=== PATIENT | male | born 1960 ===

== ENCOUNTER 2020-02-01 07:12 | Outpatient (REF) | payer MEDICAID, SELFPAY ==
[2020-02-01 08:00] LABS: MANUAL DIFF FLAG NO
[2020-02-01 08:08] LABS: Basophils Percent Auto 0.3 % (0-2); Eosinophils Absolute Auto 0.2 X10*3/uL (0.0-0.4); Eosinophils Percent Auto 2.6 % (0-4); Hematocrit 48.5 % (42-52); Hemoglobin 16.7 g/dl (14.0-18.0); Imm Gran Abs Auto 0.03 X10*3/uL (0.00-0.03); Imm Gran Pct Auto 0.4 % (0.0-0.4); Lymphocytes Absolute Auto 1.9 X10*3/uL (1.2-4.9); Lymphocytes Percent Auto 25.5 % (20-40); Mean Corpuscular HGB Conc 34.4 g/dl (31.0-36.0); Mean Corpuscular Hemoglobin 32.7 pg (27.0-33.0); Mean Corpuscular Volume 94.9 fL (80-98); Monocytes Absolute Auto 0.8 X10*3/uL (0.1-1.2); Monocytes Percent Auto 11.5 % (2-11); Neutrophils Absolute Auto 4.4 X10*3/uL (2.0-8.3); Neutrophils Percent Auto 59.7 % (45-73); Platelet Count 166 X10*3/uL (160-400); Red Blood Count 5.11 X10*6/uL (4.60-5.80); Red Cell Distribution Width 13.7 % (11.0-16.0); White Blood Count 7.3 X10*3/uL (4.8-10.8)
[2020-02-01 08:21] LABS: Estimated Average Glucose 117 mg/dL; Hemoglobin A1c % 5.7 %
[2020-02-01 08:28] LABS: Alanine Aminotransferase 17 U/L (0-40); Alkaline Phosphatase 58 U/L (39-117); Anion Gap 11 (12-20); Aspartate Amino Transferase 16 U/L (5-37); Bilirubin Total 0.3 mg/dL (0.0-1.0); Blood Urea Nitrogen 16 mg/dL (9-16); Carbon Dioxide 24 mmol/L (22-29); Chloride 108 mmol/L (96-108); Cholesterol 128 mg/dL; Estimated Glomerular Filt Rate > 60; Glucose Random 129 mg/dL (60-115); HDL Cholesterol 29 mg/dL; LDL Cholesterol Calculated 80 mg/dl; Potassium 4.1 mmol/l (3.3-5.1); Sodium 139 mmol/L (135-145); Total Protein 6.7 g/dL (6.5-8.0); Triglycerides 97 mg/dL
[2020-02-01 09:13] LABS: Folate 9.6 ng/mL (> or = 4.0); Vitamin B12 498 pg/mL (200-900)
== END 2020-02-01 07:13 | disposition home or self-care (01) ==
LOC: HO.LAB 07:12
PROVIDERS: PCP Family Medicine; Visit Provider Family Medicine
DX: E53.8 Deficiency of other specified B group vitamins (principal); E78.5 Hyperlipidemia, unspecified; I10 Essential (primary) hypertension
CPT/HCPCS: 36415; 80053; 80061; 82306; 82607; 82746; 83036; 85025

== ENCOUNTER → 2020-02-01 10:16 | Outpatient (BNVA) | payer MEDICAID, SELFPAY | PROVIDERS: PCP Family Medicine; Referring Provider Family Medicine; Visit Provider Family Medicine | DX: Z95.2 Presence of prosthetic heart valve (principal); Z51.81 Encounter for therapeutic drug level monitoring; Z79.01 Long term (current) use of anticoagulants | CPT/HCPCS: 99211 ==

== ENCOUNTER → 2020-02-22 10:12 | Outpatient (BNVA) | payer MEDICAID, SELFPAY | PROVIDERS: PCP Family Medicine; Visit Provider Internal Medicine | DX: Z95.2 Presence of prosthetic heart valve (principal); Z51.81 Encounter for therapeutic drug level monitoring; Z79.01 Long term (current) use of anticoagulants | CPT/HCPCS: 85610; 99211 ==

== ENCOUNTER 2020-03-08 08:26 | Outpatient (REF) | payer MEDICAID, SELFPAY ==
--- NOTE | 2020-03-08 08:30 | CT_ITS ---
EXAMINATION: CT CHEST SCREENING CLINICAL INFORMATION: Follow up pulmonary nodules. COMPARISON: CT chest 12/29/2016 and 02/03/2019. TECHNIQUE: Multidetector volumetric CT imaging of the chest is performed without contrast using low dose technique. Additional 2D coronal and sagittal reformatted images and axial 3D maximum intensity projection (MIP) images are generated on the CT workstation. This CT examination was performed using dose optimization techniques as appropriate, variously including the following: *Automated exposure control *Adjustment of mA and/or kV according to patient size (this includes techniques or standardized protocols for targeted exams where dose is matched to indication/reason for exam; i.e. extremities or head) *Use of iterative reconstruction technique DLP: 67 mGy-cm FINDINGS: LUNGS: Previously seen multiple bilateral cavitary lesions seen in 2017 have completely resolved in 2020. There is a small calcified 5 mm nodule left lower lobe axial image 43/4 and 2 mm calcified nodule lingula axial image 62/9. No acute pneumonic consolidation seen. MEDIASTINUM: The thyroid lobes are symmetric and normal. The central trachea and the bronchi are widely patent. Heart size and the great vessels are normal caliber. There is a benign right paratracheal 1.5 cm lymph node. No pericardial effusion seen. There is aortic valve prosthesis in place. PLEURA: There is no pleural effusion. No pleural mass or thickening. AXILLA: No lymphadenopathy. UPPER ABDOMEN: Visualized liver, pancreas and bilateral adrenal glands are unremarkable. A few scattered calcifications are seen in the spleen. OSSEOUS STRUCTURES: There are median sternotomy sutures and aortic valve prosthesis from previous intervention. CT/CT lung screening IMPRESSION: No noncalcified nodule seen. Cavitary small nodules seen in 2017 have completely resolved. ASSESSMENT: Lung-RADS category 2: Benign. RECOMMENDATION: Low-dose annual CT chest.
== END 2020-03-08 08:27 | disposition home or self-care (01) ==
LOC: HO.CT 08:26
PROVIDERS: PCP Family Medicine; Visit Provider Surgery
DX: F17.210 Nicotine dependence, cigarettes, uncomplicated (principal)
CPT/HCPCS: 71250

== ENCOUNTER 2020-04-15 13:02 | Emergency (ER) | payer MEDICAID, SELFPAY ==
[2020-04-15 13:42] VITALS: BP 124/67; PULSE 88; RESP 16; TEMP 36; O2SAT 100; BMI 25.0
--- NOTE | 2020-04-15 13:49 | PC.NURSE ---
WRONG TRIAGE, PT LWT
== END 2020-04-15 14:18 | disposition left against medical advice (07) ==
PROVIDERS: Emergency Provider Emergency Medicine; PCP Family Medicine
DX: R07.9 Chest pain, unspecified (principal)
CPT/HCPCS: 99282

== ENCOUNTER → 2020-04-24 13:39 | Outpatient (BNVA) | payer MEDICAID, SELFPAY | PROVIDERS: PCP Family Medicine; Visit Provider Internal Medicine | DX: I42.8 Other cardiomyopathies (principal); Z98.890 Other specified postprocedural states; Z86.79 Personal history of other diseases of the circulatory system; Z95.2 Presence of prosthetic heart valve | CPT/HCPCS: 99212 ==

== ENCOUNTER 2020-05-19 08:36 | Emergency (ER) | payer MEDICAID, SELFPAY | END 2020-05-19 10:18 | disposition left against medical advice (07) | PROVIDERS: Emergency Provider Emergency Medicine Emergency Medical Services; PCP Family Medicine | DX: M25.559 Pain in unspecified hip (principal) ==

== ENCOUNTER 2020-05-21 10:40 | Emergency (ER) | payer MEDICAID, SELFPAY ==
[2020-05-21 11:17] VITALS: PULSE 71; RESP 18; TEMP 36.9; O2SAT 997; BMI 33.2
--- NOTE | 2020-05-21 11:18 | ED_ITS ---
HPI - General Adult General Chief complaint: Extremity Problem <Chapis Santamaria NP - Last Filed: 05/21/20 12:29> Stated complaint: back pain <Chapis Santamaria NP - Last Filed: 05/21/20 12:29> Time Seen by Provider: 05/21/20 11:17 <Chapis Santamaria NP - Last Filed: 05/21/20 12:29> Source: patient and interpreter for the deaf <Chapis Santamaria NP - Last Filed: 05/21/20 12:29> Mode of arrival: ambulatory <Chapis Santamaria NP - Last Filed: 05/21/20 12:29> Limitations: language barrier <Chapis Santamaria NP - Last Filed: 05/21/20 12:29> History of Present Illness HPI narrative: 60 yo male with past medical history of cardiomyopathy, COPD, HTN, HLD here with left lower back pain with radiation down the left leg with intermittent numbness/tingling. No injury or trauma. No incontinence. No saddle anesthesia. Ambulatory. Taking motrin for pain with no relief. On coumadin. <Chapis Santamaria NP - Last Filed: 05/21/20 12:29> Onset (ago): week(s) <Chapis Santamaria NP - Last Filed: 05/21/20 12:29> Location: back <Chapis Santamaria NP - Last Filed: 05/21/20 12:29> Radiation: extremity <Chapis Santamaria NP - Last Filed: 05/21/20 12:29> Severity: moderate <Chapis Santamaria NP - Last Filed: 05/21/20 12:29> Quality: aching <Chapis Santamaria NP - Last Filed: 05/21/20 12:29> Pain Consistency: constant <Chapis Santamaria NP - Last Filed: 05/21/20 12:29> Relieving factors: none <Chapis Santamaria NP - Last Filed: 05/21/20 12:29> Exacerbating factors: none <Chapis Santamaria NP - Last Filed: 05/21/20 12:29> Associated symptoms: denies other symptoms <Chapis Santamaria NP - Last Filed: 05/21/20 12:29> Treatments prior to arrival: NSAID <Chapis Santamaria NP - Last Filed: 05/21/20 12:29> Related Data Home medications: Home Medications Medication Instructions Recorded Confirmed aspirin [Aspir-81] 81 mg PO DAILY 03/22/20 04/24/20 bisacodyl [Dulcolax (bisacodyl)] 5 mg PO BEDTIME 03/22/20 04/24/20 cyanocobalamin (vitamin B-12) 1,000 mcg PO DAILY 03/22/20 04/24/20 [Vitamin B-12] ergocalciferol (vitamin D2) 1,250 mcg PO QWEEK 03/22/20 04/24/20 [Vitamin D2] folic acid 1 mg PO DAILY 03/22/20 04/24/20 lisinopril 10 mg PO DAILY 03/22/20 04/24/20 loratadine 10 mg PO DAILY 03/22/20 04/24/20 metoprolol succinate 25 mg PO DAILY 03/22/20 04/24/20 simvastatin 20 mg PO BEDTIME 03/22/20 04/24/20 tiotropium bromide [Spiriva with 1 cap INHALATION DAILY 03/22/20 04/24/20 HandiHaler] tizanidine 4 mg PO TID PRN 03/22/20 04/24/20 Previous Rx's Medication Instructions Recorded warfarin 5 mg tablet 5 mg PO DAILY #90 tab 02/02/20 bisacodyl 5 mg tablet,delayed 10 mg PO ONCE 1 Days #2 tab 03/26/20 release polyethylene glycol 3350 17 238 g PO .COMPLEX 1 Days #238 g 03/26/20 gram/dose oral powder cyclobenzaprine 10 mg PO TID PRN #20 tab 05/21/20 lidocaine [Lidoderm] 1 patch TOPICAL DAILY #1 ea 05/21/20 oxycodone 5 mg PO Q8H PRN #10 tab 05/21/20 <Chapis Santamaria NP - Last Filed: 05/21/20 12:29> Allergies/adverse reactions: Allergies Allergy/AdvReac Type Severity Reaction Status Date / Time acetaminophen [From Tylenol] Allergy Unknown Verified 03/22/20 11:53 <Chapis Santamaria NP - Last Filed: 05/21/20 12:29> Review of Systems Review of Systems: Yes all other systems are reviewed and are negative <Chapis Santamaria NP - Last Filed: 05/21/20 12:29> Constitutional: Constitutional: Reports no additional constitutional complaints, Denies body ache(s), Denies chills, Denies fever(s), Denies headache(s) and Denies weakness <Chapis Santamaria NP - Last Filed: 05/21/20 12:29> Eyes: Eyes: Reports no additional eye complaints and Denies change in vision <Chapis Santamaria NP - Last Filed: 05/21/20 12:29> ENT: Reports system reviewed and no additional complaints, except as documented, Denies dizziness, Denies headache(s), Denies nasal congestion, Denies nasal discharge and Denies neck pain <Chapis Santamaria NP - Last Filed: 05/21/20 12:29> Cardiovascular: Cardiovascular: Reports no additional cardiovascular complaints, Denies chest pain, Denies leg edema and Denies dyspnea <Chapis Santamaria NP - Last Filed: 05/21/20 12:29> Respiratory: Respiratory: Reports no additional respiratory complaints, Denies cough and Denies dyspnea <Chapis Santamaria NP - Last Filed: 05/21/20 12:29> Gastrointestinal: Gastrointestinal: Reports no additional gastrointestinal complaints, Denies abdominal pain, Denies diarrhea, Denies nausea and Denies vomiting <Chapis Santamaria NP - Last Filed: 05/21/20 12:29> Genitourinary: Genitourinary: Denies urinary incontinence <Chapis Santamaria NP - Last Filed: 05/21/20 12:29> Musculoskeletal: Musculoskeletal: Reports no additional musculoskeletal complaints, Reports back pain, Denies arthralgias, Denies joint swelling, Denies neck pain, Denies numbness and Reports tingling <Chapis Santamaria NP - Last Filed: 05/21/20 12:29> Integumentary/Breasts: Skin/Breast: Reports system reviewed and no additional complaints, except as docu and Denies rash <Chapis Santamaria NP - Last Filed: 05/21/20 12:29> Neurologic: Reports system reviewed and no additional complaints, except as documented, Denies Abnormal speech present, Denies dizziness, Denies headache(s), Denies numbness, Reports tingling and Denies weakness <Chapis Santamaria NP - Last Filed: 05/21/20 12:29> FORMERLY [facility] Past Medical History Attestation statement: The following information was validated with the patient. <Chapis Santamaria NP - Last Filed: 05/21/20 12:29> Source: old records reviewed and nursing notes reviewed <Chapis Santamaria NP - Last Filed: 05/21/20 12:29> Medical History: Medical History Aortic valve disorder Cardiomyopathy Chronic cough Emphysema/COPD Hyperlipidemia Hypertension LBBB (left bundle branch block) Nonischemic cardiomyopathy Pulmonary nodular amyloidosis Pulmonary nodule Smoker Vitamin B12 deficiency <Chapis Santamaria NP - Last Filed: 05/21/20 12:29> Surgical History: Surgical History Aortic valve replaced Hx of aortic aneurysm repair Hx of elbow surgery S/P ascending aortic aneurysm repair Status post mechanical aortic valve replacement <Chapis Santamaria NP - Last Filed: 05/21/20 12:29> Social History Social History: Social History Smoking Status: Current every day smoker Packs Per Day: 1 Cigarettes Per Day: 20.0 Years Smoked: 30 Advance Directives: No Advance Directives Information Provided: No <Chapis Santamaria NP - Last Filed: 05/21/20 12:29> Physical Exam Vital Signs: Vital Signs: Last Vital Signs Temp 98.4 F 05/21/20 11:17 Pulse 71 05/21/20 11:17 Resp 18 05/21/20 11:17 Pulse Ox 997 H 05/21/20 11:17 Body Mass Index 33.2 <Chapis Santamaria NP - Last Filed: 05/21/20 12:29> Vital Signs: Last Vital Signs Temp 98.4 F 05/21/20 11:17 Pulse 71 05/21/20 11:17 Resp 18 05/21/20 11:17 Pulse Ox 997 H 05/21/20 11:17 Body Mass Index 33.2 <Epifanio Rocha MD - Last Filed: 05/24/20 15:49> Const: General: cooperative, healthy appearing, comfortable and no acute distress <Chapis Santamaria NP - Last Filed: 05/21/20 12:29> Orientation/consciousness: patient oriented x3 <Chapis Santamaria NP - Last Filed: 05/21/20 12:29> Limitations: no limitations <Chapis Santamaria NP - Last Filed: 05/21/20 12:29> HENMT: Head: Yes normal to inspection <Chapis Santamaria NP - Last Filed: 05/21/20 12:29> Ears: hearing grossly normal bilaterally <Chapis Santamaria NP - Last Filed: 05/21/20 12:29> General nose exam: Normal external nose present <Chapis Santamaria NP - Last Filed: 05/21/20 12:29> Face and sinus: Yes normal facial exam <Chapis Santamaria NP - Last Filed: 05/21/20 12:29> Mouth: Normal oral and palatal mucosa present <Chapis Santamaria NP - Last Filed: 05/21/20 12:29> Throat: Yes posterior oropharynx normal <Chapis Santamaria NP - Last Filed: 05/21/20 12:29> Eyes: General: appearance normal, both eyes and all related structures <Chapis Santamaria NP - Last Filed: 05/21/20 12:29> Pupils: Equal, round and reactive pupils present <Chapis Santamaria NP - Last Filed: 05/21/20 12:29> Neck: Neck: Yes normal visual inspection <Chapis Santamaria NP - Last Filed: 05/21/20 12:29> Chest: Chest palpation & inspection: normal inspection of the chest <Chapis Santamaria NP - Last Filed: 05/21/20 12:29> Resp: Effort & Inspection: normal respiratory effort <Chapis Santamaria NP - Last Filed: 05/21/20 12:29> Auscultation: clear to auscultation bilaterally <Chapis Santamaria NP - Last Filed: 05/21/20 12:29> Cardio: Rate: regular rate <Chapis Santamaria NP - Last Filed: 05/21/20 12:29> Rhythm: regular rhythm <Chapis Santamaria NP - Last Filed: 05/21/20 12:29> Peripheral pulses: Peripheral pulses 2+ throughout <Chapis Santamaria NP - Last Filed: 05/21/20 12:29> GI: Inspection: Yes normal to inspection <Chapis Santamaria NP - Last Filed: 05/21/20 12:29> Palpation (GI): Soft to palpation and nontender <Chapis Santamaria NP - Last Filed: 05/21/20 12:29> Auscultation: normal bowel sounds <Chapis Santamaria NP - Last Filed: 05/21/20 12:29> Back/Spine/Pelvis: Other: Left buttocks tender to palp with radiation down left posterior leg, pain worsened with straight leg raise. No midline tenderness/step offs or deformities. <Chapis Santamaria NP - Last Filed: 05/21/20 12:29> Thoracic/Lumbar Spine: thoracic and lumbar spine normal to inspection <Chapis Santamaria NP - Last Filed: 05/21/20 12:29> Skin: General skin exam: no rashes or lesions noted <Chapis Santamaria NP - Last Filed: 05/21/20 12:29> Neuro: General: patient oriented x3, no focal motor deficits and normal sensat ion to monofilament <Chapis Santamaria NP - Last Filed: 05/21/20 12:29> Cranial nerves: Yes Equal, round and reactive pupils present <Chapis Santamaria NP - Last Filed: 05/21/20 12:29> Cognition (Neuro): normal cognition <Chapis Santamaria NP - Last Filed: 05/21/20 12:29> Speech: No Abnormal speech present <Chapis Santamaria NP - Last Filed: 05/21/20 12:29> Gait exam (Neuro): Normal gait present <Chapis Santamaria NP - Last Filed: 05/21/20 12:29> Motor exam (neuro): 5/5 motor strength present throughout <Chapis Santamaria NP - Last Filed: 05/21/20 12:29> Extrem: General: Yes normal to inspection <Chapis Santamaria NP - Last Filed: 05/21/20 12:29> Course Course Course Narrative: Exam c/w with sciatica. No red flag symptoms or neurological deficits. requesting INR to be tested. This was done and 2.0. Results given to patient. Reviewed worrisome signs/symptoms with patient and when to return to ED. Comfortable with discharge home. <Chapis Santamaria NP - Last Filed: 05/21/20 12:29> I have reviewed the chart <Epifanio Rocha MD - Last Filed: 05/24/20 15:49> Medical Decision Making Lab Data Labs: Lab Results 05/21/20 Range/Units 11:42 PT 23.6 H (10.8-13.0) SEC INR 2.0 H (0.9-1.1) <Chapis Santamaria NP - Last Filed: 05/21/20 12:29> Lab Results 05/21/20 Range/Units 11:42 PT 23.6 H (10.8-13.0) SEC INR 2.0 H (0.9-1.1) <Epifanio Rocha MD - Last Filed: 05/24/20 15:49> Discharge Plan Discharge Clinical Impression: Sciatica <Chapis Santamaria NP - Last Filed: 05/21/20 12:29> Patient Disposition: Home, Self-Care <Chapis Santamaria NP - Last Filed: 05/21/20 12:29> Instructions: Sciatica (ED) <Chapis Santamaria NP - Last Filed: 05/21/20 12:29> Additional Instructions: Heat and gentle stretching Follow-up with PCP in 5 days if no improvement Return for incontinence of stool or urine, or numbness in the groin Your INR is 2.0 <Chapis Santamaria NP - Last Filed: 05/21/20 12:29> Prescriptions: New cyclobenzaprine 10 mg tablet 10 mg PO TID PRN (Reason: muscle spasm) Qty: 20 RF: 0 lidocaine [Lidoderm] 5 % adhesive patch,medicated 1 patch topical DAILY Qty: 1 RF: 0 oxycodone 5 mg tablet 5 mg PO Q8H PRN (Reason: pain) Qty: 10 RF: 0 No Action bisacodyl [Dulcolax (bisacodyl)] 5 mg tablet,delayed release (DR/EC) 10 mg PO ONCE 1 Days Qty: 2 RF: 0 polyethylene glycol 3350 [Miralax] 17 gram/dose powder 238 g PO .COMPLEX 1 Days Qty: 238 RF: 0 aspirin [Aspir-81] 81 mg Tablet,Delayed Release (Dr/Ec) 81 mg PO DAILY RF: 0 simvastatin 20 mg Tablet 20 mg PO BEDTIME RF: 0 lisinopril 10 mg Tablet 10 mg PO DAILY RF: 0 folic acid 1 mg Tablet 1 mg PO DAILY RF: 0 bisacodyl [Dulcolax (bisacodyl)] 5 mg Tablet,Delayed Release (Dr/Ec) 5 mg PO BEDTIME RF: 0 metoprolol succinate 25 mg Tablet Extended Release 24 Hr 25 mg PO DAILY RF: 0 ergocalciferol (vitamin D2) [Vitamin D2] 1,250 mcg (50,000 unit) Capsule 1,250 mcg PO QWEEK RF: 0 loratadine 10 mg Tablet 10 mg PO DAILY RF: 0 Spiriva with HandiHaler 18 mcg Capsule, W/Inhalation Device 1 cap INHALATION DAILY RF: 0 tizanidine 4 mg Capsule 4 mg PO TID PRN (Reason: Pain) RF: 0 cyanocobalamin (vitamin B-12) [Vitamin B-12] 500 mcg Lozenge 1,000 mcg PO DAILY RF: 0 warfarin 5 mg tablet 5 mg PO DAILY Qty: 90 RF: 0 <Cahpis Santamaria NP - Last Filed: 05/21/20 12:29> Referrals: Ana Paula Davidson MD [Primary Care Provider] - 2 days <Chapis Santamaria NP - Last Filed: 05/21/20 12:29> Interventions: ED Discharge Assessment Last Done: 05/21/20 12:28 <Chapis Santamaria NP - Last Filed: 05/21/20 12:29> Discharge Date/Time: 05/21/20 12:28 <Chapis Santamaria NP - Last Filed: 05/21/20 12:29> Print Language: [place]an <Chapis Santamaria NP - Last Filed: 05/21/20 12:29>
[2020-05-21 12:00] LABS: Prothrombin Time 23.6 SEC (10.8-13.0)
== END 2020-05-21 12:28 | disposition home or self-care (01) ==
PROVIDERS: Nurse Practitioner Family; Emergency Provider Emergency Medicine; PCP Family Medicine
DX: M54.42 Lumbago with sciatica, left side (principal); I10 Essential (primary) hypertension; F17.210 Nicotine dependence, cigarettes, uncomplicated
CPT/HCPCS: 36415; 85610; 99283

== ENCOUNTER 2020-05-29 12:26 | Emergency (ER) | payer MEDICAID, SELFPAY ==
[2020-05-29 13:01] VITALS: BP 111/66; PULSE 71; RESP 16; TEMP 36.1; O2SAT 98; BMI 33.2
--- NOTE | 2020-05-29 13:07 | ED_ITS ---
HPI - Back Pain/Injury General Chief Complaint: Back Pain/Injury <DICK Huggins - Last Filed: 05/29/20 13:36> Stated Complaint: leg pain <DICK Huggins - Last Filed: 05/29/20 13:36> Time Seen by Provider: 05/29/20 13:06 <DICK Huggins - Last Filed: 05/29/20 13:36> Source: patient <DICK Huggins Last Filed: 05/29/20 13:36> Mode of arrival: ambulatory <DICK Huggins Last Filed: 05/29/20 13:36> Limitations: language barrier <DICK Huggins Last Filed: 05/29/20 13:36> History of Present Illness HPI Narrative: 60 yo male presents with 1 month of non-traumatic low back pain that radiates down his left leg. He was seen here on 05/21 for the same - prescribed flexeril, oxycodone and lidoderm patches. He returns again today because he ran out of pain medications. No new injury. He states he tried calling his doctor today but he says he was unable to get ahold of them. He denies weakness, incontinence but says it is harder for him to walk because of the pain. <DICK Huggins Last Filed: 05/29/20 13:36> Related Data Home Medications: Home Medications Medication Instructions Recorded Confirmed aspirin [Aspir-81] 81 mg PO DAILY 03/22/20 04/24/20 bisacodyl [Dulcolax (bisacodyl)] 5 mg PO BEDTIME 03/22/20 04/24/20 cyanocobalamin (vitamin B-12) 1,000 mcg PO DAILY 03/22/20 04/24/20 [Vitamin B-12] ergocalciferol (vitamin D2) 1,250 mcg PO QWEEK 03/22/20 04/24/20 [Vitamin D2] folic acid 1 mg PO DAILY 03/22/20 04/24/20 lisinopril 10 mg PO DAILY 03/22/20 04/24/20 loratadine 10 mg PO DAILY 03/22/20 04/24/20 metoprolol succinate 25 mg PO DAILY 03/22/20 04/24/20 simvastatin 20 mg PO BEDTIME 03/22/20 04/24/20 tiotropium bromide [Spiriva with 1 cap INHALATION DAILY 03/22/20 04/24/20 HandiHaler] tizanidine 4 mg PO TID PRN 03/22/20 04/24/20 Previous Rx's Medication Instructions Recorded warfarin 5 mg tablet 5 mg PO DAILY #90 tab 02/02/20 bisacodyl 5 mg tablet,delayed 10 mg PO ONCE 1 Days #2 tab 03/26/20 release polyethylene glycol 3350 17 238 g PO .COMPLEX 1 Days #238 g 03/26/20 gram/dose oral powder cyclobenzaprine 10 mg PO TID PRN #20 tab 05/21/20 lidocaine [Lidoderm] 1 patch TOPICAL DAILY #1 ea 05/21/20 oxycodone 5 mg PO Q8H PRN #10 tab 05/21/20 acetaminophen [Tylenol Arthritis 650 mg PO Q8H PRN #30 tab 05/29/20 Pain] acetaminophen [Tylenol] 650 mg PO Q6H PRN #20 tab 05/29/20 cyclobenzaprine 10 mg PO TID PRN #8 tab 05/29/20 oxycodone 5 mg PO BID PRN #5 tab 05/29/20 oxycodone 5 mg PO Q8H PRN #6 tab 05/29/20 prednisone 40 mg PO DAILY #10 tab 05/29/20 prednisone 40 mg PO DAILY 5 Days #10 tab 05/29/20 <DICK Huggins - Last Filed: 05/29/20 13:36> Allergies/Adverse Reactions: Allergies Allergy/AdvReac Type Severity Reaction Status Date / Time No Known Allergies Allergy Verified 05/30/20 10:27 <DICK Huggins - Last Filed: 05/29/20 13:36> Review of Systems Review of Systems: Constitutional: No Fever, No Chills Cardiovascular: No Chest Pain, No SOB, No Orthopnea, No Edema Respiratory: No Cough, No Sputum, No Wheezing, No dyspnea Gastrointestinal: No Nausea, No Vomiting, No Diarrhea, No abdominal Pain Genitourinary: No incontinence Musculoskeletal: + joint pain, + Myalgias Skin: No Skin Lesions, No rash Neuro: No Weakness, No Numbness, No Dizziness, +tingling down left leg intermittently Heme/Lymph: No Bruising, No Lymphadenopathy <DICK Huggins - Last Filed: 05/29/20 13:36> [facility] Past Medical History Attestation statement: The following information was validated with the patient. <DICK Huggins - Last Filed: 05/29/20 13:36> Medical History: Medical History (Updated 05/30/20 @ 10:48 by AFRICA Ibarra) Aortic valve disorder Cardiomyopathy Chronic cough Diverticulitis Emphysema/COPD Hyperlipidemia Hypertension LBBB (left bundle branch block) Nonischemic cardiomyopathy Pulmonary nodular amyloidosis Pulmonary nodule Smoker Vitamin B12 deficiency <DICK Huggins - Last Filed: 05/29/20 13:36> Surgical History: Surgical History Aortic valve replaced Hx of aortic aneurysm repair Hx of elbow surgery S/P ascending aortic aneurysm repair Status post mechanical aortic valve replacement <DICK Huggins - Last Filed: 05/29/20 13:36> Social History Social History: Social History (Updated 05/30/20 @ 10:30 by Swetha Mcmillan) Household Members: None Alcohol intake: current Alcohol intake frequency: does not drink Smoking Status: Current every day smoker Cigarettes Per Day: 15.0 Years Smoked: 30 Use of substances other than those prescribed or required for medical reasons: No <DICK Huggins - Last Filed: 05/29/20 13:36> Physical Exam Vital Signs: Vital Signs: Last Vital Signs Temp 97.0 F 05/29/20 13:01 Pulse 71 05/29/20 13:01 Resp 16 05/29/20 13:01 BP 111/66 05/29/20 13:01 Pulse Ox 98 05/29/20 13:01 Body Mass Index 33.2 Appearance: Alert. Oriented X3. No acute distress. HEENT: normal inspection CVS: Normal heart rate and rhythm. Pulses normal. Respiratory: No respiratory distress. Skin: Skin warm and dry. Normal skin color. Normal skin turgor. No rashes. Extremities: atraumatic, normal DTR's Back: left SI joint with significant tenderness, moderate soft tissue tenderness of lower left lumbar areas Neuro: Oriented X 3. No motor deficit. No sensory deficit. Walks with limping gait. <DICK Huggins - Last Filed: 05/29/20 13:36> Vital Signs: Last Vital Signs Temp 97.0 F 05/29/20 13:01 Pulse 71 05/29/20 13:01 Resp 16 05/29/20 13:01 BP 111/66 05/29/20 13:01 Pulse Ox 98 05/29/20 13:01 Body Mass Index 33.2 <Epifanio Rocha MD - Last Filed: 06/05/20 08:02> Course Course Course Narrative: 60 y/o male returning with persistent low back pain, radiating down left leg. Seen here on 05/21 for the same. Took the medications prescribed with brief improvement. No red flag symptoms of LBP. No hx IVDA. Has not followed up with his doctor yet. Patient advised that it is very important for him to follow up with his PCP for further management. [employer] reviewed, no narcotics prescribed since 2019 aside from here on 05/21. Will give a 3 day course of medications and trial of steroids for sciatica. Stable for d/c. <DICK Huggins - Last Filed: 05/29/20 13:36> I have reviewed the chart <Epifanio Rocha MD - Last Filed: 06/05/20 08:02> MDM - Back Pain/Injury Differential Diagnosis Differential diagnosis: Likely lumbar radiculopathy, sciatica, strain of lumbar region, pyelonephritis and thoracic back pain <DICK Huggins - Last Filed: 05/29/20 13:36> Critical Care Time Critical Care Time Critical Care Time: No <DICK Huggins - Last Filed: 05/29/20 13:36> Discharge Plan Discharge Clinical Impression: Sciatica <DICK Huggins - Last Filed: 05/29/20 13:36> Patient Disposition: Home, Self-Care <DICK Huggins - Last Filed: 05/29/20 13:36> Instructions: Sciatica (ED), Back Pain (ED), Lower Back Exercises (ED) <DICK Huggins - Last Filed: 05/29/20 13:36> Additional Instructions: No bending, lifting or twisting. Use ice several times per day for 20 minutes at a time for the next 48 hours and then change to heat. Take medications as prescribed to help with pain and discomfort. Follow up with your Primary Care Doctor this week. If your pain worsens, if you develop new numbness, tingling, weakness, loss of function or incontinence call 911 or come back to the ER right away for evaluation. <DICK Huggins - Last Filed: 05/29/20 13:36> Prescriptions: New oxycodone 5 mg tablet 5 mg PO Q8H PRN (Reason: pain) Qty: 6 RF: 0 cyclobenzaprine 10 mg tablet 10 mg PO TID PRN (Reason: muscle spasm) Qty: 8 RF: 0 prednisone 20 mg tablet 40 mg PO DAILY Qty: 10 RF: 0 acetaminophen [Tylenol Arthritis Pain] 650 mg tablet extended release 650 mg PO Q8H PRN (Reason: pain) Qty: 30 RF: 0 oxycodone 5 mg tablet 5 mg PO BID PRN (Reason: pain) Qty: 5 RF: 0 acetaminophen [Tylenol] 325 mg tablet 650 mg PO Q6H PRN (Reason: fever or pain) Qty: 20 RF: 0 prednisone 20 mg tablet 40 mg PO DAILY 5 Days Qty: 10 RF: 0 No Action bisacodyl [Dulcolax (bisacodyl)] 5 mg tablet,delayed release (DR/EC) 10 mg PO ONCE 1 Days Qty: 2 RF: 0 polyethylene glycol 3350 [Miralax] 17 gram/dose powder 238 g PO .COMPLEX 1 Days Qty: 238 RF: 0 aspirin [Aspir-81] 81 mg Tablet,Delayed Release (Dr/Ec) 81 mg PO DAILY RF: 0 simvastatin 20 mg Tablet 20 mg PO BEDTIME RF: 0 lisinopril 10 mg Tablet 10 mg PO DAILY RF: 0 folic acid 1 mg Tablet 1 mg PO DAILY RF: 0 bisacodyl [Dulcolax (bisacodyl)] 5 mg Tablet,Delayed Release (Dr/Ec) 5 mg PO BEDTIME RF: 0 metoprolol succinate 25 mg Tablet Extended Release 24 Hr 25 mg PO DAILY RF: 0 ergocalciferol (vitamin D2) [Vitamin D2] 1,250 mcg (50,000 unit) Capsule 1,250 mcg PO QWEEK RF: 0 loratadine 10 mg Tablet 10 mg PO DAILY RF: 0 Spiriva with HandiHaler 18 mcg Capsule, W/Inhalation Device 1 cap INHALATION DAILY RF: 0 tizanidine 4 mg Capsule 4 mg PO TID PRN (Reason: Pain) RF: 0 cyanocobalamin (vitamin B-12) [Vitamin B-12] 500 mcg Lozenge 1,000 mcg PO DAILY RF: 0 cyclobenzaprine 10 mg tablet 10 mg PO TID PRN (Reason: muscle spasm) Qty: 20 RF: 0 lidocaine [Lidoderm] 5 % adhesive patch,medicated 1 patch topical DAILY Qty: 1 RF: 0 oxycodone 5 mg tablet 5 mg PO Q8H PRN (Reason: pain) Qty: 10 RF: 0 warfarin 5 mg tablet 5 mg PO DAILY Qty: 90 RF: 0 <DICK Huggins - Last Filed: 05/29/20 13:36> Interventions: ED Discharge Assessment Last Done: 05/29/20 14:01 <DICK Huggins - Last Filed: 05/29/20 13:36> Discharge Date/Time: 05/29/20 14:01 <DICK Huggins - Last Filed: 05/29/20 13:36>
== END 2020-05-29 14:01 | disposition home or self-care (01) ==
PROVIDERS: Emergency Provider Emergency Medicine; PCP Family Medicine
DX: M54.32 Sciatica, left side (principal); M54.5 Low back pain; M79.605 Pain in left leg; F17.200 Nicotine dependence, unspecified, uncomplicated; Z71.6 Tobacco abuse counseling; Z79.899 Other long term (current) drug therapy
CPT/HCPCS: 99283

== ENCOUNTER → 2020-05-30 10:26 | Outpatient (BNVA) | payer MEDICAID, SELFPAY | PROVIDERS: PCP Family Medicine; Referring Provider Family Medicine; Visit Provider Nurse Practitioner ==

== ENCOUNTER 2020-06-10 08:44 | Emergency (ER) | payer MEDICAID, SELFPAY ==
--- NOTE | ~2020-06-10 | XR_ITS ---
EXAMINATION: XR CHEST CLINICAL INFORMATION: Chest pain. COMPARISON: None TECHNIQUE: 2 views of the chest were obtained. FINDINGS: No significant abnormality is noted involving the heart, lungs, mediastinum, bony thorax or soft tissues. XR/XR chest 2V IMPRESSION: Unremarkable chest examination.
--- NOTE | 2020-06-10 09:45 | ECG_ITS ---
Test Reason : CHEST PAIN Blood Pressure : / mmHG Vent. Rate : 080 BPM Atrial Rate : 080 BPM P-R Int : 144 ms QRS Dur : 126 ms QT Int : 390 ms P-R-T Axes : 083 056 -16 degrees QTc Int : 449 ms Sinus rhythm with Premature atrial complexes Left bundle branch block Abnormal ECG When compared with ECG of 14-JUN-2019 06:33, No significant change was found Referred By: Chapis Santamaria Electronically Signed By:ANTONIO MEDINA
[2020-06-10 09:56] VITALS: BP 146/76; PULSE 76; RESP 18; TEMP 36.4; O2SAT 98; BMI 32.5
--- NOTE | 2020-06-10 10:02 | ED.CHESTPAIN ---
HPI - Chest Pain General Chief Complaint: Dyspnea Stated Complaint: chest pain x 3 days Time Seen by Provider: 06/10/20 09:28 Source: patient and science interpreter Limitations: no limitations and language barrier (science interpreter used ) History of Present Illness HPI narrative: 60-year-old male with a past medical history of Valve replacement on Coumadin, aortic aneurysm repair, COPD, hyperlipidemia, hypertension, known LBBB, nonischemic cardiomyopathy last EF 55% here with complaints of left-sided chest pain which began last night at rest and was associated with palpitations. Patient tells me this episode lasted approximately 15-20 minutes and there was no associated nausea, diaphoresis, shortness of breath or dizziness. He tells me since then he has had intermittent chest pain which is sharp and stabbing on the left side and is worsened with taking a deep breath and palpation. No leg swelling or pain or shortness of breath or cough. Patient tells me he has been compliant with his Coumadin. No additional episodes of palpitations. He does have some orthopnea which he tells me is chronic and he has had for years and is unchanged from baseline. No weight gain or dyspnea on exertion or leg swelling. MD complaint: chest discomfort Onset (ago): day(s) (<24 hrs ) Timing of current episode: episodic Onset: during rest Pain location: left chest Quality: sharp Relieving factors: rest Exacerbating factors: inspiration, palpation and movement Treatment prior to arrival: none Related Data Home Medications Medication Instructions Recorded Confirmed aspirin [Aspir-81] 81 mg PO DAILY 03/22/20 04/24/20 bisacodyl [Dulcolax (bisacodyl)] 5 mg PO BEDTIME 03/22/20 04/24/20 cyanocobalamin (vitamin B-12) 1,000 mcg PO DAILY 03/22/20 04/24/20 [Vitamin B-12] ergocalciferol (vitamin D2) 1,250 mcg PO QWEEK 03/22/20 04/24/20 [Vitamin D2] folic acid 1 mg PO DAILY 03/22/20 04/24/20 lisinopril 10 mg PO DAILY 03/22/20 04/24/20 loratadine 10 mg PO DAILY 03/22/20 04/24/20 metoprolol succinate 25 mg PO DAILY 03/22/20 04/24/20 simvastatin 20 mg PO BEDTIME 03/22/20 04/24/20 tiotropium bromide [Spiriva with 1 cap INHALATION DAILY 03/22/20 04/24/20 HandiHaler] tizanidine 4 mg PO TID PRN 03/22/20 04/24/20 Previous Rx's Medication Instructions Recorded warfarin 5 mg tablet 5 mg PO DAILY #90 tab 02/02/20 bisacodyl 5 mg tablet,delayed 10 mg PO ONCE 1 Days #2 tab 03/26/20 release polyethylene glycol 3350 17 238 g PO .COMPLEX 1 Days #238 g 03/26/20 gram/dose oral powder cyclobenzaprine 10 mg PO TID PRN #20 tab 05/21/20 lidocaine [Lidoderm] 1 patch TOPICAL DAILY #1 ea 05/21/20 oxycodone 5 mg PO Q8H PRN #10 tab 05/21/20 acetaminophen [Tylenol Arthritis 650 mg PO Q8H PRN #30 tab 05/29/20 Pain] acetaminophen [Tylenol] 650 mg PO Q6H PRN #20 tab 05/29/20 cyclobenzaprine 10 mg PO TID PRN #8 tab 05/29/20 oxycodone 5 mg PO BID PRN #5 tab 05/29/20 oxycodone 5 mg PO Q8H PRN #6 tab 05/29/20 prednisone 40 mg PO DAILY #10 tab 05/29/20 prednisone 40 mg PO DAILY 5 Days #10 tab 05/29/20 Allergies Allergy/AdvReac Type Severity Reaction Status Date / Time No Known Allergies Allergy Verified 05/30/20 10:27 Review of Systems Review of Systems: Yes all other systems are reviewed and are negative Constitutional: Constitutional: Reports no additional constitutional complaints, Denies body ache(s), Denies chills, Denies fever(s), Denies headache(s) and Denies weakness Eyes: Eyes: Reports no additional eye complaints and Denies change in vision ENT: Reports system reviewed and no additional complaints, except as documented, Denies dizziness, Denies headache(s), Denies nasal congestion, Denies nasal discharge and Denies neck pain Cardiovascular: Cardiovascular: Reports no additional cardiovascular complaints, Reports chest pain, Denies leg edema, Reports palpitations and Denies dyspnea Respiratory: Respiratory: Reports no additional respiratory complaints, Denies cough and Denies dyspnea Comments: orthopnea Gastrointestinal: Gastrointestinal: Reports no additional gastrointestinal complaints, Denies abdominal pain, Denies diarrhea, Denies nausea and Denies vomiting Genitourinary: Genitourinary: Denies urinary incontinence Musculoskeletal: Musculoskeletal: Reports no additional musculoskeletal complaints, Denies back pain, Denies arthralgias, Denies joint swelling, Denies neck pain, Denies numbness and Denies tingling Integumentary/Breasts: Skin/Breast: Reports system reviewed and no additional complaints, except as docu and Denies rash Neurologic: Reports system reviewed and no additional complaints, except as documented, Denies Abnormal speech present, Denies dizziness, Denies headache(s), Denies numbness, Denies tingling and Denies weakness Endocrine: Endocrine: Reports palpitations PMFSH Past Medical History Attestation statement: The following information was validated with the patient. Source: old records reviewed and nursing notes reviewed Medical History Aortic valve disorder Cardiomyopathy Chronic cough Diverticulitis Emphysema/COPD Hyperlipidemia Hypertension LBBB (left bundle branch block) Nonischemic cardiomyopathy Pulmonary nodular amyloidosis Pulmonary nodule Smoker Vitamin B12 deficiency Surgical History Aortic valve replaced Hx of aortic aneurysm repair Hx of elbow surgery S/P ascending aortic aneurysm repair Status post mechanical aortic valve replacement Social History Social History (Updated 05/30/20 @ 10:30 by Swetha Mcmillan) Household Members: None Alcohol intake: current Alcohol intake frequency: does not drink Smoking Status: Current every day smoker Cigarettes Per Day: 15.0 Years Smoked: 30 Advance Directives: No Advance Directives Information Provided: Yes Physical Exam Vital Signs: Vital Signs: Last Vital Signs Temp 97.6 F 06/10/20 09:56 Pulse 76 06/10/20 12:28 Resp 19 06/10/20 12:28 BP 124/65 06/10/20 12:28 Pulse Ox 98 06/10/20 12:28 Body Mass Index 32.5 Const: General: cooperative, healthy appearing, comfortable and no acute distress Orientation/consciousness: patient oriented x3 Limitations: no limitations HENMT: Head: Yes normal to inspection Ears: hearing grossly normal bilaterally General nose exam: Normal external nose present Face and sinus: Yes normal facial exam Mouth: Normal oral and palatal mucosa present Throat: Yes posterior oropharynx normal Eyes: General: appearance normal, both eyes and all related structures Pupils: Equal, round and reactive pupils present Neck: Neck: Yes normal visual inspection Chest: Other: Left chest tender to palpate, pain with deep breathing Chest palpation & inspection: normal inspection of the chest Resp: Effort & Inspection: normal respiratory effort Auscultation: clear to auscultation bilaterally Cardio: Rate: regular rate Rhythm: regular rhythm Peripheral pulses: Peripheral pulses 2+ throughout GI: Inspection: Yes normal to inspection Palpation (GI): Soft to palpation and nontender Auscultation: normal bowel sounds Back/Spine/Pelvis: Thoracic/Lumbar Spine: thoracic and lumbar spine normal to inspection Skin: General skin exam: no rashes or lesions noted Neuro: General: patient oriented x3, no focal motor deficits and normal sensation to monofilament Cranial nerves: Yes Equal, round and reactive pupils present Cognition (Neuro): normal cognition Speech: No Abnormal speech present Gait exam (Neuro): Normal gait present Motor exam (neuro): 5/5 motor strength present throughout Extrem: General: Yes normal to inspection, Yes no pedal edema and Yes no calf tenderness Course Course Course Narrative: 60-year-old male here with pleuritic chest pain since last evening which is worsened with deep breathing and palpation. Had an episode of palpitations last evening at rest which resolved and he has not had any additional episodes. He denies any shortness of breath, cough, leg swelling or pain. He does have chronic orthopnea which he tells me is unchanged. Will check labs, EKG, chest x-ray 1130-troponin mildly elevated. EKG shows no EKG changes and chest x-ray is negative. Will plan for repeat 3 hour troponin. 1415-repeat 3 hour troponin unchanged. Patient tells me his symptoms are improved would like to be discharged home. Atypical chest pain on exam. Recommended follow-up with PCP and admin secretary outpatient Reviewed worrisome signs and symptoms when to return to the emergency department. Comfortable discharge home. MDM - Chest Pain MDM Narrative Medical decision making narrative: ACS, PE, musculoskeletal pain, pneumonia Less likely ACS with troponin x 2 flat, EKG with no new changes. less likely PE with therapeutic INR, no hypoxia, tachycardia or clinical s/s of DVT, less likely PNA with negative CXR. Medical Records Data Attestation: I reviewed the patient's medical records. Lab Data Attestation: I reviewed the patient's lab results. Result diagrams: 06/10/20 10:06 06/10/20 10:06 Labs: Lab Results 06/10/20 06/10/20 06/10/20 Range/Units 10:06 10:06 10:06 WBC 11.3 H (4.8-10.8) X10*3/uL RBC 5.24 (4.60-5.80) X10*6/uL Hgb 16.5 (14.0-18.0) g/dl Hct 48.6 (42-52) % MCV 92.7 (80-98) fL MCH 31.5 (27.0-33.0) pg MCHC 34.0 (31.0-36.0) g/dl RDW 13.5 (11.0-16.0) % Plt Count 176 (160-400) X10*3/uL MPV 11.3 (9.4-12.4) fL Immature Gran % (Auto) 0.9 H (0.0-0.4) % Neut % (Auto) 67.3 (45-73) % Lymph % (Auto) 17.1 L (20-40) % [place] % (Auto) 12.3 H (2-11) % Eos % (Auto) 2.0 (0-4) % Baso % (Auto) 0.4 (0-2) % Lymph # (Auto) 1.9 (1.2-4.9) X10*3/uL [place] # (Auto) 1.4 H (0.1-1.2) X10*3/uL Eos # (Auto) 0.2 (0.0-0.4) X10*3/uL Baso # (Auto) 0.0 (0.0-0.2) X10*3/uL Abs Immat Gran (auto) 0.10 H (0.00-0.03) X10*3/uL Absolute Neuts (auto) 7.6 (2.0-8.3) X10*3/uL Absolute Nucleated RBC 0.000 (0.0-0.012) X10*3/uL Nucleated RBC % (auto) 0.0 (0.0-0.2) /100WBC PT 25.0 H (10.8-13.0) SEC INR 2.1 H (0.9-1.1) Sodium 139 (135-145) mmol/L Potassium 4.5 (3.3-5.1) mmol/L Chloride 106 (96-108) mmol/L Carbon Dioxide 26 (22-29) mmol/L Anion Gap 12 (12-20) BUN 12 (9-16) mg/dL Creatinine 0.88 (0.5-1.4) mg/dL Estim Creat Clear Calc 102.6 Estimated GFR > 60 Random Glucose 90 (60-115) mg/dL Calcium 8.5 (8.4-10.2) mg/dL Magnesium 2.3 (1.6-2.6) mg/dL Troponin I High Sens (<3.5-35.0) ng/L 06/10/20 06/10/20 Range/Units 10:06 13:19 WBC (4.8-10.8) X10*3/uL RBC (4.60-5.80) X10*6/uL Hgb (14.0-18.0) g/dl Hct (42-52) % MCV (80-98) fL MCH (27.0-33.0) pg MCHC (31.0-36.0) g/dl RDW (11.0-16.0) % Plt Count (160-400) X10*3/uL MPV (9.4-12.4) fL Immature Gran % (Auto) (0.0-0.4) % Neut % (Auto) (45-73) % Lymph % (Auto) (20-40) % [place] % (Auto) (2-11) % Eos % (Auto) (0-4) % Baso % (Auto) (0-2) % Lymph # (Auto) (1.2-4.9) X10*3/uL [place] # (Auto) (0.1-1.2) X10*3/uL Eos # (Auto) (0.0-0.4) X10*3/uL Baso # (Auto) (0.0-0.2) X10*3/uL Abs Immat Gran (auto) (0.00-0.03) X10*3/uL Absolute Neuts (auto) (2.0-8.3) X10*3/uL Absolute Nucleated RBC (0.0-0.012) X10*3/uL Nucleated RBC % (auto) (0.0-0.2) /100WBC PT (10.8-13.0) SEC INR (0.9-1.1) Sodium (135-145) mmol/L Potassium (3.3-5.1) mmol/L Chloride (96-108) mmol/L Carbon Dioxide (22-29) mmol/L Anion Gap (12-20) BUN (9-16) mg/dL Creatinine (0.5-1.4) mg/dL Estim Creat Clear Calc Estimated GFR Random Glucose (60-115) mg/dL Calcium (8.4-10.2) mg/dL Magnesium (1.6-2.6) mg/dL Troponin I High Sens 8.9 10.0 (<3.5-35.0) ng/L Imaging Data Chest x-ray: Attestation: I personally reviewed and interpreted this imaging study as follows: Radiologist's impression: EXAMINATION: XR CHEST CLINICAL INFORMATION: Chest pain. COMPARISON: None TECHNIQUE: 2 views of the chest were obtained. FINDINGS: No significant abnormality is noted involving the heart, lungs, mediastinum, bony thorax or soft tissues. XR/XR chest 2V IMPRESSION: Unremarkable chest examination. ECG Data ECG #1: Attestation: I personally reviewed and interpreted this ECG as follows: Interpretation: Sinus rhythm with Premature atrial complexes Left bundle branch block Abnormal ECG When compared with ECG of 14-JUN-2019 06:33, No significant change was found Rate of 80, normal AR, normal QRS, normal QT Discharge Plan Discharge Clinical Impression: Chest pain Patient Disposition: Home, Self-Care Instructions: Chest Pain (ED) Additional Instructions: Your EKG and heart levels look normal today. You should follow-up with your primary care doctor Prescriptions: No Action bisacodyl [Dulcolax (bisacodyl)] 5 mg tablet,delayed release (DR/EC) 10 mg PO ONCE 1 Days Qty: 2 RF: 0 polyethylene glycol 3350 [Miralax] 17 gram/dose powder 238 g PO .COMPLEX 1 Days Qty: 238 RF: 0 aspirin [Aspir-81] 81 mg Tablet,Delayed Release (Dr/Ec) 81 mg PO DAILY RF: 0 simvastatin 20 mg Tablet 20 mg PO BEDTIME RF: 0 lisinopril 10 mg Tablet 10 mg PO DAILY RF: 0 folic acid 1 mg Tablet 1 mg PO DAILY RF: 0 bisacodyl [Dulcolax (bisacodyl)] 5 mg Tablet,Delayed Release (Dr/Ec) 5 mg PO BEDTIME RF: 0 metoprolol succinate 25 mg Tablet Extended Release 24 Hr 25 mg PO DAILY RF: 0 ergocalciferol (vitamin D2) [Vitamin D2] 1,250 mcg (50,000 unit) Capsule 1,250 mcg PO QWEEK RF: 0 loratadine 10 mg Tablet 10 mg PO DAILY RF: 0 Spiriva with HandiHaler 18 mcg Capsule, W/Inhalation Device 1 cap INHALATION DAILY RF: 0 tizanidine 4 mg Capsule 4 mg PO TID PRN (Reason: Pain) RF: 0 cyanocobalamin (vitamin B-12) [Vitamin B-12] 500 mcg Lozenge 1,000 mcg PO DAILY RF: 0 cyclobenzaprine 10 mg tablet 10 mg PO TID PRN (Reason: muscle spasm) Qty: 20 RF: 0 lidocaine [Lidoderm] 5 % adhesive patch,medicated 1 patch topical DAILY Qty: 1 RF: 0 oxycodone 5 mg tablet 5 mg PO Q8H PRN (Reason: pain) Qty: 10 RF: 0 oxycodone 5 mg tablet 5 mg PO Q8H PRN (Reason: pain) Qty: 6 RF: 0 cyclobenzaprine 10 mg tablet 10 mg PO TID PRN (Reason: muscle spasm) Qty: 8 RF: 0 prednisone 20 mg tablet 40 mg PO DAILY Qty: 10 RF: 0 acetaminophen [Tylenol Arthritis Pain] 650 mg tablet extended release 650 mg PO Q8H PRN (Reason: pain) Qty: 30 RF: 0 oxycodone 5 mg tablet 5 mg PO BID PRN (Reason: pain) Qty: 5 RF: 0 acetaminophen [Tylenol] 325 mg tablet 650 mg PO Q6H PRN (Reason: fever or pain) Qty: 20 RF: 0 prednisone 20 mg tablet 40 mg PO DAILY 5 Days Qty: 10 RF: 0 warfarin 5 mg tablet 5 mg PO DAILY Qty: 90 RF: 0 Referrals: Ana Paula Davidson MD [Primary Care Provider] - 2 days Interventions: ED Discharge Assessment Last Done: 06/10/20 14:24 Discharge Date/Time: 06/10/20 14:25 Print Language: Turkmen
[2020-06-10 10:31] LABS: MANUAL DIFF FLAG NO
[2020-06-10 10:35] LABS: Basophils Percent Auto 0.4 % (0-2); Eosinophils Absolute Auto 0.2 X10*3/uL (0.0-0.4); Hematocrit 48.6 % (42-52); Hemoglobin 16.5 g/dl (14.0-18.0); Imm Gran Pct Auto 0.9 % (0.0-0.4); Lymphocytes Absolute Auto 1.9 X10*3/uL (1.2-4.9); Lymphocytes Percent Auto 17.1 % (20-40); Mean Corpuscular Hemoglobin 31.5 pg (27.0-33.0); Mean Corpuscular Volume 92.7 fL (80-98); Mean Platelet Volume 11.3 fL (9.4-12.4); Monocytes Absolute Auto 1.4 X10*3/uL (0.1-1.2); Monocytes Percent Auto 12.3 % (2-11); Neutrophils Absolute Auto 7.6 X10*3/uL (2.0-8.3); Neutrophils Percent Auto 67.3 % (45-73); Platelet Count 176 X10*3/uL (160-400); Red Blood Count 5.24 X10*6/uL (4.60-5.80); Red Cell Distribution Width 13.5 % (11.0-16.0); White Blood Count 11.3 X10*3/uL (4.8-10.8)
[2020-06-10 10:41] LABS: INTERNATIONAL NORM RATIO 2.1 (0.9-1.1)
[2020-06-10 11:17] LABS: Troponin-I High Sensitivity 8.9 ng/L (<3.5-35.0)
[2020-06-10 11:18] LABS: Anion Gap 12 (12-20); Blood Urea Nitrogen 12 mg/dL (9-16); Calcium 8.5 mg/dL (8.4-10.2); Carbon Dioxide 26 mmol/L (22-29); Chloride 106 mmol/L (96-108); Creatinine Clr Calc Pharmacy 102.6; Estimated Glomerular Filt Rate > 60; Glucose Random 90 mg/dL (60-115); Magnesium 2.3 mg/dL (1.6-2.6); Potassium 4.5 mmol/L (3.3-5.1); Sodium 139 mmol/L (135-145)
[2020-06-10 12:28] VITALS: BP 124/65; PULSE 76; RESP 19; O2SAT 98
== END 2020-06-10 14:25 | disposition home or self-care (01) ==
PROVIDERS: Nurse Practitioner Family; Emergency Provider Emergency Medicine; PCP Family Medicine
DX: R07.9 Chest pain, unspecified (principal); I10 Essential (primary) hypertension; J44.9 Chronic obstructive pulmonary disease, unspecified; F17.210 Nicotine dependence, cigarettes, uncomplicated; Z95.2 Presence of prosthetic heart valve; Z79.01 Long term (current) use of anticoagulants
CPT/HCPCS: 36415; 71046; 80048; 83735; 84484; 85025; 85610; 93005; 99283

== ENCOUNTER → 2020-07-05 09:42 | Outpatient (BNVA) | payer MEDICAID, SELFPAY | PROVIDERS: PCP Family Medicine; Visit Provider Internal Medicine | DX: Z95.2 Presence of prosthetic heart valve (principal); Z51.81 Encounter for therapeutic drug level monitoring; Z79.01 Long term (current) use of anticoagulants | CPT/HCPCS: 85610; 99211 ==

== ENCOUNTER → 2020-07-10 10:42 | Outpatient (BNVA) | payer MEDICAID, SELFPAY | PROVIDERS: PCP Family Medicine; Visit Provider Internal Medicine | DX: Z95.2 Presence of prosthetic heart valve (principal); Z51.81 Encounter for therapeutic drug level monitoring; Z79.01 Long term (current) use of anticoagulants | CPT/HCPCS: 85610; 99211 ==

== ENCOUNTER → 2020-07-24 09:39 | Outpatient (BNVA) | payer MEDICAID, SELFPAY | PROVIDERS: PCP Family Medicine; Visit Provider Internal Medicine | DX: Z95.2 Presence of prosthetic heart valve (principal); Z51.81 Encounter for therapeutic drug level monitoring; Z79.01 Long term (current) use of anticoagulants | CPT/HCPCS: 85610; 99211 ==

== ENCOUNTER 2020-10-08 08:36 | Emergency (ER) | payer MEDICAID, SELFPAY ==
[2020-10-08 08:51] VITALS: BP 145/80; PULSE 61; RESP 18; TEMP 36.6; O2SAT 95; BMI 33.2
[2020-10-08] MEDS: Docusate Sodium 100 MG/10 ML LIQUID PO ×2 (09:37)
--- NOTE | 2020-10-08 10:34 | ED.EAR ---
HPI - Ear Problem General Chief complaint: Ear Problems Stated complaint: ears clogged for a month Time Seen by Provider: 10/08/20 09:25 Source: patient Mode of arrival: ambulatory History of Present Illness HPI Narrative: 60-year-old male with a past medical history cardiomyopathy, diverticulitis, emphysema/COPD, HTN, HLD, LBBB, vitamin-D deficiency, presenting to the ED complaining of bilateral clogged ears worse on left ear x months. Admits cleaned left ear with a Q-tip about a month ago and has felt blocked since. Denies known injury/trauma, drainage from ear, fever, chills, sore throat. Related Data Home Medications Medication Instructions Recorded Confirmed bisacodyl [Dulcolax (bisacodyl)] 5 mg PO BEDTIME 03/22/20 04/24/20 cyanocobalamin (vitamin B-12) 1,000 mcg PO DAILY 03/22/20 04/24/20 [Vitamin B-12] ergocalciferol (vitamin D2) 1,250 mcg PO QWEEK 03/22/20 04/24/20 [Vitamin D2] folic acid 1 mg PO DAILY 03/22/20 04/24/20 lisinopril 10 mg PO DAILY 03/22/20 04/24/20 loratadine 10 mg PO DAILY 03/22/20 04/24/20 metoprolol succinate 25 mg PO DAILY 03/22/20 04/24/20 simvastatin 20 mg PO BEDTIME 03/22/20 04/24/20 tiotropium bromide [Spiriva with 1 cap INHALATION DAILY 03/22/20 04/24/20 HandiHaler] tizanidine 4 mg PO TID PRN 03/22/20 04/24/20 Previous Rx's Medication Instructions Recorded warfarin 5 mg tablet 5 mg PO DAILY #90 tab 02/02/20 bisacodyl 5 mg tablet,delayed 10 mg PO ONCE 1 Days #2 tab 03/26/20 release polyethylene glycol 3350 17 238 g PO .COMPLEX 1 Days #238 g 03/26/20 gram/dose oral powder cyclobenzaprine 10 mg PO TID PRN #20 tab 05/21/20 lidocaine [Lidoderm] 1 patch TOPICAL DAILY #1 ea 05/21/20 oxycodone 5 mg PO Q8H PRN #10 tab 05/21/20 acetaminophen [Tylenol Arthritis 650 mg PO Q8H PRN #30 tab 05/29/20 Pain] acetaminophen [Tylenol] 650 mg PO Q6H PRN #20 tab 05/29/20 cyclobenzaprine 10 mg PO TID PRN #8 tab 05/29/20 oxycodone 5 mg PO BID PRN #5 tab 05/29/20 oxycodone 5 mg PO Q8H PRN #6 tab 05/29/20 prednisone 40 mg PO DAILY #10 tab 05/29/20 prednisone 40 mg PO DAILY 5 Days #10 tab 05/29/20 aspirin 81 mg tablet,delayed 81 mg PO DAILY #90 tab 06/12/20 release Allergies Allergy/AdvReac Type Severity Reaction Status Date / Time No Known Allergies Allergy Verified 10/08/20 08:53 Review of Systems Review of Systems: Constitutional: No Fever, No Chills ENT/Mouth: No Ear Pain, +clogged ears, No Nasal Congestion, No Sinus Pain, No Hoarseness, No sore throat, No Swallowing Difficulty Cardiovascular: No Chest Pain, No SOB Respiratory: No Cough Musculoskeletal: No joint pain Skin: No Skin Lesions, No rash Yes all other systems are reviewed and are negative PMFSH Past Medical History Attestation statement: The following information was validated with the patient. Medical History Aortic valve disorder Cardiomyopathy Chronic cough Diverticulitis Emphysema/COPD Hyperlipidemia Hypertension LBBB (left bundle branch block) Nonischemic cardiomyopathy Pulmonary nodular amyloidosis Pulmonary nodule Smoker Vitamin B12 deficiency Surgical History Aortic valve replaced Hx of aortic aneurysm repair Hx of elbow surgery S/P ascending aortic aneurysm repair Status post mechanical aortic valve replacement Social History Social History (Updated 05/30/20 @ 10:30 by TERESO Trujillo) Household Members: None Alcohol intake: current Alcohol intake frequency: does not drink Cigarettes Per Day: 15.0 Years Smoked: 30 Advance Directives: No Advance Directives Information Provided: No Physical Exam Vital Signs: Vital Signs: Last Vital Signs Temp 97.8 F 10/08/20 08:51 Pulse 61 10/08/20 08:51 Resp 18 10/08/20 08:51 BP 145/80 H 10/08/20 08:51 Pulse Ox 95 10/08/20 08:51 Body Mass Index 33.2 Const: General: cooperative, healthy appearing and no acute distress Orientation/consciousness: patient oriented x3 Limitations: no limitations HENMT: Head: Yes normal to inspection Ears: external ears normal and TM abnormal obstructed by cerumen bilateral General nose exam: Normal external nose present Face and sinus: Yes normal facial exam Mouth: Normal oral and palatal mucosa present Eyes: General: appearance normal, both eyes and all related structures EOM: EOMs intact bilaterally Neck: Neck: Yes normal visual inspection, Yes no lymphadenopathy and Yes no meningeal signs Resp: Effort & Inspection: normal respiratory effort, not labored and no stridor Cardio: Rate: regular rate GI: Inspection: Yes normal to inspection Skin: Rashes: no rashes Wounds: no wounds Neuro: General: patient oriented x3 and no meningeal signs Gait exam (Neuro): Normal gait present Extrem: General: Yes normal to inspection Procedures Ear Wax Removal Both Ears: Cerumenolytic Used: Colace and 5-10% Sodium Bicarb solution Results: Re-examined: some cerumen remains TM Examination: TM(s) intact, normal appearance Ear Canal Exam: atraumatic Patient Tolerated Procedure: well Complications: no problems Technique: ear canal irrigated Additional Comments: Left ear TM WNL, right ear with partial TM remains obstructed by cerumen MDM - Ear MDM Narrative Medical decision making narrative: 60-year-old male with a past medical history cardiomyopathy, diverticulitis, emphysema/COPD, HTN, HLD, LBBB, vitamin-D deficiency, presenting to the ED complaining of bilateral clogged ears worse on left ear x months. On exam vital signs stable, NAD, well appearing, bilateral cerumen impaction. Mostly cleared with Colace/irrigation. No evidence of otitis media or externa. Discussed with patient peroxide soaks at home and ENT follow-up Discharge Plan Discharge Clinical Impression: Bilateral impacted cerumen Patient Disposition: Home, Self-Care Additional Instructions: A good amount of earwax was taken from your ears today, is important for you to do peroxide/water 50% /50% mixs/soaks at home to help soften your ear wax You need to follow-up with ENT, ear nose throat specialist If your your pain/clogging persists or worsens, he developed fever, drainage from ears please return to the ED Hoy se extrajo raza buena cantidad de cera de los o?dos, es importante que avis mezclas / remojos de per?xido / agua al 50% / 50% en casa para ayudar a suavizar la cera de los o?dos. Debe hacer un seguimiento con ENT, especialista en o?do, nariz y garganta. Si marsh dolor / obstrucci?n persiste o empeora, desarroll? fiebre, supuraci?n de los o?dos, por favor regrese al servicio de urgencias. Prescriptions: No Action bisacodyl [Dulcolax (bisacodyl)] 5 mg tablet,delayed release (DR/EC) 10 mg PO ONCE 1 Days Qty: 2 RF: 0 polyethylene glycol 3350 [Miralax] 17 gram/dose powder 238 g PO .COMPLEX 1 Days Qty: 238 RF: 0 aspirin 81 mg tablet,delayed release (DR/EC) 81 mg PO DAILY Qty: 90 RF: 3 simvastatin 20 mg Tablet 20 mg PO BEDTIME RF: 0 lisinopril 10 mg Tablet 10 mg PO DAILY RF: 0 folic acid 1 mg Tablet 1 mg PO DAILY RF: 0 bisacodyl [Dulcolax (bisacodyl)] 5 mg Tablet,Delayed Release (Dr/Ec) 5 mg PO BEDTIME RF: 0 metoprolol succinate 25 mg Tablet Extended Release 24 Hr 25 mg PO DAILY RF: 0 ergocalciferol (vitamin D2) [Vitamin D2] 1,250 mcg (50,000 unit) Capsule 1,250 mcg PO QWEEK RF: 0 loratadine 10 mg Tablet 10 mg PO DAILY RF: 0 Spiriva with HandiHaler 18 mcg Capsule, W/Inhalation Device 1 cap INHALATION DAILY RF: 0 tizanidine 4 mg Capsule 4 mg PO TID PRN (Reason: Pain) RF: 0 cyanocobalamin (vitamin B-12) [Vitamin B-12] 500 mcg Lozenge 1,000 mcg PO DAILY RF: 0 cyclobenzaprine 10 mg tablet 10 mg PO TID PRN (Reason: muscle spasm) Qty: 20 RF: 0 lidocaine [Lidoderm] 5 % adhesive patch,medicated 1 patch topical DAILY Qty: 1 RF: 0 oxycodone 5 mg tablet 5 mg PO Q8H PRN (Reason: pain) Qty: 10 RF: 0 oxycodone 5 mg tablet 5 mg PO Q8H PRN (Reason: pain) Qty: 6 RF: 0 cyclobenzaprine 10 mg tablet 10 mg PO TID PRN (Reason: muscle spasm) Qty: 8 RF: 0 prednisone 20 mg tablet 40 mg PO DAILY Qty: 10 RF: 0 acetaminophen [Tylenol Arthritis Pain] 650 mg tablet extended release 650 mg PO Q8H PRN (Reason: pain) Qty: 30 RF: 0 oxycodone 5 mg tablet 5 mg PO BID PRN (Reason: pain) Qty: 5 RF: 0 acetaminophen [Tylenol] 325 mg tablet 650 mg PO Q6H PRN (Reason: fever or pain) Qty: 20 RF: 0 prednisone 20 mg tablet 40 mg PO DAILY 5 Days Qty: 10 RF: 0 warfarin 5 mg tablet 5 mg PO DAILY Qty: 90 RF: 0 Referrals: Uri Hammond [Physician] - 5 days Interventions: ED Discharge Assessment Last Done: 10/08/20 10:50 Discharge Date/Time: 10/08/20 10:51 Print Language: Portuguese
== END 2020-10-08 10:51 | disposition home or self-care (01) ==
PROVIDERS: Emergency Provider Emergency Medicine; PCP Family Medicine
DX: H61.23 Impacted cerumen, bilateral (principal); I10 Essential (primary) hypertension; E78.5 Hyperlipidemia, unspecified; F17.210 Nicotine dependence, cigarettes, uncomplicated; Z95.2 Presence of prosthetic heart valve; Z79.01 Long term (current) use of anticoagulants
CPT/HCPCS: 69209; 99283

== ENCOUNTER → 2020-11-01 10:28 | Outpatient (BNVA) | payer MEDICAID, SELFPAY | PROVIDERS: PCP Family Medicine; Visit Provider Internal Medicine | DX: Z95.2 Presence of prosthetic heart valve (principal); Z51.81 Encounter for therapeutic drug level monitoring; Z79.01 Long term (current) use of anticoagulants | CPT/HCPCS: 85610; 99211 ==

== ENCOUNTER 2020-11-15 08:20 | Emergency (ER) | payer MEDICAID, SELFPAY ==
--- NOTE | ~2020-11-15 | XR_ITS ---
EXAMINATION: XR CHEST CLINICAL INFORMATION: Chest pain COMPARISON: Previous chest x-ray most recent June 2020 TECHNIQUE: Frontal view of the chest was obtained. FINDINGS: The cardiac silhouette is enlarged. There is a prosthetic heart valve. There are median sternotomy wires. There may be pulmonary venous redistribution. The lungs are otherwise clear. There is no pleural effusion or pneumothorax. No acute bone abnormality. XR/XR chest 1V IMPRESSION: Enlarged cardiac silhouette and question pulmonary venous redistribution. No evidence of pulmonary edema.
--- NOTE | 2020-11-15 08:25 | ED_ITS ---
HPI - Chest Pain General Chief Complaint: Chest Pain Stated Complaint: Chest Pain Time Seen by Provider: 11/15/20 08:23 Source: patient, old records reviewed and [employer] Mode of arrival: ambulatory Limitations: no limitations History of Present Illness MD complaint: chest pain Pertinent past history: other (AVR replacement, s/p thoracic aneurysm repair) Onset (ago): day(s) (2) Timing of current episode: constant Onset: during rest and during exertion Pain location: left chest Severity: similar to previous episodes Quality: sharp and burning Relieving factors: nothing Exacerbating factors: inspiration, palpation and movement Context: other (smoking) Associated symptoms: dyspnea and cough Treatment prior to arrival: none Related Data Home Medications Medication Instructions Recorded Confirmed bisacodyl [Dulcolax (bisacodyl)] 5 mg PO BEDTIME 03/22/20 11/01/20 cyanocobalamin (vitamin B-12) 1,000 mcg PO DAILY 03/22/20 11/01/20 [Vitamin B-12] ergocalciferol (vitamin D2) 1,250 mcg PO QWEEK 03/22/20 11/01/20 [Vitamin D2] folic acid 1 mg PO DAILY 03/22/20 11/01/20 lisinopril 10 mg PO DAILY 03/22/20 11/01/20 loratadine 10 mg PO DAILY 03/22/20 11/01/20 metoprolol succinate 25 mg PO DAILY 03/22/20 11/01/20 simvastatin 20 mg PO BEDTIME 03/22/20 11/01/20 tiotropium bromide [Spiriva with 1 cap INHALATION DAILY 03/22/20 11/01/20 HandiHaler] tizanidine 4 mg PO TID PRN 03/22/20 11/01/20 Previous Rx's Medication Instructions Recorded warfarin 5 mg tablet 5 mg PO DAILY #90 tab 02/02/20 bisacodyl 5 mg tablet,delayed 10 mg PO ONCE 1 Days #2 tab 03/26/20 release polyethylene glycol 3350 17 238 g PO .COMPLEX 1 Days #238 g 03/26/20 gram/dose oral powder cyclobenzaprine 10 mg PO TID PRN #20 tab 05/21/20 lidocaine [Lidoderm] 1 patch TOPICAL DAILY #1 ea 05/21/20 oxycodone 5 mg PO Q8H PRN #10 tab 05/21/20 acetaminophen [Tylenol Arthritis 650 mg PO Q8H PRN #30 tab 05/29/20 Pain] acetaminophen [Tylenol] 650 mg PO Q6H PRN #20 tab 05/29/20 cyclobenzaprine 10 mg PO TID PRN #8 tab 05/29/20 oxycodone 5 mg PO BID PRN #5 tab 05/29/20 oxycodone 5 mg PO Q8H PRN #6 tab 05/29/20 prednisone 40 mg PO DAILY #10 tab 05/29/20 prednisone 40 mg PO DAILY 5 Days #10 tab 05/29/20 aspirin 81 mg tablet,delayed 81 mg PO DAILY #90 tab 06/12/20 release prednisone 40 mg PO DAILY 5 Days #10 tab 11/15/20 Allergies Allergy/AdvReac Type Severity Reaction Status Date / Time No Known Allergies Allergy Verified 10/08/20 08:53 Review of Systems Review of Systems: Constitutional : No Weight loss, No Fever, No Chills ENT/Mouth : No sore throat, No Rhinorrhea Eyes: No Eye Pain, No Swelling Cardiovascular : pos Chest Pain, pos SOB, no Dyspnea on Exertion, No Orthopnea, No Edema, No Palpitations Respiratory : pos Cough, No Sputum Gastrointestinal : no Nausea, No Vomiting, No Diarrhea, No abdominal Pain, No Hematochezia, No Melena Genitourinary : No Dysuria, No Urinary Frequency Musculoskeletal : No joint pain, No Myalgias, No Joint Swelling Skin : No Skin Lesions, No rash Neuro : No Weakness, No Numbness, No Dizziness, No Headache Psych : No Anxiety/Panic, No Depression Heme/Lymph: No Bruising, No Lymphadenopathy Endocrine : No Polyuria, No Polydipsia All other systems reviewed and are negative [facility] Past Medical History Attestation statement: The following information was validated with the patient. Medical History Aortic valve disorder Cardiomyopathy Chronic cough Diverticulitis Emphysema/COPD Hyperlipidemia Hypertension LBBB (left bundle branch block) Nonischemic cardiomyopathy Pulmonary nodular amyloidosis Pulmonary nodule Smoker Vitamin B12 deficiency Surgical History Aortic valve replaced Hx of aortic aneurysm repair Hx of elbow surgery S/P ascending aortic aneurysm repair Status post mechanical aortic valve replacement Social History Social History Household Members: None Alcohol intake: current Alcohol intake frequency: does not drink Cigarettes Per Day: 15.0 Years Smoked: 30 Advance Directives: No Advance Directives Information Provided: No Physical Exam Vital Signs: Vital Signs: Last Vital Signs Temp 98.7 F 11/15/20 08:27 Pulse 65 11/15/20 08:50 Resp 15 11/15/20 08:27 BP 129/71 11/15/20 08:27 Pulse Ox 97 11/15/20 08:27 Body Mass Index 33.2 Appearance: Alert. Oriented X3. No acute distress. Eyes: Pupils equal, round and reactive to light. ENT: Pharynx normal. Neck: Normal inspection. Neck supple. CVS: Normal heart rate and rhythm. Pulses normal. Click heard Chest: ttp along left chest wall Respiratory: No respiratory distress. Breath sounds mild diffuse end exp wheezes noted Abdomen: Soft and nontender. Skin: Skin warm and dry. Normal skin color. Normal skin turgor. Extremities: No lower extremity edema. No calf ttp Neuro: Oriented X 3. No motor deficit. No sensory deficit. Course Course Course Narrative: trop at baseline BNP 200 but no clinical signs of fluid overload at this time EKG unchanged trop at baseline feels better after neb will DC home with INH and oral steroids MDM - Chest Pain MDM Narrative Medical decision making narrative: 60 yo male with hx of nonischemic cardiomyopathy, asthma, s/p AVR mechanical on coumadin, then subsequent aneurysm graft 2010 - he has had bouts of intermittent atypical chest pain for a long time last seen in June for same - thinks it is his lungs c/o L sided pleuritic chest pain and notes a dry cough worse with smoking - labs, troponin x 1, CXR, doubt PE given coumadin use, doubt dissection at this time given he appears comfortable it seems pulmonary in nature - distal pulses intact - will attempt albuterol trial given wheezes on exam Lab Data Result diagrams: 11/15/20 08:45 11/15/20 08:44 Labs: Lab Results 11/15/20 11/15/20 11/15/20 Range/Units 08:44 08:44 08:44 WBC (4.8-10.8) X10*3/uL RBC (4.60-5.80) X10*6/uL Hgb (14.0-18.0) g/dl Hct (42-52) % MCV (80-98) fL MCH (27.0-33.0) pg MCHC (31.0-36.0) g/dl RDW (11.0-16.0) % Plt Count (160-400) X10*3/uL MPV (9.4-12.4) fL Immature Gran % (Auto) (0.0-0.4) % Neut % (Auto) (45-73) % Lymph % (Auto) (20-40) % [place] % (Auto) (2-11) % Eos % (Auto) (0-4) % Baso % (Auto) (0-2) % Lymph # (Auto) (1.2-4.9) X10*3/uL [place] # (Auto) (0.1-1.2) X10*3/uL Eos # (Auto) (0.0-0.4) X10*3/uL Baso # (Auto) (0.0-0.2) X10*3/uL Abs Immat Gran (auto) (0.00-0.03) X10*3/uL Absolute Neuts (auto) (2.0-8.3) X10*3/uL Absolute Nucleated RBC (0.0-0.012) X10*3/uL Nucleated RBC % (auto) (0.0-0.2) /100WBC PT 25.4 H (9.9-13.0) SEC INR 2.2 H (0.9-1.1) APTT 44.3 H (24.1-38.0) SEC Sodium 141 (135-145) mmol/L Potassium 4.5 (3.3-5.1) mmol/L Chloride 110 H (96-108) mmol/L Carbon Dioxide 24 (22-29) mmol/L Anion Gap 12 (12-20) BUN 9 (9-16) mg/dL Creatinine 0.98 (0.5-1.4) mg/dL Estim Creat Clear Calc 93.2 Estimated GFR > 60 Random Glucose 92 (60-115) mg/dL Calcium 8.6 (8.4-10.2) mg/dL Magnesium 1.9 (1.6-2.6) mg/dL Total Bilirubin 0.4 (0.0-1.0) mg/dL Direct Bilirubin 0.2 (0.0-0.5) mg/dL AST 17 (5-37) U/L ALT 12 (0-40) U/L Alkaline Phosphatase 56 (39-117) U/L Troponin I High Sens 10.5 (<3.5-35.0) ng/L B-Natriuretic Peptide 202 H (<100) pg/mL Total Protein 6.4 L (6.5-8.0) g/dL Albumin 3.8 (3.5-5.0) g/dL Lipase 26 (8-78) U/L / Range/Units 08:45 WBC 7.4 (4.8-10.8) X10*3/uL RBC 4.97 (4.60-5.80) X10*6/uL Hgb 15.4 (14.0-18.0) g/dl Hct 46.2 (42-52) % MCV 93.0 (80-98) fL MCH 31.0 (27.0-33.0) pg MCHC 33.3 (31.0-36.0) g/dl RDW 13.7 (11.0-16.0) % Plt Count 160 (160-400) X10*3/uL MPV 11.8 (9.4-12.4) fL Immature Gran % (Auto) 0.3 (0.0-0.4) % Neut % (Auto) 61.1 (45-73) % Lymph % (Auto) 23.5 (20-40) % [place] % (Auto) 11.7 H (2-11) % Eos % (Auto) 3.0 (0-4) % Baso % (Auto) 0.4 (0-2) % Lymph # (Auto) 1.8 (1.2-4.9) X10*3/uL [place] # (Auto) 0.9 (0.1-1.2) X10*3/uL Eos # (Auto) 0.2 (0.0-0.4) X10*3/uL Baso # (Auto) 0.0 (0.0-0.2) X10*3/uL Abs Immat Gran (auto) 0.02 (0.00-0.03) X10*3/uL Absolute Neuts (auto) 4.6 (2.0-8.3) X10*3/uL Absolute Nucleated RBC 0.000 (0.0-0.012) X10*3/uL Nucleated RBC % (auto) 0.0 (0.0-0.2) /100WBC PT (9.9-13.0) SEC INR (0.9-1.1) APTT (24.1-38.0) SEC Sodium (135-145) mmol/L Potassium (3.3-5.1) mmol/L Chloride (96-108) mmol/L Carbon Dioxide (22-29) mmol/L Anion Gap (12-20) BUN (9-16) mg/dL Creatinine (0.5-1.4) mg/dL Estim Creat Clear Calc Estimated GFR Random Glucose (60-115) mg/dL Calcium (8.4-10.2) mg/dL Magnesium (1.6-2.6) mg/dL Total Bilirubin (0.0-1.0) mg/dL Direct Bilirubin (0.0-0.5) mg/dL AST (5-37) U/L ALT (0-40) U/L Alkaline Phosphatase (39-117) U/L Troponin I High Sens (<3.5-35.0) ng/L B-Natriuretic Peptide (<100) pg/mL Total Protein (6.5-8.0) g/dL Albumin (3.5-5.0) g/dL Lipase (8-78) U/L ECG Data ECG #1: Attestation: I personally reviewed and interpreted this ECG as follows: ECG interpretation date: 11/15/20 ECG interpretation time: 08:47 Interpretation: Rate: 71 Rhythm: NSR with occ PVCs [place]: normal Normal P waves. Normal WOO. LBBB ST T wave : nonspecific, no ARTEMIO inverted II, III, aVF qTC: normal prior studies: no change from prior The study has been interpreted contemporaneously by me. . Discharge Plan Discharge Clinical Impression: Atypical chest pain, Bronchospasm Patient Disposition: Home, Self-Care Instructions: Chest Pain (ED), Bronchospasm (ED) Additional Instructions: use karly inhaladores en casa - USE your inhalers at home Regrese al servicio de urgencias por cualquier s?ntoma o preocupaci?n que empeore Prescriptions: New prednisone 20 mg tablet 40 mg PO DAILY 5 Days Qty: 10 RF: 0 No Action bisacodyl [Dulcolax (bisacodyl)] 5 mg tablet,delayed release (DR/EC) 10 mg PO ONCE 1 Days Qty: 2 RF: 0 polyethylene glycol 3350 [Miralax] 17 gram/dose powder 238 g PO .COMPLEX 1 Days Qty: 238 RF: 0 aspirin 81 mg tablet,delayed release (DR/EC) 81 mg PO DAILY Qty: 90 RF: 3 simvastatin 20 mg Tablet 20 mg PO BEDTIME RF: 0 lisinopril 10 mg Tablet 10 mg PO DAILY RF: 0 folic acid 1 mg Tablet 1 mg PO DAILY RF: 0 bisacodyl [Dulcolax (bisacodyl)] 5 mg Tablet,Delayed Release (Dr/Ec) 5 mg PO BEDTIME RF: 0 metoprolol succinate 25 mg Tablet Extended Release 24 Hr 25 mg PO DAILY RF: 0 ergocalciferol (vitamin D2) [Vitamin D2] 1,250 mcg (50,000 unit) Capsule 1,250 mcg PO QWEEK RF: 0 loratadine 10 mg Tablet 10 mg PO DAILY RF: 0 Spiriva with HandiHaler 18 mcg Capsule, W/Inhalation Device 1 cap INHALATION DAILY RF: 0 tizanidine 4 mg Capsule 4 mg PO TID PRN (Reason: Pain) RF: 0 cyanocobalamin (vitamin B-12) [Vitamin B-12] 500 mcg Lozenge 1,000 mcg PO DAILY RF: 0 cyclobenzaprine 10 mg tablet 10 mg PO TID PRN (Reason: muscle spasm) Qty: 20 RF: 0 lidocaine [Lidoderm] 5 % adhesive patch,medicated 1 patch topical DAILY Qty: 1 RF: 0 oxycodone 5 mg tablet 5 mg PO Q8H PRN (Reason: pain) Qty: 10 RF: 0 oxycodone 5 mg tablet 5 mg PO Q8H PRN (Reason: pain) Qty: 6 RF: 0 cyclobenzaprine 10 mg tablet 10 mg PO TID PRN (Reason: muscle spasm) Qty: 8 RF: 0 prednisone 20 mg tablet 40 mg PO DAILY Qty: 10 RF: 0 acetaminophen [Tylenol Arthritis Pain] 650 mg tablet extended release 650 mg PO Q8H PRN (Reason: pain) Qty: 30 RF: 0 oxycodone 5 mg tablet 5 mg PO BID PRN (Reason: pain) Qty: 5 RF: 0 acetaminophen [Tylenol] 325 mg tablet 650 mg PO Q6H PRN (Reason: fever or pain) Qty: 20 RF: 0 prednisone 20 mg tablet 40 mg PO DAILY 5 Days Qty: 10 RF: 0 warfarin 5 mg tablet 5 mg PO DAILY Qty: 90 RF: 0 Referrals: Ana Paula Davidson MD [Primary Care Provider] - 2 days (si no arthur) Print Language: Lithuanian
--- NOTE | 2020-11-15 08:26 | ECG_ITS ---
Test Reason : CHEST PAIN Blood Pressure : / mmHG Vent. Rate : 071 BPM Atrial Rate : 071 BPM P-R Int : 134 ms QRS Dur : 122 ms QT Int : 422 ms P-R-T Axes : 024 067 -07 degrees QTc Int : 458 ms Sinus rhythm with sinus arrhythmia with occasional Premature ventricular complexes Left bundle branch block Abnormal ECG When compared with ECG of 10-JUN-2020 08:52, Premature ventricular complexes are now Present Premature atrial complexes are no longer Present Referred By: Lissette Su Electronically Signed By:Avi Brennan
[2020-11-15 08:27] VITALS: BP 129/71; PULSE 70; RESP 15; TEMP 37.1; O2SAT 97; BMI 33.2
[2020-11-15] MEDS: Albuterol Sulfate (0.083%) 2.5 MG/3 ML VIAL.NEB INHALE (08:47)
[2020-11-15 08:50] VITALS: PULSE 65; O2SAT 98
[2020-11-15 08:57] LABS: MANUAL DIFF FLAG NO
[2020-11-15 08:58] LABS: Basophils Percent Auto 0.4 % (0-2); Eosinophils Absolute Auto 0.2 X10*3/uL (0.0-0.4); Hematocrit 46.2 % (42-52); Hemoglobin 15.4 g/dl (14.0-18.0); Imm Gran Abs Auto 0.02 X10*3/uL (0.00-0.03); Imm Gran Pct Auto 0.3 % (0.0-0.4); Lymphocytes Absolute Auto 1.8 X10*3/uL (1.2-4.9); Lymphocytes Percent Auto 23.5 % (20-40); Mean Corpuscular HGB Conc 33.3 g/dl (31.0-36.0); Mean Platelet Volume 11.8 fL (9.4-12.4); Monocytes Absolute Auto 0.9 X10*3/uL (0.1-1.2); Monocytes Percent Auto 11.7 % (2-11); Neutrophils Absolute Auto 4.6 X10*3/uL (2.0-8.3); Neutrophils Percent Auto 61.1 % (45-73); Platelet Count 160 X10*3/uL (160-400); Red Blood Count 4.97 X10*6/uL (4.60-5.80); Red Cell Distribution Width 13.7 % (11.0-16.0); White Blood Count 7.4 X10*3/uL (4.8-10.8)
[2020-11-15 09:06] LABS: INTERNATIONAL NORM RATIO 2.2 (0.9-1.1); Prothrombin Time 25.4 SEC (9.9-13.0)
[2020-11-15 09:09] LABS: Partial Thromboplastin Time 44.3 SEC (24.1-38.0)
[2020-11-15 09:30] LABS: Alanine Aminotransferase 12 U/L (0-40); Albumin Level 3.8 g/dL (3.5-5.0); Alkaline Phosphatase 56 U/L (39-117); Aspartate Amino Transferase 17 U/L (5-37); Bilirubin Direct 0.2 mg/dL (0.0-0.5); Bilirubin Total 0.4 mg/dL (0.0-1.0); Lipase 26 U/L (8-78); Magnesium 1.9 mg/dL (1.6-2.6); Total Protein 6.4 g/dL (6.5-8.0)
[2020-11-15 09:35] LABS: B Type Natriuretic Peptide 202 pg/mL (<100); Troponin-I High Sensitivity 10.5 ng/L (<3.5-35.0)
[2020-11-15 09:56] LABS: Anion Gap 12 (12-20); Blood Urea Nitrogen 9 mg/dL (9-16); Calcium 8.6 mg/dL (8.4-10.2); Carbon Dioxide 24 mmol/L (22-29); Chloride 110 mmol/L (96-108); Creatinine Clr Calc Pharmacy 93.2; Estimated Glomerular Filt Rate > 60; Glucose Random 92 mg/dL (60-115); Potassium 4.5 mmol/L (3.3-5.1); Sodium 141 mmol/L (135-145)
[2020-11-15 10:16] VITALS: BP 126/83; PULSE 61; RESP 14; TEMP 36.7; O2SAT 97
== END 2020-11-15 10:25 | disposition home or self-care (01) ==
PROVIDERS: Emergency Provider Emergency Medicine; PCP Family Medicine
DX: R07.89 Other chest pain (principal); J98.01 Acute bronchospasm; J43.9 Emphysema, unspecified; I42.8 Other cardiomyopathies; F17.210 Nicotine dependence, cigarettes, uncomplicated; Z95.2 Presence of prosthetic heart valve; Z79.01 Long term (current) use of anticoagulants; Z79.82 Long term (current) use of aspirin; Z79.899 Other long term (current) drug therapy
CPT/HCPCS: 36415; 71045; 80048; 80076; 83690; 83735; 83880; 84484; 85025; 85610; 85730; 93005; 94640; 99284; 99285

== ENCOUNTER → 2021-04-02 10:30 | Outpatient (BNVA) | payer MEDICAID, SELFPAY | PROVIDERS: PCP Family Medicine; Visit Provider Internal Medicine | DX: Z95.2 Presence of prosthetic heart valve (principal); Z51.81 Encounter for therapeutic drug level monitoring; Z79.01 Long term (current) use of anticoagulants | CPT/HCPCS: 85610; 99211 ==

== ENCOUNTER 2021-04-09 08:00 | Emergency (ER) | payer OTHER, MEDICAID, SELFPAY ==
--- NOTE | ~2021-04-09 | XR_ITS ---
EXAMINATION: XR CHEST CLINICAL INFORMATION: Pain. Rib fractures. COMPARISON: Previous chest x-ray most recent October 2020 TECHNIQUE: 2 views of the chest were obtained. FINDINGS: The cardiac silhouette does not appear enlarged. There is an aortic valve replacement. Hilar and mediastinal contours are unremarkable. The lungs are clear. There is blunting at the bilateral costophrenic angles questionable for small bilateral pleural effusions. There is no pneumothorax. There are degenerative changes of the spine. No rib fracture is evident by chest x-ray. XR/XR chest 2V IMPRESSION: Blunting at the bilateral costophrenic angles questionable for small bilateral pleural effusions. No pneumothorax. No rib fracture evident by chest x-ray.
[2021-04-09 08:31] VITALS: BP 157/72; PULSE 68; RESP 18; TEMP 36.6; O2SAT 98; BMI 33.2
[2021-04-09] MEDS: oxyCODONE HCl Immed Release 5 MG TABLET PO (10:16)
[2021-04-09] MEDS: Acetaminophen 325 MG TABLET 650 MG PO (10:16)
[2021-04-09 10:43] LABS: MANUAL DIFF FLAG NO
[2021-04-09 10:46] LABS: Basophils Percent Auto 0.2 % (0-2); Eosinophils Absolute Auto 0.2 X10*3/uL (0.0-0.4); Eosinophils Percent Auto 2.4 % (0-4); Hematocrit 44.6 % (42.0-52.0); Imm Gran Abs Auto 0.02 X10*3/uL (0.00-0.03); Imm Gran Pct Auto 0.2 % (0.0-0.4); Lymphocytes Absolute Auto 1.4 X10*3/uL (1.2-4.9); Mean Corpuscular HGB Conc 33.6 g/dl (31.0-36.0); Mean Corpuscular Hemoglobin 31.8 pg (27.0-33.0); Mean Corpuscular Volume 94.5 fL (80.0-98.0); Mean Platelet Volume 11.8 fL (9.4-12.4); Monocytes Percent Auto 10.5 % (2-11); Neutrophils Absolute Auto 6.6 x10*3/uL (2.0-8.3); Neutrophils Percent Auto 71.7 % (45-73); Platelet Count 146 X10*3/uL (160-400); Red Blood Count 4.72 X10*6/uL (4.60-5.80); Red Cell Distribution Width 12.9 % (11.0-16.0); White Blood Count 9.2 X10*3/uL (4.8-10.8)
[2021-04-09 10:52] LABS: INTERNATIONAL NORM RATIO 1.1 (0.9-1.1); Prothrombin Time 12.8 SEC (9.9-13.0)
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
== END 2021-04-09 12:17 | disposition home or self-care (01) ==
PROVIDERS: Physician Assistant; Emergency Provider Emergency Medicine; PCP Family Medicine
DX: R07.81 Pleurodynia (principal); R79.1 Abnormal coagulation profile; S22.43XD Multiple fractures of ribs, bilateral, subsequent encounter for fracture with routine healing; V89.2XXD Person injured in unspecified motor-vehicle accident, traffic, subsequent encounter; I10 Essential (primary) hypertension; J43.9 Emphysema, unspecified; Z79.01 Long term (current) use of anticoagulants; Z95.2 Presence of prosthetic heart valve
CPT/HCPCS: 36415; 71046; 85025; 85610; 99283; 99284

== ENCOUNTER 2021-04-24 09:47 | Outpatient (REF) | payer OTHER, MEDICAID, SELFPAY ==
--- NOTE | ~2021-04-24 | XR_ITS ---
EXAMINATION: XR CHEST CLINICAL INFORMATION: Pleural effusion COMPARISON: 04/09/2021 TECHNIQUE: 2 views of the chest were obtained. FINDINGS: Lungs are well expanded. Pulmonary vessels are normal in size. No pulmonary edema, consolidation or pleural effusion. Linear opacities of discoid atelectasis or scarring at each lung base. Cardiac silhouette is normal in size, status post aortic valve surgery. Sternotomy wires are intact. The hilar contours are normal. Mild spondylosis of the thoracic spine. XR/XR chest 2V IMPRESSION: * No evidence of congestive heart failure or pleural effusion. * There are linear opacities of discoid atelectasis and/or scarring in lower lobes.
== END 2021-04-24 09:48 | disposition home or self-care (01) ==
LOC: HO.XRAY 09:47
PROVIDERS: PCP Family Medicine; Visit Provider Family Medicine
DX: J90 Pleural effusion, not elsewhere classified (principal)
CPT/HCPCS: 71046

== ENCOUNTER 2021-05-22 09:08 | Outpatient (REF) | payer MEDICAID, SELFPAY ==
[2021-05-22 09:43] LABS: Anion Gap 11 (12-20); Blood Urea Nitrogen 13 mg/dL (9-16); Calcium 9.2 mg/dL (8.4-10.2); Carbon Dioxide 25 mmol/L (22-29); Chloride 111 mmol/L (96-108); Estimated Glomerular Filt Rate > 60; Glucose Random 104 mg/dL (60-115); Potassium 4.5 mmol/L (3.3-5.1); Sodium 142 mmol/L (135-145)
== END 2021-05-22 09:09 | disposition home or self-care (01) ==
LOC: HO.MRI 09:08
PROVIDERS: Visit Provider Family Medicine
DX: E27.8 Other specified disorders of adrenal gland (principal)
CPT/HCPCS: 36415; 80048

== ENCOUNTER 2021-07-13 21:28 | Inpatient (IN) | payer MEDICAID, SELFPAY ==
--- NOTE | ~2021-07-13 | XR_ITS ---
EXAMINATION: XR CHEST CLINICAL INFORMATION: Follow-up CHF COMPARISON: Previous chest x-ray most recent 07/13/2021 TECHNIQUE: 2 views of the chest were obtained. FINDINGS: The cardiac silhouette is slightly enlarged but appears decreased in size. There are postoperative changes from aortic valve replacement. The lungs are clear. Previously identified pulmonary edema is no longer seen. There is no pleural effusion. There are degenerative changes of the spine. XR/XR chest 2V IMPRESSION: Resolved CHF from 07/13/2021 exam.
--- NOTE | ~2021-07-13 | XR_ITS ---
EXAMINATION: XR CHEST CLINICAL INFORMATION: Evaluate for pulmonary edema. COMPARISON: Chest radiograph dated from 04/24/2021. TECHNIQUE: AP view of the chest was obtained. FINDINGS: Stable cardiomegaly with sternotomy wires and mediastinal clips. New multifocal interstitial coarsening and patchy airspace opacities. No significant pleural effusion. No pneumothorax. No acute osseous abnormalities. XR/XR chest 1V IMPRESSION: New interstitial coarsening and multifocal patchy opacities concerning for an atypical infectious or inflammatory process. Recommend a follow-up examination after treatment to ensure adequate resolution and evaluate for underlying lesions.
--- NOTE | 2021-07-13 21:46 | ECG_ITS ---
Test Reason : DYSPENA Blood Pressure : / mmHG Vent. Rate : 126 BPM Atrial Rate : 000 BPM P-R Int : 000 ms QRS Dur : 120 ms QT Int : 332 ms P-R-T Axes : 000 064 -76 degrees QTc Int : 480 ms Possilbe sinus tachycardia Left bundle branch block Premature ventricular complexes Marked ST abnormality, possible inferior subendocardial injury Abnormal ECG When compared to the previous EKG of 15 november 2020, change in ventricular rate. Referred By: Priyanka Aviles Electronically Signed By:ANTONIO MEDINA
--- NOTE | 2021-07-13 21:54 | ED_ITS ---
HPI - SOB/Dyspnea General Chief Complaint: Dyspnea Stated Complaint: Diff breathing, SoB Time Seen by Provider: 07/13/21 21:35 Source: patient Mode of arrival: ambulatory Limitations: no limitations History of Present Illness HPI Narrative: Patient comes emergency room complaining of shortness of breath. Patient drove himself to the emergency room. Patient is unable to give any history at this moment due to the severe shortness of breath. In triage, his oxygen saturation was in the high 50s low 60s. Related Data Home Medications Medication Instructions Recorded Confirmed cyanocobalamin (vitamin B-12) 500 1,000 mcg PO DAILY 03/22/20 07/13/21 mcg lozenges (Vitamin B-12) ergocalciferol (vitamin D2) 1,250 1,250 mcg PO QWEEK 03/22/20 07/13/21 mcg (50,000 unit) capsule (Vitamin D2) folic acid 1 mg tablet 1 mg PO DAILY 03/22/20 07/13/21 lisinopril 10 mg tablet 10 mg PO DAILY 03/22/20 07/13/21 metoprolol succinate 25 mg 25 mg PO DAILY 03/22/20 07/13/21 tablet,extended release 24 hr simvastatin 20 mg tablet 20 mg PO BEDTIME 03/22/20 07/13/21 tiotropium bromide 18 mcg capsule 1 cap INHALATION DAILY 03/22/20 07/13/21 with inhalation device (Spiriva with HandiHaler) Previous Rx's Medication Instructions Recorded warfarin 5 mg tablet 5 mg PO DAILY #90 tab 02/02/20 aspirin 81 mg tablet,delayed 81 mg PO DAILY #90 tab 06/12/20 release Allergies Allergy/AdvReac Type Severity Reaction Status Date / Time No Known Allergies Allergy Verified 10/08/20 08:53 Review of Systems Review of Systems: Shortness of breath Yes Unobtainable due to mental condition PMFSH Past Medical History Medical History Aortic valve disorder Cardiomyopathy Chronic cough Diverticulitis Emphysema/COPD Hyperlipidemia Hypertension LBBB (left bundle branch block) Nonischemic cardiomyopathy Pulmonary nodular amyloidosis Pulmonary nodule Smoker Vitamin B12 deficiency Surgical History Aortic valve replaced Hx of aortic aneurysm repair Hx of elbow surgery S/P ascending aortic aneurysm repair Status post mechanical aortic valve replacement Social History Social History Household Members: None Alcohol intake: unknown Patient Tobacco Use Status: Tobacco use Unknown Cigarette Packs Per Day: 1 Cigarettes Per Day: 15.0 Years Smoked: 30 Use of substances other than those prescribed or required for medical reasons: Unknown Advance Directives: No Advance Directives Information Provided: No Physical Exam Vital Signs: Vital Signs: Last Vital Signs Temp 98.6 F 07/13/21 21:57 Pulse 126 H 07/13/21 23:20 Resp 23 H 07/13/21 21:58 BP 214/123 H 07/13/21 21:57 Pulse Ox 75 L 07/13/21 21:57 Oxygen Flow Rate 6 07/13/21 21:57 BMI result Body Mass Index 35.4 Const: Other: Appearance: Alert. Oriented X3. In severe distress Eyes: Pupils equal, round and reactive to light. ENT: Pharynx normal. Neck: Normal inspection. Neck supple. No lymph nodes noted. No crepitus CVS: Tachycardic, Pulses normal. Normal S1 and S2, no murmurs Respiratory: In severe respiratory distress, cyanotic, fairly good air movement, significant bibasilar crackles Abdomen: Soft and nontender. No rigidity. No distention. Skin: Skin warm diaphoretic, cyanotic Extremities: +1 pitting edema bilaterally Neuro: Oriented X 3. No motor deficit. No sensory deficit. Moving all extremities. No slurred speech. CN 2 through 12 grossly intact Psych: calm, cooperative, normal affect Course Course Course Narrative: When patient came in, oxygen saturation was in the low 50/high 60s, BP 230 systolic, significant respiratory distress, patient was put on BiPAP, given Lasix 80 mg, 1 in of nitropaste. Intubation was considered, but patient was still awake and alert. A few minutes after treatment was started, patient stated that he feels better now. Patient is awake, breathing comfortably still on BiPAP. Oxygen saturation 100% (on BiPAP) All of patient's labs are pending Patient improved with the above-mentioned treatment. Patient is now speaking in full sentences. Patient's white blood cell count is 20.2, lactic pending, no fever or chills. Chest x-ray shows possible multifocal patchy opacities. At this time, patient's pathology likely secondary to flash pulmonary edema rather than pneumonia. At this time we will not be giving patient any fluids, since he is recovering from flash pulmonary edema secondary to severe HTN. However, we will treat empirically with azithromycin and ceftriaxone. Patient's lactic acid is 2.4, likely secondary to prolonged hypoxia BNP in the 500s, more elevated than usual. Patient may have new onset CHF. Patient will need further workup, echocardiogram. Patient was weaned off BiPAP, now on an OxyMask, oxygen saturation 96%, breathing comfortably I discussed the patient with Dr. Florentino, patient being admitted, blood pressure 120/66, oxygen 96% on OxyMask MDM - SOB/Dyspnea Lab Data Result diagrams: 07/13/21 21:50 07/13/21 21:50 Labs: Lab Results 07/13/21 07/13/21 07/13/21 Range/Units 21:50 21:50 21:50 WBC 20.2 H (4.8-10.8) X10*3/uL RBC 5.59 (4.60-5.80) X10*6/uL Hgb 17.7 (14.0-18.0) g/dl Hct 57.6 H D (42.0-52.0) % MCV 103.0 H (80.0-98.0) fL MCH 31.7 (27.0-33.0) pg MCHC 30.7 L (31.0-36.0) g/dl RDW 13.5 (11.0-16.0) % Plt Count 233 D (160-400) X10*3/uL MPV 11.8 (9.4-12.4) fL Immature Gran % (Auto) 0.6 H (0.0-0.4) % Neut % (Auto) 37.5 L (45-73) % Lymph % (Auto) 48.2 H (20-40) % [place] % (Auto) 11.0 (2-11) % Eos % (Auto) 2.3 (0-4) % Baso % (Auto) 0.4 (0-2) % Lymph # (Auto) 9.7 H (1.2-4.9) X10*3/uL [place] # (Auto) 2.2 H (0.1-1.2) X10*3/uL Eos # (Auto) 0.5 H (0.0-0.4) X10*3/uL Baso # (Auto) 0.1 (0.0-0.2) X10*3/uL Abs Immat Gran (auto) 0.13 H (0.00-0.03) X10*3/uL Absolute Neuts (auto) 7.6 (2.0-8.3) x10*3/uL Absolute Nucleated RBC 0.000 (0.0-0.012) X10*3/uL Nucleated RBC % (auto) 0.0 (0.0-0.2) /100WBC PT (9.9-13.0) SEC INR (0.9-1.1) Sodium 140 (135-145) mmol/L Potassium 4.5 (3.3-5.1) mmol/L Chloride 107 (96-108) mmol/L Carbon Dioxide 16 L (22-29) mmol/L Anion Gap 22 H (12-20) BUN 18 H (9-16) mg/dL Creatinine 1.57 H (0.5-1.4) mg/dL Estim Creat Clear Calc 59.3 Estimated GFR 45 Random Glucose 237 H D (60-115) mg/dL Lactic Acid (0.5-2.0) mmol/L Calcium 8.8 (8.4-10.2) mg/dL Total Bilirubin 0.2 (0.0-1.0) mg/dL Direct Bilirubin < 0.2 (0.0-0.5) mg/dL AST 152 H (5-37) U/L ALT 94 H (0-40) U/L Alkaline Phosphatase 119 H D (39-117) U/L Troponin I High Sens 7.1 (<3.5-35.0) ng/L B-Natriuretic Peptide 533 H (<100) pg/mL Total Protein 7.3 (6.5-8.0) g/dL Albumin 4.0 (3.5-5.0) g/dL COVID-19 (KRISTIE) (Negative) COVID-19 Clin Com 07/13/21 07/13/21 07/13/21 Range/Units 22:17 22:59 22:59 WBC (4.8-10.8) X10*3/uL RBC (4.60-5.80) X10*6/uL Hgb (14.0-18.0) g/dl Hct (42.0-52.0) % MCV (80.0-98.0) fL MCH (27.0-33.0) pg MCHC (31.0-36.0) g/dl RDW (11.0-16.0) % Plt Count (160-400) X10*3/uL MPV (9.4-12.4) fL Immature Gran % (Auto) (0.0-0.4) % Neut % (Auto) (45-73) % Lymph % (Auto) (20-40) % [place] % (Auto) (2-11) % Eos % (Auto) (0-4) % Baso % (Auto) (0-2) % Lymph # (Auto) (1.2-4.9) X10*3/uL [place] # (Auto) (0.1-1.2) X10*3/uL Eos # (Auto) (0.0-0.4) X10*3/uL Baso # (Auto) (0.0-0.2) X10*3/uL Abs Immat Gran (auto) (0.00-0.03) X10*3/uL Absolute Neuts (auto) (2.0-8.3) x10*3/uL Absolute Nucleated RBC (0.0-0.012) X10*3/uL Nucleated RBC % (auto) (0.0-0.2) /100WBC PT 37.7 H (9.9-13.0) SEC INR 3.2 H D (0.9-1.1) Sodium (135-145) mmol/L Potassium (3.3-5.1) mmol/L Chloride (96-108) mmol/L Carbon Dioxide (22-29) mmol/L Anion Gap (12-20) BUN (9-16) mg/dL Creatinine (0.5-1.4) mg/dL Estim Creat Clear Calc Estimated GFR Random Glucose (60-115) mg/dL Lactic Acid 2.4 H* (0.5-2.0) mmol/L Calcium (8.4-10.2) mg/dL Total Bilirubin (0.0-1.0) mg/dL Direct Bilirubin (0.0-0.5) mg/dL AST (5-37) U/L ALT (0-40) U/L Alkaline Phosphatase (39-117) U/L Troponin I High Sens (<3.5-35.0) ng/L B-Natriuretic Peptide (<100) pg/mL Total Protein (6.5-8.0) g/dL Albumin (3.5-5.0) g/dL COVID-19 (KRISTIE) Negative (Negative) COVID-19 Clin Com See Note Critical Care Time Critical Care Time Critical Care Time: Yes Total Critical Care Time: 60 Attestation: I have personally provided critical care time. Time includes review of lab data, radiology results, discussion with consultants, and monitoring for potential de compensation. Intervention performed as documented. Discharge Plan Discharge Clinical Impression: Pulmonary edema, Pneumonia, NITHYA (acute kidney injury) Patient Disposition: Admitted As Inpatient
[2021-07-13 21:55] LABS: MANUAL DIFF FLAG NO
[2021-07-13 21:56] LABS: Basophils Absolute Auto 0.1 X10*3/uL (0.0-0.2); Basophils Percent Auto 0.4 % (0-2); Eosinophils Absolute Auto 0.5 X10*3/uL (0.0-0.4); Eosinophils Percent Auto 2.3 % (0-4); Hemoglobin 17.7 g/dl (14.0-18.0); Imm Gran Abs Auto 0.13 X10*3/uL (0.00-0.03); Imm Gran Pct Auto 0.6 % (0.0-0.4); Lymphocytes Percent Auto 48.2 % (20-40); Mean Corpuscular HGB Conc 30.7 g/dl (31.0-36.0); Mean Corpuscular Hemoglobin 31.7 pg (27.0-33.0); Mean Platelet Volume 11.8 fL (9.4-12.4); Monocytes Absolute Auto 2.2 X10*3/uL (0.1-1.2); Neutrophils Absolute Auto 7.6 x10*3/uL (2.0-8.3); Neutrophils Percent Auto 37.5 % (45-73); Platelet Count 233 X10*3/uL (160-400); Red Blood Count 5.59 X10*6/uL (4.60-5.80); Red Cell Distribution Width 13.5 % (11.0-16.0); SCAN SMEAR FLAG 1; White Blood Count 20.2 X10*3/uL (4.8-10.8)
[2021-07-13 21:57] VITALS: BP 214/123; PULSE 126; RESP 38; TEMP 37; O2SAT 75; BMI 35.4
[2021-07-13 21:58] VITALS: PULSE 121; RESP 23; O2SAT 99
[2021-07-13 22:14] LABS: Hematocrit 57.6 % (42.0-52.0)
[2021-07-13 22:15] LABS: Lymphocytes Absolute Auto 9.7 X10*3/uL (1.2-4.9)
[2021-07-13 22:16] LABS: B Type Natriuretic Peptide 533 pg/mL (<100); Troponin-I High Sensitivity 7.1 ng/L (<3.5-35.0)
[2021-07-13 22:20] LABS: Alanine Aminotransferase 94 U/L (0-40); Aspartate Amino Transferase 152 U/L (5-37); Bilirubin Direct < 0.2 mg/dL (0.0-0.5); Blood Urea Nitrogen 18 mg/dL (9-16)
[2021-07-13 22:24] LABS: Alkaline Phosphatase 119 U/L (39-117); Anion Gap 22 (12-20); Bilirubin Total 0.2 mg/dL (0.0-1.0); Calcium 8.8 mg/dL (8.4-10.2); Carbon Dioxide 16 mmol/L (22-29); Chloride 107 mmol/L (96-108); Creatinine Clr Calc Pharmacy 59.3; Estimated Glomerular Filt Rate 45; Glucose Random 237 mg/dL (60-115); Potassium 4.5 mmol/L (3.3-5.1); Sodium 140 mmol/L (135-145); Total Protein 7.3 g/dL (6.5-8.0)
[2021-07-13 22:27] LABS: INTERNATIONAL NORM RATIO 3.2 (0.9-1.1); Prothrombin Time 37.7 SEC (9.9-13.0)
--- NOTE | 2021-07-13 22:30 | ECG_ITS ---
Test Reason : DYSPENA Blood Pressure : / mmHG Vent. Rate : 100 BPM Atrial Rate : 100 BPM P-R Int : 164 ms QRS Dur : 122 ms QT Int : 364 ms P-R-T Axes : 069 070 -63 degrees QTc Int : 469 ms Sinus rhythm with occasional Premature ventricular complexes Left bundle branch block Abnormal ECG When compared with ECG of 13-JUL-2021 21:46, No significant changes seen Referred By: Priyanka Aviles Electronically Signed By:ANTONIO MEDINA
[2021-07-13] MEDS: Furosemide 100 MG/10 ML VIAL 80 MG IVPUSH (22:46)
[2021-07-13] MEDS: Nitroglycerin 2 % Oint 1 GM Packet 1 INCH TRANSDERMA (22:46)
[2021-07-13] MEDS: cefTRIAXone sodium 1 GM in 0.9 % Sodium Chloride 50 ML IV (22:47)
[2021-07-13] MEDS: Azithromycin 500 MG in 0.9 % Sodium Chloride 250 ML 125 MG IV (22:47)
--- NOTE | 2021-07-13 23:19 | PC.NURSE ---
Unable to get blood cultures on patient. Patient keeps infiltrating. Phlebotomy called to come and draw cultures
[2021-07-13 23:20] VITALS: PULSE 126
[2021-07-13 23:27] LABS: COVID-19 Test Negative (Negative)
[2021-07-13 23:34] LABS: Lactic Acid 2.4 mmol/L (0.5-2.0)
[2021-07-14 01:06] LABS: Reflex Lactate? Lactic Acid Added
[2021-07-14 01:58] LABS: ~Lactic Acid-LAB USE ONLY 1.6 mmol/L (0.5-2.0)
[2021-07-14 02:16] LABS: Procalcitonin 0.08 ng/mL
[2021-07-14 04:00] VITALS: BP 110/70; PULSE 80; RESP 15; TEMP 37; O2SAT 96
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
[2021-07-14 07:14] LABS: Basophils Percent Auto 0.1 % (0-2); Eosinophils Percent Auto 0.3 % (0-4); Hematocrit 49.3 % (42.0-52.0); Hemoglobin 16.2 g/dl (14.0-18.0); Imm Gran Abs Auto 0.08 X10*3/uL (0.00-0.03); Imm Gran Pct Auto 0.6 % (0.0-0.4); Lymphocytes Absolute Auto 1.6 X10*3/uL (1.2-4.9); Lymphocytes Percent Auto 12.5 % (20-40); MANUAL DIFF FLAG SCAN; Mean Corpuscular HGB Conc 32.9 g/dl (31.0-36.0); Mean Corpuscular Volume 94.4 fL (80.0-98.0); Mean Platelet Volume 11.8 fL (9.4-12.4); Monocytes Absolute Auto 1.7 X10*3/uL (0.1-1.2); Monocytes Percent Auto 13.3 % (2-11); Neutrophils Absolute Auto 9.2 x10*3/uL (2.0-8.3); Neutrophils Percent Auto 73.2 % (45-73); Platelet Count 173 X10*3/uL (160-400); Red Blood Count 5.22 X10*6/uL (4.60-5.80); Red Cell Distribution Width 13.3 % (11.0-16.0); SCAN SMEAR FLAG 1; White Blood Count 12.5 X10*3/uL (4.8-10.8)
[2021-07-14 07:17] VITALS: BP 107/72; PULSE 80; RESP 20; O2SAT 96
[2021-07-14 07:20] LABS: Anion Gap 12 (12-20); Blood Urea Nitrogen 18 mg/dL (9-16); Calcium 8.6 mg/dL (8.4-10.2); Carbon Dioxide 25 mmol/L (22-29); Chloride 108 mmol/L (96-108); Creatinine Clr Calc Pharmacy 78.9; Estimated Glomerular Filt Rate > 60; Glucose Random 115 mg/dL (60-115); Potassium 4.7 mmol/L (3.3-5.1); Sodium 140 mmol/L (135-145)
[2021-07-14 07:55] LABS: SLIDE REVIEW VERIFIED
[2021-07-14] MEDS: 0.9 % Sodium Chloride Flush 3 ML SYRINGE IVFLUSH ×2 (08:42→17:39)
[2021-07-14] MEDS: Furosemide 40 MG/4 ML VIAL IVPUSH ×2 (08:42→17:34)
--- NOTE | 2021-07-14 09:10 | MHC.CM.PN ---
pt in ed callked and sopoke with pts dgter/hcp rubin [phone] w2ho explains that pt lives alone they are workling on pt getting a botany technician ..she is magreeable to vna if ordwrs it..pt stay at [facility] fter nhe is dcd fro [facility] for a few days dc plan home with family support and ?vna pt is vax x 3
--- NOTE | 2021-07-14 09:19 | PHA.MEDREC ---
Pharmacy Consult ? Medication Reconciliation Pharmacy has completed the medication reconciliation. No remarkable issues. Francia Casper, RonalD
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
[2021-07-14 09:57] VITALS: BP 102/68; PULSE 76; RESP 19; O2SAT 99
--- NOTE | 2021-07-14 10:30 | CA_ITS ---
Transthoracic Echocardiogram Patient (Last, First, Middle): Michael Castañeda, Gender: Male Date of : 1960 Age: 61 Procedure Date: 07/14/2021 Procedure Type: Transthoracic Echocardiogram Location: ER Height: 175.26 cm Weight: 108.86 kg BSA: 2.23 m2 Heart Rate: bpm BP: 110 / 70 mmHg Railroad Shop Inspector: ALEXANDRA Referring MD: Jocelyne Florentino MD Symptoms: chf Study Quality: Technically Difficult ECG Rhythm: Sinus Conclusions: - LVEF difficult to assess but, appears to be about 25-30%. - By history, mechanical prosthetic aortic valve. Based on gradients, likely normal function. Findings Procedure Information The patient declines contrast. Left Ventricle Mildly increased left ventricular cavity size. There is mildly increased left ventricular wall thickness. Regional wall motion abnormalities can not be excluded due to suboptimal endocardial definition. Diastolic function is indeterminate on the basis of available data. Globally hypokinetic. LVEF difficult to assess but, appears to be about 25-30%. Right Ventricle Moderately increased right ventricular cavity size. There is low normal right ventricular systolic function. Atria The left atrium is moderately dilated. The right atrium is normal in size. Aortic Valve The aortic valve was not well visualized. The mean gradient is 8 mmHg. The aortic valve area is 1.63 cm2. By history, mechanical prosthetic aortic valve. Based on gradients, likely normal function. No significant regurgitation noted. Mitral Valve The mitral valve appears normal. There is mild mitral valve regurgitation. There is no mitral valve stenosis. Pulmonic Valve The pulmonic valve was not well visualized. Tricuspid Valve There is trace tricuspid valve regurgitation. The pulmonary artery systolic pressure is normal. Great Vessels The asc aorta is normal in size. Venous The inferior vena cava is dilated and collapses greater than 50% with inspiration. Pericardium/Pleural There is no evidence of pericardial effusion. Prior Study Comparison Changes noted compared to prior study dated: 04/13/2019. Decrease in LVEF. Measurements 2D Linear Measurements IVSd: 1.20 0.6-0.9/0.6-1.0 cm LVIDd: 5.59 3.9-5.3/4.2-5.9 cm LVIDd Index: 2.51 2.4-3.2/2.2-3.1 cm/m2 LVIDs: 4.41 2.0-3.6 cm LVPWd: 1.14 0.7-1.1 cm LA Diam: 6.00 2.7-3.8/3.0-4.0 cm LAIDs Index: 2.69 1.5-2.3 cm/m2 LV Mass: 336.96 67-162/88-224 g LV Mass Index: 151.10 43-95/49-115 g/m2 LVOT Diam: 2.10 3.0+(-)1.3 cm 2D Systolic Function EF 4C: 35.80 >55% EF 2C: 36.00 >55% EF BiP: 36.30 >55% Mitral Valve MV Pk E: 1.02 MV PK A: 0.92 MV Decel Time: 323.00 E/A: 1.10 E'Lateral: 6.85 E'Medial: 5.77 E/E' Med: 17.70 E/E' Lat: 14.90 PHT: 94.00 MVA PHT: 2.34 Decel Brule: 3.17 Aortic Valve AoV Pk Barrington: 1.81 AoV Mn Barrington: 1.36 AoV VTI: 0.29 AoV Pk Grad: 13.00 Aov Mn Grad: 8.00 CLARA Cont.VTI: 1.63 LVOT LVOT Pk Barrington: 0.75 LVOT Mn [place]: 0.54 LVOT VTI: 0.14 LVOT Pk Grad: 2.00 LVOT Mn Grad: 1.00 LVOT Diam: 2.10 LVOT Area: 3.46 Diastolic Function MV Pk E: 1.02 MV Pk A: 0.92 E/A: 1.10 E'Medial: 5.77 E/E' Med: 17.70 E' Laterial: 6.85 E/E' Lat: 14.90 Right Ventricle TAPSE (mm): 16.80 TVS' Barrington: 9.46 Tricuspid Valve TR Pk Bar[place]: 2.19 TR Pk Grad: 19.00 RA Press: 8.00 RVSP: 27.00 Great Vessels Aorta Ao Asc: 3.80 2.1-3.4 cm Updated in Other Vendor System with Status of Final Lucas Louis MD electronically signed on 07/14/2021 11:59:00 AM with status of Final
[2021-07-14 11:04] VITALS: BP 119/72; PULSE 70; RESP 18; O2SAT 99
--- NOTE | 2021-07-14 11:05 | PC.NURSE ---
Pts O2 sats found to be 100% on oxymask. RN weaned pt to 6L O2 via Oxymask. O2 sats 99-100% currently. Will continue to wean.
--- NOTE | 2021-07-14 11:09 | PC.NURSE ---
Pt arrives from the ED with 8L via oxymask with O2 sats @ 100%. RN started to wean the O2, pt currently on 6L O2. Pt offering no complaints at this time. Resting in the hospital bed. No edema noted to his extremities. Lungs sound diminished at his bases, otherwise clear throughout. PIV in place and working appropriatly. Pt continues on continuous pulse ox and continuous telemetry. Callbell and belongings within reach.
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
[2021-07-14] MEDS: Nicotine 21 MG PATCH.TD24 TRANSDERMA (17:34)
[2021-07-14 17:40] VITALS: BP 111/72; PULSE 70; RESP 20; O2SAT 98
--- NOTE | 2021-07-14 17:42 | PC.NURSE ---
Pt weaned to 2L via Nasal cannula. O2 sats 96-98% at this time. pt tolerating well.
[2021-07-14 17:46] LABS: INTERNATIONAL NORM RATIO 2.7 (0.9-1.1); Prothrombin Time 31.8 SEC (9.9-13.0)
[2021-07-14] MEDS: Warfarin Sodium 5 MG TABLET PO (18:41)
[2021-07-14] MEDS: Azithromycin 500 MG in 0.9 % Sodium Chloride 250 ML 125 MG IV (21:47)
[2021-07-14] MEDS: cefTRIAXone sodium 1 GM in 0.9 % Sodium Chloride 50 ML IV (21:47)
[2021-07-15 00:05] VITALS: BP 113/68; PULSE 74; RESP 20; O2SAT 97
[2021-07-15] MEDS: 0.9 % Sodium Chloride Flush 3 ML SYRINGE IVFLUSH ×2 (01:02→09:44)
[2021-07-15] MEDS: Melatonin 3 MG TABLET 6 MG PO (02:13)
[2021-07-15 04:20] VITALS: BP 106/68; PULSE 72; RESP 21; O2SAT 97
[2021-07-15 06:00] VITALS: BMI 32.9
[2021-07-15 06:28] LABS: INTERNATIONAL NORM RATIO 2.4 (0.9-1.1)
[2021-07-15 06:34] LABS: Anion Gap 13 (12-20); Blood Urea Nitrogen 21 mg/dL (9-16); Calcium 8.7 mg/dL (8.4-10.2); Carbon Dioxide 25 mmol/L (22-29); Chloride 104 mmol/L (96-108); Creatinine Clr Calc Pharmacy 91.6; Estimated Glomerular Filt Rate > 60; Glucose Random 108 mg/dL (60-115); Potassium 4.1 mmol/L (3.3-5.1); Sodium 138 mmol/L (135-145)
[2021-07-15 06:40] LABS: B Type Natriuretic Peptide 241 pg/mL (<100)
[2021-07-15 09:31] VITALS: BP 119/79; PULSE 72; RESP 17; O2SAT 99
[2021-07-15] MEDS: Atorvastatin Calcium 10 MG TABLET PO (09:44)
[2021-07-15] MEDS: Furosemide 40 MG/4 ML VIAL IVPUSH (09:44)
[2021-07-15] MEDS: Metoprolol Succinate ER 50 MG TAB.ER.24H PO (09:44)
[2021-07-15] MEDS: Nicotine 21 MG PATCH.TD24 TRANSDERMA (09:45)
--- NOTE | 2021-07-15 10:57 | P.PNCA_ITS ---
Subjective Subjective Date of Service: 07/15/21 Interval history: States that he feels okay. Review of Systems Review of Systems Yes all other systems are reviewed and are negative Cardiovascular: Reports as per HPI, Reports no additional cardiovascular complaints, Denies acrocyanosis, Denies cool extremities, Denies chest pain, Denies diaphoresis, Denies syncope, Denies claudication, Denies leg edema, Denies lightheadedness, Denies palpitations and Reports dyspnea Respiratory: Reports dyspnea Denies syncope Endocrine: Denies palpitations Physical Exam Vital Signs: Last Vital Signs Temp 98.6 F 07/14/21 04:00 Pulse 72 07/15/21 09:31 Resp 17 07/15/21 09:31 BP 119/79 07/15/21 09:31 Pulse Ox 99 07/15/21 09:31 Oxygen Flow Rate 6 07/13/21 21:57 BMI result Body Mass Index 32.9 Const General: comfortable HENMT Other: Unremarkable Neck Neck: Yes normal visual inspection Chest Chest palpation & inspection: normal inspection of the chest Resp Other: Minimal crackles at base. Cardio Other: Normal prosthetic heart sounds+ Palpation: normal PMI GI Palpation (GI): Soft to palpation Back/Spine/Pelvis Other: unremarkable Skin Lesions: other Neuro General: other Extrem General: Yes other Psych Mental Status: other Objective Labs and Meds Result diagrams: 07/14/21 06:47 07/15/21 05:50 Lab results: Laboratory Results - last 24 hr 07/14/21 07/15/21 07/15/21 17:07 05:50 05:50 PT 31.8 H 28.0 H INR 2.7 H 2.4 H Sodium 138 Potassium 4.1 Chloride 104 Carbon Dioxide 25 Anion Gap 13 BUN 21 H Creatinine 0.98 Estim Creat Clear Calc 91.6 Estimated GFR > 60 Random Glucose 108 Calcium 8.7 B-Natriuretic Peptide 07/15/21 05:50 PT INR Sodium Potassium Chloride Carbon Dioxide Anion Gap BUN Creatinine Estim Creat Clear Calc Estimated GFR Random Glucose Calcium B-Natriuretic Peptide 241 H Progress Note: A&P Assessment and plan (1) Acute combined systolic and diastolic CHF, NYHA class 3: Status: Acute (2) Hypertensive emergency: Status: Acute (3) Nonischemic cardiomyopathy: Status: Acute (4) S/P ascending aortic aneurysm repair: Status: Acute (5) Status post mechanical aortic valve replacement: Status: Acute Plan Renal function stable. High sensitivity troponins 7.1. Cardiac BNP 533--->241. Last year, 202. In 2020, it was 88. Chest x-ray reported to have interstitial coarsening/multifocal patchy opacities concerning for atypical infection/inflammation. Possible acute heart failure related to uncontrolled hypertension. He may have additionally infection issues as well as inability to take deep breaths due to rib fractures/atelectasis. Agree with empiric diuretics as you are doing. He is also on empiric antibiotics. Blood pressure seems very labile. On admission, 214/123 mm Hg. Current blood pressure is 119/79mm Hg. No other high readings. Home meds listed to be metoprolol, lisinopril. Will need to continue these. Echocardiogram with diminished LVEF at 25-30%. Normal prosthetic valve function. EF is lower than before. Possibly from uncontrolled hypertension but not clear. He has had normal coronaries in the past. Overall, based on poor compliance, would just continue medical management as he has been on in the past. Fall Risk Details Current Medications: Current Medications Acetaminophen (Acetaminophen 325 Mg Tablet) 650 mg PO Q6H PRN PRN Reason: Pain, Mild (Pain Scale 1-3) Albuterol/Ipratropium (Albuterol/Iprat 2.5/0.5mg 3 Ml Ampul.Neb) 3 ml INHALE RQ4H PRN PRN Reason: sob Atorvastatin Calcium (Atorvastatin Calcium 10 Mg Tablet) 10 mg PO DAILY [facility] Last Admin: 07/15/21 09:44 Dose: 10 mg Documented by: Docusate Sodium (Docusate Sodium 100 Mg Capsule) 100 mg PO DAILY PRN PRN Reason: Constipation Fluticasone/Vilanterol (Fluticasone/Vilanterol 100/25 Blst.W.Dev) 1 puff INHALE RDAILY [facility] Last Admin: 07/15/21 08:22 Dose: Not Given Documented by: Furosemide (Furosemide 40 Mg/4 Ml Vial) 40 mg IVPUSH BID@0800,1700 [facility]; Protocol Last Admin: 07/15/21 09:44 Dose: 40 mg Documented by: Ceftriaxone Sodium 1 gm/ (Sodium Chloride) 50 mls @ 100 mls/hr IV Q24H [facility] Last Infusion: 07/15/21 01:11 Dose: Infused Documented by: Azithromycin 500 mg/ Sodium (Chloride) 250 mls @ 125 mls/hr IV Q24H [facility] Last Infusion: 07/15/21 01:11 Dose: Infused Documented by: Melatonin (Melatonin 3 Mg Tablet) 6 mg PO BEDTIME PRN PRN Reason: Sleep Last Admin: 07/15/21 02:13 Dose: 6 mg Documented by: Metoprolol Succinate (Metoprolol Succinate Er 50 Mg Tab.Er.24h) 50 mg PO DAILY [facility]; Protocol Last Admin: 07/15/21 09:44 Dose: 50 mg Documented by: Nicotine (Nicotine 21 Mg Patch.Td24) 21 mg TRANSDERMA DAILY [facility] Last Admin: 07/15/21 09:45 Dose: 21 mg Documented by: Ondansetron HCl (Ondansetron Hcl 4 Mg/2 Ml Vial) 4 mg IVPUSH Q8H PRN PRN Reason: Nausea and Vomiting Sodium Chloride (0.9 % Sodium Chloride Flush 3 Ml Syringe) 3 ml IVFLUSH QSHIFT [facility] Last Admin: 07/15/21 09:44 Dose: 3 ml Documented by: Tiotropium Norton (Tiotropium Norton 18 Mcg Cap.W.Dev) 1 puff INHALE RDAILY [facility] Last Admin: 07/15/21 08:22 Dose: Not Given Documented by: Warfarin Sodium (Warfarin Sodium 5 Mg Tablet) 5 mg PO DAILY@1800 [facility] Last Admin: 07/14/21 18:41 Dose: 5 mg Documented by: Time Spent With Patient Time: Total time spent is greater than 50% in coordination of care (as documented) at patient's floor/unit and/or counseling patient: Time with patient: less than 15 minutes Progress Note: Quality Stroke Does the patient have a stroke diagnosis?: No Procedures Date of Service Date of Service: 07/15/21
--- NOTE | 2021-07-15 13:21 | MHC.CM.NN ---
pt dcd home no skileed servceis orderd by
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
== END 2021-07-15 14:00 | disposition home or self-care (01) | DRG 194 ==
LOC: HO.ED 23:36 → HO.EDOVER 07-14 01:22
PROVIDERS: Admitting Provider Internal Medicine; Emergency Provider Emergency Medicine; PCP Family Medicine; Visit Provider Hospitalist
DX: I11.0 Hypertensive heart disease with heart failure (principal); J96.01 Acute respiratory failure with hypoxia; N17.9 Acute kidney failure, unspecified; I50.41 Acute combined systolic (congestive) and diastolic (congestive) heart failure; J18.9 Pneumonia, unspecified organism; I42.8 Other cardiomyopathies; F17.210 Nicotine dependence, cigarettes, uncomplicated; I25.10 Atherosclerotic heart disease of native coronary artery without angina pectoris; I16.1 Hypertensive emergency; E78.5 Hyperlipidemia, unspecified; I44.7 Left bundle-branch block, unspecified; Z95.1 Presence of aortocoronary bypass graft; Z20.822 Contact with and (suspected) exposure to COVID-19; Z95.2 Presence of prosthetic heart valve; Z71.6 Tobacco abuse counseling; Z79.01 Long term (current) use of anticoagulants; Z79.899 Other long term (current) drug therapy
CPT/HCPCS: 36415; 71045; 71046; 80048; 80076; 83605; 83880; 84145; 84484; 85025; 85610; 87040; 87635; 93005; 93306; 94660; 99285; J0456; J0696; J1940

== ENCOUNTER → 2021-07-24 09:55 | Outpatient (BNVA) | payer MEDICAID, SELFPAY | PROVIDERS: PCP Family Medicine; Referring Provider Family Medicine; Visit Provider Internal Medicine | DX: I42.8 Other cardiomyopathies (principal); I50.22 Chronic systolic (congestive) heart failure; Z95.2 Presence of prosthetic heart valve; Z98.890 Other specified postprocedural states; Z86.79 Personal history of other diseases of the circulatory system | CPT/HCPCS: 99212 ==

== ENCOUNTER → 2021-07-29 10:19 | Outpatient (BNVA) | payer MEDICAID, SELFPAY | PROVIDERS: PCP Family Medicine; Visit Provider Internal Medicine Pulmonary Disease | DX: J43.9 Emphysema, unspecified (principal); R91.1 Solitary pulmonary nodule | CPT/HCPCS: 99202 ==

== ENCOUNTER 2021-08-01 23:38 | Emergency (ER) | payer MEDICAID, SELFPAY ==
[2021-08-02 01:28] VITALS: BP 106/61; PULSE 67; RESP 16; TEMP 36.8; O2SAT 97; BMI 39.4
== END 2021-08-02 06:41 | disposition left against medical advice (07) ==
PROVIDERS: Emergency Provider Emergency Medicine
DX: I10 Essential (primary) hypertension (principal); F17.200 Nicotine dependence, unspecified, uncomplicated; Z95.2 Presence of prosthetic heart valve
CPT/HCPCS: 99281; 99282

== ENCOUNTER 2021-08-12 18:41 | Emergency (ER) | payer MEDICAID, SELFPAY ==
--- NOTE | ~2021-08-12 | XR_ITS ---
EXAMINATION: XR CHEST CLINICAL INFORMATION: 61-year-old male with chest pain COMPARISON: 07/15/2021 TECHNIQUE: Frontal view of the chest was obtained. FINDINGS: There is no interval change in appearance of status post median sternotomy for aortic valve replacement. There is no evidence of infiltrates nodules or pleural effusion. XR/XR chest 1V IMPRESSION: No active cardiopulmonary disease
--- NOTE | 2021-08-12 18:48 | ECG_ITS ---
Test Reason : CHEST PAIN Blood Pressure : / mmHG Vent. Rate : 068 BPM Atrial Rate : 068 BPM P-R Int : 158 ms QRS Dur : 128 ms QT Int : 418 ms P-R-T Axes : 058 059 -57 degrees QTc Int : 444 ms Sinus rhythm with Premature supraventricular complexes Left bundle branch block Abnormal ECG When compared to the previous EKG of No significant changes seen Referred By: Generic ED Physician Electronically Signed By:Avi Brennan
[2021-08-12 19:03] LABS: MANUAL DIFF FLAG NO
[2021-08-12 19:05] LABS: Basophils Percent Auto 0.2 % (0-2); Eosinophils Absolute Auto 0.3 X10*3/uL (0.0-0.4); Eosinophils Percent Auto 2.7 % (0-4); Hematocrit 46.9 % (42.0-52.0); Hemoglobin 15.8 g/dl (14.0-18.0); Imm Gran Abs Auto 0.04 X10*3/uL (0.00-0.03); Imm Gran Pct Auto 0.4 % (0.0-0.4); Lymphocytes Absolute Auto 2.4 X10*3/uL (1.2-4.9); Lymphocytes Percent Auto 25.5 % (20-40); Mean Corpuscular HGB Conc 33.7 g/dl (31.0-36.0); Mean Corpuscular Hemoglobin 31.5 pg (27.0-33.0); Mean Corpuscular Volume 93.6 fL (80.0-98.0); Mean Platelet Volume 11.5 fL (9.4-12.4); Monocytes Percent Auto 10.7 % (2-11); Neutrophils Absolute Auto 5.6 x10*3/uL (2.0-8.3); Neutrophils Percent Auto 60.5 % (45-73); Platelet Count 166 X10*3/uL (160-400); Red Blood Count 5.01 X10*6/uL (4.60-5.80); Red Cell Distribution Width 13.5 % (11.0-16.0); White Blood Count 9.2 X10*3/uL (4.8-10.8)
[2021-08-12 19:09] VITALS: BP 143/78; PULSE 65; RESP 17; TEMP 36.8; O2SAT 98; BMI 33.1
[2021-08-12 19:22] LABS: Anion Gap 12 (12-20); Blood Urea Nitrogen 23 mg/dL (9-16); Calcium 8.6 mg/dL (8.4-10.2); Carbon Dioxide 24 mmol/L (22-29); Chloride 110 mmol/L (96-108); Creatinine Clr Calc Pharmacy 77.6; Estimated Glomerular Filt Rate > 60; Glucose Random 122 mg/dL (60-115); Potassium 4.2 mmol/L (3.3-5.1); Sodium 142 mmol/L (135-145)
[2021-08-12 19:25] LABS: Troponin-I High Sensitivity 8.6 ng/L (<3.5-35.0)
== END 2021-08-13 00:57 | disposition left against medical advice (07) ==
PROVIDERS: Emergency Provider Emergency Medicine; PCP Family Medicine
DX: R07.9 Chest pain, unspecified (principal); R94.31 Abnormal electrocardiogram [ECG] [EKG]; F17.200 Nicotine dependence, unspecified, uncomplicated; Z95.2 Presence of prosthetic heart valve; Z79.01 Long term (current) use of anticoagulants
CPT/HCPCS: 36415; 71045; 80048; 84484; 85025; 93005; 99283

== ENCOUNTER 2021-08-13 12:24 | Outpatient (REF) | payer MEDICAID, SELFPAY ==
--- NOTE | ~2021-08-13 | CT_ITS ---
EXAMINATION: CT CHEST WITHOUT CONTRAST CLINICAL INFORMATION: Solitary pulmonary nodule. COMPARISON: CT chest 03/08/2020. TECHNIQUE: Multidetector volumetric CT imaging of the chest was done. Axial MIP volume rendering provided. Sagittal and coronal reformatted images were obtained. This CT examination was performed using dose optimization techniques as appropriate, variously including the following: *Automated exposure control *Adjustment of mA and/or kV according to patient size (this includes techniques or standardized protocols for targeted exams where dose is matched to indication/reason for exam; i.e. extremities or head) *Use of iterative reconstruction technique DLP: 367 mGy-cm. FINDINGS: AUTOMOTIVE SERVICE CONSULTANT: Well-inflated lungs without acute process. LUNGS: There is diffuse centrilobular emphysema without acute pneumonic consolidation. There is a 3 mm nodule right upper lobe laterally axial image 175/7, a 3 mm nodule left upper lobe axial image 179/7, a 3 mm nodule left lower lobe superior segment axial image 195/7, a 3 mm nodule left lower lobe image 286/7, a 3 mm ill-defined nodule appears intrabronchial, right lower lobe axial image 289/7. There are several 2 mm micronodules seen in the right middle lobe on axial image 328/7 and 331/7. There is a 5 mm calcified nodule left lower lobe axial image 368/7. There is patchy atelectatic changes right lung base. MEDIASTINUM: The thyroid lobes are symmetric and normal. The central trachea and the bronchi are widely patent. There are numerous pretracheal and precarinal lymph nodes. The heart size and great vessels are normal caliber. There is no pericardial effusion. There is an aortic valve noted. No abnormal-sized mediastinal or hilar lymph nodes seen. PLEURA: There is no pleural effusion, thickening or calcification. AXILLA: No lymphadenopathy. UPPER ABDOMEN: Unremarkable. Visualized liver, pancreas and right adrenal gland appear unremarkable. There is a left adrenal 1.1 cm lesion. Bilateral renal cysts are noted. There are scattered calcified granulomas. There are no radiopaque gallstones. OSSEOUS STRUCTURES: There are multiple healed and unhealed bilateral rib fractures. There is no compression fracture or lytic process involving the thoracic spine. There are median sternotomy sutures from intervention. CT/CT chest wo con IMPRESSION: Centrilobular emphysema with multiple small pulmonary nodules visualized at this time as described above. Also visualized is a left lower lobe calcified granuloma. No abnormal mediastinal or hilar lymph nodes seen. Fleischner guidelines were followed.
== END 2021-08-13 12:25 | disposition home or self-care (01) ==
LOC: HO.CT 12:24
PROVIDERS: Visit Provider Internal Medicine Pulmonary Disease
DX: R91.1 Solitary pulmonary nodule (principal); J43.2 Centrilobular emphysema; J84.10 Pulmonary fibrosis, unspecified
CPT/HCPCS: 71250

== ENCOUNTER → 2021-09-10 13:52 | Outpatient (BNVA) | payer MEDICAID, SELFPAY | PROVIDERS: PCP Family Medicine; Referring Provider Family Medicine; Visit Provider Nurse Practitioner Family | DX: I50.22 Chronic systolic (congestive) heart failure (principal); I42.9 Cardiomyopathy, unspecified; I44.7 Left bundle-branch block, unspecified; Z95.2 Presence of prosthetic heart valve; Z79.01 Long term (current) use of anticoagulants | CPT/HCPCS: 85610; 99211; 99212 ==

== ENCOUNTER → 2021-09-12 09:02 | Outpatient (BNVA) | payer MEDICAID, SELFPAY | PROVIDERS: PCP Family Medicine; Visit Provider Internal Medicine | DX: Z95.2 Presence of prosthetic heart valve (principal); Z79.01 Long term (current) use of anticoagulants; Z51.81 Encounter for therapeutic drug level monitoring | CPT/HCPCS: 85610; 99211 ==

== ENCOUNTER → 2021-09-15 09:05 | Outpatient (BNVA) | payer MEDICAID, SELFPAY | PROVIDERS: PCP Family Medicine; Visit Provider Internal Medicine | DX: Z95.2 Presence of prosthetic heart valve (principal); Z79.01 Long term (current) use of anticoagulants; Z51.81 Encounter for therapeutic drug level monitoring | CPT/HCPCS: 85610; 99211 ==

== ENCOUNTER → 2021-09-25 09:14 | Outpatient (BNVA) | payer MEDICAID, SELFPAY | PROVIDERS: PCP Family Medicine; Visit Provider Internal Medicine | DX: Z95.2 Presence of prosthetic heart valve (principal); Z79.01 Long term (current) use of anticoagulants; Z51.81 Encounter for therapeutic drug level monitoring | CPT/HCPCS: 85610; 99211 ==

== ENCOUNTER → 2021-12-03 13:32 | Outpatient (BNVA) | payer MEDICAID, SELFPAY | PROVIDERS: PCP Family Medicine; Visit Provider Internal Medicine | DX: Z95.2 Presence of prosthetic heart valve (principal); Z79.01 Long term (current) use of anticoagulants; Z51.81 Encounter for therapeutic drug level monitoring | CPT/HCPCS: 85610; 99211 ==

== ENCOUNTER → 2021-12-05 10:29 | Outpatient (BNVA) | payer MEDICAID, SELFPAY | PROVIDERS: PCP Family Medicine; Visit Provider Internal Medicine | DX: Z95.2 Presence of prosthetic heart valve (principal); Z79.01 Long term (current) use of anticoagulants; Z51.81 Encounter for therapeutic drug level monitoring | CPT/HCPCS: 85610; 99211 ==

== ENCOUNTER → 2021-12-12 10:06 | Outpatient (BNVA) | payer MEDICAID, SELFPAY | PROVIDERS: PCP Family Medicine; Visit Provider Internal Medicine | DX: Z95.2 Presence of prosthetic heart valve (principal); Z79.01 Long term (current) use of anticoagulants; Z51.81 Encounter for therapeutic drug level monitoring | CPT/HCPCS: 85610; 99212 ==

== ENCOUNTER 2021-12-12 14:43 | Emergency (ER) | payer MEDICAID, SELFPAY | END 2021-12-12 18:24 | disposition left against medical advice (07) | PROVIDERS: Emergency Provider Emergency Medicine; PCP Family Medicine | DX: I95.9 Hypotension, unspecified (principal); I50.22 Chronic systolic (congestive) heart failure; J43.9 Emphysema, unspecified; I44.7 Left bundle-branch block, unspecified; Z95.2 Presence of prosthetic heart valve ==

== ENCOUNTER → 2021-12-16 09:50 | Outpatient (BNVA) | payer MEDICAID, SELFPAY | PROVIDERS: PCP Family Medicine; Visit Provider Internal Medicine | DX: Z95.2 Presence of prosthetic heart valve (principal); Z79.01 Long term (current) use of anticoagulants; Z51.81 Encounter for therapeutic drug level monitoring | CPT/HCPCS: 85610; 99211 ==

== ENCOUNTER → 2021-12-19 10:22 | Outpatient (BNVA) | payer MEDICAID, SELFPAY | PROVIDERS: PCP Family Medicine; Visit Provider Internal Medicine | DX: Z95.2 Presence of prosthetic heart valve (principal); Z79.01 Long term (current) use of anticoagulants; Z51.81 Encounter for therapeutic drug level monitoring | CPT/HCPCS: 85610; 99211 ==

== ENCOUNTER → 2021-12-29 10:06 | Outpatient (BNVA) | payer MEDICAID, SELFPAY | PROVIDERS: PCP Family Medicine; Visit Provider Internal Medicine | DX: Z95.2 Presence of prosthetic heart valve (principal); Z51.81 Encounter for therapeutic drug level monitoring; Z79.01 Long term (current) use of anticoagulants | CPT/HCPCS: 85610; 99211 ==

== ENCOUNTER → 2022-01-09 10:18 | Outpatient (BNVA) | payer MEDICAID, SELFPAY | PROVIDERS: PCP Family Medicine; Visit Provider Internal Medicine | DX: Z95.2 Presence of prosthetic heart valve (principal); Z79.01 Long term (current) use of anticoagulants; Z51.81 Encounter for therapeutic drug level monitoring | CPT/HCPCS: 85610; 99211; Q3014 ==

== ENCOUNTER → 2022-01-22 10:14 | Outpatient (BNVA) | payer MEDICAID, SELFPAY | PROVIDERS: PCP Family Medicine; Visit Provider Internal Medicine | DX: Z95.2 Presence of prosthetic heart valve (principal); Z79.01 Long term (current) use of anticoagulants; Z51.81 Encounter for therapeutic drug level monitoring | CPT/HCPCS: 85610; 99211 ==

== ENCOUNTER 2022-01-24 07:45 | Emergency (ER) | payer MEDICAID, SELFPAY ==
[2022-01-24 09:01] VITALS: BP 190/89; PULSE 66; RESP 18; TEMP 36.5; O2SAT 100; BMI 34.0
== END 2022-01-24 10:14 | disposition left against medical advice (07) ==
PROVIDERS: Emergency Provider Emergency Medicine; PCP Family Medicine
DX: R07.81 Pleurodynia (principal)
CPT/HCPCS: 99281

== ENCOUNTER 2022-01-26 09:43 | Emergency (ER) | payer MEDICAID, SELFPAY ==
--- NOTE | 2022-01-26 | ECG_ITS ---
Test Reason : CP Blood Pressure : / mmHG Vent. Rate : 075 BPM Atrial Rate : 075 BPM P-R Int : 148 ms QRS Dur : 120 ms QT Int : 402 ms P-R-T Axes : 062 062 -37 degrees QTc Int : 448 ms Normal sinus rhythm Incomplete left bundle branch block ST & T wave abnormality, consider inferior ischemia Abnormal ECG When compared with ECG of 12-AUG-2021 18:42, Premature supraventricular complexes are no longer Present Referred By: Generic ED Physician Electronically Signed By:PADDY CARDOSO
--- NOTE | ~2022-01-26 | XR_ITS ---
EXAMINATION: XR CHEST CLINICAL INFORMATION: Rib pain COMPARISON: CT chest 08/13/2021, chest radiographs 08/12/2021, 07/15/2021 TECHNIQUE: 2 views of the chest were obtained. FINDINGS: Patient status post prior valve replacement and sternotomy wires. Heart size normal. Vascularity normal. There is some old linear scarring right lateral base similar to prior exams. There is no pneumothorax, interval pleural reaction, infiltrate, or effusion. The hilar and mediastinal contours and bony structures are stable. XR/XR chest 2V IMPRESSION: No acute intrathoracic disease.
[2022-01-26 12:47] VITALS: BP 128/92; PULSE 74; RESP 18; TEMP 36.2; O2SAT 97; BMI 34.0
== END 2022-01-26 16:09 | disposition left against medical advice (07) ==
PROVIDERS: Emergency Provider Emergency Medicine; PCP Family Medicine
DX: R07.81 Pleurodynia (principal); I11.0 Hypertensive heart disease with heart failure; I50.22 Chronic systolic (congestive) heart failure; I44.7 Left bundle-branch block, unspecified; I42.9 Cardiomyopathy, unspecified; E78.5 Hyperlipidemia, unspecified; J43.9 Emphysema, unspecified; R91.1 Solitary pulmonary nodule; F17.210 Nicotine dependence, cigarettes, uncomplicated; Z79.01 Long term (current) use of anticoagulants; Z95.2 Presence of prosthetic heart valve
CPT/HCPCS: 71046; 93005; 99283

== ENCOUNTER → 2022-02-04 10:48 | Outpatient (BNVA) | payer MEDICAID, SELFPAY | PROVIDERS: PCP Family Medicine; Visit Provider Internal Medicine | DX: Z95.2 Presence of prosthetic heart valve (principal); Z79.01 Long term (current) use of anticoagulants; Z51.81 Encounter for therapeutic drug level monitoring | CPT/HCPCS: 85610; 99211 ==

== ENCOUNTER → 2022-02-18 10:11 | Outpatient (BNVA) | payer MEDICAID, SELFPAY | PROVIDERS: PCP Family Medicine; Visit Provider Internal Medicine | DX: Z95.2 Presence of prosthetic heart valve (principal); Z51.81 Encounter for therapeutic drug level monitoring; Z79.01 Long term (current) use of anticoagulants | CPT/HCPCS: 85610; 99211 ==

== ENCOUNTER → 2022-03-04 10:04 | Outpatient (BNVA) | payer MEDICAID, SELFPAY | PROVIDERS: PCP Family Medicine; Visit Provider Internal Medicine | DX: Z95.2 Presence of prosthetic heart valve (principal); Z79.01 Long term (current) use of anticoagulants; Z51.81 Encounter for therapeutic drug level monitoring | CPT/HCPCS: 85610; 99211 ==

== ENCOUNTER → 2022-03-18 09:33 | Outpatient (BNVA) | payer MEDICAID, SELFPAY | PROVIDERS: PCP Family Medicine; Visit Provider Internal Medicine | DX: Z95.2 Presence of prosthetic heart valve (principal); Z79.01 Long term (current) use of anticoagulants; Z51.81 Encounter for therapeutic drug level monitoring | CPT/HCPCS: 85610; 99211 ==

== ENCOUNTER → 2022-04-03 09:16 | Outpatient (BNVA) | payer MEDICAID, SELFPAY | PROVIDERS: PCP Family Medicine; Visit Provider Internal Medicine | DX: Z95.2 Presence of prosthetic heart valve (principal); Z79.01 Long term (current) use of anticoagulants; Z51.81 Encounter for therapeutic drug level monitoring | CPT/HCPCS: 85610; 99211 ==

== ENCOUNTER 2022-05-04 19:43 | Emergency (ER) | payer MEDICAID, SELFPAY ==
--- NOTE | ~2022-05-04 | XR_ITS ---
EXAMINATION: XR CHEST CLINICAL INFORMATION: Shortness of breath COMPARISON: Chest x-ray 01/26/2022 TECHNIQUE: Frontal portable view of the chest was obtained. 8:06 PM FINDINGS: Status post median sternotomy. Heart size is normal. Cardiac and mediastinal contours are normal. Mild increased central pulmonary vascular congestion with increased lung markings compared to prior study. Findings suggest interstitial edema. No overt pulmonary edema however. No pleural effusion or pneumothorax. No focal consolidation. XR/XR chest 1V IMPRESSION: Mild increased central pulmonary vascular congestion. No overt pulmonary edema.
[2022-05-04 19:52] VITALS: BP 144/82; BP 180/70; PULSE 78; PULSE 82; RESP 17; TEMP 36.4; O2SAT 97; BMI 34.0
--- NOTE | 2022-05-04 19:56 | ECG_ITS ---
Test Reason : SOB Blood Pressure : / mmHG Vent. Rate : 076 BPM Atrial Rate : 000 BPM P-R Int : 000 ms QRS Dur : 120 ms QT Int : 394 ms P-R-T Axes : 000 045 -18 degrees QTc Int : 443 ms Normal sinus rhythm Premature ventricular complexes Incomplete left bundle branch block Nonspecific ST and T wave abnormality Abnormal ECG When compared with ECG of 26-JAN-2022 12:51, Premature ventricular complexes noted. Referred By: Generic ED Physician Electronically Signed By:ANTONIO MEDINA
[2022-05-04 20:00] VITALS: BP 124/74; PULSE 79; RESP 18; TEMP 36.7; O2SAT 96
--- NOTE | 2022-05-04 20:16 | ED.GENADULT ---
HPI - General Adult General Chief complaint: General Medical Stated complaint: SOB per EMS Time Seen by Provider: 05/04/22 20:07 Source: patient Mode of arrival: EMS Limitations: no limitations History of Present Illness HPI narrative: Is years old with history of COPD, hypertension mechanical aortic valve replaced in 2005 for severe AR on Coumadin, status post aortic aneurysm repair with graft normal coronary arteries in past catheterization comes here for increased shortness of breath last 24 hours feels lung filled with fluids with history of same in the past with history of chronic left-sided pain after rib fractures 1/2 year no leg swelling patient does not have any inhalers at home, no fever no chills no nasal congestion Related Data Home Medications Medication Instructions Recorded Confirmed lisinopril 10 mg tablet 10 mg PO DAILY 03/22/20 12/29/21 simvastatin 20 mg tablet 20 mg PO BEDTIME 03/22/20 12/29/21 acetaminophen 325 mg tablet 2 tab PO QID PRN fever 07/14/21 12/29/21 fluticasone propionate 110 1 puff PO BID 07/14/21 12/29/21 mcg/actuation HFA aerosol inhaler (Flovent HFA) folic acid 1 mg tablet 1 mg PO DAILY 07/24/21 12/29/21 metoprolol succinate 50 mg 50 mg PO DAILY 07/24/21 12/29/21 tablet,extended release 24 hr cyanocobalamin (vitamin B-12) 1,000 mcg PO DAILY 09/12/21 12/29/21 1,000 mcg tablet tiotropium bromide 18 mcg capsule 1 cap inhalation DAILY 09/12/21 12/29/21 with inhalation device (Spiriva with HandiHaler) Previous Rx's Medication Instructions Recorded warfarin 5 mg tablet 5 mg PO DAILY #90 tabs 02/02/20 furosemide 20 mg tablet (Lasix) 20 mg PO DAILY #30 tabs 07/15/21 nicotine 21 mg/24 hr daily 21 mg transdermal DAILY #30 ea 07/15/21 transdermal patch albuterol sulfate 90 mcg/actuation 2 puff inhalation Q4-6H PRN 07/29/21 aerosol inhaler shortness of breath or wheezing 30 days #1 ea aspirin 81 mg tablet,delayed 81 mg PO DAILY #90 tabs 09/12/21 release fluticasone fur. 200 mcg-umeclid 1 inh inhalation DAILY 30 days #1 03/09/22 62.5 mcg-vilant 25 mcg ea inhalat.powder (Trelegy Ellipta) albuterol sulfate 90 mcg/actuation 2 puff inhalation Q4-6H PRN 05/04/22 aerosol inhaler (ProAir HFA) shortness of breath or wheezing #8.5 grams benzonatate 200 mg capsule 200 mg PO TID PRN cough #30 caps 05/04/22 prednisone 20 mg tablet 40 mg PO DAILY #10 tabs 05/04/22 Allergies Allergy/AdvReac Type Severity Reaction Status Date / Time No Known Allergies Allergy Verified 04/03/22 09:30 Review of Systems Review of Systems: Yes all other systems are reviewed and are negative [facility] Past Medical History Medical History Aortic valve disorder CAD (coronary artery disease) Cardiomyopathy Chronic cough Diverticulitis Emphysema/COPD Hyperlipidemia Hypertension LBBB (left bundle branch block) Nonischemic cardiomyopathy Pulmonary nodular amyloidosis Pulmonary nodule Smoker Vitamin B12 deficiency Surgical History Aortic valve replaced Hx of aortic aneurysm repair Hx of CABG Hx of elbow surgery S/P ascending aortic aneurysm repair Status post mechanical aortic valve replacement Family History Family History Mother No pertinent family history Father No pertinent family history Social History Social History Household Members: None Alcohol intake: unknown Patient Tobacco Use Status: Current everyday Tobacco user Cigarette Packs Per Day: 1 Cigarettes Per Day: 15.0 Years Smoked: 30 Advance Directives: Yes Advance Directives on File: Yes Advance Directives Date on File: 07/14/21 service: No Physical Exam ED Vital Signs: Vital Signs - 24 hr 05/04/22 19:52 05/04/22 22:08 Temperature 97.6 F Pulse Rate 78 68 Respiratory Rate 17 18 Blood Pressure 114/110 H Pulse Oximetry 97 Oxygen Delivery Method Room Air BMI result Body Mass Index 34.0 Appearance: Alert. Oriented X3. No acute distress. Eyes: PERRLA, No Nystagmus ENT: Pharynx normal. Oral Mucosa moist Neck: Normal inspection. Neck supple. CVS: Normal heart rate and rhythm. Aortic Valve click Pulses normal. Respiratory: Mild respiratory distress with prolonged expiration. Equal air entry bilateral, no wheezing/rales/rhonchi Abdomen: Soft and nontender. Bowel sounds are present, no mass palpable, no CVA tenderness Skin: Skin warm and dry. Normal skin color. Normal skin turgor. Extremities: No lower extremity edema. No calf tenderness Neuro: Oriented X 3. No motor deficit. No sensory deficit.No cerebellar signs , cranial nerves II-XII intact Medications Administered Discontinued Medications Generic Name Dose Route Start Last Admin Trade Name Freq PRN Reason Stop Dose Admin Albuterol Sulfate 2 puff 05/04/22 23:21 05/04/22 23:25 Albuterol Sulfate 90 Mcg 8 Gm Inhaler INHALE 05/04/22 23:22 2 puff ONCE ONE Administration Albuterol Sulfate 2.5 mg/ 0 mg 05/04/22 21:06 05/04/22 22:07 Albuterol/Ipratropium 3 ml INHALE 05/04/22 21:07 1 each ONCE ONE Administration Medical Decision Making Medical Decision Making [facility] Narrative: Patient with COPD a prolonged expiration does not have inhaler felt better after DuoNeb treatment and prednisone. Chest x-ray negative for any info BMP stable patient INR was 6.5 denies any headache or melena or bleeding from any place withhold Coumadin also patient taking aspirin platelet counts patient advised to stop aspirin and hold Coumadin for now and follow-up with Coumadin clinic Lab Data [facility] Lab Attestation statement: I reviewed the patient's lab results. Result Diagrams: 05/04/22 20:29 05/04/22 20:29 Labs: Lab Results 05/04/22 05/04/22 05/04/22 Range/Units 20:29 20:29 20:29 WBC 6.8 (4.8-10.8) X10*3/uL RBC 4.98 (4.60-5.80) X10*6/uL Hgb 15.9 (14.0-18.0) g/dl Hct 46.8 (42.0-52.0) % MCV 94.0 (80.0-98.0) fL MCH 31.9 (27.0-33.0) pg MCHC 34.0 (31.0-36.0) g/dl RDW 13.7 (11.0-16.0) % Plt Count 159 L (160-400) X10*3/uL MPV 11.6 (9.4-12.4) fL Absolute Nucleated RBC 0.000 (0.0-0.012) X10*3/uL Nucleated RBC % (auto) 0.0 (0.0-0.2) /100WBC PT (10.0-13.1) SEC INR (0.9-1.1) APTT (26.0-36.4) SEC Sodium 141 (135-145) mmol/L Potassium 4.3 (3.3-5.1) mmol/L Chloride 113 H (96-108) mmol/L Carbon Dioxide 21 L (22-29) mmol/L Anion Gap 11 L (12-20) BUN 22 H (9-16) mg/dL Creatinine 1.19 (0.5-1.4) mg/dL Estim Creat Clear Calc 75.6 Estimated GFR > 60 Random Glucose 131 H (60-115) mg/dL Calcium 8.1 L (8.4-10.2) mg/dL Total Bilirubin 0.4 (0.0-1.0) mg/dL AST 21 D (5-37) U/L ALT 14 (0-40) U/L Alkaline Phosphatase 62 D (39-117) U/L Troponin I High Sens (<3.5-35.0) ng/L B-Natriuretic Peptide (<100) pg/mL Total Protein 6.4 L (6.5-8.0) g/dL Albumin 3.8 (3.5-5.0) g/dL Influenza Type A (PCR) NEGATIVE (Negative) Influenza Type B (PCR) NEGATIVE (Negative) RSV RNA Qual (PCR) NEGATIVE (Negative) SARS-CoV-2 RNA (RT-PCR) NEGATIVE (Negative) 05/04/22 05/04/22 05/04/22 Range/Units 20:29 20:29 20:29 WBC (4.8-10.8) X10*3/uL RBC (4.60-5.80) X10*6/uL Hgb (14.0-18.0) g/dl Hct (42.0-52.0) % MCV (80.0-98.0) fL MCH (27.0-33.0) pg MCHC (31.0-36.0) g/dl RDW (11.0-16.0) % Plt Count (160-400) X10*3/uL MPV (9.4-12.4) fL Absolute Nucleated RBC (0.0-0.012) X10*3/uL Nucleated RBC % (auto) (0.0-0.2) /100WBC PT 80.3 H (10.0-13.1) SEC INR 6.5 H* D (0.9-1.1) APTT 57.5 H (26.0-36.4) SEC Sodium (135-145) mmol/L Potassium (3.3-5.1) mmol/L Chloride (96-108) mmol/L Carbon Dioxide (22-29) mmol/L Anion Gap (12-20) BUN (9-16) mg/dL Creatinine (0.5-1.4) mg/dL Estim Creat Clear Calc Estimated GFR Random Glucose (60-115) mg/dL Calcium (8.4-10.2) mg/dL Total Bilirubin (0.0-1.0) mg/dL AST (5-37) U/L ALT (0-40) U/L Alkaline Phosphatase (39-117) U/L Troponin I High Sens 13.9 D (<3.5-35.0) ng/L B-Natriuretic Peptide (<100) pg/mL Total Protein (6.5-8.0) g/dL Albumin (3.5-5.0) g/dL Influenza Type A (PCR) (Negative) Influenza Type B (PCR) (Negative) RSV RNA Qual (PCR) (Negative) SARS-CoV-2 RNA (RT-PCR) (Negative) 05/04/22 Range/Units 20:29 WBC (4.8-10.8) X10*3/uL RBC (4.60-5.80) X10*6/uL Hgb (14.0-18.0) g/dl Hct (42.0-52.0) % MCV (80.0-98.0) fL MCH (27.0-33.0) pg MCHC (31.0-36.0) g/dl RDW (11.0-16.0) % Plt Count (160-400) X10*3/uL MPV (9.4-12.4) fL Absolute Nucleated RBC (0.0-0.012) X10*3/uL Nucleated RBC % (auto) (0.0-0.2) /100WBC PT (10.0-13.1) SEC INR (0.9-1.1) APTT (26.0-36.4) SEC Sodium (135-145) mmol/L Potassium (3.3-5.1) mmol/L Chloride (96-108) mmol/L Carbon Dioxide (22-29) mmol/L Anion Gap (12-20) BUN (9-16) mg/dL Creatinine (0.5-1.4) mg/dL Estim Creat Clear Calc Estimated GFR Random Glucose (60-115) mg/dL Calcium (8.4-10.2) mg/dL Total Bilirubin (0.0-1.0) mg/dL AST (5-37) U/L ALT (0-40) U/L Alkaline Phosphatase (39-117) U/L Troponin I High Sens (<3.5-35.0) ng/L B-Natriuretic Peptide 220 H (<100) pg/mL Total Protein (6.5-8.0) g/dL Albumin (3.5-5.0) g/dL Influenza Type A (PCR) (Negative) Influenza Type B (PCR) (Negative) RSV RNA Qual (PCR) (Negative) SARS-CoV-2 RNA (RT-PCR) (Negative) Independent Interpretation I performed an independent interpretation of an: EKG Interpretation: Wide QRS complex LBBB heart rate of 76 beats per minute no significant change from the previous EKG Discharge Plan Discharge Clinical Impression: Emphysema/COPD Patient Disposition: Home, Self-Care Instructions: COPD (Chronic Obstructive Pulmonary Disease) (ED), Hypercoagulation (ED) Additional Instructions: Hold the Coumadin for 2 days and follow with Coumadin clinic to recheck INR before starting Coumadin Do not take Aspirin, follow with cardiology about restarting aspirin Take prednisone and use inhaler as prescribed Continue your water pill Cough drops as prescribed Report to ER if black stool/severe headache/severe bleeding from any place Mantenga el Coumadin yari 2 d?as y siga con la cl?melo de Coumadin para volver a verificar el INR antes de comenzar con Coumadin No tome Aspirina, siga con cardiolog?a sobre reiniciar aspirina [place] prednisona y use el inhalador seg?n lo prescrito Contin?a con tu pastilla de agua Pastillas para la tos seg?n lo prescrito Informe a la herminio de emergencias si hay heces negras/dolor de breanne intenso/sangrado intenso de cualquier luaugie Prescriptions: New benzonatate 200 mg capsule 200 mg PO TID PRN (Reason: cough) Qty: 30 0RF albuterol sulfate [ProAir HFA] 90 mcg/actuation HFA aerosol inhaler 2 puff inhalation Q4-6H PRN (Reason: shortness of breath or wheezing) Qty: 8.5 0RF prednisone 20 mg tablet 40 mg PO DAILY Qty: 10 0RF No Action Trelegy Ellipta 200-62.5-25 mcg blister with device 1 inh inhalation DAILY 30 Days Qty: 1 6RF simvastatin 20 mg Tablet 20 mg PO BEDTIME lisinopril 10 mg Tablet 10 mg PO DAILY acetaminophen 325 mg tablet 2 tab PO QID PRN (Reason: fever) Flovent HFA 110 mcg/actuation HFA aerosol inhaler 1 puff PO BID nicotine 21 mg/24 hr Patch 24 Hour 21 mg transdermal DAILY Qty: 30 0RF furosemide [Lasix] 20 mg tablet 20 mg PO DAILY Qty: 30 0RF metoprolol succinate 50 mg tablet extended release 24 hr 50 mg PO DAILY warfarin 5 mg tablet 5 mg PO DAILY Qty: 90 0RF Protocol: Dose Management Condition: Wednesday (Week One) Dose/Route: 5 mg Instruction: 1 x 5 mg tablet Condition: Wednesday Dose/Route: 7.5 mg Instruction: 1.5 x 5 mg tablets Condition: Wednesday Dose/Route: 5 mg Instruction: 1 x 5 mg tablet Condition: Wednesday Dose/Route: 7.5 mg Instruction: 1.5 x 5 mg tablets Condition: Dose/Route: 5 mg Instruction: 1 x 5 mg tablet Condition: Wednesday Dose/Route: 7.5 mg Instruction: 1.5 x 5 mg tablets Condition: Wednesday Dose/Route: 7.5 mg Instruction: 1.5 x 5 mg tablets Condition: Wednesday (Week Two) Dose/Route: 5 mg Instruction: 1 x 5 mg tablet Condition: Wednesday Dose/Route: 7.5 mg Instruction: 1.5 x 5 mg tablets Condition: Wednesday Dose/Route: 5 mg Instruction: 1 x 5 mg tablet Condition: Wednesday Dose/Route: 7.5 mg Instruction: 1.5 x 5 mg tablets Condition: Dose/Route: 5 mg Instruction: 1 x 5 mg tablet Condition: Wednesday Dose/Route: 7.5 mg Instruction: 1.5 x 5 mg tablets Condition: Wednesday Dose/Route: 7.5 mg Instruction: 1.5 x 5 mg tablets Protocol Text: Adjustment Start Date: Wednesday04/03/22 INR Value: 3.1 INR Date: 04/03/22 Recheck Date: 04/17/22 Additional Instructions: cont reg dosing balance reds and greens call with any medication changes folic acid 1 mg tablet 1 mg PO DAILY cyanocobalamin (vitamin B-12) 1,000 mcg tablet 1,000 mcg PO DAILY Spiriva with HandiHaler 18 mcg capsule, w/inhalation device 1 cap inhalation DAILY albuterol sulfate 90 mcg/actuation HFA aerosol inhaler 2 puff inhalation Q4-6H PRN (Reason: shortness of breath or wheezing) 30 Days Qty: 1 3RF aspirin 81 mg tablet,delayed release (DR/EC) 81 mg PO DAILY Qty: 90 3RF Print Language: [place] Citizen
[2022-05-04 20:43] LABS: Prothrombin Time 80.3 SEC (10.0-13.1)
[2022-05-04 20:45] LABS: Partial Thromboplastin Time 57.5 SEC (26.0-36.4)
[2022-05-04 20:53] LABS: INTERNATIONAL NORM RATIO 6.5 (0.9-1.1)
[2022-05-04 20:56] LABS: Troponin-I High Sensitivity 13.9 ng/L (<3.5-35.0)
[2022-05-04 20:57] LABS: B Type Natriuretic Peptide 220 pg/mL (<100)
[2022-05-04 20:59] LABS: Hematocrit 46.8 % (42.0-52.0); Hemoglobin 15.9 g/dl (14.0-18.0); Mean Corpuscular Hemoglobin 31.9 pg (27.0-33.0); Mean Platelet Volume 11.6 fL (9.4-12.4); Platelet Count 159 X10*3/uL (160-400); Red Blood Count 4.98 X10*6/uL (4.60-5.80); Red Cell Distribution Width 13.7 % (11.0-16.0); White Blood Count 6.8 X10*3/uL (4.8-10.8)
[2022-05-04 21:04] LABS: Alanine Aminotransferase 14 U/L (0-40); Albumin Level 3.8 g/dL (3.5-5.0); Alkaline Phosphatase 62 U/L (39-117); Anion Gap 11 (12-20); Aspartate Amino Transferase 21 U/L (5-37); Bilirubin Total 0.4 mg/dL (0.0-1.0); Blood Urea Nitrogen 22 mg/dL (9-16); Calcium 8.1 mg/dL (8.4-10.2); Carbon Dioxide 21 mmol/L (22-29); Chloride 113 mmol/L (96-108); Creatinine Clr Calc Pharmacy 75.6; Estimated Glomerular Filt Rate > 60; Glucose Random 131 mg/dL (60-115); Potassium 4.3 mmol/L (3.3-5.1); Sodium 141 mmol/L (135-145); Total Protein 6.4 g/dL (6.5-8.0)
[2022-05-04 21:15] LABS: Influenza A PCR NEGATIVE (Negative); Influenza B PCR NEGATIVE (Negative); Resp Syncy Virus RNA Qual PCR NEGATIVE (Negative); SARS COV2 PCR INHOUSE NEGATIVE (Negative)
[2022-05-04 22:00] VITALS: BP 110/65; PULSE 77; RESP 16; TEMP 36.4; O2SAT 96
[2022-05-04] MEDS: Albuterol Sulfate 2.5 MG, Albuterol/Iprat 2.5/0.5MG 3 ML 3 ML INHALE (22:07)
[2022-05-04 22:08] VITALS: PULSE 68; RESP 18; O2SAT 98
[2022-05-04] MEDS: Albuterol Sulfate 90 MCG 8 GM INHALER 2 PUFF INHALE (23:25)
[2022-05-04] MEDS: predniSONE 20 MG TABLET 40 MG PO (23:55)
== END 2022-05-05 | disposition home or self-care (01) ==
PROVIDERS: Emergency Provider Internal Medicine; PCP Internal Medicine Transplant Hepatology
DX: J44.9 Chronic obstructive pulmonary disease, unspecified (principal); R06.02 Shortness of breath; Z20.828 Contact with and (suspected) exposure to other viral communicable diseases; I10 Essential (primary) hypertension; E78.5 Hyperlipidemia, unspecified; F17.200 Nicotine dependence, unspecified, uncomplicated; Z95.4 Presence of other heart-valve replacement; Z79.899 Other long term (current) drug therapy; Z79.02 Long term (current) use of antithrombotics/antiplatelets; Z79.01 Long term (current) use of anticoagulants
CPT/HCPCS: 0241U; 36415; 71045; 80053; 83880; 84484; 85027; 85610; 85730; 93005; 94640; 99284

== ENCOUNTER → 2022-05-06 10:02 | Outpatient (BNVA) | payer MEDICAID, SELFPAY | PROVIDERS: PCP Internal Medicine Transplant Hepatology; Visit Provider Internal Medicine | DX: Z95.2 Presence of prosthetic heart valve (principal); Z79.01 Long term (current) use of anticoagulants; Z51.81 Encounter for therapeutic drug level monitoring | CPT/HCPCS: 85610; 99211 ==

== ENCOUNTER 2022-05-06 13:50 | Emergency (ER) | payer MEDICAID, SELFPAY ==
--- OUTSIDE RECORDS SUMMARY | 2022-05-06 15:59 | XMS_ITS | Continuity of Care Document ---
:1960 Author Organization [facility] Address Unavailable , Care Team Providers Name Role Phone Stuart MALDONADO, Ana Paula [id number] Date(s): [facility] - 05/21/[facility] Attending Physician: Manan Arita MD Referring Physician: Mariah Ureña MD Allergies, Adverse Reactions, Alerts No Known Allergies Immunizations Given and Recorded Vaccine Date Status Refusal Reason pneumococcal 23-valent vaccine 12/20/12 Given Medications acetaminophen 325 mg oral capsule 2 capsule = 650 mg, By Mouth, 4 times a day, PRN as needed for fever, for 14 days, # 112 capsule, 1 Refills, Acute 06/11/21 16:28:00 EST, 05/14/21 16:28:00 EST, Capsule, [facility][id number], Partial fill upon patient request if the prescriptio... Start Date: 05/14/21 Stop Date: 06/11/21 Status: OrderedAspirin 81, mg, By Mouth, Daily, 0, 0, 01/04/06 1:42:34, Print NASH Number, [id number], Constant Indicator Start Date: 01/04/06 Status: OrderedCoumadin Tablet Daily, 0 Refills, Maintenance Start Date: 09/24/10 Status: Orderedfolic acid 1 mg oral tablet 1 tablet = 1 mg, By Mouth, Daily, # 30 tablet, 0 Refills, Maintenance, Tablet Start Date: 12/20/12 Status: Orderedgabapentin 100 mg oral capsule 100 mg, 1, capsule, By Mouth, 3 times a day, # 42 capsule, Refills 1, Tot. Refills 1, Maintenance, 05/14/21 16:27:00 EST, Route to Pharmacy Electronically, [facility] #[id number], Partial fill upon patient request if the prescription is for a forrest... Start Date: 05/14/21 Stop Date: 06/11/21 Status: Orderedgabapentin 100 mg oral capsule 100 mg, 1, capsule, By Mouth, 3 times a day, # 90 capsule, Refills 0, Tot. Refills 0, Maintenance, 04/06/21 14:35:00 EST, Route to Pharmacy Electronically, [facility], Partial fill upon patient request if the prescription is for a schedu... Start Date: 04/06/21 Status: Orderedhydrochlorothiazide 25 mg oral tablet 1 tablet = 25 mg, By Mouth, Daily, 0 Refills, Maintenance Start Date: 09/24/10 Status: Orderedlisinopril 5 mg oral tablet 1 tablet = 5 mg, By Mouth, Daily, # 30 tablet, 0 Refills, Maintenance, Tablet Start Date: 12/20/12 Status: OrderedLopressor Tablet 50, mg, By Mouth, 2 times a day, 30, 0, 0, 0, 01/05/06 22:04:39, Print NASH Number, ADS OPPT, [id number] Start Date: 01/05/06 Stop Date: 02/04/06 Status: OrderedMetoprolol = 25 mg, By Mouth, 2 times a day, 0 Refills, Maintenance Start Date: 02/15/06 Status: Orderedmetoprolol 25 mg oral tablet 1 tablet = 25 mg, By Mouth, 2 times a day, # 60 tablet, 3 Refills, Maintenance, Tablet Start Date: 01/31/11 Status: OrderedNiaspan ER 500 mg oral tablet, extended release 500, mg, 1, tablet, By Mouth, Daily, 0, 0, 02/15/06 13:13:29, Print NASH Number, [id number], Constant Indicator Start Date: 02/15/06 Status: OrderedRemeron Tablet 15, mg, By Mouth, 0, 0, 02/15/06 13:13:44, Print NASH Number, Constant Indicator Start Date: 02/15/06 Status: Orderedsimvastatin 20 mg oral tablet 1 tablet = 20 mg, By Mouth, Daily at bedtime, # 30 tablet, 0 Refills, Maintenance, Tablet Start Date: 01/31/11 Status: OrderedTramadol 50, mg, By Mouth, Every 8 hours, 0, 0, 02/15/06 13:00:04, Print NASH Number, 57, Constant Indicator Start Date: 02/15/06 Status: OrderedVitamin B-12 Tablet 100 mcg, By Mouth, Daily, Maintenance, 12/20/12 0:10:14 Start Date: 12/20/12 Status: OrderedVitamin B1 Daily, 0 Refills, Maintenance Start Date: 09/24/10 Status: Orderedwarfarin 5 mg oral tablet 1 tablet = 5 mg, By Mouth, Daily, # 30 tablet, 0 Refills, Maintenance, Tablet Start Date: 01/31/11 Status: Orderedwarfarin 7.5 mg oral tablet By Mouth, Daily, 0 Refills, Maintenance, Tablet Start Date: 12/20/12 Status: OrderedZocor 20 mg oral tablet 1 tablet = 20 mg, By Mouth, Daily at bedtime, # 30 tablet, 0 Refills, Maintenance, Tablet Start Date: 12/20/12 Status: Ordered Problem List Condition Effective Dates Status Health Status Informant AVR - Aortic valve Active replacement(Confirmed) Essential hypertension(Confirmed) Active Rib fractures(Confirmed) Active Hyperlipidemia(Confirmed) Active Obese class I(Confirmed) Active Vital Signs Most recent to oldest [Reference Range]: 1 Height 176 cm (05/14/21 3:40 PM) Weight 101.2 kg (05/14/21 3:40 PM) Pulse Rate [55-90 bpm] 69 bpm (05/14/21 3:40 PM) Body Mass Index [18.5-24.99] 32.67 *>HHI* (05/14/21 3:40 PM) Blood Pressure [90-138/55-84 mm Hg] 132/100 mm Hg (05/14/21 3:40 PM) Temperature [96.8-100.4 DegF] 96.8 DegF (05/14/21 3:40 PM) Blood pressure sites Arm, right (05/14/21 3:40 PM) Temperature Route Temporal (05/14/21 3:40 PM) Weight Obtained Via Standing scale (05/14/21 3:40 PM)
--- OUTSIDE RECORDS SUMMARY | 2022-05-06 15:59 | XMS_ITS | Continuity of Care Document ---
:1960 Author Organization [facility] Address Unavailable , Care Team Providers Name Role Phone Stuart MALDONADO, Ana Paula [id number] 06[facility]05/[facility] Attending Physician: Corky OCONNELL MD, Sylvester T Allergies, Adverse Reactions, Alerts No Known Allergies Immunizations Given and Recorded Vaccine Date Status Refusal Reason pneumococcal 23-valent vaccine 12/20/12 Given Medications acetaminophen 325 mg oral capsule 2 capsule = 650 mg, By Mouth, 4 times a day, PRN as needed for fever, for 14 days, # 112 capsule, 1 Refills, Acute 06/11/21 16:28:00 EST, 05/14/21 16:28:00 EST, Capsule, [facility] #[id number], Partial fill upon patient request if the prescriptio... Start Date: 05/14/21 Stop Date: 06/11/21 Status: OrderedAspirin 81, mg, By Mouth, Daily, 0, 0, 01/04/06 1:42:34, Print NASH Number, [id number], Constant Indicator Start Date: 01/04/06 Status: OrderedCoumadin [...] 05/14/21 16:27:00 EST, Route to Pharmacy Electronically, [facility] #[id number], Partial fill upon patient request if the prescription is for a forrest... Start Date: 05/14/21 Stop Date: 06/11/21 Status: Orderedgabapentin 100 mg oral capsule 100 mg, 1, capsule, By Mouth, 3 times a day, # 90 capsule, Refills 0, Tot. Refills 0, Maintenance, 04/06/21 14:35:00 EST, Route to Pharmacy Electronically, [facility], Partial fill upon patient request [...] 0, 01/05/06 22:04:39, Print NASH Number, ADS [facility], [id number] Start Date: 01/05/06 Stop Date: 02/04/06 Status: [...] 0, 0, 02/15/06 13:13:29, Print NASH Number, [id number], Constant Indicator Start Date: 02/15/06 Status: OrderedRemeron [...]
--- OUTSIDE RECORDS SUMMARY | 2022-05-06 15:59 | XMS_ITS | Continuity of Care Document ---
:1960 Author Organization [facility] Address Unavailable , Care Team Providers Name Role Phone Stuart MALDONADO, Ana Paula Primary Care Physician [place] [facility] [place] 05/14[place]21 [place] 06/13/21 [facility] Attending Physician: Stevan Otero Admitting Physician: Stevan Otero Referring Physician: Stevan Otero Allergies, Adverse Reactions, Alerts No Known Allergies Immunizations Given and Recorded Vaccine Date Status Refusal Reason pneumococcal 23-valent vaccine 12/20/12 Given Medications Aspirin 81, mg, By Mouth, Daily, 0, 0, 01/04/06 1:42:34, Print NASH Number, [id number], Constant Indicator Start Date: 01/04/06 Status: OrderedCoumadin [...] 05/14/21 16:27:00 EST, Route to Pharmacy Electronically, [facility][id number], Partial fill upon patient request if the prescription is for a forrest... Start Date: 05/14/21 Stop Date: 06/11/21 Status: Orderedgabapentin 100 mg oral capsule 100 mg, 1, capsule, By Mouth, 3 times a day, # 90 capsule, Refills 0, Tot. Refills 0, Maintenance, 04/06/21 14:35:00 EST, Route to Pharmacy Electronically, [facility], Partial fill upon patient request if [...] 0, 01/05/06 22:04:39, Print NASH Number, ADS OPPTHS, [id number] Start Date: 01/05/06 Stop Date: 02/04/06 Status: [...] 0, 0, 02/15/06 13:13:29, Print NASH Number, [id number], Constant Indicator Start Date: 02/15/06 Status: OrderedRemeron [...]
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
== END 2022-05-06 16:05 | disposition left against medical advice (07) ==
PROVIDERS: Emergency Provider Emergency Medicine; PCP Internal Medicine Transplant Hepatology
DX: I10 Essential (primary) hypertension (principal)

== ENCOUNTER 2022-05-06 16:58 | Emergency (ER) | payer MEDICAID, SELFPAY ==
[2022-05-06 17:12] VITALS: BP 137/87; PULSE 72; RESP 18; TEMP 36.8; O2SAT 96; BMI 32.5
--- NOTE | 2022-05-06 17:15 | ECG_ITS ---
Test Reason : DIZZY Blood Pressure : / mmHG Vent. Rate : 071 BPM Atrial Rate : 071 BPM P-R Int : 146 ms QRS Dur : 122 ms QT Int : 426 ms P-R-T Axes : 071 062 -35 degrees QTc Int : 462 ms Sinus rhythm with Premature atrial complexes Incomplete Left bundle branch block Abnormal ECG When compared with ECG of 04-MAY-2022 19:50, Premature ventricular complexes are no longer Present Premature atrial complexes are now Present Referred By: Generic ED Physician Electronically Signed By:ANTONIO MEDINA
[2022-05-06 18:43] VITALS: BP 142/75
[2022-05-06 18:48] LABS: Hematocrit 47.6 % (42.0-52.0); Hemoglobin 16.2 g/dl (14.0-18.0); Mean Corpuscular Hemoglobin 31.6 pg (27.0-33.0); Mean Corpuscular Volume 92.8 fL (80.0-98.0); Mean Platelet Volume 11.4 fL (9.4-12.4); Platelet Count 162 X10*3/uL (160-400); Red Blood Count 5.13 X10*6/uL (4.60-5.80); Red Cell Distribution Width 13.7 % (11.0-16.0); White Blood Count 7.8 X10*3/uL (4.8-10.8)
[2022-05-06 19:12] LABS: Anion Gap 11 (12-20); Blood Urea Nitrogen 19 mg/dL (9-16); Calcium 8.5 mg/dL (8.4-10.2); Carbon Dioxide 22 mmol/L (22-29); Chloride 110 mmol/L (96-108); Creatinine Clr Calc Pharmacy 80.7; Estimated Glomerular Filt Rate > 60; Glucose Random 105 mg/dL (60-115); Potassium 4.2 mmol/L (3.3-5.1); Sodium 139 mmol/L (135-145)
[2022-05-06 20:02] LABS: Troponin-I High Sensitivity 11.7 ng/L (<3.5-35.0)
== END 2022-05-06 20:14 | disposition left against medical advice (07) ==
PROVIDERS: Student in an Organized Health Care Education/Training Program; Emergency Provider Internal Medicine; PCP Internal Medicine Transplant Hepatology
DX: R51.9 Headache, unspecified (principal); I10 Essential (primary) hypertension; E78.5 Hyperlipidemia, unspecified; F17.200 Nicotine dependence, unspecified, uncomplicated; Z95.2 Presence of prosthetic heart valve; Z79.01 Long term (current) use of anticoagulants
CPT/HCPCS: 36415; 80048; 84484; 85027; 93005; 99283

== ENCOUNTER → 2022-05-08 11:18 | Outpatient (BNVA) | payer MEDICAID, SELFPAY | PROVIDERS: PCP Internal Medicine Transplant Hepatology; Visit Provider Internal Medicine | DX: Z95.2 Presence of prosthetic heart valve (principal); Z79.01 Long term (current) use of anticoagulants; Z51.81 Encounter for therapeutic drug level monitoring | CPT/HCPCS: 85610; 99211 ==

== ENCOUNTER 2022-05-15 05:55 | Emergency (ER) | payer MEDICAID, SELFPAY ==
--- NOTE | 2022-05-15 | ECG_ITS ---
Test Reason : HYPERTENSIVE Blood Pressure : / mmHG Vent. Rate : 064 BPM Atrial Rate : 064 BPM P-R Int : 160 ms QRS Dur : 124 ms QT Int : 432 ms P-R-T Axes : 103 052 -30 degrees QTc Int : 445 ms Sinus rhythm with Premature atrial complexes with Aberrant conduction Left bundle branch block Abnormal ECG When compared with ECG of 06-MAY-2022 18:52, No significant change was found Referred By: Generic ED Physician Electronically Signed By:Avi Brennan
[2022-05-15 06:03] VITALS: BP 160/70; PULSE 60; RESP 20; TEMP 36.2; O2SAT 96; BMI 34.0
[2022-05-15 06:25] LABS: MANUAL DIFF FLAG NO
[2022-05-15 06:30] LABS: Basophils Percent Auto 0.3 % (0-2); Eosinophils Absolute Auto 0.2 X10*3/uL (0.0-0.4); Eosinophils Percent Auto 2.6 % (0-4); Hematocrit 48.2 % (42.0-52.0); Hemoglobin 16.4 g/dl (14.0-18.0); Imm Gran Abs Auto 0.04 X10*3/uL (0.00-0.03); Imm Gran Pct Auto 0.5 % (0.0-0.4); Lymphocytes Percent Auto 25.2 % (20-40); Mean Corpuscular Hemoglobin 31.2 pg (27.0-33.0); Mean Corpuscular Volume 91.6 fL (80.0-98.0); Mean Platelet Volume 11.9 fL (9.4-12.4); Monocytes Absolute Auto 0.7 X10*3/uL (0.1-1.2); Monocytes Percent Auto 8.6 % (2-11); Neutrophils Percent Auto 62.8 % (45-73); Platelet Count 162 X10*3/uL (160-400); Red Blood Count 5.26 X10*6/uL (4.60-5.80); Red Cell Distribution Width 13.4 % (11.0-16.0)
[2022-05-15 06:45] LABS: Anion Gap 14 (12-20); Blood Urea Nitrogen 13 mg/dL (9-16); Calcium 8.3 mg/dL (8.4-10.2); Carbon Dioxide 20 mmol/L (22-29); Chloride 112 mmol/L (96-108); Creatinine Clr Calc Pharmacy 78.2; Estimated Glomerular Filt Rate > 60; Glucose Random 146 mg/dL (60-115); Potassium 4.1 mmol/L (3.3-5.1); Sodium 142 mmol/L (135-145)
[2022-05-15 06:55] LABS: Troponin-I High Sensitivity 8.5 ng/L (<3.5-35.0)
--- NOTE | 2022-05-15 07:03 | ED_ITS ---
HPI - General Adult General Chief complaint: General Medical Stated complaint: ?High Blood Pressure Time Seen by Provider: 05/15/22 06:52 Source: patient and spanish interpreter Mode of arrival: ambulatory Limitations: no limitations History of Present Illness HPI narrative: 62-year-old male only speaks Turkish came in for evaluation of high blood pressure. Patient was routinely taking his blood pressure at home blood pressure was 157/80 patient was complaining of mild headache, patient also been having a mild shortness of breath and wheezing that improved after the patient used his own albuterol, patient declined any chest pain. Patient now feels better, no shortness of breath, no chest pain, no headache, no neuro deficit. Related Data Home Medications Medication Instructions Recorded Confirmed lisinopril 10 mg tablet 10 mg PO DAILY 03/22/20 05/08/22 simvastatin 20 mg tablet 20 mg PO BEDTIME 03/22/20 05/08/22 acetaminophen 325 mg tablet 2 tab PO QID PRN fever 07/14/21 05/08/22 fluticasone propionate 110 1 puff PO BID 07/14/21 05/08/22 mcg/actuation HFA aerosol inhaler (Flovent HFA) folic acid 1 mg tablet 1 mg PO DAILY 07/24/21 05/08/22 metoprolol succinate 50 mg 50 mg PO DAILY 07/24/21 05/08/22 tablet,extended release 24 hr cyanocobalamin (vitamin B-12) 1,000 mcg PO DAILY 09/12/21 05/08/22 1,000 mcg tablet tiotropium bromide 18 mcg capsule 1 cap inhalation DAILY 09/12/21 05/08/22 with inhalation device (Spiriva with HandiHaler) Previous Rx's Medication Instructions Recorded warfarin 5 mg tablet 5 mg PO DAILY #90 tabs 02/02/20 furosemide 20 mg tablet (Lasix) 20 mg PO DAILY #30 tabs 07/15/21 nicotine 21 mg/24 hr daily 21 mg transdermal DAILY #30 ea 07/15/21 transdermal patch albuterol sulfate 90 mcg/actuation 2 puff inhalation Q4-6H PRN 07/29/21 aerosol inhaler shortness of breath or wheezing 30 days #1 ea aspirin 81 mg tablet,delayed 81 mg PO DAILY #90 tabs 09/12/21 release fluticasone fur. 200 mcg-umeclid 1 inh inhalation DAILY 30 days #1 03/09/22 62.5 mcg-vilant 25 mcg ea inhalat.powder (Trelegy Ellipta) albuterol sulfate 90 mcg/actuation 2 puff inhalation Q4-6H PRN 05/04/22 aerosol inhaler (ProAir HFA) shortness of breath or wheezing #8.5 grams benzonatate 200 mg capsule 200 mg PO TID PRN cough #30 caps 05/04/22 Allergies Allergy/AdvReac Type Severity Reaction Status Date / Time No Known Allergies Allergy Verified 05/15/22 06:06 Review of Systems Review of Systems: All other systems are reviewed and are negative Constitutional: Reports as per HPI and Reports no additional constitutional complaints Eyes: Reports as per HPI and Reports no additional eye complaints Reports system reviewed and no additional complaints, except as documented Cardiovascular: Reports as per HPI and Reports no additional cardiovascular complaints Respiratory: Reports as per HPI and Reports no additional respiratory complaints Gastrointestinal: Reports as per HPI and Reports no additional gastrointestinal complaints Genitourinary: Reports no additional female genitourinary complaints Musculoskeletal: Reports no additional musculoskeletal complaints Skin/Breast: Reports system reviewed and no additional complaints, except as docu Psychiatric: Reports no additional psychiatric complaints Endocrine: Reports no additional endocrine complaints Hematologic/Lymphatic: Reports no additional hematologic/lymphatic complaints Allergic/Immunologic: Reports no additional allergic/immunologic complaints Reports system reviewed and no additional complaints, except as documented and Reports Abnormal speech present [facility] Past Medical History Medical History Aortic valve disorder CAD (coronary artery disease) Cardiomyopathy Chronic cough Diverticulitis Emphysema/COPD Hyperlipidemia Hypertension LBBB (left bundle branch block) Nonischemic cardiomyopathy Pulmonary nodular amyloidosis Pulmonary nodule Smoker Vitamin B12 deficiency Surgical History Aortic valve replaced Hx of aortic aneurysm repair Hx of CABG Hx of elbow surgery S/P ascending aortic aneurysm repair Status post mechanical aortic valve replacement Family History Family History Mother No pertinent family history Father No pertinent family history Social History Social History Household Members: None Alcohol intake: current Alcohol intake frequency: holidays/special occasions only Alcohol type: beer Patient Tobacco Use Status: Current everyday Tobacco user Cigarette Packs Per Day: 1 Cigarettes Per Day: 15.0 Years Smoked: 30 Smoked in Last 30 Days: Yes Use of substances other than those prescribed or required for medical reasons: No Advance Directives: Yes Advance Directives on File: Yes Advance Directives Date on File: 07/14/21 service: No Physical Exam ED Vital Signs: Vital Signs - 24 hr 05/15/22 06:03 Temperature 97.2 F Pulse Rate 60 Respiratory Rate 20 Blood Pressure 160/70 H Pulse Oximetry 96 Oxygen Delivery Method Room Air BMI result Body Mass Index 34.0 Vital signs have been reviewed as appeared to be correct. Blood pressure normal. Heart rate normal. Respiration rate normal. Temperature normal. Oxygen saturation normal. Appearance: Anxious, Alert. Oriented X3. No acute distress. Head: Normal external exam. Normocephalic. Atraumatic. No Buen[place]ro signs noted. No raccoon eyes noted Eyes: PERRLA. EOMI. Conjunctiva and sclera normal. Eyelids normal. ENT: TM's Normal. Pharynx normal. Uvula midline. Moist mucous membranes. No trismus noted. No drooling noted. No muffled voice noted. Neck: Normal inspection. Neck supple. FROM. No adenopathy. Thyroid Normal. No meningeal signs. No neck mass noted. CVS: Normal heart rate and rhythm. Heart sound normal. No murmurs noted. Pulses normal throughout. Respiratory: No respiratory distress. Painless inspiration. Breath sounds normal. No wheezes/rales/rhonchi noted. Chest nontender. No accessory muscle usage noted or decreased air movement noted. Abdomen: Soft and nontender. Bowel sounds normal in all 4 quadrants. No distention noted. No organomegaly noted. No visible injury noted. Back: No CVA tenderness. Full range of motion noted. Skin: Skin warm and dry. Normal skin color. Normal skin turgor. No rashes/lesions/lacerations noted. Extremities: No lower extremity edema. Extremities exhibit normal range of motion. Extremities nontender. Neuro: Oriented X 3. Cranial nerve exam: II-XII are grossly intact No motor deficit. No sensory deficit. Reflexes normal. Course Course Course Narrative: 62-year-old male came in after felt anxious about his health found his blood pr essure was high at home patient did not take his blood pressure medication this morning but he will when he go home, shortness of breath and wheezing that is improved with using his own albuterol pump patient is walking around in the ED failed reassured now and he would like to go home patient is asymptomatic at this point. Medical Decision Making Differential Diagnosis Differential Diagnoses: The differential diagnosis associated with the presentation includes (ACS, hypertensive urgency, hypertensive emergency, anxiety.) Lab Data MDM Lab Attestation statement: I reviewed the patient's lab results. 05/15/22 06:20 05/15/22 06:20 Labs: Lab Results 05/15/22 05/15/22 05/15/22 Range/Units 06:20 06:20 06:20 WBC 8.0 (4.8-10.8) X10*3/uL RBC 5.26 (4.60-5.80) X10*6/uL Hgb 16.4 (14.0-18.0) g/dl Hct 48.2 (42.0-52.0) % MCV 91.6 (80.0-98.0) fL MCH 31.2 (27.0-33.0) pg MCHC 34.0 (31.0-36.0) g/dl RDW 13.4 (11.0-16.0) % Plt Count 162 (160-400) X10*3/uL MPV 11.9 (9.4-12.4) fL Immature Gran % (Auto) 0.5 H (0.0-0.4) % Neut % (Auto) 62.8 (45-73) % Lymph % (Auto) 25.2 (20-40) % [place] % (Auto) 8.6 (2-11) % Eos % (Auto) 2.6 (0-4) % Baso % (Auto) 0.3 (0-2) % Lymph # (Auto) 2.0 (1.2-4.9) X10*3/uL [place] # (Auto) 0.7 (0.1-1.2) X10*3/uL Eos # (Auto) 0.2 (0.0-0.4) X10*3/uL Baso # (Auto) 0.0 (0.0-0.2) X10*3/uL Abs Immat Gran (auto) 0.04 H (0.00-0.03) X10*3/uL Absolute Neuts (auto) 5.0 (2.0-8.3) x10*3/uL Absolute Nucleated RBC 0.000 (0.0-0.012) X10*3/uL Nucleated RBC % (auto) 0.0 (0.0-0.2) /100WBC Sodium 142 (135-145) mmol/L Potassium 4.1 (3.3-5.1) mmol/L Chloride 112 H (96-108) mmol/L Carbon Dioxide 20 L (22-29) mmol/L Anion Gap 14 (12-20) BUN 13 (9-16) mg/dL Creatinine 1.15 (0.5-1.4) mg/dL Estim Creat Clear Calc 78.2 Estimated GFR > 60 Random Glucose 146 H (60-115) mg/dL Calcium 8.3 L (8.4-10.2) mg/dL Troponin I High Sens 8.5 (<3.5-35.0) ng/L Independent Interpretation I performed an independent interpretation of an: EKG (Normal sinus rhythm at 64 beats per minutes with PACs, left bundle-branch block, no EKG changes from previous EKG.) Discharge Plan Discharge Clinical Impression: Anxiety about health Patient Disposition: Home, Self-Care Instructions: Anxiety (ED) Prescriptions: No Action Treleсветлана Ellipta 200-62.5-25 mcg blister with device 1 inh inhalation DAILY 30 Days Qty: 1 6RF simvastatin 20 mg Tablet 20 mg PO BEDTIME lisinopril 10 mg Tablet 10 mg PO DAILY acetaminophen 325 mg tablet 2 tab PO QID PRN (Reason: fever) Flovent HFA 110 mcg/actuation HFA aerosol inhaler 1 puff PO BID nicotine 21 mg/24 hr Patch 24 Hour 21 mg transdermal DAILY Qty: 30 0RF furosemide [Lasix] 20 mg tablet 20 mg PO DAILY Qty: 30 0RF metoprolol succinate 50 mg tablet extended release 24 hr 50 mg PO DAILY benzonatate 200 mg capsule 200 mg PO TID PRN (Reason: cough) Qty: 30 0RF albuterol sulfate [ProAir HFA] 90 mcg/actuation HFA aerosol inhaler 2 puff inhalation Q4-6H PRN (Reason: shortness of breath or wheezing) Qty: 8.5 0RF warfarin 5 mg tablet 5 mg PO DAILY Qty: 90 0RF Protocol: Dose Management Condition: Wednesday (Week One) Dose/Route: 5 mg Instruction: 1 x 5 mg tablet Condition: Wednesday Dose/Route: 0 mg Instruction: 0 tablets Condition: Wednesday Dose/Route: 0 mg Instruction: 0 tablets Condition: Wednesday Dose/Route: 0 mg Instruction: 0 tablets Condition: Dose/Route: 5 mg Instruction: 1 x 5 mg tablet Condition: Wednesday Dose/Route: 7.5 mg Instruction: 1.5 x 5 mg tablets Condition: Wednesday Dose/Route: 7.5 mg Instruction: 1.5 x 5 mg tablets Condition: Wednesday (Week Two) Dose/Route: 5 mg Instruction: 1 x 5 mg tablet Condition: Wednesday Dose/Route: 7.5 mg Instruction: 1.5 x 5 mg tablets Condition: Wednesday Dose/Route: 5 mg Instruction: 1 x 5 mg tablet Condition: Wednesday Dose/Route: 7.5 mg Instruction: 1.5 x 5 mg tablets Condition: Dose/Route: 5 mg Instruction: 1 x 5 mg tablet Condition: Wednesday Dose/Route: 7.5 mg Instruction: 1.5 x 5 mg tablets Condition: Wednesday Dose/Route: 7.5 mg Instruction: 1.5 x 5 mg tablets Protocol Text: Adjustment Start Date: Wednesday05/08/22 INR Value: 4.3 INR Date: 05/06/22 Additional Instructions: do not eat greens x 4 days, eat orange or reds today and tomorrow, resume usual dose folic acid 1 mg tablet 1 mg PO DAILY cyanocobalamin (vitamin B-12) 1,000 mcg tablet 1,000 mcg PO DAILY Spiriva with HandiHaler 18 mcg capsule, w/inhalation device 1 cap inhalation DAILY albuterol sulfate 90 mcg/actuation HFA aerosol inhaler 2 puff inhalation Q4-6H PRN (Reason: shortness of breath or wheezing) 30 Days Qty: 1 3RF aspirin 81 mg tablet,delayed release (DR/EC) 81 mg PO DAILY Qty: 90 3RF Referrals: Ana Paula Davidson MD [Primary Care Provider] -
[2022-05-15 07:16] VITALS: BP 168/87; PULSE 60; RESP 18; TEMP 36.6; O2SAT 97
== END 2022-05-15 07:28 | disposition home or self-care (01) ==
PROVIDERS: Emergency Provider Emergency Medicine; PCP Family Medicine
DX: F41.1 Generalized anxiety disorder (principal); F43.0 Acute stress reaction; I10 Essential (primary) hypertension; Z79.899 Other long term (current) drug therapy
CPT/HCPCS: 36415; 80048; 84484; 85025; 85610; 93005; 99211; 99283; 99284

== ENCOUNTER 2022-05-17 02:13 | Emergency (ER) | payer MEDICAID, SELFPAY ==
--- NOTE | ~2022-05-17 | CT_ITS ---
EXAMINATION: CT HEAD WITHOUT CONTRAST CLINICAL INFORMATION: Headache on Coumadin COMPARISON: 02/18/2019 TECHNIQUE: Contiguous axial imaging was performed from the skull base to vertex without intravenous contrast. This CT examination was performed using dose optimization techniques as appropriate, variously including the following: * Automated exposure control * Adjustment of mA and/or kV according to patient size (this includes techniques or standardized protocols for targeted exams where dose is matched to indication/reason for exam; i.e. extremities or head) Use of iterative reconstruction technique DLP: 759 mGy-cm. FINDINGS: There is no evidence of acute intracranial hemorrhage or territorial infarction. No abnormal mass effect or midline shift is seen. [place] to white matter differentiation is well preserved. No extra-axial fluid collections are identified. No hydrocephalus. No significant volume loss. There is no abnormal attenuation within the brain parenchyma. The osseous structures and soft tissues are normal. The mastoid air cells and visualized portions of the paranasal sinuses are well aerated. CT/CT head/brain wo IV con IMPRESSION: No acute intracranial pathology.
--- NOTE | ~2022-05-17 | XR_ITS ---
EXAMINATION: XR CHEST CLINICAL INFORMATION: Short of breath COMPARISON: 05/04/2022 TECHNIQUE: Frontal view of the chest was obtained. FINDINGS: Cardiac leads overlie the chest. Median sternotomy wires appear intact. The lungs are well expanded. There is improved aeration from prior. Minimal residual right perihilar opacity. No effusion or edema.. No pneumothorax. The cardiomediastinal silhouette is within normal limits. No acute osseous abnormality. XR/XR chest 1V IMPRESSION: Minimal residual right perihilar opacity which could represent atelectasis or pneumonia. There is improved aeration from prior.
[2022-05-17 02:17] VITALS: BP 168/84; PULSE 70; RESP 16; TEMP 36.6; O2SAT 99; BMI 34.0
--- NOTE | 2022-05-17 02:40 | PC.NURSE ---
pt resting on stretcher, reports chest pressure for one day with some shortness of breath. Normal sinus on the monitor, satting 96% on room air
--- NOTE | 2022-05-17 02:44 | ED_ITS ---
HPI - Chest Pain General Chief Complaint: Chest Pain Stated Complaint: CP Time Seen by Provider: 05/17/22 02:44 Source: patient Mode of arrival: EMS Limitations: no limitations History of Present Illness HPI narrative: Patient is 62 years old smoker with significant past medical history of hypertension, hyperlipidemia, left bundle-branch block, mechanical aortic valve 2005, aortic aneurysm repair graft 2010 with normal coronary COPD with questionable sleep apnea syndrome comes here as he cannot sleep for last 2 days having chest pain off and on which is going on for long time patient sleeps on a recliner planning to get sleep status. Patient feels pain in the mid chest is sharp in correct with no radiation feel short of breath when he sleeps in the nighttime no fever no chills has chronic dry cough no leg edema no palpitation Related Data Home Medications Medication Instructions Recorded Confirmed lisinopril 10 mg tablet 10 mg PO DAILY 03/22/20 05/08/22 simvastatin 20 mg tablet 20 mg PO BEDTIME 03/22/20 05/08/22 acetaminophen 325 mg tablet 2 tab PO QID PRN fever 07/14/21 05/08/22 fluticasone propionate 110 1 puff PO BID 07/14/21 05/08/22 mcg/actuation HFA aerosol inhaler (Flovent HFA) folic acid 1 mg tablet 1 mg PO DAILY 07/24/21 05/08/22 metoprolol succinate 50 mg 50 mg PO DAILY 07/24/21 05/08/22 tablet,extended release 24 hr cyanocobalamin (vitamin B-12) 1,000 mcg PO DAILY 09/12/21 05/08/22 1,000 mcg tablet tiotropium bromide 18 mcg capsule 1 cap inhalation DAILY 09/12/21 05/08/22 with inhalation device (Spiriva with HandiHaler) Previous Rx's Medication Instructions Recorded warfarin 5 mg tablet 5 mg PO DAILY #90 tabs 02/02/20 furosemide 20 mg tablet (Lasix) 20 mg PO DAILY #30 tabs 07/15/21 nicotine 21 mg/24 hr daily 21 mg transdermal DAILY #30 ea 07/15/21 transdermal patch albuterol sulfate 90 mcg/actuation 2 puff inhalation Q4-6H PRN 07/29/21 aerosol inhaler shortness of breath or wheezing 30 days #1 ea aspirin 81 mg tablet,delayed 81 mg PO DAILY #90 tabs 09/12/21 release fluticasone fur. 200 mcg-umeclid 1 inh inhalation DAILY 30 days #1 03/09/22 62.5 mcg-vilant 25 mcg ea inhalat.powder (Trelegy Ellipta) albuterol sulfate 90 mcg/actuation 2 puff inhalation Q4-6H PRN 05/04/22 aerosol inhaler (ProAir HFA) shortness of breath or wheezing #8.5 grams benzonatate 200 mg capsule 200 mg PO TID PRN cough #30 caps 05/04/22 furosemide 20 mg tablet (Lasix) 20 mg PO QAM #30 tabs 05/17/22 Allergies Allergy/AdvReac Type Severity Reaction Status Date / Time No Known Allergies Allergy Verified 05/15/22 11:32 Review of Systems Review of Systems: Yes all other systems are reviewed and are negative [facility] Past Medical History Medical History Aortic valve disorder CAD (coronary artery disease) Cardiomyopathy Chronic cough Diverticulitis Emphysema/COPD Hyperlipidemia Hypertension LBBB (left bundle branch block) Nonischemic cardiomyopathy Pulmonary nodular amyloidosis Pulmonary nodule Smoker Vitamin B12 deficiency Surgical History Aortic valve replaced Hx of aortic aneurysm repair Hx of elbow surgery S/P ascending aortic aneurysm repair Status post mechanical aortic valve replacement Family History Family History Mother No pertinent family history Father No pertinent family history Social History Social History Household Members: None Alcohol intake: current Alcohol intake frequency: holidays/special occasions only Alcohol type: beer Patient Tobacco Use Status: Current everyday Tobacco user Cigarette Packs Per Day: 1 Cigarettes Per Day: 15.0 Years Smoked: 30 Smoked in Last 30 Days: Yes Advance Directives: Yes Advance Directives on File: Yes Advance Directives Date on File: 07/14/21 service: No Physical Exam Vital Signs: Vital Signs: Last Vital Signs Temp 97.7 F 05/17/22 04:10 Pulse 67 05/17/22 04:47 Resp 16 05/17/22 04:47 BP 181/94 H 05/17/22 04:11 Pulse Ox 98 05/17/22 04:10 O2 Del Method 05/17/22 04:10 BMI result Body Mass Index 34.0 Appearance: Alert. Oriented X3. No acute distress. Obese Eyes: PERRLA, No Nystagmus ENT: Pharynx normal. Oral Mucosa moist Neck: Normal inspection. Neck supple. CVS: Normal heart rate and rhythm. Pulses normal. valve click++ Respiratory: No respiratory distress. Equal air entry bilateral, bilateral wheezing no crackles Abdomen: Soft and nontender. Bowel sounds are present, no mass palpable, no CVA tenderness Skin: Skin warm and dry. Normal skin color. Normal skin turgor. Extremities: No lower extremity edema. No calf tenderness Neuro: Oriented X 3. No motor deficit. No sensory deficit.No cerebellar signs , cranial nerves II-XII intact Medications Administered Discontinued Medications Generic Name Dose Route Start Last Admin Trade Name Freq PRN Reason Stop Dose Admin Albuterol Sulfate 2.5 mg/ 0 mg 05/17/22 04:21 05/17/22 04:43 Ipratropium Newell 0.5 mg INHALE 05/17/22 04:22 1 each ONCE ONE Administration Furosemide 40 mg 05/17/22 04:19 05/17/22 04:26 Furosemide 40 Mg/4 Ml Vial IVPUSH 05/17/22 04:20 40 mg STAT STA Administration Protocol Medical Decision Making Medical Decision Making [facility] Narrative: Patient has chronic CHF used to be on Lasix but comes here with shortness of breath with history of COPD . Clinically patient might have sleep apnea patient aware of that will be following with chest status pending. Patient responded to Lasix will discharge patient home on p.o. Lasix patient Lab Data [facility] Lab Attestation statement: I reviewed the patient's lab results. 05/17/22 02:52 05/17/22 02:58 Labs: Lab Results 05/17/22 05/17/22 05/17/22 Range/Units 02:52 02:52 02:52 WBC 9.7 (4.8-10.8) X10*3/uL RBC 4.94 (4.60-5.80) X10*6/uL Hgb 15.5 (14.0-18.0) g/dl Hct 45.6 (42.0-52.0) % MCV 92.3 (80.0-98.0) fL MCH 31.4 (27.0-33.0) pg MCHC 34.0 (31.0-36.0) g/dl RDW 13.4 (11.0-16.0) % Plt Count 149 L (160-400) X10*3/uL MPV 11.6 (9.4-12.4) fL Immature Gran % (Auto) 0.4 (0.0-0.4) % Neut % (Auto) 62.0 (45-73) % Lymph % (Auto) 24.1 (20-40) % [place] % (Auto) 10.9 (2-11) % Eos % (Auto) 2.4 (0-4) % Baso % (Auto) 0.2 (0-2) % Lymph # (Auto) 2.3 (1.2-4.9) X10*3/uL [place] # (Auto) 1.1 (0.1-1.2) X10*3/uL Eos # (Auto) 0.2 (0.0-0.4) X10*3/uL Baso # (Auto) 0.0 (0.0-0.2) X10*3/uL Abs Immat Gran (auto) 0.04 H (0.00-0.03) X10*3/uL Absolute Neuts (auto) 6.0 (2.0-8.3) x10*3/uL Absolute Nucleated RBC 0.000 (0.0-0.012) X10*3/uL Nucleated RBC % (auto) 0.0 (0.0-0.2) /100WBC PT (10.0-13.1) SEC INR (0.9-1.1) Sodium (135-145) mmol/L Potassium (3.3-5.1) mmol/L Chloride (96-108) mmol/L Carbon Dioxide (22-29) mmol/L Anion Gap (12-20) BUN (9-16) mg/dL Creatinine (0.5-1.4) mg/dL Estim Creat Clear Calc Estimated GFR Random Glucose (60-115) mg/dL Calcium (8.4-10.2) mg/dL Troponin I High Sens 8.2 (<3.5-35.0) ng/L B-Natriuretic Peptide 446 H (<100) pg/mL 05/17/22 05/17/22 Range/Units 02:58 02:58 WBC (4.8-10.8) X10*3/uL RBC (4.60-5.80) X10*6/uL Hgb (14.0-18.0) g/dl Hct (42.0-52.0) % MCV (80.0-98.0) fL MCH (27.0-33.0) pg MCHC (31.0-36.0) g/dl RDW (11.0-16.0) % Plt Count (160-400) X10*3/uL MPV (9.4-12.4) fL Immature Gran % (Auto) (0.0-0.4) % Neut % (Auto) (45-73) % Lymph % (Auto) (20-40) % [place] % (Auto) (2-11) % Eos % (Auto) (0-4) % Baso % (Auto) (0-2) % Lymph # (Auto) (1.2-4.9) X10*3/uL [place] # (Auto) (0.1-1.2) X10*3/uL Eos # (Auto) (0.0-0.4) X10*3/uL Baso # (Auto) (0.0-0.2) X10*3/uL Abs Immat Gran (auto) (0.00-0.03) X10*3/uL Absolute Neuts (auto) (2.0-8.3) x10*3/uL Absolute Nucleated RBC (0.0-0.012) X10*3/uL Nucleated RBC % (auto) (0.0-0.2) /100WBC PT 49.9 H (10.0-13.1) SEC INR 4.1 H D (0.9-1.1) Sodium 141 (135-145) mmol/L Potassium 4.0 (3.3-5.1) mmol/L Chloride 108 (96-108) mmol/L Carbon Dioxide 23 (22-29) mmol/L Anion Gap 14 (12-20) BUN 11 (9-16) mg/dL Creatinine 0.98 (0.5-1.4) mg/dL Estim Creat Clear Calc 91.8 Estimated GFR > 60 Random Glucose 99 (60-115) mg/dL Calcium 8.1 L (8.4-10.2) mg/dL Troponin I High Sens (<3.5-35.0) ng/L B-Natriuretic Peptide (<100) pg/mL Independent Interpretation I performed an independent interpretation of an: EKG Interpretation: Normal sinus rhythm heart rate 64 beats per minute that would a branch block no acute ST changes no acute change in the EKG Discharge Plan Discharge Clinical Impression: Chronic systolic (congestive) heart failure, Chest pain Patient Disposition: Home, Self-Care Instructions: Heart Failure (ED), Chest Pain (DC) Additional Instructions: Continue to take your medications Take 2.5 mg Coumadin today and then continue 5 mg daily Lasix 20 mg daily Follow-up with car dryer/PCP/lung specialist Stop smoking Contin?e tomando karly medicamentos Lanagan 2,5 mg de Coumadin hoy y luego contin?e con 5 mg al d?a Lasix 20 mg diarios Seguimiento con cardi?logo/PCP/especialista en pulm?n Preeti de fumar Prescriptions: New furosemide [Lasix] 20 mg tablet 20 mg PO QAM Qty: 30 0RF No Action Trelegy Ellipta 200-62.5-25 mcg blister with device 1 inh inhalation DAILY 30 Days Qty: 1 6RF simvastatin 20 mg Tablet 20 mg PO BEDTIME lisinopril 10 mg Tablet 10 mg PO DAILY acetaminophen 325 mg tablet 2 tab PO QID PRN (Reason: fever) Flovent HFA 110 mcg/actuation HFA aerosol inhaler 1 puff PO BID nicotine 21 mg/24 hr Patch 24 Hour 21 mg transdermal DAILY Qty: 30 0RF furosemide [Lasix] 20 mg tablet 20 mg PO DAILY Qty: 30 0RF metoprolol succinate 50 mg tablet extended release 24 hr 50 mg PO DAILY benzonatate 200 mg capsule 200 mg PO TID PRN (Reason: cough) Qty: 30 0RF albuterol sulfate [ProAir HFA] 90 mcg/actuation HFA aerosol inhaler 2 puff inhalation Q4-6H PRN (Reason: shortness of breath or wheezing) Qty: 8.5 0RF warfarin 5 mg tablet 5 mg PO DAILY Qty: 90 0RF Protocol: Dose Management Condition: Wednesday (Week One) Dose/Route: 5 mg Instruction: 1 x 5 mg tablet Condition: Wednesday Dose/Route: 7.5 mg Instruction: 1.5 x 5 mg tablets Condition: Wednesday Dose/Route: 5 mg Instruction: 1 x 5 mg tablet Condition: Wednesday Dose/Route: 7.5 mg Instruction: 1.5 x 5 mg tablets Condition: Dose/Route: 5 mg Instruction: 1 x 5 mg tablet Condition: Wednesday Dose/Route: 10 mg Instruction: 2 x 5 mg tablets Condition: Wednesday Dose/Route: 7.5 mg Instruction: 1.5 x 5 mg tablets Condition: Wednesday ( Two) Dose/Route: 5 mg Instruction: 1 x 5 mg tablet Condition: Wednesday Dose/Route: 7.5 mg Instruction: 1.5 x 5 mg tablets Condition: Wednesday Dose/Route: 5 mg Instruction: 1 x 5 mg tablet Condition: Wednesday Dose/Route: 7.5 mg Instruction: 1.5 x 5 mg tablets Condition: Dose/Route: 5 mg Instruction: 1 x 5 mg tablet Condition: Wednesday Dose/Route: 7.5 mg Instruction: 1.5 x 5 mg tablets Condition: Wednesday Dose/Route: 7.5 mg Instruction: 1.5 x 5 mg tablets Protocol Text: Adjustment Start Date: Wednesday05/15/22 INR Value: 2.3 INR Date: 05/15/22 Recheck Date: 05/25/22 Additional Instructions: take 10mg today then cont reg dosing no greens for 2 days, eat a red today folic acid 1 mg tablet 1 mg PO DAILY cyanocobalamin (vitamin B-12) 1,000 mcg tablet 1,000 mcg PO DAILY Spiriva with HandiHaler 18 mcg capsule, w/inhalation device 1 cap inhalation DAILY albuterol sulfate 90 mcg/actuation HFA aerosol inhaler 2 puff inhalation Q4-6H PRN (Reason: shortness of breath or wheezing) 30 Days Qty: 1 3RF aspirin 81 mg tablet,delayed release (DR/EC) 81 mg PO DAILY Qty: 90 3RF Print Language: Chinese
[2022-05-17 02:56] LABS: MANUAL DIFF FLAG NO
[2022-05-17 02:57] LABS: Basophils Percent Auto 0.2 % (0-2); Eosinophils Absolute Auto 0.2 X10*3/uL (0.0-0.4); Eosinophils Percent Auto 2.4 % (0-4); Hematocrit 45.6 % (42.0-52.0); Hemoglobin 15.5 g/dl (14.0-18.0); Imm Gran Abs Auto 0.04 X10*3/uL (0.00-0.03); Imm Gran Pct Auto 0.4 % (0.0-0.4); Lymphocytes Absolute Auto 2.3 X10*3/uL (1.2-4.9); Lymphocytes Percent Auto 24.1 % (20-40); Mean Corpuscular Hemoglobin 31.4 pg (27.0-33.0); Mean Corpuscular Volume 92.3 fL (80.0-98.0); Mean Platelet Volume 11.6 fL (9.4-12.4); Monocytes Absolute Auto 1.1 X10*3/uL (0.1-1.2); Monocytes Percent Auto 10.9 % (2-11); Platelet Count 149 X10*3/uL (160-400); Red Blood Count 4.94 X10*6/uL (4.60-5.80); Red Cell Distribution Width 13.4 % (11.0-16.0); White Blood Count 9.7 X10*3/uL (4.8-10.8)
[2022-05-17 03:10] LABS: INTERNATIONAL NORM RATIO 4.1 (0.9-1.1); Prothrombin Time 49.9 SEC (10.0-13.1)
[2022-05-17 03:16] LABS: Troponin-I High Sensitivity 8.2 ng/L (<3.5-35.0)
[2022-05-17 03:23] LABS: Anion Gap 14 (12-20); Blood Urea Nitrogen 11 mg/dL (9-16); Calcium 8.1 mg/dL (8.4-10.2); Carbon Dioxide 23 mmol/L (22-29); Chloride 108 mmol/L (96-108); Creatinine Clr Calc Pharmacy 91.8; Estimated Glomerular Filt Rate > 60; Glucose Random 99 mg/dL (60-115); Sodium 141 mmol/L (135-145)
[2022-05-17 03:39] LABS: B Type Natriuretic Peptide 446 pg/mL (<100)
[2022-05-17 04:10] VITALS: BP 178/87; PULSE 67; RESP 18; TEMP 36.5; O2SAT 98
[2022-05-17 04:11] VITALS: BP 181/94; PULSE 65
--- NOTE | 2022-05-17 04:22 | PC.NURSE ---
Dr. Chapman notified of BP 181/94, P 65, pounding headache 4/10 on 0-10 pain scale.
[2022-05-17] MEDS: Furosemide 40 MG/4 ML VIAL IVPUSH (04:26)
[2022-05-17 04:47] VITALS: PULSE 67; RESP 16; O2SAT 98
== END 2022-05-17 07:13 | disposition home or self-care (01) ==
PROVIDERS: Emergency Provider Internal Medicine
DX: I50.22 Chronic systolic (congestive) heart failure (principal); R06.02 Shortness of breath; R07.89 Other chest pain; R51.9 Headache, unspecified; I10 Essential (primary) hypertension; F17.210 Nicotine dependence, cigarettes, uncomplicated; Z71.6 Tobacco abuse counseling; Z79.899 Other long term (current) drug therapy
CPT/HCPCS: 36415; 70450; 71045; 80048; 83880; 84484; 85025; 85610; 94640; 96374; 99285; J1940

== ENCOUNTER → 2022-05-26 10:39 | Outpatient (BNVA) | payer MEDICAID, SELFPAY | PROVIDERS: PCP Family Medicine; Visit Provider Internal Medicine | DX: Z95.2 Presence of prosthetic heart valve (principal); Z79.01 Long term (current) use of anticoagulants; Z51.81 Encounter for therapeutic drug level monitoring | CPT/HCPCS: 85610; 99211 ==

== ENCOUNTER → 2022-06-09 10:39 | Outpatient (BNVA) | payer MEDICAID, SELFPAY | PROVIDERS: PCP Family Medicine; Visit Provider Internal Medicine | DX: Z95.2 Presence of prosthetic heart valve (principal); Z79.01 Long term (current) use of anticoagulants; Z51.81 Encounter for therapeutic drug level monitoring | CPT/HCPCS: 85610; 99211 ==

== ENCOUNTER → 2022-06-24 09:12 | Outpatient (BNVA) | payer MEDICAID, SELFPAY | PROVIDERS: PCP Family Medicine; Visit Provider Internal Medicine | DX: Z95.2 Presence of prosthetic heart valve (principal); Z79.01 Long term (current) use of anticoagulants; Z51.81 Encounter for therapeutic drug level monitoring | CPT/HCPCS: 85610; 99211 ==

== ENCOUNTER → 2022-07-08 09:45 | Outpatient (BNVA) | payer MEDICAID, SELFPAY | PROVIDERS: PCP Family Medicine; Visit Provider Internal Medicine | DX: Z95.2 Presence of prosthetic heart valve (principal); Z79.01 Long term (current) use of anticoagulants; Z51.81 Encounter for therapeutic drug level monitoring | CPT/HCPCS: 85610; 99211 ==

== ENCOUNTER 2023-01-13 10:48 | Outpatient (AMB) | payer MEDICAID, SELFPAY ==
--- NOTE | 2023-01-13 10:52 | MHC.OFFVISCO ---
Intake Intake Visit Reasons: Anticoagulation Allergies No Known Allergies Allergy (Verified 01/13/23 11:00) Medication List - Last Reconciled 01/13/23 by Amirah Finnegan RN acetaminophen 2 tabs PO QID PRN albuterol sulfate 90 mcg/actuation (ProAir HFA) 2 puffs inhalation Q4-6H PRN albuterol sulfate 90 mcg/actuation 2 puffs inhalation Q4-6H PRN 30 days aspirin 81 mg PO DAILY benzonatate 200 mg PO TID PRN cyanocobalamin (vitamin B-12) 1,000 mcg PO DAILY fluticasone propionate 110 mcg/actuation (Flovent HFA) 1 puff PO BID [id number]-wqbxxezld-fzfapomr 200-62.5-25 mcg (Trelegy Ellipta) 1 inh inhalation DAILY 30 days folic acid 1 mg PO DAILY furosemide (Lasix) 20 mg PO DAILY furosemide (Lasix) 20 mg PO QAM lisinopril 10 mg PO DAILY metoprolol succinate ER 50 mg PO DAILY simvastatin 20 mg PO BEDTIME tiotropium bromide (Spiriva with HandiHaler) 1 cap inhalation DAILY warfarin 5 mg See Protocol PO DAILY Nursing Note INR 1.5-? out of therapeutic range- range 2.5- 3.5 Medications and supplements reviewed Patient status: pt had moved to [facility] but moved back to the area recently came to acs without appt today Medications or supplements: pt states all the same, not on nicotine patch Diet: same Denies any signs and symptoms of bleeding or clotting or unusual bruising Bleeding, bruising, clotting discussed - pt made aware at risk for clotting Nutritional guidance given: no greens for 2 days, eat reds to raise inr Dose: pt states has been taking 5mg daily, 10mg today, 7.5mg tomm then cont prev acs dosing- 5mg x 3, 7.5mg x 4 F/U INR Date : wednesday01/15/23 Patient verbalizing understanding of instructions given. historic interpreter linda used for this visit. pt no show policy explained and signed by pt pcp dr walter office called with low inr/dosing and f/u appt- spoke with epi at 1106 Anti-Coag Initial Assessment Social Hx Patient Tobacco Use Status: Current everyday Tobacco user Smoking packs per day: 1 alcohol intake: current Alcohol intake frequency: holidays/special occasions only Coding Level of Care Code Est Patient Level 1 Diagnoses Current use of anticoagulant therapy Z79.01 Results AMB INR Fingerstick AMB INR Fingerstick 1.5 Last Edit by Amirah Finnegan RN on 01/13/23 10:54 Assessment & Plan Assessment & Plan (1) Current use of anticoagulant therapy: Code(s): Z79.01 - retirement (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
[2023-01-13 10:53] LABS: Prothrombin Time Whole Bld POC 17.8 sec (11.1-13.5); ~PT, ~INR - Anti Coag Clinic 1.5 (0.9-1.1)
== END 2023-01-13 11:10 | disposition home or self-care (01) ==
LOC: HO.ACS 10:48
PROVIDERS: PCP Family Medicine; Visit Provider Internal Medicine
DX: Z79.01 Long term (current) use of anticoagulants (principal)

== ENCOUNTER → 2023-01-13 10:48 | Outpatient (BNVA) | payer MEDICAID, SELFPAY | PROVIDERS: PCP Family Medicine; Visit Provider Internal Medicine | DX: Z95.2 Presence of prosthetic heart valve (principal); Z79.01 Long term (current) use of anticoagulants; Z51.81 Encounter for therapeutic drug level monitoring | CPT/HCPCS: 85610; 99211 ==

== ENCOUNTER 2023-01-15 09:37 | Outpatient (AMB) | payer MEDICAID, SELFPAY ==
[2023-01-15 09:46] LABS: Prothrombin Time Whole Bld POC 33.7 sec (11.1-13.5); ~PT, ~INR - Anti Coag Clinic 2.8 (0.9-1.1)
--- NOTE | 2023-01-15 09:49 | MHC.OFFVISCO ---
Intake Intake Visit Reasons: Anticoagulation Allergies No Known Allergies Allergy (Verified 01/15/23 09:42) Medication List - Last Reconciled 01/15/23 by Vanesa Martinez RN acetaminophen 2 tabs PO QID PRN albuterol sulfate 90 mcg/actuation (ProAir HFA) 2 puffs inhalation Q4-6H PRN albuterol sulfate 90 mcg/actuation 2 puffs inhalation Q4-6H PRN 30 days aspirin 81 mg PO DAILY benzonatate 200 mg PO TID PRN cyanocobalamin (vitamin B-12) 1,000 mcg PO DAILY fluticasone propionate 110 mcg/actuation (Flovent HFA) 1 puff PO BID [id number]-kkvuugyqa-klqfwzro 200-62.5-25 mcg (Trelegy Ellipta) 1 inh inhalation DAILY 30 days folic acid 1 mg PO DAILY furosemide (Lasix) 20 mg PO DAILY furosemide (Lasix) 20 mg PO QAM lisinopril 10 mg PO DAILY metoprolol succinate ER 50 mg PO DAILY simvastatin 20 mg PO BEDTIME tiotropium bromide (Spiriva with HandiHaler) 1 cap inhalation DAILY warfarin 5 mg See Protocol PO DAILY Nursing Note INR: 2.8 in therapeutic range Medications and supplements reviewed INR jump from 1.5 to 2.8 in 2 days, states he took 5mg daily in [place] no INR test done there Denies any signs and symptoms of bleeding or bruising or clotting. Bleeding, bruising, clotting discussed Nutritional guidance given eat a mix of fruits and vegetables Dose: 7.5mg today 5mg sat sun 7.5mg mon recheck 01/19/23 pt verb understanding of instructions given Anti-Coag Initial Assessment Social Hx Patient Tobacco Use Status: Current everyday Tobacco user Smoking packs per day: 1 alcohol intake: current Alcohol intake frequency: holidays/special occasions only Coding Level of Care Code Est Patient Level 1 Diagnoses Current use of anticoagulant therapy Z79.01 Results AMB INR Fingerstick AMB INR Fingerstick 2.8 Last Edit by Vanesa Martinez RN on 01/15/23 09:48 interface delay Assessment & Plan Assessment & Plan (1) Current use of anticoagulant therapy: Code(s): Z79.01 - senior living (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
== END 2023-01-15 10:00 | disposition home or self-care (01) ==
LOC: HO.ACS 09:37
PROVIDERS: PCP Family Medicine; Visit Provider Internal Medicine
DX: Z79.01 Long term (current) use of anticoagulants (principal)

== ENCOUNTER → 2023-01-15 09:37 | Outpatient (BNVA) | payer MEDICAID, SELFPAY | PROVIDERS: PCP Family Medicine; Visit Provider Internal Medicine | DX: Z95.2 Presence of prosthetic heart valve (principal); Z79.01 Long term (current) use of anticoagulants; Z51.81 Encounter for therapeutic drug level monitoring | CPT/HCPCS: 85610; 99211 ==

== ENCOUNTER 2023-01-19 09:10 | Outpatient (AMB) | payer MEDICAID, SELFPAY ==
--- NOTE | 2023-01-19 09:49 | MHC.OFFVISCO ---
Intake Intake Visit Reasons: Anticoagulation Allergies No Known Allergies Allergy (Verified 01/19/23 09:05) Medication List - Last Reconciled 01/19/23 by Elvira Schwartz, RN acetaminophen 2 tabs PO QID PRN albuterol sulfate 90 mcg/actuation (ProAir HFA) 2 puffs inhalation Q4-6H PRN albuterol sulfate 90 mcg/actuation 2 puffs inhalation Q4-6H PRN 30 days aspirin 81 mg PO DAILY benzonatate 200 mg PO TID PRN cyanocobalamin (vitamin B-12) 1,000 mcg PO DAILY fluticasone propionate 110 mcg/actuation (Flovent HFA) 1 puff PO BID [id number]-nsvfcvson-ritwsahz 200-62.5-25 mcg (Trelegy Ellipta) 1 inh inhalation DAILY 30 days folic acid 1 mg PO DAILY furosemide (Lasix) 20 mg PO DAILY furosemide (Lasix) 20 mg PO QAM lisinopril 10 mg PO DAILY metoprolol succinate ER 50 mg PO DAILY simvastatin 20 mg PO BEDTIME tiotropium bromide (Spiriva with HandiHaler) 1 cap inhalation DAILY warfarin 5 mg See Protocol PO DAILY Nursing Note Amb to [facility] feeling ok interpretter available for visit Medications and supplements reviewed, pt sts has not taken any of his usual meds x 1 month pt sts he does not have a primary I call but can't get through pt also sts he just ran out of warfarin, none on Wednesday or Wednesday, or today (takes in am) reviewed at length with pt importance of all his meds and the warfarin, sts he did get some aspirin when he ran out of warfarin Denies any unusual signs and symptoms of bruising, bleeding Denies any new Chest pain, SOB, or clotting INR: 1.9 below therapeutic range (2.5-3.5) Nutritional guidance given: no greens, reds to help raise once he restarts warfarin Dose: increase dosing to 10mg today and tomorrow, 7.5mg and follow up here on Wednesday; F/U INR:Monday 01/22 Patient verbalizes understanding of instructions given with accurate read back/ teach back of dosing is aware that I will be calling [facility] with results and neeed for more warfarin and other meds, discussed also the possibility of lovenox injections due to low INR TC to [facility] critical care line reported above information today INR, no warfarin (or other medications) need for PCP and pts return to our clinic 01/13 with subsequent INRs and dosing concerns Jessica KERN was able to get an appointment for pt today with Dr Davidson (last listed PCP) at 1030 (pt was headed to [facility] after this visit) Bret Schmitz able to call and let pt know appt today, pt currently at [facility] as of 1000 Anti-Coag Initial Assessment Social Hx Patient Tobacco Use Status: Current everyday Tobacco user Smoking packs per day: 1 alcohol intake: current Alcohol intake frequency: holidays/special occasions only Coding Level of Care Code Est Patient Level 2 Diagnoses Current use of anticoagulant therapy Z79.01 Time Spent (min) 30 Results AMB INR Fingerstick AMB INR Fingerstick 1.9 Last Edit by Elvira Schwartz RN on 01/19/23 09:38 interface failure AMB INR Fingerstick AMB INR Fingerstick 1.9 Last Edit by Elvira Scwhartz RN on 01/19/23 09:46 interface failure Assessment & Plan Assessment & Plan (1) Current use of anticoagulant therapy: 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
[2023-01-20 06:56] LABS: Prothrombin Time Whole Bld POC 22.3 sec (11.1-13.5); ~PT, ~INR - Anti Coag Clinic 1.9 (0.9-1.1)
== END 2023-01-19 10:30 | disposition home or self-care (01) ==
LOC: HO.ACS 09:10
PROVIDERS: PCP Family Medicine; Visit Provider Internal Medicine
DX: Z79.01 Long term (current) use of anticoagulants (principal)

== ENCOUNTER → 2023-01-19 09:10 | Outpatient (BNVA) | payer MEDICAID, SELFPAY | PROVIDERS: PCP Family Medicine; Visit Provider Internal Medicine | DX: Z95.2 Presence of prosthetic heart valve (principal); Z79.01 Long term (current) use of anticoagulants; Z51.81 Encounter for therapeutic drug level monitoring | CPT/HCPCS: 85610; 99212 ==

== ENCOUNTER 2023-01-20 09:37 | Outpatient (REF) | payer MEDICAID, SELFPAY ==
[2023-01-20 11:47] LABS: Cholesterol 155 mg/dL (<200); HDL Cholesterol 39 mg/dL (>40); LDL Cholesterol Calculated 92 mg/dL (<100); Triglycerides 123 mg/dL (<150)
[2023-01-20 12:14] LABS: Folate 16.3 ng/mL (> or = 4.0); Vitamin B12 317 pg/mL (200-900)
[2023-01-20 12:37] LABS: Estimated Average Glucose 108 mg/dL; Hemoglobin A1c % 5.4 % (<6.0)
[2023-01-20 12:54] LABS: Alanine Aminotransferase 13 U/L (0-40); Alkaline Phosphatase 75 U/L (39-117); Anion Gap 15 (12-20); Aspartate Amino Transferase 18 U/L (5-37); Bilirubin Total 0.5 mg/dL (0.0-1.0); Blood Urea Nitrogen 13 mg/dL (9-16); Calcium 9.3 mg/dL (8.4-10.2); Carbon Dioxide 27 mmol/L (22-29); Chloride 105 mmol/L (96-108); Estimated Glomerular Filt Rate 59; Glucose Random 131 mg/dL (60-115); Potassium 3.8 mmol/L (3.3-5.1); Sodium 143 mmol/L (135-145); Total Protein 7.2 g/dL (6.5-8.0)
[2023-01-20 13:44] LABS: Reflex LDLD? No
== END 2023-01-20 09:38 | disposition home or self-care (01) ==
LOC: HO.LAB 09:37
PROVIDERS: PCP Family Medicine; Visit Provider Family Medicine
DX: E66.09 Other obesity due to excess calories (principal); Z68.31 Body mass index [BMI] 31.0-31.9, adult; E53.8 Deficiency of other specified B group vitamins; I10 Essential (primary) hypertension
CPT/HCPCS: 36415; 80053; 80061; 82607; 82746; 83036

== ENCOUNTER 2023-01-22 08:51 | Outpatient (AMB) | payer MEDICAID, SELFPAY ==
[2023-01-22 09:03] LABS: Prothrombin Time Whole Bld POC 38.8 sec (11.1-13.5); ~PT, ~INR - Anti Coag Clinic 3.2 (0.9-1.1)
--- NOTE | 2023-01-22 09:11 | MHC.OFFVISCO ---
Intake Intake Visit Reasons: Anticoagulation Allergies No Known Allergies Allergy (Verified 01/22/23 08:55) Medication List - Last Reconciled 01/22/23 by Vanesa Martinez RN acetaminophen 2 tabs PO QID PRN albuterol sulfate 90 mcg/actuation (ProAir HFA) 2 puffs inhalation Q4-6H PRN albuterol sulfate 90 mcg/actuation 2 puffs inhalation Q4-6H PRN 30 days aspirin 81 mg PO DAILY benzonatate 200 mg PO TID PRN cyanocobalamin (vitamin B-12) 1,000 mcg PO DAILY fluticasone propionate 110 mcg/actuation (Flovent HFA) 1 puff PO BID cqpxwxrqdul-tosfwsfkt-hizudvuw 200-62.5-25 mcg (Trelegy Ellipta) 1 inh inhalation DAILY 30 days folic acid 1 mg PO DAILY furosemide (Lasix) 20 mg PO DAILY furosemide (Lasix) 20 mg PO QAM lisinopril 10 mg PO DAILY metoprolol succinate ER 50 mg PO DAILY simvastatin 20 mg PO BEDTIME tiotropium bromide (Spiriva with HandiHaler) 1 cap inhalation DAILY warfarin 5 mg See Protocol PO DAILY Nursing Note INR: 3.2 in therapeutic range Medications and supplements reviewed - pt ran out of his meds previosu visit, nurse Milagro arranged appt with PCP and he received all his refills, pt instructed to bring all his meds with him next visit to check what is has and what is in the computer No changes in health, diet, medications, or supplements, Denies any signs and symptoms of bleeding or bruising or clotting. Bleeding, bruising, clotting discussed Nutritional guidance given -eat a mix of fruits and vegetabless Dose: 5mg mwf 7.5mg x 4 days F/U INR: 01/27/23 Wed due to labile INR ]Patient verbalizes understanding of instructions given Anti-Coag Initial Assessment Social Hx Patient Tobacco Use Status: Current everyday Tobacco user Smoking packs per day: 1 alcohol intake: current Alcohol intake frequency: holidays/special occasions only Coding Level of Care Code Est Patient Level 1 Diagnoses Current use of anticoagulant therapy Z79.01 Results AMB INR Fingerstick AMB INR Fingerstick 3.2 Last Edit by Vanesa Martinez RN on 01/22/23 09:07 interfacing delay/failure manual entry Assessment & Plan Assessment & Plan (1) Current use of anticoagulant therapy: 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
== END 2023-01-22 09:14 | disposition home or self-care (01) ==
LOC: HO.ACS 08:51
PROVIDERS: PCP Internal Medicine; Visit Provider Internal Medicine
DX: Z79.01 Long term (current) use of anticoagulants (principal)

== ENCOUNTER → 2023-01-22 08:51 | Outpatient (BNVA) | payer MEDICAID, SELFPAY | PROVIDERS: PCP Internal Medicine; Visit Provider Internal Medicine | DX: Z95.2 Presence of prosthetic heart valve (principal); Z79.01 Long term (current) use of anticoagulants; Z51.81 Encounter for therapeutic drug level monitoring | CPT/HCPCS: 85610; 99211 ==

== ENCOUNTER 2023-01-27 09:10 | Outpatient (AMB) | payer MEDICAID, SELFPAY ==
--- NOTE | 2023-01-27 09:20 | MHC.OFFVISCO ---
Intake Intake Visit Reasons: Anticoagulation Allergies No Known Allergies Allergy (Verified 01/27/23 09:15) Medication List - Last Reconciled 01/27/23 by Amirah Finnegan RN acetaminophen 2 tabs PO QID PRN albuterol sulfate 90 mcg/actuation (ProAir HFA) 2 puffs inhalation Q4-6H PRN albuterol sulfate 90 mcg/actuation 2 puffs inhalation Q4-6H PRN 30 days aspirin 81 mg PO DAILY benzonatate 200 mg PO TID PRN cyanocobalamin (vitamin B-12) 1,000 mcg PO DAILY fluticasone propionate 110 mcg/actuation (Flovent HFA) 1 puff PO BID eddqwiyljry-guvwrrkzn-kigxphcj 200-62.5-25 mcg (Trelegy Ellipta) 1 inh inhalation DAILY 30 days folic acid 1 mg PO DAILY furosemide (Lasix) 20 mg PO DAILY furosemide (Lasix) 20 mg PO QAM lisinopril 10 mg PO DAILY metoprolol succinate ER 50 mg PO DAILY simvastatin 20 mg PO BEDTIME tiotropium bromide (Spiriva with HandiHaler) 1 cap inhalation DAILY warfarin 5 mg See Protocol PO DAILY Nursing Note INR: 3.2- in therapeutic range Medications and supplements reviewed- pt states no changes pt did not bring meds in to acs appt, enc to do so No changes in health, diet, medications, or supplements, Denies any signs and symptoms of bleeding or bruising or clotting. Bleeding, bruising, clotting discussed Nutritional guidance given Dose: 5mg x 3, 7.5mg x 4 F/U INR: pt req 2 weeks Patient verbalizes understanding of instructions given group fitness instructor used stephen for this acs visit Anti-Coag Initial Assessment Social Hx Patient Tobacco Use Status: Current everyday Tobacco user Smoking packs per day: 1 alcohol intake: current Alcohol intake frequency: holidays/special occasions only Coding Level of Care Code Est Patient Level 1 Diagnoses Current use of anticoagulant therapy Z79.01 Results AMB INR Fingerstick AMB INR Fingerstick 3.2 Last Edit by Amirah Finnegan RN on 01/27/23 09:21 Assessment & Plan Assessment & Plan (1) Current use of anticoagulant therapy: Code(s): 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
[2023-01-27 09:21] LABS: Prothrombin Time Whole Bld POC 38.7 sec (11.1-13.5); ~PT, ~INR - Anti Coag Clinic 3.2 (0.9-1.1)
== END 2023-01-27 09:30 | disposition home or self-care (01) ==
LOC: HO.ACS 09:10
PROVIDERS: PCP Family Medicine; Visit Provider Internal Medicine
DX: Z79.01 Long term (current) use of anticoagulants (principal)

== ENCOUNTER → 2023-01-27 09:10 | Outpatient (BNVA) | payer MEDICAID, SELFPAY | PROVIDERS: PCP Internal Medicine; Visit Provider Internal Medicine | DX: Z95.2 Presence of prosthetic heart valve (principal); Z79.01 Long term (current) use of anticoagulants; Z51.81 Encounter for therapeutic drug level monitoring | CPT/HCPCS: 85610; 99211 ==

== ENCOUNTER 2023-02-05 08:54 | Outpatient (AMB) | payer MEDICAID, SELFPAY ==
[2023-02-05 09:07] VITALS: BP 142/84; PULSE 64; BMI 30.9
--- NOTE | 2023-02-05 09:07 | MHC.OFFVIS ---
Intake Vital Signs 02/05/23 09:07 Height 5 ft 9 in Weight 209 lb 7.026 oz BMI 30.9 BP 142/84 H Blood Pressure Location Rt brachial Position Sitting Pulse 64 Intake Visit Reasons: F/U Intake Note: f/u Apiculture Teacher Required: Yes Apiculture Teacher Language: Conference Center Coordinator Name: vinod galvan [id number] Allergies No Known Allergies Allergy (Verified 02/05/23 09:13) Medication List - Last Reconciled 02/05/23 by ELIZABETH Leal acetaminophen 2 tabs PO QID PRN albuterol sulfate 90 mcg/actuation (ProAir HFA) 2 puffs inhalation Q4-6H PRN albuterol sulfate 90 mcg/actuation 2 puffs inhalation Q4-6H PRN 30 days aspirin 81 mg PO DAILY blood pressure test kit-large As directed fluticasone propionate 110 mcg/actuation (Flovent HFA) 1 puff PO BID euywnuaoanc-rffqdfjrd-ltahbpoc 200-62.5-25 mcg (Trelegy Ellipta) 1 inh inhalation DAILY 30 days folic acid 1 mg PO DAILY losartan 12.5 mg PO DAILY metoprolol succinate ER 50 mg PO DAILY rosuvastatin 5 mg PO DAILY tiotropium bromide (Spiriva with HandiHaler) 1 cap inhalation DAILY torsemide 10 mg PO DAILY warfarin 5 mg See Protocol PO DAILY HPI F/U HPI Details Michael is a 62-year-old male with past medical history of hypertension, hyperlipidemia, smoking, left bundle branch block, mechanical aortic valve 2005, aortic aneurysm repair graft 2010 with report of normal coronaries at that time who was admitted to [facility] 07/2021 with shortness of breath and treated for acute heart failure. His blood pressure was elevated as high as 214/123. An echocardiogram showed EF 25-30%. He was diuresed and sent home with Lasix 20 mg daily, anti was continued on metoprolol and lisinopril. An outpatient Sleep study and nuclear stress test were ordered but not completed by patient. His last prior visit to our office was 09/10/2021. Today he reports he has been feeling well since his last visit. He denies any shortness of breath, PND, orthopnea or edema. No chest discomfort at rest or with activity. No palpitations, presyncope, syncope, falls. He is taking his meds as directed. He says he follows with the [facility] anticoagulation Clinic and that his INRs have been stable. He continues to smoke 15 cigarettes a day which is down from 2 packs a day. He tries to remain active with housework and walking. [facility] Medical History CAD (coronary artery disease) Diverticulitis Nonischemic cardiomyopathy Emphysema/COPD Cardiomyopathy Vitamin B12 deficiency Chronic cough Smoker Pulmonary nodule Pulmonary nodular amyloidosis Hyperlipidemia Hypertension LBBB (left bundle branch block) Aortic valve disorder Surgical History S/P ascending aortic aneurysm repair Status post mechanical aortic valve replacement Hx of aortic aneurysm repair Hx of elbow surgery Aortic valve replaced Family History Mother No pertinent family history Father No pertinent family history Social History Household Members: None Alcohol intake: current Alcohol intake frequency: holidays/special occasions only Alcohol type: beer Patient Tobacco Use Status: Current everyday Tobacco user Cigarette Packs Per Day: 1 Cigarettes Per Day: 15.0 Years Smoked: 30 Advance Directives Date on File: 07/14/21 service: No Review of Systems Const All systems reviewed & are unremarkable except as noted in HPI and below ENT Denies dizziness Card Denies chest pain, Denies chest pain at rest, Denies chest pain with activity, Denies rapid heart rate, Denies pedal edema, Denies edema, Denies leg edema, Denies lightheadedness, Denies palpitations, Denies dyspnea, Denies dyspnea on exertion and Denies orthopnea Resp Denies cough, Denies dyspnea and Denies dyspnea on exertion GI Denies hematochezia and Denies change in stool character Musc Denies abnormal gait, Denies limited range of motion, Denies muscle cramps, Denies muscle weakness, Denies numbness, Denies radiating pain into limb, Denies stiffness and Denies tingling Neuro Denies abnormal gait, Denies dizziness, Denies numbness and Denies tingling Endo Denies palpitations Physical Exam Vital Signs: Last Vital Signs Pulse 64 02/05/23 09:07 BP 142/84 H 02/05/23 09:07 BMI result Body Mass Index 30.9 Const General: cooperative, healthy appearing, comfortable and no acute distress Orientation/consciousness: patient oriented x3 Neck Neck: Yes normal visual inspection Resp Effort & Inspection: normal respiratory effort Auscultation: clear to auscultation bilaterally, no crackles, no rales, no rhonchi and no wheezes Cardio Jugular venous distension: no JVD Rate: regular rate Rhythm: regular rhythm Heart sounds: S1 normal heart sound present, S2 normal heart sound present, Clicking heart sound present, no murmurs and no rubs GI Inspection: Yes normal to inspection Skin General skin exam: no rashes or lesions noted Neuro General: patient oriented x3 Extrem General: Yes normal to inspection, No no pedal edema and No calf tenderness Psych Appearance: grossly normal Mental Status: mental status grossly normal Speech and movement: Normal speech and movement present Assessment & Plan Assessment & Plan (1) Chronic systolic (congestive) heart failure: Code(s): I50.22 - Chronic systolic (congestive) heart failure Plan: [facility] admission for shortness 07/2021. Was noted be hypertensive at that time. He was treated for acute heart failure with reduced EF. Echocardiogram 07/14/2021 showed EF 25-30%, mechanical prosthetic aortic valve gradients show likely normal function. Prior EF 05/2019 was 50-55%. He was diuresed and sent home with Lasix 20 mg daily. He was continued on lisinopril and metoprolol succinate for neurohormonal modulation. An outpatient nuclear stress test and sleep study were ordered however not completed by patient. His last prior visit to our office was 09/10/2021. Today he reports that he has been feeling well since that time with no concerning symptoms. On examination today he has no clinical signs of decompensated heart failure. Labs done 01/20/2023 show creatinine 1.23. At present will have him continue current meds including losartan 12.5 mg daily, metoprolol XL 50 mg daily, torsemide 10 mg daily. He has had some issues with compliance in the past. Will order nuclear stress test to evaluate for ischemia and update echocardiogram to reassess EF and mechanical valve. If EF remains down then will plan to change losartan over to Entresto. Will plan to call him with results. Signs and symptoms of heart failure reviewed with him. At this time will plan for cardiology follow-up in 6 months, sooner if needed. (2) History of mechanical aortic valve replacement: Comment: 2005 Code(s): Z95.2 - Presence of prosthetic heart valve Plan: Mechanical aortic valve 2005. He is on Coumadin for anticoagulation with INR goal 2.0-3.0. He is also on aspirin as directed. Last echo shows mechanical aortic valve is functioning normally. He follows with the [facility] anticoagulation Clinic. Last INR was therapeutic. No bleeding issues reported. SBE prophylaxis guidelines reviewed with him. 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 Prior EF was low normal, 2009 He was admitted recently as above and EF found to be reduced at 25-30%. He continues on neurohormonal modulation with losartan and metoprolol XL. His blood pressure is currently well controlled. Nuclear stress test ordered to evaluate for ischemia. Has history of left bundle branch block so will need pharmacological nuclear stress test. Repeat echo ordered to re-evaluate EF. (5) LBBB (left bundle branch block): Code(s): I44.7 - Left bundle-branch block, unspecified Plan: Chronic. If EF remains down then may benefit from MOLDING LINE ASSISTANT D Orders: Orders NM cardiolite stress test Today I42.9 - Cardiomyopathy, unspecified, I44.7 - Left bundle-branch block, unspecified CA echo transthoracic complete Today I42.9 - Cardiomyopathy, unspecified, Z95.2 - Presence of prosthetic heart valve CA lexiscan stress w naa Today I42.9 - Cardiomyopathy, unspecified, I44.7 - Left bundle-branch block, unspecified Coding Level of Care Code Est Pt Level 4 (89616) Diagnoses Chronic systolic (congestive) heart failure I50.22 History of mechanical aortic valve replacement Z95.2 Current use of anticoagulant therapy Z79.01 Cardiomyopathy I42.9 LBBB (left bundle branch block) I44.7 Time Spent (min) 28
== END 2023-02-05 09:47 | disposition home or self-care (01) ==
PROVIDERS: Visit Provider Nurse Practitioner Family
DX: I50.22 Chronic systolic (congestive) heart failure (principal); Z95.2 Presence of prosthetic heart valve; Z79.01 Long term (current) use of anticoagulants; I42.9 Cardiomyopathy, unspecified; I44.7 Left bundle-branch block, unspecified
CPT/HCPCS: 99214

== ENCOUNTER → 2023-02-05 08:54 | Outpatient (BNVA) | payer MEDICAID, SELFPAY | PROVIDERS: Visit Provider Nurse Practitioner Family | DX: I50.22 Chronic systolic (congestive) heart failure (principal); I42.9 Cardiomyopathy, unspecified; I44.7 Left bundle-branch block, unspecified; Z95.2 Presence of prosthetic heart valve; Z79.01 Long term (current) use of anticoagulants | CPT/HCPCS: 99212 ==

== ENCOUNTER 2023-02-09 08:41 | Outpatient (AMB) | payer MEDICAID, SELFPAY ==
--- NOTE | 2023-02-09 09:21 | MHC.OFFVISCO ---
Intake Intake Visit Reasons: Anticoagulation Allergies No Known Allergies Allergy (Verified 02/09/23 08:59) Medication List - Last Reconciled 02/09/23 by Elvira Schwartz, RN acetaminophen 2 tabs PO QID PRN albuterol sulfate 90 mcg/actuation (ProAir HFA) 2 puffs inhalation Q4-6H PRN albuterol sulfate 90 mcg/actuation 2 puffs inhalation Q4-6H PRN 30 days aspirin 81 mg PO DAILY blood pressure test kit-large As directed fluticasone propionate 110 mcg/actuation (Flovent HFA) 1 puff PO BID ysotxyfpmhk-yqsoydvbt-oynquabk 200-62.5-25 mcg (Trelegy Ellipta) 1 inh inhalation DAILY 30 days folic acid 1 mg PO DAILY losartan 12.5 mg PO DAILY metoprolol succinate ER 50 mg PO DAILY rosuvastatin 5 mg PO DAILY tiotropium bromide (Spiriva with HandiHaler) 1 cap inhalation DAILY torsemide 10 mg PO DAILY warfarin 5 mg See Protocol PO DAILY Nursing Note Amb to ACS early for 929 scheduled appt, feeling ok interpretter here for entire visit Medications and supplements reviewed, pt brought in bag of medicines, onlyt missing meds asa 81 mg, trelegy Elipta, and spiriva, pt instructed through interp to check if those are at home or if they have been discontinued (written down for pt) It was at that point he sts forgot to take my medications yesterday, some days I take them some days I don't feel like it reviewed importance of taking medications daily especially warfarin , pt does not use a pill box not going to use it when questioned what he took today for warfarin 1 pill (should of been 7.5mg or a pill and a half, again reviewed importance of pill box especially as warfarin different daily dosing No changes in health, diet, medications, or supplements, pt indicates he does not do greens or reds, rice, beans, and steak indicates greens too expensive and reds I could get for free in [place] Denies any unusual signs and symptoms of bruising, bleeding Denies any new Chest pain, SOB, or clotting INR: 1.9 below therapeutic range (2.5-3.5) Nutritional guidance given: continue usual diet try to get reds in Dose: increase dose today to 10mg (took the extra 5mg while here) increase tomorrow to 7.5mg then resume usual dosinmg x 3 days and 7.5mg x 4 days F/U INR: 1 week Patient verbalizes understanding of instructions given with accurate read back/ teach back of dosing call to [facility] critical results line, spole with Melissa RN, reported INR 1.9 (range 2.5-3.5), missed dose yesterday, dosing plan and F/U Anti-Coag Initial Assessment Social Hx Patient Tobacco Use Status: Current everyday Tobacco user Smoking packs per day: 1 alcohol intake: current Alcohol intake frequency: holidays/special occasions only Coding Level of Care Code Est Patient Level 2 Diagnoses Current use of anticoagulant therapy Z79.01 Time Spent (min) 30 Results AMB INR Fingerstick AMB INR Fingerstick 1.9 Last Edit by Elvira Schwartz RN on 02/09/23 09:41 interface failure Assessment & Plan Assessment & Plan (1) Current use of anticoagulant therapy: Code(s): Z79.01 - 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
== END 2023-02-09 10:40 | disposition home or self-care (01) ==
LOC: HO.ACS 08:41
PROVIDERS: PCP Family Medicine; Visit Provider Internal Medicine
DX: Z79.01 Long term (current) use of anticoagulants (principal)

== ENCOUNTER → 2023-02-09 08:41 | Outpatient (BNVA) | payer MEDICAID, SELFPAY | PROVIDERS: PCP Family Medicine; Visit Provider Internal Medicine | DX: Z95.2 Presence of prosthetic heart valve (principal); Z79.01 Long term (current) use of anticoagulants; Z51.81 Encounter for therapeutic drug level monitoring | CPT/HCPCS: 85610; 99212 ==

== ENCOUNTER 2023-09-17 09:38 | Outpatient (AMB) | payer MEDICAID, SELFPAY ==
[2023-09-17 10:04] LABS: Prothrombin Time Whole Bld POC 21.7 sec (11.1-13.5); ~PT, ~INR - Anti Coag Clinic 1.8 (0.9-1.1)
--- NOTE | 2023-09-17 10:39 | MHC.OFFVISCO ---
Intake Intake Visit Reasons: Anticoagulation Allergies No Known Allergies Allergy (Verified 09/17/23 09:48) Nursing Note Amb to ACS for INR check (see composed note 09/13) pt last visit here 02/09/23, Pt has been in [place] through interp pt sts he was off all medications except for aspirin and a baby pill ?? pt has not taken any Warfarin- they would not fill my prescriptions in [place] pt denies any S/S clotting or stroke sxs through interpretter reviewed with pt risks of not taking warfarin with a heart valve, pt able to verbalize aware of stroke and heart attack risk I have lived a good life, and I felt great in [place], felt like I was 14 again pt restarted medications on Tuesday 08/15, reviewed medication list from [facility] pt is not sure which meds, copy of med list given with instructions to compare with meds at home pt to check meds he is taking and cross off ones not taking (or not renewed) and add any that may not be on there he will have his daughter help him with that Pt sts took 2 pills warfarin on Wednesday and then 1 pill last night reviewed with pt peach colored pill (5mg) verified 10mg on Wednesday and 5mg on INR 1.8 below range of 2.5-3.5 pt has a valve, pt not on Lovenox injections at present dosing plan 10mg today, 5mg tomorrow, 7.5mg on Wednesday (prev dosing pattern was 7.5mg x4 days and 5mg x 3 days) recheck INR Wednesday, will call pt if Lovenox ordered by PCP reviewed and discussed reds and greens affect on warfarin/INR pt instructed no greens until seen TC to [facility] critical care line with todays INR 1.8, pt has valve, INR range 2.5-3.5, recent history no warfarin, ( no other meds for resp, HTN, or diuretics) pt not lovenox, asa daily and pts plan to move to [place] perm in December Spoke with Jessica KERN and also requested completed renewal form from Dr Davidson ( which was sent via fax on 09/13) to be able to see pt in F/U Tuesday 09/19 also request call to pt in [place] if needs to start Lovenox injections Anti-Coag Initial Assessment Social Hx Patient Tobacco Use Status: Current everyday Tobacco user Smoking packs per day: 1 alcohol intake: current Alcohol intake frequency: holidays/special occasions only Questionnaires HAS-BLED Does the patient had uncontrolled Hypertension?: Yes Does the patient have renal disease?: No Does the patient have liver disease?: No Does the patient have a history of stroke?: No Has the patient had major bleeding or predisposition to bleeding?: No Does the patient have labile INRs?: Yes Is the patient over 65 years of age?: No Is the patient on medications that gives them a predisposition to bleeding?: Yes Does the patient use alcohol?: Yes HAS-BLED Score: 4 CHADSVASC Age: <65 Gender: Male Does the patient have a history of CHF?: No Does the patient have a history of Hypertension?: Yes Does the patient have a history of Stroke/TIA/Thromboembolism?: No Does the patient have a history of Vascular Disease (prior IL, PAD or aortic plaque)?: Yes Does the patient have a history of Diabetes?: No CHADS VACS Score: 2 Roxi Prediction Score Rsk VTE Active Cancer: No Previous VTE, excluding superficial vein thrombosis: No Reduced mobility: No Already known Thrombophilic Condition: Yes With-in last month Trauma and/or Surgery: No Elderly 70 year or older: No Heart and/or Respiratory Failure: No Acute Myocardial infarction and/or Ischemic Stroke: No Acute Infection and/or Rheumatologic Disorder: No Obesity (BMI 30 or greater): No Ongoing Hormonal Treatment: No Score: 3 Roxi Score less than 4; Low Risk of VTE Roxi Score 4 or greater; High Risk of VTE Coding Level of Care Code Est Patient Level 2 Diagnoses Current use of anticoagulant therapy Z79.01 Time Spent (min) 30 Assessment & Plan Assessment & Plan (1) Current use of anticoagulant therapy: Code(s): Z79.01 - alf (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
== END 2023-09-17 11:17 | disposition home or self-care (01) ==
LOC: HO.ACS 09:38
PROVIDERS: PCP Family Medicine; Visit Provider Internal Medicine
DX: Z79.01 Long term (current) use of anticoagulants (principal)

== ENCOUNTER → 2023-09-17 09:38 | Outpatient (BNVA) | payer MEDICAID, SELFPAY | PROVIDERS: PCP Family Medicine; Visit Provider Internal Medicine | DX: Z95.2 Presence of prosthetic heart valve (principal); Z79.01 Long term (current) use of anticoagulants; Z51.81 Encounter for therapeutic drug level monitoring | CPT/HCPCS: 85610; 99212 ==

== ENCOUNTER 2023-09-20 09:34 | Outpatient (AMB) | payer MEDICAID, SELFPAY ==
[2023-09-20 09:54] LABS: Prothrombin Time Whole Bld POC 58.6 sec (11.1-13.5); ~PT, ~INR - Anti Coag Clinic 4.9 (0.9-1.1)
--- NOTE | 2023-09-20 10:08 | MHC.OFFVISCO ---
Intake Intake Visit Reasons: Anticoagulation Allergies No Known Allergies Allergy (Verified 09/20/23 09:37) Medication List - Last Reconciled 09/20/23 by Vanesa Martinez, RN acetaminophen 2 tabs PO QID PRN albuterol sulfate 90 mcg/actuation 2 puffs inhalation Q4-6H PRN 30 days aspirin 81 mg PO DAILY blood pressure test kit-large As directed cyanocobalamin (vitamin B-12) 1,000 mcg PO QAM folic acid 1 mg PO DAILY losartan 12.5 mg PO DAILY metoprolol succinate ER 50 mg PO DAILY rosuvastatin 5 mg PO DAILY tiotropium bromide (Spiriva with HandiHaler) 1 cap inhalation DAILY torsemide 10 mg PO DAILY warfarin 5 mg See Protocol PO DAILY Nursing Note [facility] Speeder Hand James came to translate for pt INR ??4.9 out of therapeutic range Medications and supplements reviewed Patient status: resumed his medications about 4 days ago, brought in all that he takes, diuretics and metoprolol were not resumed at this time(has been off x 1 year), enc that if he has any edema or sob to call MD drank 12 beers + over the weekend while playing [employer] - explained that large amts of beer can raise the INR and put at risk of bleeding Medications or supplements: reviewed and updated, Diet: good - states usually does not eat fruits or vegetables Denies any signs and symptoms of bleeding or clotting or unusual bruising Bleeding, bruising, clotting discussed Nutritional guidance given: eat greens today Dose: hold today's dose, eat greens today then 7.5mg Wed/ 5mg wed, 7.5mg and recheck Wednesday F/U INR Date : 4 days, 09/24/23 ?? Patient verbalizing understanding of instructions given with Speeder Hand yvonne to go to ER with any unusual bleeding or bruising or if he hits his head, or headaches or injuries due to risk of bleeding t/c to PCP with result spoke Jessica Nurse with pt status and plan of care to convey to medical team Anti-Coag Initial Assessment Social Hx Patient Tobacco Use Status: Current everyday Tobacco user Smoking packs per day: 1 alcohol intake: current Alcohol intake frequency: holidays/special occasions only Coding Level of Care Code Est Patient Level 1 Diagnoses Current use of anticoagulant therapy Z79.01 Results AMB INR Fingerstick AMB INR Fingerstick 4.9 Last Edit by Vanesa Martinez RN on 09/20/23 09:56 manual entry Assessment & Plan Assessment & Plan (1) Current use of anticoagulant therapy: Code(s): Z79.01 - alf (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
== END 2023-09-20 10:33 | disposition home or self-care (01) ==
PROVIDERS: PCP Family Medicine; Visit Provider Internal Medicine
DX: Z79.01 Long term (current) use of anticoagulants (principal)

== ENCOUNTER → 2023-09-20 09:34 | Outpatient (BNVA) | payer MEDICAID, SELFPAY | PROVIDERS: PCP Family Medicine; Visit Provider Internal Medicine | DX: Z95.2 Presence of prosthetic heart valve (principal); Z51.81 Encounter for therapeutic drug level monitoring; Z79.01 Long term (current) use of anticoagulants | CPT/HCPCS: 85610; 99211 ==

== ENCOUNTER → 2023-09-24 10:09 | Outpatient (BNVA) | payer MEDICAID, SELFPAY | PROVIDERS: PCP Family Medicine; Visit Provider Internal Medicine ==

== ENCOUNTER 2023-09-30 08:59 | Outpatient (AMB) | payer MEDICAID, SELFPAY ==
[2023-09-30 09:28] LABS: Prothrombin Time Whole Bld POC 15.2 sec (11.1-13.5); ~PT, ~INR - Anti Coag Clinic 1.3 (0.9-1.1)
--- NOTE | 2023-09-30 09:28 | MHC.OFFVISCO ---
Intake Intake Visit Reasons: Anticoagulation Allergies No Known Allergies Allergy (Verified 09/30/23 09:38) Medication List - Last Reconciled 09/30/23 by Elvira Solorio, ERLIN acetaminophen 2 tabs PO QID PRN albuterol sulfate 90 mcg/actuation 2 puffs inhalation Q4-6H PRN 30 days aspirin 81 mg PO DAILY blood pressure test kit-large As directed cyanocobalamin (vitamin B-12) 1,000 mcg PO QAM folic acid 1 mg PO DAILY losartan 12.5 mg PO DAILY metoprolol succinate ER 50 mg PO DAILY rosuvastatin 5 mg PO DAILY tiotropium bromide (Spiriva with HandiHaler) 1 cap inhalation DAILY torsemide 10 mg PO DAILY warfarin 5 mg See Protocol PO DAILY Nursing Note Pt to [facility]. Interpretter utilized for translation. Pt states he feels well. INR 1.3?out of therapeutic range of 2.5-3.5 Medications and supplements reviewed: No changes Pt states he has not seen his doctor since hes been back from [place]. Asked if he has missed a dose and he said yes, He lost the instruction sheet given to him with daily dose of warfarin so has been taking 1/2 tab or 2.5mg daily. Diet: usual diet for pt Denies any signs and symptoms of bleeding or clotting or unusual bruising Bleeding, bruising, clotting discussed Nutritional guidance given: to review the food list and balance greens and reds Dose: 10mg today, then 7.5mg daily X 3 days then return for testing F/U INR Date : 10/04/23?? Patient verbalizing understanding of instructions given. T/C to [facility] to notify Dr Davidson of crit value INR. Spoke to Jessica and INR and dosing plan relayed to her with date of retest. 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
== END 2023-09-30 09:57 | disposition home or self-care (01) ==
LOC: HO.ACS 08:59
PROVIDERS: PCP Family Medicine; Visit Provider Internal Medicine
DX: Z79.01 Long term (current) use of anticoagulants (principal)

== ENCOUNTER → 2023-09-30 08:59 | Outpatient (BNVA) | payer MEDICAID, SELFPAY | PROVIDERS: PCP Family Medicine; Visit Provider Internal Medicine | DX: Z95.2 Presence of prosthetic heart valve (principal); Z51.81 Encounter for therapeutic drug level monitoring; Z79.01 Long term (current) use of anticoagulants | CPT/HCPCS: 85610; 99212 ==

== ENCOUNTER → 2023-10-04 08:47 | Outpatient (BNVA) | payer MEDICAID, SELFPAY | PROVIDERS: PCP Family Medicine; Visit Provider Internal Medicine | DX: Z95.2 Presence of prosthetic heart valve (principal); Z79.01 Long term (current) use of anticoagulants; Z51.81 Encounter for therapeutic drug level monitoring | CPT/HCPCS: 85610; 99211 ==

== ENCOUNTER 2023-10-11 09:41 | Outpatient (AMB) | payer MEDICAID, SELFPAY ==
[2023-10-11 09:47] LABS: Prothrombin Time Whole Bld POC 24.3 sec (11.1-13.5)
--- NOTE | 2023-10-11 09:55 | MHC.OFFVISCO ---
Intake Intake Visit Reasons: Anticoagulation Allergies No Known Allergies Allergy (Verified 10/04/23 08:50) Nursing Note Pt to ACS. Pashto speaking only. Interpretter used. INR 2.0?out of therapeutic range of 2.5-3.5 Medications and supplements reviewed Patient status: no changes Medications or supplements: no changes Diet: usual diet for pt Denies any signs and symptoms of bleeding or clotting or unusual bruising Bleeding, bruising, clotting discussed Nutritional guidance given: food list given to pt and reviewed with him. He will avoid greens today and will have a serving of foods that raise the INR, Pt states he has a new MD in [facility] and will be leaving 10/19/23 to go there for about 2-3 months. He states the MD in [place] will be managing his INR. Dose: increase todays dose to 7.5mg then resume usual dose of 7.5mg X 4 days and 5 mg X 3 days F/U INR Date : 10/18/23?? Patient verbalizing understanding of instructions given. 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
== END 2023-10-11 10:20 | disposition home or self-care (01) ==
LOC: HO.ACS 09:41
PROVIDERS: PCP Family Medicine; Visit Provider Internal Medicine
DX: Z79.01 Long term (current) use of anticoagulants (principal)

== ENCOUNTER → 2023-10-11 09:41 | Outpatient (BNVA) | payer MEDICAID, SELFPAY | PROVIDERS: PCP Family Medicine; Visit Provider Internal Medicine | DX: Z95.2 Presence of prosthetic heart valve (principal); Z79.01 Long term (current) use of anticoagulants; Z51.81 Encounter for therapeutic drug level monitoring | CPT/HCPCS: 85610; 99211 ==

== ENCOUNTER 2023-10-15 09:54 | Outpatient (AMB) | payer MEDICAID, SELFPAY ==
--- NOTE | 2023-10-15 07:57 | MHC.OFFVIS ---
Intake Visit Reasons: LDCT SD Allergies No Known Allergies Allergy (Verified 10/04/23 08:50) HPI HPI LDCT SD: Details: Initial visit for this 63yo smoker with a 40+PYH. Patient started smoking at age 16 for 47 years - 1ppd . . Denies marijuana use. Denies second hand smoke exposure. Denies exposure to chemicals or substances like asbestos. . Denies known family history of lung cancer. Denies personal history of cancers. Denies chest CT in last year. . Denies recent travel outside the . Denies recent respiratory illness or recent hospitalization for respiratory issues. Denies testing positive for COVID. Admits receiving COVID Vaccine. x 3. . Denies fever, chills, new/worsening cough, hemoptysis, hoarseness or dysphagia. Denies significant chest pain, significant dyspnea or unintentional weight loss. Patient Lung Cancer Screening Questionnaire reviewed with patient by provider. . Shared Decision Making Completed. Patient meets criteria. Discussed in detail with patient, the risk vs benefit of LDCT screening. Patient consents to proceed with scan. Discussed smoking cessation. He will be traveling to [place] next week. We have permission to call the [phone] number of his daughter with results. [facility] Medical History (Updated 10/15/23 @ 10:25 by Yudy Kenyon PA-C) CAD (coronary artery disease) Nonischemic cardiomyopathy Cardiomyopathy LBBB (left bundle branch block) Hypertension Hyperlipidemia Pulmonary nodular amyloidosis Pulmonary nodule Nicotine dependence, cigarettes, uncomplicated Emphysema/COPD Chronic cough Diverticulitis Vitamin B12 deficiency Surgical History (Updated 08/10/23 @ 14:20 by Yudy Kenyon PA-C) History of aortic valve replacement History of aortic aneurysm repair History of elbow surgery Family History Mother No pertinent family history Father No pertinent family history Social History (Updated 10/15/23 @ 10:25 by Yudy Kenyon PA-C) Household Members: None Alcohol intake: current Alcohol intake frequency: holidays/special occasions only Alcohol type: beer Patient Tobacco Use Status: Current everyday Tobacco user Cigarette Packs Per Day: 1 Years Smoked: (onset 16yo, 1ppd x 47yrs, 40+PYH) Advance Directives Date on File: 07/14/21 service: No Assessment & Plan Assessment & Plan (1) Nicotine dependence, cigarettes, uncomplicated: Comment: (smoker - onset 16yo, 1ppd x 47yrs, 40+PYH) Code(s): F17.210 - Nicotine dependence, cigarettes, uncomplicated Category: Medical Plan: - SDM visit completed today in office. - Patient meets criteria for LDCT for lung cancer screening purposes and is asymptomatic. - Smoking cessation counseling offered. Patients can always call [phone]. - Will arrange for a LDCT scan of the chest for screening purposes at [facility]. - Risks, benefits, and alternatives were discussed in detail and the patient agrees to proceed. - Risks discussed include but are not limited to: radiation exposure, anxiety during testing and while awaiting results, false negatives, false positives and possibility of additional intervention such as further imaging or surgical procedures for benign disease. - Benefits are obviously detection of lung cancer at an early stage which can lead to improved outcomes. - Discussed the importance of screening program compliance with adherence to yearly LDCT scan as scheduled - or sooner interval scans for personalized screening regimen. - Discussed follow up plan. Our office will send a letter discussing results and if needed set up phone call and office visit based on CT findings. - Patient educated on results categorization and the management decisions for suspicious findings potentially found on the screening LDCT scan. Any patient with a Lung RADS score of 3 or 4 will be reviewed by a multidisciplinary team at [facility] to form a plan of action in regards to scan findings. - If further work up is warranted for a suspicious lung finding this will be followed by the Lung Cancer Screening program in conjunction with the Thoracic Surgery Department at [facility]. - A copy of the office note and LDCT will be sent to the patient's PCP - as well as documentation on any associated further plans of care. - Incidental findings on LDCT are the PCP's responsibility. These findings are indicated with an S finding on the LDCT Assessment. A note discussing the findings will be sent to the PCP who is then responsible for further management. - All questions answered.? Coding Level of Care Code Lung Cancer Screening G0296 Diagnoses Nicotine dependence, cigarettes, uncomplicated F17.210
== END 2023-10-15 10:25 | disposition home or self-care (01) ==
PROVIDERS: PCP Family Medicine; Referring Provider Family Medicine; Visit Provider Physician Assistant Medical
DX: F17.210 Nicotine dependence, cigarettes, uncomplicated (principal)
CPT/HCPCS: G0296

== ENCOUNTER 2023-10-15 10:28 | Outpatient (REF) | payer MEDICAID, SELFPAY ==
--- NOTE | ~2023-10-15 | CT_ITS ---
EXAMINATION: CT LOW-DOSE SCREENING CHEST WITHOUT CONTRAST CLINICAL INFORMATION: Smoker. SMOKING HISTORY: Current smoker, 2 pack per day history, 40 packs per year. COMPARISON: CT chest 08/13/2021. TECHNIQUE: Multidetector volumetric CT imaging of the chest is performed on a Siemens SOMATOM Definition scanner without contrast using low dose technique. Additional 2D coronal and sagittal reformatted images and axial 3D maximum intensity projection (MIP) images are generated on the CT workstation. This CT examination was performed using dose optimization techniques as appropriate, variously including the following: *Automated exposure control *Adjustment of mA and/or kV according to patient size (this includes techniques or standardized protocols for targeted exams where dose is matched to indication/reason for exam; i.e. extremities or head) *Use of iterative reconstruction technique TOTAL EXAM DLP: 70 mGy-cm. CTDIvol: 69 mGy. FINDINGS: LUNGS: Lungs bilaterally symmetrically expanded. Mild emphysematous changes are seen along with mild bronchial thickening. No bronchiectasis. Again seen are some scattered small unchanged pulmonary nodular densities, the largest measuring about 3 mm in the left upper lobe (5:190, compare prior 7:179). A calcified left lower lobe granuloma is unchanged (3:46). No new, increasing-sized or concerning focal lung nodule or mass. No effusion or pneumothorax. Central airways patent. MEDIASTINUM: Status post median sternotomy. No mediastinal, hilar or axillary adenopathy or free fluid collection. CORONARY ARTERY CALCIFICATION: Mild. THYROID GLAND: Unremarkable to the extent seen. CARDIOVASCULAR STRUCTURES: Aortic valve prosthesis is present. Aortic and heart size normal. No pericardial effusion. CHEST WALL/AXILLA: Unremarkable. UPPER ABDOMEN: Extensive bilateral benign Bosniak class I renal cysts are noted similar to prior, which require no additional imaging or follow-up. No solid renal masses are seen. Calcified splenic granulomas are again seen. Adrenal lesion seen previously not well appreciated on the current study. Included portions of the solid organs in the upper abdomen otherwise unremarkable on noncontrast imaging. OSSEOUS STRUCTURES: No suspicious focal findings. CT/CT lung screening IMPRESSION: 1. No evidence of pulmonary malignancy. 2. Mild emphysema. 3. Other incidental findings as described above. ASSESSMENT: 1. Lung-RADS Category 2: Benign appearance or behavior of nodules. N/A RECOMMENDATION: Continued routine annual low-dose CT lung screening in 1 year is recommended. An order for CT CHEST LOW DOSE CANCER SCREENING ([id number]) can be placed.
== END 2023-10-15 10:29 | disposition home or self-care (01) ==
LOC: HO.CT 10:28
PROVIDERS: PCP Family Medicine; Visit Provider Nurse Practitioner Family
DX: Z12.2 Encounter for screening for malignant neoplasm of respiratory organs (principal); F17.210 Nicotine dependence, cigarettes, uncomplicated
CPT/HCPCS: 71271; G0296

== ENCOUNTER 2023-10-18 10:07 | Outpatient (AMB) | payer MEDICAID, SELFPAY ==
[2023-10-18 10:20] LABS: Prothrombin Time Whole Bld POC 26.7 sec (11.1-13.5); ~PT, ~INR - Anti Coag Clinic 2.2 (0.9-1.1)
--- NOTE | 2023-10-18 10:38 | MHC.OFFVISCO ---
Intake Intake Visit Reasons: Anticoagulation Allergies No Known Allergies Allergy (Verified 10/18/23 10:14) Medication List - Last Reconciled 10/18/23 by Vanesa Martinez RN acetaminophen 2 tabs PO QID PRN albuterol sulfate 90 mcg/actuation 2 puffs inhalation Q4-6H PRN 30 days aspirin 81 mg PO DAILY blood pressure test kit-large As directed cyanocobalamin (vitamin B-12) 1,000 mcg PO QAM folic acid 1 mg PO DAILY losartan 12.5 mg PO DAILY metoprolol succinate ER 50 mg PO DAILY rosuvastatin 5 mg PO DAILY tiotropium bromide (Spiriva with HandiHaler) 1 cap inhalation DAILY torsemide 10 mg PO DAILY warfarin 5 mg See Protocol PO DAILY Nursing Note [facility] [place] 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 Warfarin Education forms given to pt in Romansh to bring with him along with extra dosing forms Medications or supplements: pt states no changes Diet: same however he states there are more fresh fruits at his home there- he was enc to eat more avocados when he eats more fruits Denies any signs and symptoms of bleeding or clotting or unusual bruising Bleeding, bruising, clotting discussed Nutritional guidance given: balance diet while in [place] and avoid excess etoh Dose: 7.5mg x 5 days/ 5mg x 2 days and have INR checked in 1 week F/U INR Date : 1 week in [place] ?? Patient verbalizing understanding of instructions given. 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
== END 2023-10-18 10:43 | disposition home or self-care (01) ==
LOC: HO.ACS 10:07
PROVIDERS: PCP Family Medicine; Visit Provider Internal Medicine
DX: Z79.01 Long term (current) use of anticoagulants (principal)

== ENCOUNTER → 2023-10-18 10:07 | Outpatient (BNVA) | payer MEDICAID, SELFPAY | PROVIDERS: PCP Family Medicine; Visit Provider Internal Medicine | DX: Z95.2 Presence of prosthetic heart valve (principal); Z79.01 Long term (current) use of anticoagulants; Z51.81 Encounter for therapeutic drug level monitoring | CPT/HCPCS: 85610; 99211 ==

== ENCOUNTER 2024-09-14 09:57 | Outpatient (REF) | payer MEDICAID, SELFPAY ==
--- OUTSIDE RECORDS SUMMARY | 2024-09-14 10:53 | XMS_ITS | Encounter Summary ---
Author Organization [employer] Address [address] [facility] [address] [place] [address] Care Team Providers Care Order Expediter Name Role Phone Ana Paula Davidson MD Primary Care Provider Reason for Visit * Reason Onset Date Comments chartprep 09/13/2024 Encounter Details Date Type Department Care Team ([facility] st Contact Info) Description 09/13/2024 Telephone [facility] MEDICINE [address] [place], [place] [phone] Ana Paula Davidson MD [address] [place], [place] [phone] chartprep Social History Tobacco Use Types Packs/Day Years Used Date Smoking Tobacco: Every Day Cigarettes Passive Smoke Exposure: Current Smokeless Tobacco: Never Depression Answer Date Recorded Patient Health Questionnaire-9 Score 0 09/14/2024 Patient Health Questionnaire-9 Score 0 09/14/2024 Last PHQ-9: Questionnaire Data Not on file 0 09/14/2024 Housing Stability Answer Date Recorded What is your housing situation today? I have cha schmidt 09/14/[address] you li ve. Do you have problems with any of the following? None of the above 09/14/2024 Food Insecurity Answer Date Recorded Within the past 12 months, y ou worried that your food would run out before you got money to buy more: Never True 09/14/2024 Within the past 12 months,th e food you bought just didn't last and you didn't have enough money to get more: Never True Transportation Answer Date Recorded In the past 12 months, has l ack of transportation kept you from medical appts, meetings, work or from getting things needed for daily living? No 09/14/2024 Utilities Answer Date Recorded In the past 12 months, has t he electric, gas, oil or water company threatened to shut off services in your home? No 09/14/2024 Depression Answer Date Recorded Patient Health Questionnaire-2 Score 0 09/14/2024 Internet Access Answer Date Recorded Internet Access Q1 No 09/14/2024 Internet Access Q2 I do not want or need it 08/31 Sex and Gender Information Value Date Recorded Sex Assigned at Male 03/02/2022 10:14 AM EDT Legal Sex Male 10:14 AM EDT Gender Identity Male 03/02/2022 10:14 AM EDT Sexual Orientation Choose not to disclose 2021 10:14 AM EDT documented as of this encounter Miscellaneous Notes * Telephone Encounter - Yudy Soto MA - 09/13/2024 11:35 AM EDT ..Chart Prep Labs: not done Images: not done Vaccines due: Covid Due, Tdap Due, Flu Due, RSV in Pharmacy Due, and Shingles in pharmacy Due Referrals: Not Applicable Screenings: Colonoscopy Overdue care gaps: Sbirt, SDOH, PQ9, GAD7, Disability , and Oral Health documented in this encounter Plan of Treatment Not on file documented as of this encounter Visit Diagnoses Not on filedocumented in this encounter Additional Health Concerns Assessment Noted Time PHQ-9 Depression Total Score: 0 01/20/20 23 10:16 AM EDT documented as of this encounter Care Teams Order Expediter Relationship Specialty Start Date End Date Ana Paula Davidson MD [address] [place] [id number] PCP - General Family Medicine 05/03/18 documented as of this encounter
--- OUTSIDE RECORDS SUMMARY | 2024-09-14 10:53 | XMS_ITS | Encounter Summary ---
Author Organization [employer] Address [address] [facility] [address] [place] [address] Care Team Providers Care Senior Instructor Name Role Phone Ana Paula Davidson MD Primary Care Provider [phone] Reason for Visit * Reason Comments Med Refill Encounter Details Date Type Department Care Team (Late st Contact Info) Description 03/21/2024 Refill [facility] MEDICINE [address] [place], [place] [phone] Ana Paula Davidson MD [address] [place], [place] [phone] Social History Tobacco Use Types Packs/Day Years Used Date Smoking Tobacco: Every Day Cigarettes Passive Smoke Exposure: Current Smokeless Tobacco: Never Depression Answer Date Recorded Patient Health Questionnaire-9 Score 0 01/19/2023 Housing Stability Answer Date Recorded What is your housing situation today? I have cha schmidt 02/22/[address] you li ve. Do you have problems with any of the following? None of the above 02/22/2023 Food Insecurity Answer Date Recorded Within the past 12 months, y ou worried that your food would run out before you got money to buy more: Never True 02/22/2023 Within the past 12 months,th e food you bought just didn't last and you didn't have enough money to get more: Never True Transportation Answer Date Recorded In the past 12 months, has l ack of transportation kept you from medical appts, meetings, work or from getting things needed for daily living? No 02/22/2023 Utilities Answer Date Recorded In the past 12 months, has t he electric, gas, oil or water company threatened to shut off services in your home? No 02/22/2023 Depression Answer Date Recorded Patient Health Questionnaire-2 Score 0 01/19/2023 Sex and Gender Information Value Date Recorded Sex Assigned at Male 03/02/2022 10:14 AM EDT Legal Sex Male 10:14 AM EDT Gender Identity Male 03/02/2022 10:14 AM EDT Sexual Orientation Choose not to disclose 2021 10:14 AM EDT documented as of this encounter Plan of Treatment Not on file documented as of this encounter Visit Diagnoses Not on filedocumented in this encounter Additional Health Concerns Assessment Noted Time PHQ-9 Depression Total Score: 0 01/20/20 23 10:16 AM EDT documented as of this encounter Care Teams Senior Instructor Relationship Specialty Start Date End Date Ana Paula Davidson MD [address] [place] [phone] PCP - General Family Medicine 05/03/18 documented as of this encounter
--- OUTSIDE RECORDS SUMMARY | 2024-09-14 10:53 | XMS_ITS | Encounter Summary ---
Author Organization [employer] Address [address] [facility] [address] [place] [address] Care Team Providers Care Senior Solutions Engineer Name Role Phone Ana Paula Davidson MD Primary Care Provider [phone] Encounter Details Date Type Department Care Team (Late st Contact Info) Description 05/17/2022 Orders Only [facility] MEDICINE [address] [place], [place] [phone] Ana Paula Davidson MD [address] [place], [place] [phone] Primary hypertension (Primary Dx) Social History Tobacco Use Types Packs/Day Years Used Date Smoking Tobacco: Never Assessed Sex and Gender Information Value Date Recorded Sex Assigned at Male 03/02/2022 10:14 AM EDT Legal Sex Male 10:14 AM EDT Gender Identity Male 03/02/2022 10:14 AM EDT Sexual Orientation Choose not to disclose 2021 10:14 AM EDT documented as of this encounter Plan of Treatment Not on file documented as of this encounter Visit Diagnoses Diagnosis Primary hypertension- Primary Unspecified essential hypertension documented in this encounter Care Teams Senior Solutions Engineer Relationship Specialty Start Date End Date Ana Paula Davidson MD [address] [place], [place] [phone] PCP - General Family Medicine 05/03/18 documented as of this encounter
--- OUTSIDE RECORDS SUMMARY | 2024-09-14 10:53 | XMS_ITS | Clinical Summary ---
Author Organization [employer] Address [address] [facility] 7t [place] [address] Care Team Providers Care Compensation Vice President Name Role Phone Ana Paula Davidson MD Primary Care Provider [phone] Allergies No known active allergies Medications nicotine (Nicoderm, Step 1) 21 MG/24HR patch PLACE 1 PATCH ON THE SKIN EVERY DAY 07/16/19 22 Active albuterol 108 (90 Base) MCG/ACT inhaler Inhale 2 puffs every 4 (four) hours if needed for wheezing or shortness of breath. Maximum 8 puffs per day 18 g 3 09/30/19 24 2024 Active Fluticasone-Um eclidin-Vilant (Trelegy Ellipta) 200-62.5-25 MCG/ACT aerosol powderIndicati ons:Pulmonary emphysema, unspecified emphysema type (CMS/HCC) Inhale 1 puff at bedtime. 84 each 3 09/30/19 24 Active torsemide (Demadex) 10 MG tablet Take 1 tablet (10 mg) by mouth Once per day. 90 tablet 3 09/30/19 24 2024 Active warfarin (Coumadin) 5 MG tablet TAKE 1 TABLET BY MOUTH EVERY DAY. Dosage may be changed according to your INR. Please follow the direction from your provider 60 tablet 2 09/15/19 25 Active Aspirin Low Dose 81 MG EC tablet Take 1 tablet (81 mg) by mouth Once per day. 90 tablet 3 09/15/19 25 Active rosuvastatin (Crestor) 5 MG tablet Take 1 tablet (5 mg) by mouth Once per day. 90 tablet 3 09/15/19 25 2025 Active losartan (Cozaar) 25 MG tablet Take 1/2 tablet by mouth once daily 45 tablet 3 09/15/19 25 Active metoprolol succinate XL (Toprol-XL) 25 MG 24 hr tablet Take 1 tablet (25 mg) by mouth Once per day. 90 tablet 3 09/15/19 25 Active cyanocobalamin (Vitamin B-12) 1000 MCG tablet Take 1 tablet (1,000 mcg) by mouth Once per day. 90 tablet 09/15/19 25 Active folic acid (Folvite) 1 MG tablet Take 1 tablet (1,000 mcg) by mouth Once per day. 90 tablet 09/15/19 25 Active Aspirin Low Dose 81 MG EC tablet Take 81 mg by mouth in the morning. 04/29/20 22 2024 Discontinued(R eorder (will not trigger notification to Pharmacy)) cyanocobalamin (Vitamin B-12) 1000 MCG tablet Take 1 tablet (1,000 mcg) by mouth Once per day. 90 tablet 3 09/30/19 24 2024 Discontinued(R eorder (will not trigger notification to Pharmacy)) folic acid (Folvite) 1 MG tablet Take 1 tablet (1,000 mcg) by mouth Once per day. 90 tablet 3 09/30/19 24 2024 Discontinued(R eorder (will not trigger notification to Pharmacy)) losartan (Cozaar) 25 MG tablet Take 1/2 tablet by mouth once daily 45 tablet 3 09/30/19 24 2024 Discontinued(R eorder (will not trigger notification to Pharmacy)) metoprolol succinate XL (Toprol-XL) 50 MG 24 hr tablet Take 1 tablet (50 mg) by mouth Once per day. 90 tablet 3 09/30/19 24 2024 Discontinued(R eorder (will not trigger notification to Pharmacy)) rosuvastatin (Crestor) 5 MG tablet Take 1 tablet (5 mg) by mouth Once per day. 90 tablet 3 09/30/19 24 2024 Discontinued(R eorder (will not trigger notification to Pharmacy)) warfarin (Coumadin) 5 MG tablet TAKE 1 TO 2 TABLETS BY MOUTH EVERY DAY NEEDED PER COUMADIN CLINIC INSTRUCTIONS 60 tablet 2 11/09/19 24 2024 Discontinued(R eorder (will not trigger notification to Pharmacy)) Active Problems Patient Care Coordination No te Formatting of this note migh t be different from the original. 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 History of aortic aneurysm repair 01/23/2023 LBBB (left bundle branch block) 01/23/2023 Adrenal nodule 05/31/2022 Assessment & Plan (05/31/2022 6:17 AM EST): - Ordered MRI, but it was cancelled - will check radiology for their recommendation Esophageal thickening 05/31/2022 Assessment & Plan (02/05/2023 6:19 AM EDT): - pt was referred to GI several times for EGD, and missed all the appointments - re-referred again, but has not received appt yet - will ask care management team to assist the pt Assessment & Plan (01/23/2023 6:21 AM EDT): - pt was referred to GI several times for EGD, and missed all the appointments - re-refer again Assessment & Plan (05/31/2022 6:26 AM EST): - pt was referred to GI several times for EGD, and missed all the appointments - refer again Colon cancer screening 05/31/2022 Assessment & Plan (05/31/2022 6:27 AM EST): - refer to GI since he is being referred for EGD evaluation Insomnia 05/26/2022 Mixed anxiety and depressive disorder 05/26/2022 Anticoagulated on Coumadin 05/26/2022 Assessment & Plan (02/04/2023 12:56 PM EDT): -indication: Aortic valve repair -continue treatment plan per [facility] [place] Assessment & Plan (01/23/2023 6:21 AM EDT): -indication: Aortic valve repair -continue treatment plan per [facility] [place] Assessment & Plan (05/31/2022 6:21 AM EST): -indication: Aortic valve repair -continue treatment plan per [facility] [place] Anticoagulation goal of INR 2.5 to 3.5 Overview (05/26/2022): Patient has not been adherent to INR and coumadin check Tobacco use disorder 05/26/2022 Assessment & Plan (02/04/2023 12:55 PM EDT): Currently smokes 15 cigarettes a day - continue working on smoking cessation - following with Dr. Kirk at [facility] Pulmonology [facility] - last CT in 2021 - check the status of lung cancer screening CT and appt Assessment & Plan (01/23/2023 6:41 AM EDT): - continue working on smoking cessation - following with Dr. Kirk at [facility] Pulmon[facility] - last CT in 2021 - check the status of lung cancer screening CT and appt Assessment & Plan (05/31/2022 6:25 AM EST): - continue working on smoking cessation - check the status of lung cancer screening CT and appt History of rib fracture 05/26/2022 Chronic obstructive lung disease 11/09/2016 Assessment & Plan (02/04/2023 12:56 PM EDT): -Last COPD exacerbation in Jun 2018, treated with azithromycin and prednisone -Last seen by screen printing cloth spreader on 07/29/21, prescribed Trelegy -Continue Trelegy -Continue Albuterol as rescue -Work on smoking cessation. -Advised to reschedule appt Assessment & Plan (01/23/2023 6:49 AM EDT): -Last COPD exacerbation in Jun 2018, treated with azithromycin and prednisone -Last seen by screen printing cloth spreader on 07/29/21, prescribed Trelegy -Continue Trelegy -Continue Albuterol as rescue -Work on smoking cessation. -Advised to reschedule appt Assessment & Plan (05/31/2022 6:17 AM EST): -Last seen by screen printing cloth spreader on 07/29/21 -Lc[facility] prescribed Trelegy but patient did not receive yet. Will prescribe today -Continue Albuterol as rescue -Work on smoking cessation. -Last COPD exacerbation in Jun 2018, treated with azithromycin and prednisone Allergic rhinitis 08/27/2014 Atopic conjunctivitis 08/27/2014 Vitamin B12 deficiency 01/27/2012 Dyslipidemia 01/27/2012 Assessment & Plan (02/05/2023 6:21 AM EDT): - 01/20/23 TC 155; TG 123; HDL 39; LDL 92 - current medication: Rosuvastatin 5 mg at bedtime - previously on simvastatin - work on lifestyle modifications Assessment & Plan (01/23/2023 6:23 AM EDT): - previously on simvastatin - will switch to rosuvastatin 5 mg qhs - reminded about lipid profile - work on lifestyle modifications Assessment & Plan (05/31/2022 6:34 AM EST): - currently on simvastatin, moderate intensity statin therapy - reminded about lipid profile - consider changing to atorvastatin or rosuvastatin History of artificial heart valve 01/27/2012 Assessment & Plan (02/05/2023 6:18 AM EDT): -Patient is on warfarin -followed by [facility] [place] -Hx poor adherence to INR check and mediation -discussed about the importance of medication adherence and monitoring INR Assessment & Plan (01/23/2023 6:18 AM EDT): -Patient is on warfarin -followed by [facility] [place] -Hx poor adherence to INR check and mediation -discussed about the importance of medication adherence and monitoring INR Assessment & Plan (05/31/2022 6:20 AM EST): -Patient is on warfarin -followed by [facility] [place] -Hx poor adherence to INR check and mediation -improving adherence Hypertension 01/27/2012 Assessment & Plan (02/05/2023 6:17 AM EDT): -Goal BP < 140/90 per JNC-8 and < 130/80 per ACC/AHA guideline -BP almost at goal today -EKG reviewed in Jan 2023. Sinus verónica with frequent PVCs. LBBB. -Treatment Hx: Previously on metoprolol succinate 50 mg daily; lisinopril 10 mg daily; furosemide 20 mg daily -Continue metoprolol succinate 50 mg daily -Continue losartan 25 mg daily -Continue torsemide 10 mg daily -Risk factors: tobacco, peripheral vascular disease -Continue working on lifestyle modification and medication adherence. -Continue checking BP at home -Referred to [facility] again -Follow up in 3-4 mo or sooner prn Assessment & Plan (01/23/2023 6:21 AM EDT): -Goal BP < 140/90 per JNC-8 and < 130/80 per ACC/AHA guideline -hypertensive urgency, likely due to non-adherence to medications and smoking -EKG showed no acute pathology today -Treatment Hx: Metoprolol succinate 50 mg daily; lisinopril 10 mg daily; furosemide 20 mg daily -Continue metoprolol succinate 50 mg daily -Change ACEI to ARB, losartan -Change furosemide to torsemide -Risk factors: tobacco, peripheral vascular disease -Continue working on lifestyle modification and medication adherence. -Continue checking BP at home -Refer to [facility] again Assessment & Plan (05/31/2022 6:19 AM EST): -Goal BP < 140/90 per JNC-8 and < 130/80 per ACC/AHA guideline -2nd measurement was normal -Continue metoprolol succinate 50 mg daily -Continue lisinopril 10 mg daily -Risk factors: tobacco, peripheral vascular disease -Continue working on lifestyle modification and medication adherence. -Continue checking BP at home -Refer to [facility] Obesity 01/27/2012 Encounters Date Type Department Care Team Description 09/14/2024 9:30 AM EDT Office Visit [facility] [address] [place] [phone] Ana Paula Davidson MD Routine general medical examination at a health care facility (Primary Dx); LBBB (left bundle branch block); Primary hypertension; History of artificial heart valve; History of aortic aneurysm repair; HFrEF (heart failure with reduced ejection fraction) (CMS/HCC); Dyslipidemia; Vitamin B12 deficiency; Pulmonary emphysema, unspecified emphysema type (CMS/HCC); Tobacco use disorder; Mixed anxiety and depressive disorder; Screening for diabetes mellitus 09/14/2024 Travel 09/13/2024 Telephone [facility] [address] [place] [phone] Ana Paula Davidson MD chartprep 09/08/2024 Patient Outreach [facility] [address] [place] [address] Ana Paula Davidson MD Pre-visit Planning ([facility] unable to reach LVM) from Last 3 Months Immunizations Immunization Administration Dates Next Due Influenza injectable quadriv alent IIV4 with preservative 01/25/2018,03/10/2016 Influenza injectable quadriv alent preservative free 01/19/2023,02/12/2022,03/05/2021,01/29,01/10/2020,05/01/2019,01/08/2017 Influenza, IIV3, injectable 02/26/2014,0 01/28/2010,02/06/2009,02/06,02/01/2007,04/14/2006,02/12/2003 ,03/19/2000 Influenza, Split (incl. rodrigo fied surface antigen) 01/03/2013,01/27/2012 Moderna Covid-19 Vaccine 12+ 03/26/2021,09/18/19 21,08/20/2020 Pneumococcal Polysaccharide PPSV23 12/20/2012, TD (adult), 2 Lf tetanus tox oid, preservative free, adsorbed 09/12/2008 Tdap 07/31/2011 Social History Tobacco Use Types Packs/Day Years Used Date Smoking Tobacco: Every Day Cigarettes Passive Smoke Exposure: Current Smokeless Tobacco: Never Tobacco Cessation:Ready to Q uit: Not Asked; Counseling Given: Not Answered Depression Answer Date Recorded Patient Health Questionnaire-9 [...] not to disclose 2021 10:14 AM EDT Last Filed Vital Signs Vital Sign Reading Time Taken Comments Blood Pressure 130/76 09/14/2024 9:10 AM EDT Pulse 88 09/14/2024 9:10 AM EDT Temperature 36.6 ??C (97.8 ??F) 09/14/2024 9:10 AM ED T Respiratory Rate 17 09/14/2024 9:10 AM EDT Oxygen Saturation 97% 09/14/2024 9:10 AM EDT Inhaled Oxygen Concentration - - Weight 91.7 kg (202 lb 3.2 oz) 09/14/2024 9:10 A M EDT Height 175.3 cm (5' 9 ) 09/14/2024 9:10 AM EDT Body Mass Index 29.86 09/14/2024 9:10 AM EDT Plan of Treatment Health Maintenance Due Date Last Done Comments CT Colonography 1959 Colonoscopy 1959 Colorectal Cancer Screening 1959 Dental Oral Exam 1959 Dental Prophylaxis 1959 Dental X-Ray: Bitewings 1959 FIT DNA/Cologuard 1959 FIT 1959 FOBT 1959 Sigmoidoscopy 1959 Zoster Vaccines (1 of 2) 2009 Dental X-Ray: Full Mouth 12/21/2011 12/19/2008 Pneumococcal Vaccine: 50+ Years (2 of 2 - PCV) 12/20/2013 12/20/2012, 12/20/2007 RSV Patients and Patients Aged 60 years or older (1 - Risk 60-74 years 1-dose series) 2019 DTaP/Tdap/Td Vaccines (2 - Td or Tdap) 07/30/2021 07/31/2011, 09/12/2008 COVID-19 Vaccine (4 - season) 2024 03/26/2021, 09/17/2020, 08/20/2020 Influenza Vaccine (#1) 2024 3, 02/12/2022, 03/05/2021, Additional history exists Alcohol/Substance Use Screening 09/14/2025 09/14/2024 Depression Screening 09/14/2025 09/14/2024, 09/15/19 25 SDOH Screening 09/14/2025 09/14/2024 Tobacco Screening 09/14/2025 09/14/2024 Lipid Panel 01/21/2028 01/20/2023, 10/0 05/2019, 02/01/2020 Hepatitis C Screening Completed 05/17/2019 HIB Vaccines Aged Out No longer eligi ble based on patient's age to complete this topic HPV Vaccines Aged Out No longer eligi ble based on patient's age to complete this topic Hepatitis A Vaccines Aged Out No long er eligible based on patient's age to complete this topic Hepatitis B Vaccines Aged Out No long er eligible based on patient's age to complete this topic IPV Vaccines Aged Out No longer eligi ble based on patient's age to complete this topic Meningococcal B Vaccine Aged Out No l onger eligible based on patient's age to complete this topic Meningococcal Vaccine Aged Out No brett kapil eligible based on patient's age to complete this topic RSV under 20 months Aged Out No longe r eligible based on patient's age to complete this topic Rotavirus Vaccines Aged Out No longer eligible based on patient's age to complete this topic Procedures Procedure Name Priority Date/Time Associated Diagnosis Comments LIPID PANEL WITH REFLEX TO DIRECT LDL Routine 01/20/2023 12:00 AM EDT Primary hypertension ZZZ HISTORICAL HEPATITIS C ANTIBODY RFLX Routine 05/17/2019 10:00 AM EST PANORAMIC RADIOGRAPHIC IMAGE Routine 12/19/2008 12:00 AM EDT from Last 3 Months or Most Recently Relevant to Health Maintenance Results * (ABNORMAL) Lipid Panel with Reflex to Direct LDL (01/20/2023 12:00 AM EDT) Triglycerides 123 <150 mg/dL [facility] Comment:Desirable Triglyceri de: less than 150 mg/dLBorderline High Triglyceride 150-199 mg/dLHigh Triglyceride: 200-499 mg/dLVery High Triglyceride: greater than or equal to 5OO mg/dL Cholesterol 155 <200 mg/dL [facility] Comment:Desirable Cholestero l: less than 200 mg/dLBorderline High Cholesterol: 200-239 mg/dLHigh Cholesterol: greater than 239 mg/dL LDL Cholesterol Calculated 92 <100 mg/dL [facility] Comment:Desirable LDL: less than 100 mg/dLNear Optimal/Above Optimal LDL: 110- 129 mg/dLBorderline High LDL: 130-159 mg/dLHigh LDL: 160-189 mg/dLVery High LDL: greater than or equal to 190 mg/dL HDL Cholesterol 39(L) >40 mg/dL [facility] Comment:Desirable HDL: great er than 40 mg/dL Note: This HDL assay may give artificially low results in patients with liver disease. Blood 01/20/2023 01/20/2023 Ana Paula Davidson MD LAB BLOOD ORDERABLES Final Resul t [facility] [address] [place] [phone] * HEPATITIS C ANTIBODY RFLX (05/17/2019 10:00 AM EST) HEPATITIS C ANTIBODY NONREACTIVE NONREACTIVE [facility] Comment: Antibodies to HCV not detected; does not exclude early acute HCV infection. 05/17/2019 10:0 0 AM EST Ana Paula Davidson MD HISTORICAL/NON ORDERABLE LABS Fi nal Result Performing Organization Address City/[facility]/ZIP Co de Phone Number [facility] [address] from Last 3 Months or Most Recently Relevant to Health Maintenance Insurance [facility] AD[place] Care Teams Compensation Vice President Relationship Specialty Start Date End Date Ana Paula Davidson MD [address] [place] [phone] PCP - General Family Medicine 05/03/18
--- OUTSIDE RECORDS SUMMARY | 2024-09-14 10:53 | XMS_ITS | Encounter Summary ---
Author Organization [employer] Address [address] [facility] [address] [place] [address] Care Team Providers Care Warehouse Shipping Receiving Clerk Name Role Phone Ana Paula Davidson MD Primary Care Provider [phone] Encounter Details Date Type Department Care Team (Late st Contact Info) Description 02/09/2023 Telephone [facility] [address] [place], [place] [phone] Ana Paula Davidson MD [address] [place], [place] [phone] Social History Tobacco Use Types Packs/Day Years Used Date Smoking Tobacco: Every Day Cigarettes Passive Smoke Exposure: Current Smokeless Tobacco: Never Depression Answer Date Recorded Patient Health Questionnaire-9 Score 0 01/19/2023 Housing Stability Answer Date Recorded What is your housing situation today? I have cha schmidt 02/07/[address] you li ve. Do you have problems with any of the following? None of the above 02/07/2023 Food Insecurity Answer Date Recorded Within the past 12 months, y ou worried that your food would run out before you got money to buy more: Never True 02/07/2023 Within the past 12 months,th e food you bought just didn't last and you didn't have enough money to get more: Never True 12/2022 Transportation Answer Date Recorded In the past 12 months, has l ack of transportation kept you from medical appts, meetings, work or from getting things needed for daily living? No 02/07/2023 Utilities Answer Date Recorded In the past 12 months, has t he electric, gas, oil or water company threatened to shut off services in your home? No 02/07/2023 Depression Answer Date Recorded Patient Health Questionnaire-2 Score 0 01/19/2023 Sex and Gender Information Value Date Recorded Sex Assigned at Male 03/02/2022 10:14 AM EDT Legal Sex Male 10:14 AM EDT Gender Identity Male 03/02/2022 10:14 AM EDT Sexual Orientation Choose not to disclose 2021 10:14 AM EDT documented as of this encounter Miscellaneous Notes * Telephone Encounter - Melissa Omalley LPN - 02/09/2023 9:37 AM EDT Critical Result Line call received now. INR 1.9 this morning. Range is 2.5-3.5 Patient missed dose yesterday. Took Warfarin only 5mg prior to visit given additional dose to = 10mg total today. Tomorrow 7.5mg 7.5mg Wednesday Warfarin 5mg and then 7.5mg Wednesday and Wednesday will be Warfarin 5mg with recheck that day. Patient with no use of Lovenox previously. Please update PCP with status and follow with [place] [facility] if any orders indicated. documented in this encounter Plan of Treatment Not on file documented as of this encounter Visit Diagnoses Not on filedocumented in this encounter Additional Health Concerns Assessment Noted Time PHQ-9 Depression Total Score: 0 01/20/20 23 10:16 AM EDT documented as of this encounter Care Teams Warehouse Shipping Receiving Clerk Relationship Specialty Start Date End Date Ana Paula Davidson MD [address] [place] [phone] PCP - General Family Medicine 05/03/18 documented as of this encounter
--- OUTSIDE RECORDS SUMMARY | 2024-09-14 10:53 | XMS_ITS | Encounter Summary ---
Author Organization [employer] Address [address] [place] [address] Care Team Providers Care Manager Exchange Name Role Phone Ana Paula Davidson MD Primary Care Provider [phone] Encounter Details Date Type Department Care Team (Latest Contact Info) Description 09/14/2024 Travel Social History Tobacco Use Types Packs/Day Years Used Date Smoking Tobacco: Every Day Cigarettes Passive Smoke Exposure: Current Smokeless Tobacco: Never Depression Answer Date Recorded Patient Health Questionnaire-9 Score 0 09/14/2024 Patient Health Questionnaire-9 Score 0 09/14/2024 Last PHQ-9: Questionnaire Data Not on file 0 09/14/2024 Housing Stability Answer Date Recorded What is your housing situation today? I have cha braayn 09/14/[address] you li [...] AM EDT documented as of this encounter Functional Status * Over the past 2 weeks, how often have you been bothered by any of the following problems? Question Answer Date of Assessment Author Patient Health Questionnaire-2 Score 0 08/31 9:12 AM EDT Yudy Soto MA * Little interest or pleasure in doing things Answer Date of Assessment Author Not at all 09/14/2024 9:12 AM Shireen Marsh MA * Feeling down, depressed, or hopeless Answer Date of Assessment Author Not at all 09/14/2024 9:12 AM Shireen Marsh MA * Trouble falling or staying asleep, or sleeping too much Answer Date of Assessment Author Not at all 09/14/2024 9:12 AM Shireen Marsh MA * Feeling tired or having little energy Answer Date of Assessment Author Not at all 09/14/2024 9:12 AM Shireen Marsh MA * Poor appetite or overeating Answer Date of Assessment Author Not at all 09/14/2024 9:12 AM Shireen Marsh MA * Feeling bad about yourself - or that you are a failure or have let yourself or your family down Answer Date of Assessment Author Not at all 09/14/2024 9:12 AM Shireen Marsh MA * Trouble concentrating on things, such as reading the newspaper or watching television Answer Date of Assessment Author Not at all 09/14/2024 9:12 AM Shireen Marsh MA * Moving or speaking so slowly that other people could have noticed? Or the opposite - being so fidgety or restless that you have been moving around a lot more than usual. Answer Date of Assessment Author Not at all 09/14/2024 9:12 AM Shireen Marsh MA * Thoughts that you would be better off or hurting yourself in some way Answer Date of Assessment Author Not at all 09/14/2024 9:12 AM EDT Shireen Soto MA * Patient Health Questionnaire-9 Score Answer Date of Assessment Author 0 09/14/2024 9:12 AM EDT Shireen Soto MA documented as of this encounter Plan of Treatment Not on file documented as of this encounter Visit Diagnoses Not on filedocumented in this encounter Additional Health Concerns Assessment Noted Time PHQ-9 Depression Total Score: 0 09/15/19 9:12 AM EDT documented as of this encounter Care Teams Manager Exchange Relationship Specialty Start Date End Date Ana Paula Davidson MD [address] [place] [phone] PCP - General Family Medicine 05/03/18 documented as of this encounter
--- OUTSIDE RECORDS SUMMARY | 2024-09-14 10:53 | XMS_ITS | Encounter Summary ---
Author Organization [employer] Address [address] [facility] [address] [place] [address] Care Team Providers Care Podiatric Medicine Professor Name Role Phone Ana Paula Davidson MD Primary Care Provider [phone] Reason for Visit * Reason Comments Annual Exam Encounter Details Date Type Department Care Team (Late st Contact Info) Description 09/14/2024 9:30 AM EDT Office Visit [facility] [address] [place], [place] [phone] Ana Paula Davidson MD [address] [place], [place] [phone] Routine general medical examination at a health care facility (Primary Dx); LBBB (left bundle branch block); Primary hypertension; History of artificial heart valve; History of aortic aneurysm repair; HFrEF (heart failure with reduced ejection fraction) (CMS/HCC); Dyslipidemia; Vitamin B12 deficiency; Pulmonary emphysema, unspecified emphysema type (CMS/HCC); Tobacco use disorder; Mixed anxiety and depressive disorder; Screening for diabetes mellitus Social History Tobacco Use Types Packs/Day Years [...] AM EDT documented as of this encounter Last Filed Vital Signs Vital Sign Reading [...] Mass Index 29.86 09/14/2024 9:10 AM EDT documented in this encounter Functional Status * Over the [...] 9:12 AM EDT Shireen Soto [place] * Feeling down, depressed, or hopeless Answer Date of Assessment Author Not at all 09/14/2024 9:12 AM JULIANNA Soto, As CHASTITY davis * Trouble falling or staying asleep, or sleeping too much Answer Date of Assessment Author Not at all 09/14/2024 9:12 AM JULIANNA Soto, As CHASTITY davis * Feeling tired or having little energy Answer Date of Assessment Author Not at all 09/14/2024 9:12 AM JULIANNA Soto, As CHASTITY davis * Poor appetite or overeating Answer Date of Assessment Author Not at all 09/14/2024 9:12 AM JULIANNA Soto, As CHASTITY davis * Feeling bad about yourself - or that you are a failure or have let yourself or your family down Answer Date of Assessment Author Not at all 09/14/2024 9:12 AM JULIANNA Soto, As CHASTITY davis * Trouble concentrating on things, such as reading the newspaper or watching television Answer Date of Assessment Author Not at all 09/14/2024 9:12 AM JULIANNA Soto, As CHASTITY davis * Moving or speaking so slowly that other people could have noticed? Or the opposite - being so fidgety or restless that you have been moving around a lot more than usual. Answer Date of Assessment Author Not at all 09/14/2024 9:12 AM JULIANNA Soto, As CHASTITY davis * Thoughts that you would be better off or hurting yourself in some way Answer Date of Assessment Author Not at all 09/14/2024 9:12 AM JULIANNA Soto, As CHASTITY davis * Patient Health Questionnaire-9 Score Answer Date of Assessment Author 0 09/14/2024 9:12 AM JULIANNA Soto, As CHASTITY davis documented as of this encounter Plan of Treatment Scheduled Orders Name Type Priority Associated Diagnoses Orde r Schedule TSH with Reflex to Free T4 Lab Routine HFrEF (heart failure with reduced ejection fraction) ([facility]) Expected: 09/14/2024 (Approximate), Expires: 09/14/2025 Hemoglobin A1c Lab Routine Screening for diabetes mellitus Expected: 09/14/2024 (Approximate), Expires: 09/14/2025 Comprehensive Metabolic Panel Lab Routine Primary hypertension Expected: 09/14/2024 (Approximate), Expires: 09/14/2025 Lipid Panel with Reflex to Direct LDL Lab Routine Dyslipidemia Expected: 09/14/2024 (Approximate), Expires: 09/14/2025 Albumin, Random Urine W/Creatinine Lab Routine Primary hypertension Expected: 09/14/2024 (Approximate), Expires: 09/14/2025 CBC auto differential Lab Routine Vitamin B12 deficiency Expected: 09/14/2024 (Approximate), Expires: 09/14/2025 Prothrombin Time-INR Lab Routine History of artificial heart valve Expected: 09/14/2024, Expires: 09/14/2025 Vitamin B12 (Cobalamin) and Folate Panel, Serum Lab Routine Vitamin B12 deficiency Expected: 09/14/2024 (Approximate), Expires: 09/14/2025 documented as of this encounter Visit Diagnoses Diagnosis Routine general medical examination at a health care facility- Primary LBBB (left bundle branch block) Other left bundle branch block Primary hypertension Unspecified essential hypertension History of artificial heart valve History of aortic aneurysm repair Other postprocedural status HFrEF (heart failure with reduced ejection fraction) (CMS/[facility]) Dyslipidemia Other and unspecified hyperlipidemia Vitamin B12 deficiency Other B-complex deficiencies Pulmonary emphysema, unspecified emphysema type (CMS/[facility]) Tobacco use disorder Mixed anxiety and depressive disorder Dysthymic disorder Screening for diabetes mellitus documented in this encounter Additional Health Concerns Assessment Noted Time PHQ-9 Depression Total Score: 0 09/15/19 25 9:12 AM EDT documented as of this encounter Care Teams Podiatric Medicine Professor Relationship Specialty Start Date End Date Ana Paula Davidson MD [address] [place] [id number] PCP - General Family Medicine 05/03/18 documented as of this encounter
[2024-09-14 11:36] LABS: MANUAL DIFF FLAG NO
[2024-09-14 11:52] LABS: Basophils Percent Auto 0.3 % (0-2); Eosinophils Absolute Auto 0.1 X10*3/uL (0.0-0.4); Eosinophils Percent Auto 1.9 % (0-4); Hematocrit 47.7 % (42.0-52.0); Imm Gran Abs Auto 0.03 X10*3/uL (0.00-0.03); Imm Gran Pct Auto 0.4 % (0.0-0.4); Lymphocytes Percent Auto 25.9 % (20-40); Mean Corpuscular HGB Conc 33.5 g/dl (31.0-36.0); Mean Corpuscular Hemoglobin 31.9 pg (27.0-33.0); Mean Platelet Volume 11.6 fL (9.4-12.4); Monocytes Absolute Auto 0.8 X10*3/uL (0.1-1.2); Monocytes Percent Auto 10.8 % (2-11); Neutrophils Absolute Auto 4.6 x10*3/uL (2.0-8.3); Neutrophils Percent Auto 60.7 % (45-73); Platelet Count 176 X10*3/uL (160-400); Red Blood Count 5.02 X10*6/uL (4.60-5.80); White Blood Count 7.6 X10*3/uL (4.8-10.8)
[2024-09-14 11:57] LABS: Prothrombin Time 11.8 SEC (10.9-12.4)
[2024-09-14 12:03] LABS: Estimated Average Glucose 103 mg/dL; Hemoglobin A1C 138.5866 umol/L; Hemoglobin A1c % 5.2 % (<6.0); Total Hemoglobin (HGBA1C) 4117.7871 umol/L
[2024-09-14 12:24] LABS: Alanine Aminotransferase 16 U/L (0-40); Albumin Level 3.9 g/dL (3.5-5.0); Alkaline Phosphatase 68 U/L (39-117); Anion Gap 11 (12-20); Aspartate Amino Transferase 23 U/L (5-37); Bilirubin Total 0.5 mg/dL (0.0-1.0); Blood Urea Nitrogen 17 mg/dL (9-16); Calcium 8.8 mg/dL (8.4-10.2); Carbon Dioxide 26 mmol/L (22-29); Chloride 111 mmol/L (96-108); Cholesterol 147 mg/dL (<200); Estimated Glomerular Filt Rate > 60; Glucose Random 99 mg/dL (60-115); HDL Cholesterol 39 mg/dL (>40); LDL Cholesterol Calculated 87 mg/dL (<100); Potassium 4.4 mmol/L (3.3-5.1); Sodium 144 mmol/L (135-145); TSH reflex Free T4 0.61 uIU/mL (0.32-4.0); Total Protein 6.7 g/dL (6.5-8.0); Triglycerides 107 mg/dL (<150)
[2024-09-14 12:26] LABS: Reflex LDLD? No
[2024-09-14 12:36] LABS: Folate 10.8 ng/mL (> or = 4.0); Vitamin B12 226 pg/mL (200-900)
== END 2024-09-14 09:58 | disposition home or self-care (01) ==
LOC: HO.HHCL 09:57
PROVIDERS: Visit Provider Family Medicine
DX: E53.8 Deficiency of other specified B group vitamins (principal); E78.5 Hyperlipidemia, unspecified; Z13.1 Encounter for screening for diabetes mellitus; I11.0 Hypertensive heart disease with heart failure; I50.20 Unspecified systolic (congestive) heart failure; Z95.2 Presence of prosthetic heart valve; Z79.01 Long term (current) use of anticoagulants
CPT/HCPCS: 36415; 80053; 80061; 82607; 82746; 83036; 84443; 85025; 85610

== ENCOUNTER 2025-02-22 04:34 | Inpatient (IN) | payer MEDICARE, MEDICAID, SELFPAY ==
[2025-02-22 04:36] VITALS: PULSE 67; RESP 20; TEMP 36.2; O2SAT 95; BMI 29.1
--- NOTE | 2025-02-22 04:46 | ED.ANXIETY ---
HPI - Anxiety General Chief Complaint: Anxiety Stated Complaint: not able to sleep Time Seen by Provider: 02/22/25 04:35 History of Present Illness ED Provider: Isidro Alejo MD HPI narrative: 64-year-old male history of emphysema COPD, aortic valve replacement, HFrEF/cardiomyopathy reporting anxiety/panic attacks. Patient reports to me about 1 month of very poor sleep with minimal sleep perhaps 1-2 hours at night he says he wakes suddenly feels anxious rubs around the home. No drugs or alcohol. He says he feels lonely very depressed he has never had problems with depression or any psychiatric issues in the past. You made a PCP appointment but it is not until March 06. He is feeling hopeless at this point. Has not had his INR checked in at least 1 month, he is on Coumadin for what he reports as a mechanical aortic valve. Denies chest pain difficulty breathing he has a chronic cough that is unchanged. No phlegm production or hemoptysis. Denies lower extremity swelling or significant subjective weight gain. Denies fever or chills headache. No recent stressors. Said he is from his about 15 years ago use some family nearby but he rarely sees them Related Data Home Medications ?Medication ?Instructions ?Recorded ?Confirmed folic acid 1 mg tablet 1 mg PO DAILY 07/24/21 02/22/25 metoprolol succinate 50 mg 50 mg PO DAILY 07/24/21 02/22/25 tablet,extended release 24 hr tiotropium bromide 18 mcg capsule 1 cap inhalation DAILY 09/12/21 02/22/25 with inhalation device (Spiriva with HandiHaler) blood pressure test kit-large #1 ea 02/05/23 10/18/23 losartan 25 mg tablet 12.5 mg PO DAILY 02/05/23 02/22/25 rosuvastatin 5 mg tablet 5 mg PO DAILY 02/05/23 02/22/25 cyanocobalamin (vitamin B-12) 1,000 mcg PO QAM 09/20/23 02/22/25 1,000 mcg tablet Previous Rx's ?Medication ?Instructions ?Recorded warfarin 5 mg tablet 5 mg PO DAILY #90 tabs 02/02/20 albuterol sulfate 90 mcg/actuation 2 puff inhalation Q4-6H PRN 07/29/21 aerosol inhaler shortness of breath or wheezing 30 days #1 ea aspirin 81 mg tablet,delayed 81 mg PO DAILY #90 tabs 09/12/21 release enoxaparin 150 mg/mL subcutaneous 135 mg (0.9 mL) subcut DAILY #10 mL 02/22/25 syringe (Lovenox) trazodone 50 mg tablet 50 mg PO BEDTIME #30 tabs 02/22/25 Allergies Allergy/AdvReac Type Severity Reaction Status Date / Time No Known Allergies Allergy Verified 02/22/25 04:37 [facility] Past Medical History Medical History CAD (coronary artery disease) Nonischemic cardiomyopathy Cardiomyopathy LBBB (left bundle branch block) Hypertension Hyperlipidemia Pulmonary nodular amyloidosis Pulmonary nodule Nicotine dependence, cigarettes, uncomplicated Emphysema/COPD Chronic cough Diverticulitis Vitamin B12 deficiency Surgical History History of aortic valve replacement History of aortic aneurysm repair History of elbow surgery Family History Family History Mother No pertinent family history Father No pertinent family history Social History Social History Household Members: None Alcohol intake: never Patient Tobacco Use Status: Current everyday Tobacco user Cigarette Packs Per Day: 1 Years Smoked: (onset 16yo, 1ppd x 47yrs, 40+PYH) Advance Directives Date on File: 07/14/21 service: No Physical Exam Exam: Exam: EXAM: Gen: Alert, awake, well appearing, well hydrated. Flat affect. Smells of cigarettes. Well-kempt clean and well dressed. No obvious toxidrome. Head: Atraumatic Eyes: Anicteric, Normal conjunctiva. ENT: Moist mucosa, no pallor. ? Neck: Supple. Skin: ?No observable rash or bruising on exposed or examined skin Respiratory: Breathing comfortably, No distress.Clear to auscultation bilaterally, symmetric chest expansion, No wheeze, rales, ronchi. Cardiovascular: Regular rate and rhythm. No murmurs or rub. Well perfused periphery, warm extremities. No edema. ? Abdominal: No focal tenderness. Soft, no objective distension. No palpable masses or obvious organomegaly. ?No guarding, no rebound tenderness or other peritoneal findings. : No flank tenderness. Neuro: Alert. Gross movement of all extremities intact. ? Psych: Calm. Cooperative. Depressed, lonely, hopeless. No SI. No guns in the house. No prior suicide attempts, depression, anxiety formal diagnosis or psychiatric hospitalization. Denies any drugs or alcohol current or previous. MSK: No grossly visible deformity. Vital signs: See flowsheet Vital Signs: Vital Signs: Last Vital Signs Temp 98.3 F 02/22/25 14:53 Pulse 60 02/22/25 14:53 Resp 17 02/22/25 14:53 BP 136/80 02/22/25 14:53 Pulse Ox 97 02/22/25 14:53 O2 Del Method Room Air 02/22/25 14:53 BMI result Body Mass Index 29.1 Medications Administered Discontinued Medications Generic Name Dose Route Start Last Admin Trade Name Freq PRN Reason Stop Dose Admin Atorvastatin Calcium 20 mg 02/22/25 09:45 02/22/25 10:14 Atorvastatin Calcium 20 Mg Tablet PO 20 mg DAILY COREEN Administration Cyanocobalamin 1,000 mcg 02/22/25 09:45 02/22/25 10:14 Cyanocobalamin (Vitamin B-12) 1,000 Mcg Tablet PO 1,000 mcg DAILY COREEN Administration Diazepam 4 mg 02/22/25 04:46 02/22/25 05:14 Diazepam 2 Mg Tablet PO 02/22/25 04:47 4 mg ONCE ONE Administration Enoxaparin Sodium 90 mg 02/22/25 09:00 02/22/25 10:12 Enoxaparin Sodium 100 Mg/Ml Syringe SUBCUT 90 mg Q12H COREEN Administration Folic Acid 1 mg 02/22/25 09:45 02/22/25 10:14 Folic Acid 1 Mg Tablet PO 1 mg DAILY COREEN Administration Losartan Potassium 12.5 mg 02/22/25 09:45 02/22/25 10:14 Losartan Potassium 25 Mg Tablet PO 12.5 mg DAILY COREEN Administration Protocol Metoprolol Succinate 50 mg 02/22/25 09:45 02/22/25 10:14 Metoprolol Succinate Er 50 Mg Tab.Er.24h PO 50 mg DAILY COREEN Administration Protocol Nicotine 14 mg 02/22/25 04:55 02/22/25 05:14 Nicotine 14 Mg Patch.Td24 TRANSDERMA 02/22/25 04:56 14 mg ONCE ONE Administration Sodium Chloride 3 ml 02/22/25 08:00 02/22/25 10:14 0.9 % Sodium Chloride Flush 3 Ml Syringe IVFLUSH 3 ml QSHIFT COREEN Administration Warfarin Sodium 5 mg 02/22/25 05:34 02/22/25 06:22 Warfarin Sodium 5 Mg Tablet PO 02/22/25 05:35 5 mg ONCE STA Administration Medical Decision Making Medical Decision Making MDM Narrative: Medical Decision Making: [age] male with anxiety, depression, hopelessness insomnia. This is all going on 1 month. I will pursue possible organic etiologies but it is unlikely. The patient does not have suicidal ideation he does not appear psychotic there was no suggestion of drugs or alcohol or withdrawal syndrome. PCP outpatient follow up is not until March 13. At minimal get some basic lab work provide some anxiolysis and have him evaluated by crisis team in the morning INR check as he has not not had this in some time Preliminary Favored Differential Diagnosis: Panic disorder, insomnia, anxiety, thyroid disorder, electrolyte derangement, among additional considered etiologies Testing Interpreted Independently: ?See below for details Radiology or Lab testing Results Reviewed: ?See below for details Consults: ?See below for details Independent Historians/External Chart Reviews: ?See below for details Social Determinants of Health Impacting MDM/Planning: ?See below for details Lab Data 02/22/25 05:13 02/22/25 05:13 Labs: Lab Results 02/22/25 Range/Units 05:13 WBC 8.4 (4.8-10.8) X10*3/uL RBC 4.96 (4.60-5.80) X10*6/uL Hgb 15.6 (14.0-18.0) g/dl Hct 45.7 (42.0-52.0) % MCV 92.1 (80.0-98.0) fL MCH 31.5 (27.0-33.0) pg MCHC 34.1 (31.0-36.0) g/dl RDW 13.1 (11.0-16.0) % Plt Count 153 L (160-400) X10*3/uL MPV 11.5 (9.4-12.4) fL Immature Gran % (Auto) 0.2 (0.0-0.4) % Neut % (Auto) 61.5 (45-73) % Lymph % (Auto) 21.0 (20-40) % Edmunds % (Auto) 14.6 H (2-11) % Eos % (Auto) 2.5 (0-4) % Baso % (Auto) 0.2 (0-2) % Lymph # (Auto) 1.8 (1.2-4.9) X10*3/uL Edmunds # (Auto) 1.2 (0.1-1.2) X10*3/uL Eos # (Auto) 0.2 (0.0-0.4) X10*3/uL Baso # (Auto) 0.0 (0.0-0.2) X10*3/uL Abs Immat Gran (auto) 0.02 (0.00-0.03) X10*3/uL Absolute Neuts (auto) 5.1 (2.0-8.3) x10*3/uL Absolute Nucleated RBC 0.000 (0.0-0.012) X10*3/uL Nucleated RBC % (auto) 0.0 (0.0-0.2) /100WBC PT 12.6 H (10.9-12.4) SEC INR 1.1 (0.9-1.1) Sodium 143 (135-145) mmol/L Potassium 3.9 (3.3-5.1) mmol/L Chloride 113 H (96-108) mmol/L Carbon Dioxide 22 (22-29) mmol/L Anion Gap 12 (12-20) BUN 9 (9-16) mg/dL Creatinine 0.90 (0.5-1.4) mg/dL Estim Creat Clear Calc 90.4 Estimated GFR > 60 Random Glucose 106 (60-115) mg/dL Calcium 8.5 (8.4-10.2) mg/dL Magnesium 1.9 (1.6-2.6) mg/dL Total Bilirubin 0.5 (0.0-1.0) mg/dL AST 23 (5-37) U/L ALT 18 (0-40) U/L Alkaline Phosphatase 74 (39-117) U/L Total Protein 6.5 (6.5-8.0) g/dL Albumin 3.9 (3.5-5.0) g/dL TSH 0.82 (0.32-4.0) uIU/mL Ethyl Alcohol < 10 mg/dL Influenza Type A (PCR) NEGATIVE (Negative) Influenza Type B (PCR) NEGATIVE (Negative) RSV RNA Qual (PCR) NEGATIVE (Negative) SARS-CoV-2 RNA (RT-PCR) NEGATIVE (Negative) Discharge Plan Discharge Clinical Impression: Current use of anticoagulant therapy Patient Disposition: Home, Self-Care Interventions: ED Discharge Assessment Last Done: 02/22/25 14:53 Discharge Date/Time: 02/22/25 15:22
[2025-02-22] MEDS: Nicotine 14 MG PATCH.TD24 TRANSDERMA (05:14)
[2025-02-22 05:18] LABS: MANUAL DIFF FLAG NO
[2025-02-22 05:19] LABS: Hematocrit 45.7 % (42.0-52.0); Hemoglobin 15.6 g/dl (14.0-18.0); Imm Gran Abs Auto 0.02 X10*3/uL (0.00-0.03); Imm Gran Pct Auto 0.2 % (0.0-0.4); Lymphocytes Absolute Auto 1.8 X10*3/uL (1.2-4.9); Mean Corpuscular HGB Conc 34.1 g/dl (31.0-36.0); Mean Corpuscular Hemoglobin 31.5 pg (27.0-33.0); Mean Corpuscular Volume 92.1 fL (80.0-98.0); NRBC Abs Auto 0.000 X10*3/uL (0.0-0.012); NRBC Pct Auto 0.0 /100WBC (0.0-0.2); Platelet Count 153 X10*3/uL (160-400); Red Blood Count 4.96 X10*6/uL (4.60-5.80); White Blood Count 8.4 X10*3/uL (4.8-10.8)
[2025-02-22 05:24] LABS: INTERNATIONAL NORM RATIO 1.1 (0.9-1.1); Prothrombin Time 12.6 SEC (10.9-12.4)
--- NOTE | 2025-02-22 05:24 | PC.NURSE ---
wrap checker at bedside. pt a&ox4, respirations even and unlabored. pt reports increased anxiety and depression leading to insomnia, pt states he is only getting 3 hours of sleep a night. pt denies si/hi. pt medicated per mar. changed into hospital attire at this time. vss
[2025-02-22 05:47] LABS: Alanine Aminotransferase 18 U/L (0-40); Albumin Level 3.9 g/dL (3.5-5.0); Alkaline Phosphatase 74 U/L (39-117); Anion Gap 12 (12-20); Aspartate Amino Transferase 23 U/L (5-37); Blood Urea Nitrogen 9 mg/dL (9-16); Calcium 8.5 mg/dL (8.4-10.2); Carbon Dioxide 22 mmol/L (22-29); Chloride 113 mmol/L (96-108); Creatinine Clr Calc Pharmacy 90.4; Estimated Glomerular Filt Rate > 60; Magnesium 1.9 mg/dL (1.6-2.6); Potassium 3.9 mmol/L (3.3-5.1); Sodium 143 mmol/L (135-145); Total Protein 6.5 g/dL (6.5-8.0)
[2025-02-22 05:53] LABS: Thyroid Stimulating Hormone 0.82 uIU/mL (0.32-4.0)
[2025-02-22 05:55] LABS: Resp Syncy Virus RNA Qual PCR NEGATIVE (Negative); SARS COV2 PCR INHOUSE NEGATIVE (Negative)
--- OUTSIDE RECORDS SUMMARY | 2025-02-22 05:58 | XMS_ITS | Encounter Summary ---
Author Organization [employer] Address [address] [facility] [address] [place] [address] Care Team Providers Care Product Safety Technician Name Role Phone Ana Paula Davidson MD Primary Care Provider Reason for Visit * Reason Comments Med Refill Encounter Details Date Type Department Care Team (Late st Contact Info) Description 03/21/2024 Refill [facility] [address] [place], [place] [phone] Ana Paula Davidson MD [address] [place], [place] [phone] Social History Tobacco Use Types Packs/Day Years [...] as of this encounter Plan of Treatment Upcoming Encounters Date Type Department Care Team (Late st Contact Info) Description 03/06/2025 9:30 AM EST Office Visit [facility] [address] [place] [phone] Ana Paula Davidson MD [address] [place] [phone] documented as of this encounter Visit Diagnoses Not on filedocumented in this encounter Additional Health Concerns Assessment Noted Time PHQ-9 Depression Total Score: 0 01/20/20 23 10:16 AM EDT documented as of this encounter Care Teams Product Safety Technician Relationship Specialty Start Date End Date Ana Paula Davidson MD [address] [place] [id number] PCP - General Family Medicine 05/03/18 documented as of this encounter
--- OUTSIDE RECORDS SUMMARY | 2025-02-22 05:58 | XMS_ITS | Clinical Summary ---
Author Organization [employer] Address [address] [facility] 7t [place] [address] Care Team Providers Care Creative Project Manager Name Role Phone Ana Paula Davidson MD Primary Care Provider [phone] Allergies No known active allergies Medications nicotine (Nicoderm, Step 1) 21 MG/24HR patch PLACE 1 PATCH ON THE SKIN EVERY DAY 2 Active torsemide (Demadex) 10 MG tablet Take 1 tablet (10 mg) by mouth Once per day. 90 tablet 3 4 Active warfarin (Coumadin) 5 MG tabletIndication s:History of artificial heart valve TAKE 1 TABLET BY MOUTH EVERY DAY. Dosage may be changed according to your INR. Please follow the direction from your provider 60 tablet 2 5 Active Aspirin Low Dose 81 MG EC tabletIndication s:HFrEF (heart failure with reduced ejection fraction) (HCC) Take 1 tablet (81 mg) by mouth Once per day. 90 tablet 3 5 Active rosuvastatin (Crestor) 5 MG tabletIndication s:Dyslipidemia Take 1 tablet (5 mg) by mouth Once per day. 90 tablet 3 5 09/15/19 26 Active losartan (Cozaar) 25 MG tabletIndication s:Primary hypertension,HFr EF (heart failure with reduced ejection fraction) (HCC) Take 1/2 tablet by mouth once daily 45 tablet 3 5 Active metoprolol succinate XL (Toprol-XL) 25 MG 24 hr tabletIndication s:Primary hypertension,HFr EF (heart failure with reduced ejection fraction) ([facility]) Take 1 tablet (25 mg) by mouth Once per day. 90 tablet 3 5 Active cyanocobalamin (Vitamin B-12) 1000 MCG tabletIndication s:Vitamin B12 deficiency Take 1 tablet (1,000 mcg) by mouth Once per day. 90 tablet 3 5 Active folic acid (Folvite) 1 MG tabletIndication s:Vitamin B12 deficiency Take 1 tablet (1,000 mcg) by mouth Once per day. 90 tablet 3 5 Active Fluticasone-Umec lidin-Vilant (Trelegy Ellipta) 200-62.5-25 MCG/ACT aerosol powderIndication s:Pulmonary emphysema, unspecified emphysema type Inhale 1 puff at bedtime. 84 each 3 5 Active albuterol 108 (90 Base) MCG/ACT inhaler Inhale 2 puffs every 4 (four) hours if needed for wheezing or shortness of breath. Maximum 8 puffs per day 18 g 3 5 09/16/19 26 Active Active Problems Patient Care Coordination No te Formatting of this note migh t be different from the original. C3/CM Delia Ivory RN Problem Noted Date Diagnosed Date Cardiomyopathy 01/23/2023 Assessment & Plan (01/23/2023 6:48 AM EDT): - Rn Peritoneal Dialysis: [facility], last seen by Cristy in August 2021 - advised to reschedule appt; pt has a difficulty scheduling appt due to language barrier. Will refer to case management team HFrEF (heart failure with reduced ejection fract ion) 01/23/2023 Assessment & Plan (09/15/2024 6:20 AM EDT): - Rn Peritoneal Dialysis: [facility], last seen in Jan 2023 - Last TTE [facility] 2021 LVEF 25-30% - Refer back so that he can update echo and stress test - Resume metoprolol, losartan, rosuvastatin, and ASA - Continue working on modifiable risk factor management Assessment & Plan (02/05/2023 6:18 AM EDT): - Rn Peritoneal Dialysis: [facility] - Last TTE [facility] 2021 LVEF 25-30% - continue metoprolol - changing lisinopril to losartan (pt has cough although likely COPD) - changing furosemide to torsemide for long-acting - recommended to follow up with handle bar assembler tomorrow Assessment & Plan (01/23/2023 6:51 AM EDT): - Rn Peritoneal Dialysis: [facility] - Last TTE [facility] 2021 LVEF 25-30% - continue metoprolol - changing lisinopril to losartan (pt has cough although likely COPD) - changing furosemide to torsemide for long-acting - recommended to follow up with handle bar assembler. History of aortic aneurysm repair 01/23/2023 LBBB (left bundle branch block) 01/23/2023 Adrenal nodule 05/31/2022 Assessment & Plan (09/15/2024 6:29 AM EDT): - Ordered MRI, but it was cancelled by patient and patient did not want to pursue - Last chest CT scan in October 2023 showed: extensive bilateral benign Bosniak class I renal cysts are noted similar to prior, which require no additional imaging or follow-up. No solid renal masses are seen. Calcified splenic granulomas are again seen. Adrenal lesion seen previously not well appreciated on the current study. Included portions of the solid organs in the upper abdomen otherwise unremarkable on noncontrast imaging. Assessment & Plan (05/31/2022 6:17 AM EST): - Ordered MRI, but it was cancelled - will check radiology for their recommendation Esophageal thickening 05/31/2022 Assessment & Plan (09/15/2024 6:30 AM EDT): - pt was referred to GI several times for EGD, and missed all the appointments - patient does not want to pursue further evaluation at this time Assessment & Plan (02/05/2023 6:19 AM EDT): [...] missed all the appointments - refer again Mixed anxiety and depressive disorder 05/26/2022 Assessment & Plan (09/15/2024 6:33 AM EDT): - PHQ9 score 0 - He states he belongs to [place], and both his mental and physical health improved after he returned [place]. He is planning to move there to maintain his health and well-being. We agreed to optimize his health before he moves back. Anticoagulated on Coumadin 05/26/2022 Assessment & Plan (09/15/2024 6:23 AM EDT): -indication: Aortic valve repair -previous dose 49.5 mg / wk -restart at 5 mg daily and recheck in 1 week; will follow at our clinic for patient's convenience Assessment & Plan (02/04/2023 12:56 PM EDT): -indication: Aortic valve repair -continue treatment plan per [facility] anticoagulation clinic Assessment & Plan (01/23/2023 6:21 AM EDT): -indication: Aortic valve repair -continue treatment plan per [facility] anticoagulation clinic Assessment & Plan (05/31/2022 6:21 AM EST): -indication: Aortic valve repair -continue treatment plan per [facility] anticoagulation clinic Anticoagulation goal of INR 2.5 to 3.5 3 Overview (05/26/2022): Patient has not been adherent to INR and coumadin check Tobacco use disorder 05/26/2022 Assessment & Plan (09/15/2024 6:35 AM EDT): Currently smokes 15-20 cigarettes a day - continue working on smoking cessation - previously following with Dr. Kirk at [facility] Pulmonology clinic - last CT in October 2023 Lung RADS 2 - check the status of lung cancer screening CT and appt Assessment & Plan (02/04/2023 12:55 PM EDT): Currently smokes 15 cigarettes a day - continue working on smoking cessation - following with Dr. Kirk at [facility] Pulmonology clinic - last CT in 2021 - check the status of lung cancer screening CT and appt Assessment & Plan (01/23/2023 6:41 AM EDT): - continue working on smoking cessation - following with Dr. Kirk at [facility] Pulmonology clinic - last CT in 2021 - check the status of lung cancer screening CT and appt Assessment & Plan (05/31/2022 6:25 AM EST): - continue working on smoking cessation - check the status of lung cancer screening CT and appt History of rib fracture 05/26/2022 Chronic obstructive lung disease 11/09/2016 Assessment & Plan (09/15/2024 6:34 AM EDT): -Last COPD exacerbation in Jun 2018, treated with azithromycin and prednisone -Last seen by jumpbasting canvas baster on 07/29/21, prescribed fluticasone / umeclidinium / vilanterol (Trelegy). He had not been using. -Restart Trelegy -Restart Albuterol as rescue -Work on smoking cessation. -Will request lung cancer screening program for his next appointment. Assessment & Plan (02/04/2023 12:56 PM EDT): -Last COPD exacerbation in Jun 2018, treated with azithromycin and prednisone -Last seen by jumpbasting canvas baster on 07/29/21, prescribed Trelegy -Continue Trelegy -Continue Albuterol as rescue -Work on smoking cessation. -Advised to reschedule appt Assessment & Plan (01/23/2023 6:49 AM EDT): -Last COPD exacerbation in Jun 2018, treated with azithromycin and prednisone -Last seen by jumpbasting canvas baster on 07/29/21, prescribed Trelegy -Continue Trelegy -Continue Albuterol as rescue -Work on smoking cessation. -Advised to reschedule appt Assessment & Plan (05/31/2022 6:17 AM EST): -Last seen by jumpbasting canvas baster on 07/29/21 -Shoveler prescribed Trelegy but patient did not receive yet. Will prescribe today -Continue Albuterol as rescue -Work on smoking cessation. -Last COPD exacerbation in Jun 2018, treated with azithromycin and prednisone Allergic rhinitis 08/27/2014 Atopic conjunctivitis 08/27/2014 Vitamin B12 deficiency 01/27/2012 Dyslipidemia 01/27/2012 Assessment & Plan (09/15/2024 2:12 AM EDT): - 09/14/24 TC 147; TG 107; HDL 39; LDL 87 - current medication: Rosuvastatin 5 mg at bedtime - previously on simvastatin - work on lifestyle modifications Assessment & Plan (02/05/2023 6:21 AM EDT): [...] artificial heart valve 01/27/2012 Assessment & Plan (09/15/2024 6:42 AM EDT): -Patient had been on warfarin -Previously followed by [facility] anti-coagulation clinic -Hx poor adherence to INR check and mediation -discussed about the importance of medication adherence and monitoring INR -Needs SBE prophylaxis for procedure -Restart warfarin 5 mg daily. Recheck in 1 week. Assessment & Plan (02/05/2023 6:18 AM EDT): -Patient is on warfarin -followed by [facility] anti-coagulation clinic -Hx poor adherence to INR check and mediation -discussed about the importance of medication adherence and monitoring INR Assessment & Plan (01/23/2023 6:18 AM EDT): -Patient is on warfarin -followed by [facility] anti-coagulation clinic -Hx poor adherence to INR check and mediation -discussed about the importance of medication adherence and monitoring INR Assessment & Plan (05/31/2022 6:20 AM EST): -Patient is on warfarin -followed by [facility] anti-coagulation clinic -Hx poor adherence to INR check and mediation -improving adherence Hypertension 01/27/2012 Assessment & Plan (09/15/2024 6:17 AM EDT): -Goal BP < 140/90 per JNC-8 and < 130/80 per ACC/AHA guideline -BP within acceptable range today -EKG reviewed in Jan 2023. Sinus verónica with frequent PVCs. LBBB. -Treatment Hx: Previously on metoprolol succinate 50 mg daily; losartan 25 mg daily; torsemide 10 mg daily -He has not been taking any medication for a while -Restart metoprolol succinate at lower dose, 25 mg daily -Restart losartan 25 mg daily -Hold torsemide 10 mg daily for now -Risk factors: tobacco, peripheral vascular disease -Continue working on lifestyle modification and medication adherence. -Continue checking BP at home Assessment & Plan (02/05/2023 6:17 AM EDT): [...] -Continue checking BP at home -Refer to [facility] again Assessment & Plan (05/31/2022 6:19 AM EST): -Goal BP < 140/90 per JNC-8 and < 130/80 per ACC/AHA guideline -2nd measurement was normal -Continue metoprolol succinate 50 mg daily -Continue lisinopril 10 mg daily -Risk factors: tobacco, peripheral vascular disease -Continue working on lifestyle modification and medication adherence. -Continue checking BP at home -Refer to [facility] Obesity 01/27/2012 Resolved Problems Problem Noted Date Diagnosed Date Resolved Date Insomnia 05/26/2022 09/15/2024 Immunizations Immunization Administration Dates Next Due Influenza [...] Used Date Smoking Tobacco: Every Day Cigarettes 1.5 48.8 Started: 1977 Passive Smoke Exposure: Current Smokeless Tobacco: Never [...] Sign Reading Time Taken Comments Blood Pressure 112/78 09/27/2024 2:19 PM EDT Pulse 67 09/27/2024 2:19 PM EDT Temperature 36.6 C (97.8 F) 09/14/2024 9:10 AM EDT Respiratory Rate 16 09/27/2024 2:19 PM EDT Oxygen Saturation 99% 09/27/2024 2:19 PM EDT Inhaled Oxygen Concentration - - Weight 91.7 kg (202 lb 3.2 oz) 09/14/2024 9:10 A M EDT Height 175.3 cm (5' 9 ) 09/14/2024 9:10 AM EDT Body Mass Index 29.86 09/14/2024 9:10 AM EDT Plan of Treatment Upcoming Encounters Date Type Department Care Team (Late st Contact Info) Description 03/06/2025 9:30 AM EST Office Visit [facility] [address] [place] [address] Ana Paula Davidson MD [address] [place], [place] [phone] Health Maintenance Due Date Last Done Comments [...] - Td or Tdap) 07/30/2021 07/31/2011, 09/12/2008 Lung Cancer Screening 10/14/2024 10/15/2023 COVID-19 Vaccine ( season) 2025 03/26/2021, 09/17/2020, 08/20/2020 Influenza Vaccine (#1) 2025 3, 02/12/2022, 03/05/2021, Additional history exists Alcohol/Substance Use Screening 09/14/2025 09/14/2024 Depression Screening 09/14/2025 09/14/2024, 09/15/19 25 SDOH Screening 09/14/2025 09/14/2024 Tobacco Screening 09/15/2025 09/15/2024 Lipid Panel 09/14/2029 09/14/2024, 01/02, 02/01/2020, Additional history exists Hepatitis C Screening Completed 05/17/2019 HIB Vaccines [...] PANEL WITH REFLEX TO DIRECT LDL Routine 09/14/2024 10:00 AM EDT Dyslipidemia LDCT LUNG SCREENING Routine 10/15/2023 1 0:41 AM EDT ZZZ HISTORICAL HEPATITIS C ANTIBODY RFLX Routine 05/17/2019 10:00 AM EST PANORAMIC RADIOGRAPHIC IMAGE Routine 12/19/2008 12:00 AM EDT from Last 3 Months or Most Recently Relevant to Health Maintenance Results * (ABNORMAL) Lipid Panel with Reflex to Direct LDL (09/14/2024 10:00 AM EDT) Triglycerides 107 <150 mg/dL [facility] Comment:Desirable Triglyceri de: less than 150 mg/dLBorderline High Triglyceride 150-199 mg/dLHigh Triglyceride: 200-499 mg/dLVery High Triglyceride: greater than or equal to 5OO mg/dL Cholesterol 147 <200 mg/dL [facility] Comment:Desirable Cholestero l: less than 200 mg/dLBorderline High Cholesterol: 200-239 mg/dLHigh Cholesterol: greater than 239 mg/dL LDL Cholesterol Calculated 87 <100 mg/dL [facility] Comment:Desirable LDL: less than 100 mg/dLNear Optimal/Above Optimal LDL: 110- 129 mg/dLBorderline High LDL: 130-159 mg/dLHigh LDL: 160-189 mg/dLVery High LDL: greater than or equal to 190 mg/dL HDL Cholesterol 39(L) >40 mg/dL [facility] Comment:Desirable HDL: great er than 40 mg/dL Note: This HDL assay may give artificially low results in patients with liver disease. Blood 09/14/2024 10:0 0 AM EDT 09/14/2024 11:32 AM EDT Ana Paula Davidson MD LAB BLOOD ORDERABLES Final Resul t Performing Organization Address City/State/[facility] Co de Phone Number [facility] [address] [place] [phone] * CT Lung Screening Low dose (10/15/2023 10:41 AM EDT) Anatomical Region Laterality Modality Lung Computed Tomogra phy 10/15/2023 10:4 1 AM EDT Narrative 11/05/2023 2:57 PM EDT [address] [address] [address] Scan Report Signed Patient: Michael Ramírez R#: [id number] : 1960 Acct:[id number] Age/Sex: 63 / M ADM Date: 10/15/23 Loc: HO.CT Attending Dr: Priyanka Garcia NP Ordering Physician: Priyanka Garcia NP Date of Service: 10/15/23 Procedure(s): CT lung screening Accession Number(s): [id number] cc: Ana Paula Davidson MD; Priyanka Garcia NP EXAMINATION: CT LOW-DOSE SCREENING CHEST WITHOUT CONTRAST CLINICAL INFORMATION: Smoker. SMOKING HISTORY: Current smoker, 2 pack per day history, 40 packs per year. COMPARISON: CT chest 08/13/2021. TECHNIQUE: Multidetector volumetric CT imaging of the chest is performed on a Siemens SOMATOM Definition scanner without contrast using low dose technique. Additional 2D coronal and sagittal reformatted images and axial 3D maximum intensity projection (MIP) images are generated on the CT workstation. This CT examination was performed using dose optimization techniques as appropriate, variously including the following: *Automated exposure control *Adjustment of mA and/or kV according to patient size (this includes techniques or standardized protocols for targeted exams where dose is matched to indication/reason for exam; i.e. extremities or head) *Use of iterative reconstruction technique TOTAL EXAM DLP: 70 mGy-cm. CTDIvol: 69 mGy. FINDINGS: LUNGS: Lungs bilaterally symmetrically expanded. Mild emphysematous changes are seen along with mild bronchial thickening. No bronchiectasis. Again seen are some scattered small unchanged pulmonary nodular densities, the largest measuring about 3 mm in the left upper lobe (5:190, compare prior 7:179). A calcified left lower lobe granuloma is unchanged (3:46). No new, increasing-sized or concerning focal lung nodule or mass. No effusion or pneumothorax. Central airways patent. MEDIASTINUM: Status post median sternotomy. No mediastinal, hilar or axillary adenopathy or free fluid collection. CORONARY ARTERY CALCIFICATION: Mild. THYROID GLAND: Unremarkable to the extent seen. CARDIOVASCULAR STRUCTURES: Aortic valve prosthesis is present. Aortic and heart size normal. No pericardial effusion. CHEST WALL/AXILLA: Unremarkable. UPPER ABDOMEN: Extensive bilateral benign Bosniak class I renal cysts are noted similar to prior, which require no additional imaging or follow-up. No solid renal masses are seen. Calcified splenic granulomas are again seen. Adrenal lesion seen previously not well appreciated on the current study. Included portions of the solid organs in the upper abdomen otherwise unremarkable on noncontrast imaging. OSSEOUS STRUCTURES: No suspicious focal findings. CT/CT lung screening IMPRESSION: 1. No evidence of pulmonary malignancy. 2. Mild emphysema. 3. Other incidental findings as described above. ASSESSMENT: 1. Lung-RADS Category 2: Benign appearance or behavior of nodules. N/A RECOMMENDATION: Continued routine annual low-dose CT lung screening in 1 year is recommended. An order for CT CHEST LOW DOSE CANCER SCREENING ([id number]) can be placed. Dictated By: Epifanio Dumont MD Signed By: <Electronically signed by Epifanio Dumont MD in OV> 11/05/23 1453 DD/ 1041 TD/TT: Civil Celebrant: SS Procedure Note Donotuseinterpreter, Image - 11/05/[address] [address] [address] Scan Report Signed Patient: Sin Ramírez R#: [id number] : 9Acct:[id number] Age/Sex: 63 / MADM Date: 10/15/23 Loc: HO.CT Attending Dr: Priyanka Garcia NP Ordering Physician: Priyanka Garcia NP Date of Service: 10/15/23 Procedure(s): CT lung screening Accession Number(s): [id number] cc: Ana Paula Davidson MD; Priyanka Garcia NP EXAMINATION: CT LOW-DOSE SCREENING CHEST WITHOUT CONTRAST CLINICAL INFORMATION: Smoker. SMOKING HISTORY: Current smoker, 2 pack per day history, 40 packs per year. COMPARISON: CT chest 08/13/2021. TECHNIQUE: Multidetector volumetric CT imaging of the chest is performed on a Siemens SOMATOM Definition scanner without contrast using low dose technique. Additional 2D coronal and sagittal reformatted images and axial 3D maximum intensity projection (MIP) images are generated on the CT workstation. This CT examination was performed using dose optimization techniques as appropriate, variously including the following: *Automated exposure control *Adjustment of mA and/or kV according to patient size (this includes techniques or standardized protocols for targeted exams where dose is matched to indication/reason for exam; i.e. extremities or head) *Use of iterative reconstruction technique TOTAL EXAM DLP: 70 mGy-cm. CTDIvol: 69 mGy. FINDINGS: LUNGS: Lungs bilaterally symmetrically expanded. Mild emphysematous changes are seen along with mild bronchial thickening. No bronchiectasis. Again seen are some scattered small unchanged pulmonary nodular densities, the largest measuring about 3 mm in the left upper lobe (5:190, compare prior 7:179). A calcified left lower lobe granuloma is unchanged (3:46). No new, increasing-sized or concerning focal lung nodule or mass. No effusion or pneumothorax. Central airways patent. MEDIASTINUM: Status post median sternotomy. No mediastinal, hilar or axillary adenopathy or free fluid collection. CORONARY ARTERY CALCIFICATION: Mild. THYROID GLAND: Unremarkable to the extent seen. CARDIOVASCULAR STRUCTURES: Aortic valve prosthesis is present. Aortic and heart size normal. No pericardial effusion. CHEST WALL/AXILLA: Unremarkable. UPPER ABDOMEN: Extensive bilateral benign Bosniak class I renal cysts are noted similar to prior, which require no additional imaging or follow-up. No solid renal masses are seen. Calcified splenic granulomas are again seen. Adrenal lesion seen previously not well appreciated on the current study. Included portions of the solid organs in the upper abdomen otherwise unremarkable on noncontrast imaging. OSSEOUS STRUCTURES: No suspicious focal findings. CT/CT lung screening IMPRESSION: 1. No evidence of pulmonary malignancy. 2. Mild emphysema. 3. Other incidental findings as described above. ASSESSMENT: 1. Lung-RADS Category 2: Benign appearance or behavior of nodules. N/A RECOMMENDATION: Continued routine annual low-dose CT lung screening in 1 year is recommended. An order for CT CHEST LOW DOSE CANCER SCREENING ([id number]) can be placed. Dictated By: Epifanio Dumont MD Signed By: <Electronically signed by Epifanio Dumont MD in OV> 11/05/23 1453 DD/ 1041 TD/TT: Civil Celebrant: SS [facility] External Provider IMG CT PROCEDURES Final Result * HEPATITIS C ANTIBODY RFLX (05/17/2019 10:00 AM EST) HEPATITIS C ANTIBODY NONREACTIVE NONREACTIVE [facility] Comment: Antibodies to HCV not detected; does not exclude early acute HCV infection. 05/17/2019 10:0 0 AM EST Ana Paula Davidson MD HISTORICAL/NON ORDERABLE LABS Fi nal Result [facility] [address] from Last 3 Months or Most Recently Relevant to Health Maintenance Insurance [facility] STANDARD [place] [phone] [facility] MEDICAID STAND ADULT Care Teams Creative Project Manager Relationship Specialty Start Date End Date Ana Paula Davidson MD [address] [place] [phone] PCP - General Family Medicine 05/03/18
--- OUTSIDE RECORDS SUMMARY | 2025-02-22 05:58 | XMS_ITS | Encounter Summary ---
Author Organization [employer] Address [address] [place] [address] [address] [place] [address] Care Team Providers Care Director Apparel Name Role Phone Ana Paula Davidson MD Primary Care Provider [phone] Encounter Details Date Type Department Care Team (Late st Contact Info) Description 05/17/2022 Orders Only [facility] [address] [place] [phone] Ana Paula Davidson MD [address] [place] [address] [phone] Primary hypertension (Primary Dx) Social History Tobacco [...] Description 03/06/2025 9:30 AM EST Office Visit [facility] [address] [place] [phone] Ana Paula Davidson MD [address] [place] [phone] documented as of this encounter Visit Diagnoses Diagnosis Primary hypertension- Primary Unspecified essential hypertension documented in this encounter Care Teams Director Apparel Relationship Specialty Start Date End Date Ana Paula Davidson MD [address] [place] [address] [phone] PCP - General Family Medicine 05/03/18 documented as of this encounter
[2025-02-22 06:42] VITALS: BP 122/63; PULSE 64; RESP 16; TEMP 36.4; O2SAT 97
--- NOTE | 2025-02-22 06:44 | PM.IMHP ---
History of Present Illness Date of Service: 02/22/25 Attending physician on admission: Mihir Montero Chief Complaint: insomnia Patient is a 64-year-old Australian-speaking male with a past medical history significant for moderate COPD, mechanical aortic valve replacement, HFrEF/cardiomyopathy, CAD, HTN and HLD, who presented to the ED due to insomnia x3 months with panic attacks. The patient reports that he has been sleeping 3 hours at night for the past few weeks. He denies any SI or HI. He has not been taking his Coumadin and has not been seeing the Coumadin Clinic or taking this medication. He denies any headache, dizziness, SOB, nausea, vomting, abd pain, or urinary sx. Review of Systems Constitutional: Constitutional: Denies body ache(s), Denies chills, Reports fatigue, Denies fever(s) and Denies headache(s) Eyes: Eyes: Denies change in vision ENT: Denies headache(s), Denies nasal congestion and Denies sore throat Cardiovascular: Cardiovascular: Denies chest pain, Denies rapid heart rate, Denies leg edema, Denies lightheadedness and Denies dyspnea Respiratory: Respiratory: Denies chest congestion, Denies cough, Denies dyspnea and Denies wheezing Gastrointestinal: Gastrointestinal: Denies abdominal pain, Denies nausea and Denies vomiting Genitourinary: Genitourinary: Denies dysuria Musculoskeletal: Musculoskeletal: Denies myalgias Integumentary/Breasts: Skin/Breast: Denies rash Neurologic: Denies confusion and Denies headache(s) Psychiatric: Psychiatric: Reports anxiety, Denies confusion and Reports panic attacks Endocrine: Endocrine: Reports fatigue Hematologic/Lymphatic: Hematologic/Lymphatic: Denies easy bleeding and Denies easy bruising Allergic/Immunologic: Allergic/Immunologic: Denies wheezing [facility] Medical History CAD (coronary artery disease) Nonischemic cardiomyopathy Cardiomyopathy LBBB (left bundle branch block) Hypertension Hyperlipidemia Pulmonary nodular amyloidosis Pulmonary nodule Nicotine dependence, cigarettes, uncomplicated Emphysema/COPD Chronic cough Diverticulitis Vitamin B12 deficiency Functional capacity: independent ambulation Family History Mother No pertinent family history Father No pertinent family history Surgical History History of aortic valve replacement History of aortic aneurysm repair History of elbow surgery Social History Household Members: None Alcohol intake: never Patient Tobacco Use Status: Current everyday Tobacco user Cigarette Packs Per Day: 1 Years Smoked: (onset 16yo, 1ppd x 47yrs, 40+PYH) Smoked in Last 30 Days: Yes Use of substances other than those prescribed or required for medical reasons: No Advance Directives: Yes Advance Directives on File: Yes Advance Directives Date on File: 07/14/21 Nutrition Risks: No Nutritional Risk service: No Narrative: smokes 1ppd, no etoh or drug use Meds Allergies Allergy/AdvReac Type Severity Reaction Status Date / Time No Known Allergies Allergy Verified 02/22/25 04:37 Home Medications ?Medication ?Instructions ?Recorded ?Confirmed ?Last Taken ?Type acetaminophen 325 mg tablet 2 tab PO QID PRN fever 07/14/21 10/18/23 Unknown History folic acid 1 mg tablet 1 mg PO DAILY 07/24/21 10/18/23 Unknown History metoprolol succinate 50 mg 50 mg PO DAILY 07/24/21 10/18/23 Unknown History tablet,extended release 24 hr tiotropium bromide 18 mcg capsule 1 cap inhalation DAILY 09/12/21 10/18/23 Unknown History with inhalation device (Spiriva with HandiHaler) blood pressure test kit-large #1 ea 02/05/23 10/18/23 Unknown History losartan 25 mg tablet 12.5 mg PO DAILY 02/05/23 10/18/23 Unknown History rosuvastatin 5 mg tablet 5 mg PO DAILY 02/05/23 10/18/23 Unknown History torsemide 10 mg tablet 10 mg PO DAILY 02/05/23 10/18/23 Unknown History cyanocobalamin (vitamin B-12) 1,000 mcg PO QAM 09/20/23 10/18/23 Unknown History 1,000 mcg tablet Physical Exam Vital Signs and Narrative: Vital Signs: Last Vital Signs Temp 97.6 F 02/22/25 06:42 Pulse 64 02/22/25 06:42 Resp 16 02/22/25 06:42 BP 122/63 02/22/25 06:42 Pulse Ox 97 02/22/25 06:42 O2 Del Method Room Air 02/22/25 06:42 BMI result Body Mass Index 29.1 General: AOx3, no acute distress. seen using south [place] interpretation Resp: CTA bilaterally CVS: S1, S2, RRR GI: +BS, NT, no distention Skin: Warm, dry Neuro: Cranial nerves II-XII grossly intact bilaterally. Motor grossly intact bilaterally Extremities: No pitting edema Psych: flat effect Const: General: No confusion Orientation/consciousness: No confusion Neuro: General: No confusion Results Labs 02/22/25 05:13 02/22/25 05:13 Labs: Laboratory Results - last 24 hr 02/22/25 05:13 MCV 92.1 MCH 31.5 MCHC 34.1 RDW 13.1 Plt Count 153 L MPV 11.5 Immature Gran % (Auto) 0.2 Neut % (Auto) 61.5 Lymph % (Auto) 21.0 [place] % (Auto) 14.6 H Eos % (Auto) 2.5 Baso % (Auto) 0.2 Lymph # (Auto) 1.8 [place] # (Auto) 1.2 Eos # (Auto) 0.2 Baso # (Auto) 0.0 Abs Immat Gran (auto) 0.02 Absolute Neuts (auto) 5.1 Absolute Nucleated RBC 0.000 Nucleated RBC % (auto) 0.0 PT 12.6 H INR 1.1 Anion Gap 12 Estim Creat Clear Calc 90.4 Estimated GFR > 60 Random Glucose 106 Calcium 8.5 Magnesium 1.9 Total Bilirubin 0.5 AST 23 ALT 18 Alkaline Phosphatase 74 Total Protein 6.5 Albumin 3.9 TSH 0.82 Ethyl Alcohol < 10 Influenza Type A (PCR) NEGATIVE Influenza Type B (PCR) NEGATIVE RSV RNA Qual (PCR) NEGATIVE SARS-CoV-2 RNA (RT-PCR) NEGATIVE Assessment and Plan (1) Subtherapeutic anticoagulation: Status: Acute (2) Noncompliance with medication regimen: Status: Acute (3) Panic attacks: Status: Acute (4) Insomnia: Status: Acute Plan Patient is a 64-year-old Australian-speaking male with a past medical history significant for moderate COPD, mechanical aortic valve replacement, HFrEF/cardiomyopathy, CAD, HTN and HLD, who presented to the ED due to insomnia x3 months with panic attacks. he has not been compliant with his medications, specifically Coumadin, and INR is subtherapeutic subtherapeutic INR due to medication non-compliance -- coumadin for AV mechanical valve - coumadin consult - monitor INR - will need lovenox bridging panic attacks/insomnia - care team consult moderate COPD without acute exacerbation - continue home inhalers chronic HFrEF/Cardiomyopathy, no acute exacerbation - continue home therapies CAD/HLD - statin, ASA HTN -continue home therapies tobacco use disorder - smoking cessation encouraged - declines NRT med rec pending full code VTE prophy: coumadin/lovenox bridging Pt with subtherapeutic INR due to med non-compliance requiring admission due to concern for non-compliance with lovenox bridging. Quality Stroke Does the patient have a stroke diagnosis?: No VTE Prior VTE?: No VTE Risk Level:: Medical - moderate - high VTE Device Contraindication: Treatment Not Indicated VTE Drug Contraindication: N/A - Med Ordered
--- NOTE | 2025-02-22 08:48 | PHA.MEDREC ---
Pharmacy Consult ? Medication Reconciliation Pharmacy has completed the medication reconciliation. Spoke with patient at bedside with help from activities aide services. He doesn't recognize torsemide and says he has inhalers but hasn't gotten them in some time. He confirmed his other meds and says he took them all yesterday except for Warfarin, which he says is in [place] so he hasn't had it in some time.
[2025-02-22 10:11] VITALS: BP 132/80; PULSE 69; RESP 18; O2SAT 96
[2025-02-22 10:14] VITALS: BP 132/80; PULSE 69
[2025-02-22] MEDS: 0.9 % Sodium Chloride Flush 3 ML SYRINGE IVFLUSH (10:14)
[2025-02-22] MEDS: Metoprolol Succinate ER 50 MG TAB.ER.24H PO (10:14)
--- NOTE | 2025-02-22 12:35 | W.MHC.F2F ---
Service Date Service Date: 02/22/25 Encounter Date of encounter: 02/22/25 Reasons for Services Signs and symptoms assessed: anticoagulation to prevent stroke/prevention Reason for correction: monitoring of PT/INR, medication management, medication treatment and teach disease management MD Overseeing Care: Ana Paula Davidson Homebound: Leaving the home is medically contraindicated at this time without the asist of a device and/or another person due th the listed conditions above and below. Reason homebound: other (medication noncompliacne) Certification: Based on the above findings, I certify that this patient is confined to the home and needs intermittent correction care, physical therapy and/or speech therapy, or continues to need occupational therapy. The patient is under my care, and I have initiated the establishment of the plan of care. The patient will be followed by a physician who will periodically review the plan of care. Time Spent With Patient Time: Total time managing care of this patient today ____ minutes.
[2025-02-22 13:42] VITALS: BP 136/80; PULSE 60; RESP 17; O2SAT 97
--- NOTE | 2025-02-22 14:36 | P.DS_ITS ---
DS: Providers Provider Date of Service: 02/22/25 Date of admission: 02/22/25 06:07 Date of discharge: 02/22/25 Primary care physician: Ana Paula Davidson MD Consults: 02/22/25 06:42 Inpt CARE Team Crisis Consult Routine Comment: Reason for consultation: insomnia, panic attacks,. MEDICALLY CLEAR 02/22/25 12:27 Inpt CARE Team Crisis Consult Stat Comment: Reason for consultation: medically cleared DS: Diagnosis Discharge Diagnosis (1) Subtherapeutic anticoagulation: Status: Acute (2) Noncompliance with medication regimen: Status: Acute (3) Panic attacks: Status: Acute (4) Insomnia: Status: Acute (5) History of mechanical aortic valve replacement: Status: Acute DS: Summary Hospital Course Hospital Course: From the history and physical by the admitting hospitalist, DICK David, 02/22/25: Patient is a 64-year-old [place]an-speaking male with a past medical history significant for moderate COPD, mechanical aortic valve replacement, HFrEF/cardiomyopathy, CAD, HTN and HLD, who presented to the ED due to insomnia x3 months with panic attacks. The patient reports that he has been sleeping 3 hours at night for the past few weeks. He denies any SI or HI. He has not been taking his Coumadin and has not been seeing the Coumadin Clinic or taking this medication. He denies any headache, dizziness, SOB, nausea, vomting, abd pain, or urinary sx. 64-year-old [place]an-speaking male with a past medical history significant for moderate COPD, mechanical aortic valve replacement, HFrEF/cardiomyopathy, CAD, HTN and HLD, who presented to the ED due to insomnia x3 months with panic attacks. he has not been compliant with his medications, specifically Coumadin, and INR is subtherapeutic at 1.1 He was admitted to the hospitalist service and treated with Lovenox bridging anticoagulation given risk of stroke/thrombosis. He met with the CARE Team and did not meet IPL[facility]; his complaints were limited to insomnia with secondary panic attacks. Sleep hygiene was counseled and he was prescribed trazodone. He was counseled on the importance of taking warfarin to prevent stroke/thrombosis and started on Lovenox bridging at 1.5 mg/kg/d until INR 2-3. VNA services were arranged. He should follow up with his primary care doctor within 1-2 weeks. Time Attestation Discharge Coordination Time (in mins): 45 Quality: Safe Use of Opioids Does Pt have an Active Cancer Diagnosis on the Problem List?: No Quality: Stroke Does the patient have a stroke diagnosis?: No Physical Exam Vital Signs: Vital Signs: Last Vital Signs Temp 97.6 F 02/22/25 06:42 Pulse 60 02/22/25 13:42 Resp 17 02/22/25 13:42 BP 136/80 02/22/25 13:42 Pulse Ox 97 02/22/25 13:42 O2 Del Method Room Air 02/22/25 13:42 BMI result Body Mass Index 29.1 Gen: in no acute distress HEENT: sclera anicteric, moist mucus membranes Neck: supple Lungs: clear to auscultation bilaterally Heart: regular rate and rhythm, mechanical S2 Abd: soft, non-tender, non-distended Ext: no edema Skin: warm/well-perfused Neuro: alert and oriented x3, no focal findings Psych: appropriate affect DS: Data Data Completed and Pending Completed studies during hospitalization [Text1]: Laboratory Results WBC 8.4 X10*3/uL (4.8-10.8) 02/22/25 05:13 RBC 4.96 X10*6/uL (4.60-5.80) 02/22/25 05:13 Hgb 15.6 g/dl (14.0-18.0) 02/22/25 05:13 Hct 45.7 % (42.0-52.0) 02/22/25 05:13 MCV 92.1 fL (80.0-98.0) 02/22/25 05:13 MCH 31.5 pg (27.0-33.0) 02/22/25 05:13 MCHC 34.1 g/dl (31.0-36.0) 02/22/25 05:13 RDW 13.1 % (11.0-16.0) 02/22/25 05:13 Plt Count 153 X10*3/uL (160-400) L 02/22/25 05:13 MPV 11.5 fL (9.4-12.4) 02/22/25 05:13 Immature Gran % (Auto) 0.2 % (0.0-0.4) 02/22/25 05:13 Neut % (Auto) 61.5 % (45-73) 02/22/25 05:13 Lymph % (Auto) 21.0 % (20-40) 02/22/25 05:13 [place] % (Auto) 14.6 % (2-11) H 02/22/25 05:13 Eos % (Auto) 2.5 % (0-4) 02/22/25 05:13 Baso % (Auto) 0.2 % (0-2) 02/22/25 05:13 Lymph # (Auto) 1.8 X10*3/uL (1.2-4.9) 02/22/25 05:13 [place] # (Auto) 1.2 X10*3/uL (0.1-1.2) 02/22/25 05:13 Eos # (Auto) 0.2 X10*3/uL (0.0-0.4) 02/22/25 05:13 Baso # (Auto) 0.0 X10*3/uL (0.0-0.2) 02/22/25 05:13 Abs Immat Gran (auto) 0.02 X10*3/uL (0.00-0.03) 02/22/25 05:13 Absolute Neuts (auto) 5.1 x10*3/uL (2.0-8.3) 02/22/25 05:13 Absolute Nucleated RBC 0.000 X10*3/uL (0.0-0.012) 02/22/25 05:13 Nucleated RBC % (auto) 0.0 /100WBC (0.0-0.2) 02/22/25 05:13 PT 12.6 SEC (10.9-12.4) H 02/22/25 05:13 INR 1.1 (0.9-1.1) 02/22/25 05:13 Sodium 143 mmol/L (135-145) 02/22/25 05:13 Potassium 3.9 mmol/L (3.3-5.1) 02/22/25 05:13 Chloride 113 mmol/L (96-108) H 02/22/25 05:13 Carbon Dioxide 22 mmol/L (22-29) 02/22/25 05:13 Anion Gap 12 (12-20) 02/22/25 05:13 BUN 9 mg/dL (9-16) 02/22/25 05:13 Creatinine 0.90 mg/dL (0.5-1.4) 02/22/25 05:13 Estim Creat Clear Calc 90.4 02/22/25 05:13 Estimated GFR > 60 02/22/25 05:13 Random Glucose 106 mg/dL (60-115) 02/22/25 05:13 Calcium 8.5 mg/dL (8.4-10.2) 02/22/25 05:13 Magnesium 1.9 mg/dL (1.6-2.6) 02/22/25 05:13 Total Bilirubin 0.5 mg/dL (0.0-1.0) 02/22/25 05:13 AST 23 U/L (5-37) 02/22/25 05:13 ALT 18 U/L (0-40) 02/22/25 05:13 Alkaline Phosphatase 74 U/L (39-117) 02/22/25 05:13 Total Protein 6.5 g/dL (6.5-8.0) 02/22/25 05:13 Albumin 3.9 g/dL (3.5-5.0) 02/22/25 05:13 TSH 0.82 uIU/mL (0.32-4.0) 02/22/25 05:13 Ethyl Alcohol < 10 mg/dL 02/22/25 05:13 Influenza Type A (PCR) NEGATIVE (Negative) 02/22/25 05:13 Influenza Type B (PCR) NEGATIVE (Negative) 02/22/25 05:13 RSV RNA Qual (PCR) NEGATIVE (Negative) 02/22/25 05:13 SARS-CoV-2 RNA (RT-PCR) NEGATIVE (Negative) 02/22/25 05:13 Discharge Plan Discharge Anticipated Discharge Date/Time: 02/22/25 12:28 Patient Disposition: Home Health Service Discharge Diagnosis: insomnia subtherapeutic INR due to medication noncompliance mechanical aortic valve replacement Referrals: Ana Paula Davidson MD [Physician, Internal Medicine] - 1 Week Discharge Medications: New enoxaparin [Lovenox] 150 mg/mL syringe 135 mg subcut DAILY Qty: 10 0RF trazodone 50 mg tablet 50 mg PO BEDTIME Qty: 30 0RF Continued metoprolol succinate 50 mg tablet extended release 24 hr 50 mg PO DAILY warfarin 5 mg tablet 5 mg PO DAILY Qty: 90 0RF Protocol: Dose Management Condition: Wednesday (Week One) Dose/Route: 7.5 mg Instruction: 1.5 x 5 mg tablets Condition: Wednesday Dose/Route: 7.5 mg Instruction: 1.5 x 5 mg tablets Condition: Wednesday Dose/Route: 7.5 mg Instruction: 1.5 x 5 mg tablets Condition: Wednesday Dose/Route: 5 mg Instruction: 1 x 5 mg tablet Condition: Dose/Route: 7.5 mg Instruction: 1.5 x 5 mg tablets Condition: Wednesday Dose/Route: 7.5 mg Instruction: 1.5 x 5 mg tablets Condition: Wednesday Dose/Route: 5 mg Instruction: 1 x 5 mg tablet Condition: Wednesday (Week Two) Dose/Route: 7.5 mg Instruction: 1.5 x 5 mg tablets Condition: Wednesday Dose/Route: 7.5 mg Instruction: 1.5 x 5 mg tablets Condition: Wednesday Dose/Route: 7.5 mg Instruction: 1.5 x 5 mg tablets Condition: Wednesday Dose/Route: 5 mg Instruction: 1 x 5 mg tablet Condition: Dose/Route: 7.5 mg Instruction: 1.5 x 5 mg tablets Condition: Wednesday Dose/Route: 7.5 mg Instruction: 1.5 x 5 mg tablets Condition: Wednesday Dose/Route: 5 mg Instruction: 1 x 5 mg tablet Protocol Text: Adjustment Start Date: Wednesday10/18/23 INR Value: 2.2 INR Date: 10/18/23 Recheck Date: 10/25/23 folic acid 1 mg tablet 1 mg PO DAILY Spiriva with HandiHaler 18 mcg capsule, w/inhalation device 1 cap inhalation DAILY albuterol sulfate 90 mcg/actuation HFA aerosol inhaler 2 puff inhalation Q4-6H PRN (Reason: shortness of breath or wheezing) 30 Days Qty: 1 3RF aspirin 81 mg tablet,delayed release (DR/EC) 81 mg PO DAILY Qty: 90 3RF cyanocobalamin (vitamin B-12) 1,000 mcg tablet 1,000 mcg PO QAM (DME) blood pressure test kit-large Kit See Rx Instructions .ROUTE DIRECTED Qty: 1 Rx Instructions: As directed rosuvastatin 5 mg tablet 5 mg PO DAILY losartan 25 mg tablet 12.5 mg PO DAILY Discharge Orders: Discharge Order (Routine); Ordered 02/22/25 Ordered By: Aj Valadez Diet: Advance to usual diet Activity on Discharge: As tolerated Stand Alone Forms: Patient Portal Discharge page Print Language: [place]an Other Ambulatory Orders: Prothrombin Time INR (Q2D) Timeframe: 20250224 Facility: [facility] - Location: Laboratory Ordered By: Aj Valadez Prothrombin Time INR (Q2D) Timeframe: 20250226 Facility: [facility] - Location: Laboratory Ordered By: Aj Valadez Prothrombin Time INR (Q2D) Timeframe: 20250228 Facility: [facility] - Location: Laboratory Ordered By: Aj Valadez Prothrombin Time INR (Q2D) Timeframe: 20250302 Facility: [facility] - Location: Laboratory Ordered By: Aj Valadez Prothrombin Time INR (Q2D) Timeframe: [id number] Facility: [facility] - Location: Laboratory Ordered By: Aj Valadez Care Plan Goals: anticoagulation for stroke/thrombosis prevention Health Concerns: insomnia subtherapeutic INR due to medication noncompliance mechanical aortic valve replacement Plan of Treatment: sleep hygiene trazodone 50 mg at bedtime check INR every 2 days until 2-3 while INR <2, take enoxaparin 135 mg once daily Please follow up with your primary care doctor within 1 week. Return to the hospital if you experience recurrent or worsening symptoms. Assessment: See Discharge Summary.
[2025-02-22 14:53] VITALS: BP 136/80; PULSE 60; RESP 17; TEMP 36.8; O2SAT 97
--- NOTE | 2025-02-22 14:55 | MHC.CM.PN ---
CM assessment completed w/ historical interpreter assistance. IMM delivered. Patient lives in a home w/ daughter. Independent. Denies use of DME or services. PCP Ana Paula Davidson MD No HCP. CM provided education and offered assistance. Patient declined. DP: Medically cleared for dc home w/ new [facility] services for INR monitoring. Self transport. RN aware.
== END 2025-02-22 15:19 | disposition home health service (06) | DRG 948 ==
LOC: HO.ED 05:56 → HO.EDOVER 06:19
PROVIDERS: Admitting Provider Physician Assistant; Emergency Provider Emergency Medicine; PCP Family Medicine; Visit Provider Family Medicine
DX: R79.1 Abnormal coagulation profile (principal); I50.22 Chronic systolic (congestive) heart failure; I42.9 Cardiomyopathy, unspecified; I25.10 Atherosclerotic heart disease of native coronary artery without angina pectoris; J43.9 Emphysema, unspecified; F17.210 Nicotine dependence, cigarettes, uncomplicated; Z20.822 Contact with and (suspected) exposure to COVID-19; Z71.6 Tobacco abuse counseling; I11.0 Hypertensive heart disease with heart failure; E78.5 Hyperlipidemia, unspecified; T45.516A Underdosing of anticoagulants, initial encounter; Z95.2 Presence of prosthetic heart valve; Z79.01 Long term (current) use of anticoagulants; Z79.899 Other long term (current) drug therapy
CPT/HCPCS: 36415; 80053; 80307; 83735; 84443; 85025; 85610; 87637; 99285; J1650; S9485

== ENCOUNTER → 2025-02-22 06:07 | Outpatient (BNV) | payer MEDICARE, SELFPAY | PROVIDERS: Admitting Provider Physician Assistant; Emergency Provider Emergency Medicine; Visit Provider Family Medicine | DX: Z51.81 Encounter for therapeutic drug level monitoring (principal); Z79.01 Long term (current) use of anticoagulants; Z91.148 Patient's other noncompliance with medication regimen for other reason; F41.0 Panic disorder [episodic paroxysmal anxiety]; G47.00 Insomnia, unspecified | CPT/HCPCS: 99222 ==

== ENCOUNTER 2025-02-26 21:50 | Emergency (ER) | payer MEDICARE, MEDICAID, SELFPAY ==
--- OUTSIDE RECORDS SUMMARY | 2025-02-26 13:00 | XMS_ITS | Encounter Summary ---
Author Organization [employer] Address [address] [facility] 7t [place] [address] Care Team Providers Care Registered Dental Assistant Rda Name Role Phone Ana Paula Davidson MD Primary Care Provider [phone] Encounter Details Date Type Department Care Team (Latest Contact Info) Description 02/26/2025 1:00 PM EDT Office Visit [facility] [address] [place], [place] [phone] Sammie Gibson MD [address] [place], [place] [phone] History of artificial heart valve; Primary insomnia; Subtherapeutic international normalized ratio (INR) Social History Tobacco Use Types Packs/Day Years [...] Sign Reading Time Taken Comments Blood Pressure 140/98 02/26/2025 1:03 PM EDT Pulse 76 02/26/2025 1:03 PM EDT Temperature 37.2 C (98.9 F) 02/26/2025 1:03 PM EDT Respiratory Rate 19 02/26/2025 1:03 PM EDT Oxygen Saturation 97% 02/26/2025 1:03 PM EDT Inhaled Oxygen Concentration - - Weight 91.5 kg (201 lb 12.8 oz) 02/26/2025 1:03 PM EDT Height 175.3 cm (5' 9 ) 02/26/2025 1:03 PM EDT Body Mass Index 29.8 02/26/2025 1:03 PM EDT documented in this encounter Progress Notes * Sammie Pedro MD - 02/26/2025 1:00 PM EDT SUBJECTIVE: Michael Castañeda is a 64 y.o. year old male who presents for HDF . [facility] (02/22/25-02/22/25) Patient presented for evaluation of insomnia for three months with panic attacks. Denies taking Coumadin or following with Coumadin clinic. INR found to be subtherapeutic at 1.1. Admitted and treatedwith Lovenox bridging given risk of stroke/thrombosis. Counseled on sleep hygiene and prescribed trazodone. Counseled on importance of warfarin and started on Lovenox bridge until INR 2-3. Dischargedhome with VNA services. Medication changes that occurred during hospitalization include: Added Lovenox 150 mg/ml - 135 mg subcutaneous once daily Trazodone 50 mg at bedtime Changed: none Discontinued: none Patient today tells me he feels well, he tells me trazodone did help him with insomnia Patient reports he is only taking his levonox, he tells me he went to the pharmacy and that there was no prescription for coumadin Patient denies chest pain, palpitations, dizziness, SOB, weakness, numbness.... Social History Social History Narrative Not on file Problem List[1] Allergic rhinitis Atopic conjunctivitis Chronic obstructive lung disease (HCC) Vitamin B12 deficiency Dyslipidemia History of artificial heart valve Hypertension Mixed anxiety and depressive disorder Obesity Anticoagulated on Coumadin Anticoagulation goal of INR 2.5 to 3.5 Tobacco use disorder History of rib fracture Adrenal nodule (CMS/HCC) Esophageal thickening Cardiomyopathy (HCC) HFrEF (heart failure with reduced ejection fraction) ([facility]) History of aortic aneurysm repair LBBB (left bundle branch block) Primary insomnia Subtherapeutic international normalized ratio (INR) Family History[2] Review of Systems Constitutional: Negative. HENT: Negative. Respiratory: Negative. Cardiovascular: Negative. Neurological: Negative. OBJECTIVE: Vitals: 02/26/25 1303 BP: (!) 140/98 BP Location: Right leg Patient Position: Sitting BP Cuff Size: Adult Pulse: 76 Resp: 19 Temp: 98.9 ??F (37.2 ??C) TempSrc: Temporal SpO2: 97% Weight: 201 lb 12.8 oz (91.5 kg) Height: 5' 9 (1.753 m) Physical Exam Constitutional: Appearance: Normal appearance. Cardiovascular: Rate and Rhythm: Normal rate. Rhythm irregular. Pulmonary: Effort: Pulmonary effort is normal. Breath sounds: Normal breath sounds. Abdominal: General: Abdomen is flat. Palpations: Abdomen is soft. Musculoskeletal: Right lower leg: No edema. Left lower leg: No edema. Neurological: Mental Status: He is alert. Follow Up: No follow-ups on file. Medications Ordered Prior to Encounter[3] Problem List Items Addressed This Visit History of artificial heart valve I will prescribe for patient coumadin 5 mg daily, he needs to continue with levonox, I will recheckhis INR today I will contact his VNA for them to go and check his INR at home I also advise patient not to miss his appointment with PCP and cardiology Relevant Medications warfarin (Coumadin) 5 MG tablet metoprolol succinate XL (Toprol XL) 50 MG 24 hr tablet Primary insomnia Sleep hygiene counseling done C/w trazodone 50mg at bed time Relevant Medications traZODone (Desyrel) 50 MG tablet Subtherapeutic international normalized ratio (INR) I will prescribe for patient coumadin 5 mg daily, he needs to continue with levonox, I will recheckhis INR today I will contact his VNA for them to go and check his INR at home, his goal is 2.5-3.5 I also advise patient not to miss his appointment with PCP and cardiology Relevant Medications warfarin (Coumadin) 5 MG tablet metoprolol succinate XL (Toprol XL) 50 MG 24 hr tablet Other Relevant Orders Prothrombin Time-INR [1] Patient Active Problem List Diagnosis Allergic rhinitis Atopic conjunctivitis Chronic obstructive lung disease (HCC) Vitamin B12 deficiency Dyslipidemia History of artificial heart valve Hypertension Mixed anxiety and depressive disorder Obesity Anticoagulated on Coumadin Anticoagulation goal of INR 2.5 to 3.5 Tobacco use disorder History of rib fracture Adrenal nodule (CMS/HCC) Esophageal thickening Cardiomyopathy (HCC) HFrEF (heart failure with reduced ejection fraction) (HCC) History of aortic aneurysm repair LBBB (left bundle branch block) Primary insomnia Subtherapeutic international normalized ratio (INR) [2] No family history on file. [3] Current Outpatient Medications on File Prior to Visit Medication Sig Dispense Refill albuterol 108 (90 Base) MCG/ACT inhaler Inhale 2 puffs every 4 (four) hours if needed for wheezing or shortness of breath. Maximum 8 puffs per day 18 g 3 Aspirin Low Dose 81 MG EC tablet Take 1 tablet (81 mg) by mouth Once per day. 90 tablet 3 cyanocobalamin (Vitamin B-12) 1000 MCG tablet Take 1 tablet (1,000 mcg) by mouth Once per day. 90 tablet 3 Enoxaparin Sodium 150 MG/ML solution prefilled syringe Inject 135 mg under the skin Once per day. Qzdcmrznfsc-Ukoquxhxq-Uovujv (Trelegy Ellipta) 200-62.5-25 MCG/ACT aerosol powder Inhale 1 puff at bedtime. 84 each 3 folic acid (Folvite) 1 MG tablet Take 1 tablet (1,000 mcg) by mouth Once per day. 90 tablet 3 losartan (Cozaar) 25 MG tablet Take 1/2 tablet by mouth once daily 45 tablet 3 nicotine (Nicoderm, Step 1) 21 MG/24HR patch PLACE 1 PATCH ON THE SKIN EVERY DAY rosuvastatin (Crestor) 5 MG tablet Take 1 tablet (5 mg) by mouth Once per day. 90 tablet 3 torsemide (Demadex) 10 MG tablet Take 1 tablet (10 mg) by mouth Once per day. 90 tablet 3 [DISCONTINUED] metoprolol succinate XL (Toprol-XL) 25 MG 24 hr tablet Take 1 tablet (25 mg) by mouth Once per day. 90 tablet 3 [DISCONTINUED] traZODone (Desyrel) 50 MG tablet Take 1 tablet by mouth at bedtime. [DISCONTINUED] warfarin (Coumadin) 5 MG tablet TAKE 1 TABLET BY MOUTH EVERY DAY. Dosage may be changed according to your INR. Please follow the direction from your provider 60 tablet 2 No current facility-administered medications on file prior to visit. documented in this encounter Miscellaneous Notes * Assessment & Plan Note - Sammie Pedro MD - 02/26/2025 3:57 PM EDT Associated Problem(s): Primary insomnia Sleep hygiene counseling done C/w trazodone 50mg at bed time * Assessment & Plan Note - Sammie Pedro MD - 02/26/2025 3:57 PM EDT Associated Problem(s): Subtherapeutic international normalized ratio (INR) I will prescribe for patient coumadin 5 mg daily, he needs to continue with levonox, I will recheckhis INR today I will contact his VNA for them to go and check his INR at home, his goal is 2.5-3.5 I also advise patient not to miss his appointment with PCP and cardiology * Assessment & Plan Note - Sammie Pedro MD - 02/26/2025 3:56 PM EDT Associated Problem(s): History of artificial heart valve I will prescribe for patient coumadin 5 mg daily, he needs to continue with levonox, I will recheckhis INR today I will contact his VNA for them to go and check his INR at home I also advise patient not to miss his appointment with PCP and cardiology documented in this encounter Plan of Treatment Upcoming Encounters Date Type Department Care Team (Late st Contact Info) Description 03/06/2025 9:30 AM EST Office Visit [facility] [address] [place] [phone] Ana Paula Davidson MD [address] [place] [address] Scheduled Orders Name Type Priority Associated Diagnoses Orde r Schedule Prothrombin Time-INR Lab Routine Subtherapeutic international normalized ratio (INR) Expected: 02/26/2025, Expires: 02/26/2026 documented as of this encounter Visit Diagnoses Diagnosis History of artificial heart valve Primary insomnia Persistent disorder of initiating or maintaining sleep Subtherapeutic international normalized ratio (INR) documented in this encounter Additional Health Concerns Assessment Noted Time PHQ-9 Depression Total Score: 0 09/15/19 25 9:12 AM EDT documented as of this encounter Care Teams Registered Dental Assistant Rda Relationship Specialty Start Date End Date Ana Paula Davidson MD [address] [place] [address] PCP - General Family Medicine 05/03/18 documented as of this encounter
[2025-02-26 21:51] VITALS: BP 150/95; PULSE 95; RESP 18; O2SAT 98; BMI 29.7
[2025-02-26 22:51] LABS: MANUAL DIFF FLAG NO
[2025-02-26 23:01] LABS: Hematocrit 43.5 % (42.0-52.0); Hemoglobin 14.3 g/dl (14.0-18.0); Imm Gran Abs Auto 0.02 X10*3/uL (0.00-0.03); Imm Gran Pct Auto 0.3 % (0.0-0.4); Lymphocytes Absolute Auto 1.5 X10*3/uL (1.2-4.9); Mean Corpuscular HGB Conc 32.9 g/dl (31.0-36.0); Mean Corpuscular Hemoglobin 30.8 pg (27.0-33.0); Mean Corpuscular Volume 93.8 fL (80.0-98.0); NRBC Abs Auto 0.000 X10*3/uL (0.0-0.012); NRBC Pct Auto 0.0 /100WBC (0.0-0.2); Platelet Count 124 X10*3/uL (160-400); Red Blood Count 4.64 X10*6/uL (4.60-5.80); White Blood Count 7.2 X10*3/uL (4.8-10.8)
[2025-02-26 23:08] LABS: Alanine Aminotransferase 17 U/L (0-40); Albumin Level 3.7 g/dL (3.5-5.0); Alkaline Phosphatase 65 U/L (39-117); Anion Gap 9 (12-20); Aspartate Amino Transferase 25 U/L (5-37); Blood Urea Nitrogen 12 mg/dL (9-16); Calcium 8.5 mg/dL (8.4-10.2); Carbon Dioxide 26 mmol/L (22-29); Chloride 112 mmol/L (96-108); Creatinine Clr Calc Pharmacy 91.3; Estimated Glomerular Filt Rate > 60; Magnesium 1.9 mg/dL (1.6-2.6); Potassium 3.7 mmol/L (3.3-5.1); Sodium 143 mmol/L (135-145); Total Protein 6.2 g/dL (6.5-8.0)
[2025-02-26 23:34] LABS: INTERNATIONAL NORM RATIO 1.0 (0.9-1.1); Prothrombin Time 12.0 SEC (10.9-12.4)
[2025-02-26 23:52] VITALS: BP 138/82; PULSE 65; RESP 18; O2SAT 99
--- OUTSIDE RECORDS SUMMARY | 2025-02-26 23:53 | XMS_ITS | Encounter Summary ---
Author Organization [employer] Address [address] [facility] 7t [place] [address] Care Team Providers Care Ict Support Engineer Name Role Phone Ana Paula Davidson MD Primary Care Provider [phone] Reason for Visit * Reason Comments Med Refill Encounter Details Date Type Department Care Team (Late st Contact Info) Description 03/21/2024 Refill [facility] [address] [place], [place] [phone] Ana Paula Davidson MD [address] [place], [place] [phone] Social History Tobacco Use Types Packs/Day Years [...] Description 03/06/2025 9:30 AM EST Office Visit [facility] [address] [place] [address] Ana Paula Davidson MD [address] [place] [address] documented as of this encounter Visit Diagnoses Not on filedocumented in this encounter Additional Health Concerns Assessment Noted Time PHQ-9 Depression Total Score: 0 01/20/20 23 10:16 AM EDT documented as of this encounter Care Teams Ict Support Engineer Relationship Specialty Start Date End Date Ana Paula Davidson MD [address] [place] [phone] PCP - General Family Medicine 05/03/18 documented as of this encounter
--- OUTSIDE RECORDS SUMMARY | 2025-02-26 23:53 | XMS_ITS | Encounter Summary ---
Author Organization [employer] Address [address] [place] [address] 7 [place] [address] Care Team Providers Care Data Processing Clerk Name Role Phone Ana Paula Davidson MD Primary Care Provider [phone] Encounter Details Date Type Department Care Team (Late st Contact Info) Description 05/17/2022 Orders Only [facility] [address] [place] [phone] Ana Paula Davidson MD [address] [place] [phone] Primary hypertension (Primary Dx) Social History Tobacco [...] Description 03/06/2025 9:30 AM EST Office Visit [facility] [address] [place] [phone] Ana Paula Davidson MD [address] [place] [phone] documented as of this encounter Visit Diagnoses Diagnosis Primary hypertension- Primary Unspecified essential hypertension documented in this encounter Care Teams Data Processing Clerk Relationship Specialty Start Date End Date Ana Paula Davidson MD [address] [place] [phone] PCP - General Family Medicine 05/03/18 documented as of this encounter
--- OUTSIDE RECORDS SUMMARY | 2025-02-26 23:53 | XMS_ITS | Encounter Summary ---
Author Organization [employer] Address [address] [facility] [address] 7[address] [place] [address] Care Team Providers Care Healthcare Management Name Role Phone Ana Paula Davidson MD Primary Care Provider [phone] Encounter Details Date Type Department Care Team (Latest Contact Info) Description 02/26/2025 Travel Social History Tobacco Use Types Packs/Day [...] your housing situation today? I have cha sing 09/14/[address] you li [...] Description 03/06/2025 9:30 AM EST Office Visit [facility] [address] [place] [address] Ana Paula Davidson MD [address] [place] [address] documented as of this encounter Visit Diagnoses Not on filedocumented in this encounter Additional Health Concerns Assessment Noted Time PHQ-9 Depression Total Score: 0 09/15/19 25 9:12 AM EDT documented as of this encounter Care Teams Healthcare Management Relationship Specialty Start Date End Date Ana Paula Davidson MD [address] [place] [phone] PCP - General Family Medicine 05/03/18 documented as of this encounter
--- OUTSIDE RECORDS SUMMARY | 2025-02-26 23:53 | XMS_ITS | Encounter Summary ---
Author Organization [employer] Address [address] [facility] 7t [place] [address] Care Team Providers Care Vat Skimmer Name Role Phone Ana Paula Davidson MD Primary Care Provider [phone] Reason for Visit * Reason Comments Transition Of Care (Tcm) HDF unscheduled Encounter Details Date Type Department Care Team ([facility] st Contact Info) Description 02/23/2025 Patient Outreach [facility] [address] [place], [place] [phone] Ana Paula Davidson MD [address] [place] [address] Transition Of Care (Tcm) (HDF unscheduled) Social History Tobacco Use Types Packs/Day Years [...] AM EDT documented as of this encounter Progress Notes * Valarie Torres RN - 02/23/2025 8:58 AM EDT Please see encounter dated 02/22/25, pt scheduled for HDF 02/26/25. documented in this encounter Miscellaneous Notes * Significant Event - Reina Ang - 02/23/2025 9:03 AM EDT 02/23/25 [id number] Hospital Discharges and Admission for [facility] Type of Visit Hospital Admission Date of Admission/Visit 02/22/25 Date of Discharge 02/22/25 Facility [facility] Diagnosis Subtherapeutic anticoagulation,Panic attacks,Insomnia,History of mechanical aortic valve replacement Disposition Discharged with Home Care Services Follow-Up Actions Follow-Up Needed Provider appointment Initial Contact Date 02/23/25 Per collective patient had a ER visit at [facility] 02/22/25 with a diagnoses of Subtherapeutic anticoagulation,Panic attacks,Insomnia,History of mechanical aortic valve replacement. CC scanned discharge summary into patient's chart. Please contact at [phone] documented in this encounter Plan of Treatment Upcoming Encounters Date Type Department Care Team (Late st Contact Info) Description 03/06/2025 9:30 AM EST Office Visit [facility] [address] [place] [address] Ana Paula Davidson MD [address] [place] [address] documented as of this encounter Visit Diagnoses Not on filedocumented in this encounter Additional Health Concerns Assessment Noted Time PHQ-9 Depression Total Score: 0 09/15/19 25 9:12 AM EDT documented as of this encounter Care Teams Vat Skimmer Relationship Specialty Start Date End Date Ana Paula Davidson MD [address] [place] [address] PCP - General Family Medicine 05/03/18 documented as of this encounter
--- OUTSIDE RECORDS SUMMARY | 2025-02-26 23:53 | XMS_ITS | Encounter Summary ---
Author Organization [employer] Address [address] [facility] 7t [place] [address] Care Team Providers Care Parachute Supervisor Name Role Phone Ana Paula Davidson MD Primary Care Provider [phone] Reason for Visit * Reason Onset Date Comments VNA communication 02/26/2025 Encounter Details Date Type Department Care Team ([facility] st Contact Info) Description 02/26/2025 Telephone [facility] [address] [place], [place] [phone] Christy Montejo RN [address] [place], [place] [phone] VNA communication Social History Tobacco Use Types Packs/Day Years [...] encounter Miscellaneous Notes * Telephone Encounter - Christy Montejo RN - 02/26/2025 1:47 PM EDT TC placed to [facility] as pt. Was referred from hospitalization. They report pt. Declined visit on Wednesday and Wednesday due to being too busy and/ or not being home all day. They will give pt. One more chance tomorrow to initiate services, however if pt. Declines again then he will need to find a different agency. Pt. Was informed of this while in the office. PCP informed. documented in this encounter Plan of Treatment Upcoming Encounters Date Type Department Care Team (Late st Contact Info) Description 03/06/2025 9:30 AM EST Office Visit [facility] [address] [place] [address] Ana Paula Davidson MD [address] [place] [address] documented as of this encounter Visit Diagnoses Not on filedocumented in this encounter Additional Health Concerns Assessment Noted Time PHQ-9 Depression Total Score: 0 09/15/19 25 9:12 AM EDT documented as of this encounter Care Teams Parachute Supervisor Relationship Specialty Start Date End Date Ana Paula Davidson MD [address] [place] [address] PCP - General Family Medicine 05/03/18 documented as of this encounter
--- OUTSIDE RECORDS SUMMARY | 2025-02-26 23:53 | XMS_ITS | Clinical Summary ---
Author Organization [employer] Address [address] [facility] [address] [place] [address] Care Team Providers Care Vehicle Mechanic Name Role Phone Ana Paula Davidson MD Primary Care Provider [phone] Allergies No known active allergies Medications nicotine (Nicoderm, Step 1) 21 MG/24HR patch PLACE 1 PATCH ON THE SKIN EVERY DAY 07/16/19 22 Active torsemide (Demadex) 10 MG tablet Take 1 tablet (10 mg) by mouth Once per day. 90 tablet 3 09/30/19 24 Active Aspirin Low Dose 81 MG EC tabletIndication s:HFrEF (heart failure with reduced ejection fraction) ([facility]) Take 1 tablet (81 mg) by mouth Once per day. 90 tablet 3 09/15/19 25 Active rosuvastatin (Crestor) 5 MG tabletIndication s:Dyslipidemia Take 1 tablet (5 mg) by mouth Once per day. 90 tablet 3 09/15/19 25 05/17/06 026 Active losartan (Cozaar) 25 MG tabletIndication s:Primary hypertension,HFr EF (heart failure with reduced ejection fraction) (HCC) Take 1/2 tablet by mouth once daily 45 tablet 3 09/15/19 25 Active cyanocobalamin (Vitamin B-12) 1000 MCG tabletIndication s:Vitamin B12 deficiency Take 1 tablet (1,000 mcg) by mouth Once per day. 90 tablet 3 09/15/19 25 Active folic acid (Folvite) 1 MG tabletIndication s:Vitamin B12 deficiency Take 1 tablet (1,000 mcg) by mouth Once per day. 90 tablet 3 09/15/19 25 Active Fluticasone-Umec lidin-Vilant (Trelegy Ellipta) 200-62.5-25 MCG/ACT aerosol powderIndication s:Pulmonary emphysema, unspecified emphysema type Inhale 1 puff at bedtime. 84 each 3 09/16/19 Active albuterol 108 (90 Base) MCG/ACT inhaler Inhale 2 puffs every 4 (four) hours if needed for wheezing or shortness of breath. Maximum 8 puffs per day 18 g 3 09/16/19 25 026 Active Enoxaparin Sodium 150 MG/ML solution prefilled syringe Inject 135 mg under the skin Once per day. 02/23/20 Active warfarin (Coumadin) 5 MG tabletIndication s:History of artificial heart valve TAKE 1 TABLET BY MOUTH EVERY DAY. Dosage may be changed according to your INR. Please follow the direction from your provider 60 tablet 2 02/27/20 Active traZODone (Desyrel) 50 MG tabletIndication s:Primary insomnia Take 1 tablet (50 mg) by mouth at bedtime. 30 tablet 1 02/27/20 Active metoprolol succinate XL (Toprol XL) 50 MG 24 hr tabletIndication s:Subtherapeutic international normalized ratio (INR) Take 1 tablet (50 mg) by mouth Once per day. Do not crush or chew. 30 tablet 11 02/27/20 25 026 Active warfarin (Coumadin) 5 MG tabletIndication s:History of artificial heart valve TAKE 1 TABLET BY MOUTH EVERY DAY. Dosage may be changed according to your INR. Please follow the direction from your provider 60 tablet 2 09/15/19 25 025 Discontinued(R eorder (will not trigger notification to Pharmacy)) metoprolol succinate XL (Toprol-XL) 25 MG 24 hr tabletIndication s:Primary hypertension,HFr EF (heart failure with reduced ejection fraction) (HCC) Take 1 tablet (25 mg) by mouth Once per day. 90 tablet 3 09/15/19 25 025 Discontinued traZODone (Desyrel) 50 MG tablet Take 1 tablet by mouth at bedtime. 02/23/20 025 Discontinued(R eorder (will not trigger notification to Pharmacy)) Active Problems Patient Care Coordination No te Formatting of this note migh t be different from the original. C3/CM Delia Ivory RN Problem Noted Date Diagnosed Date Primary insomnia 02/26/2025 Assessment & Plan (02/26/2025 3:57 PM EDT): Sleep hygiene counseling done C/w trazodone 50mg at bed time Subtherapeutic international normalized ratio (I NR) 02/26/2025 Assessment & Plan (02/26/2025 3:57 PM EDT): I will prescribe for patient coumadin 5 mg daily, he needs to continue with levonox, I will recheck his INR today I will contact his [facility]NA for them to go and check his INR at home, his goal is 2.5-3.5 I also advise patient not to miss his appointment with PCP and cardiology Cardiomyopathy 01/23/2023 Assessment & Plan (01/23/2023 6:48 AM EDT): - Belt Worker: [facility], last seen by Cristy in August 2021 - advised to reschedule appt; pt has a difficulty scheduling appt due to language barrier. Will refer to case management team HFrEF (heart failure with reduced ejection fract ion) 01/23/2023 Assessment & Plan (09/15/2024 6:20 AM EDT): - Belt Worker: [facility], last seen in Jan 2023 - Last TTE [facility] 2021 LVEF 25-30% - Refer back so that he can update echo and stress test - Resume metoprolol, losartan, rosuvastatin, and ASA - Continue working on modifiable risk factor management Assessment & Plan (02/05/2023 6:18 AM EDT): - Belt Worker: [facility] - Last TTE [facility] 2021 LVEF 25-30% - continue metoprolol - changing lisinopril to losartan (pt has cough although likely COPD) - changing furosemide to torsemide for long-acting - recommended to follow up with disability case manager tomorrow Assessment & Plan (01/23/2023 6:51 AM EDT): - Belt Worker: [facility] - Last TTE [facility] 2021 LVEF 25-30% - continue metoprolol - changing lisinopril to losartan (pt has cough although likely COPD) - changing furosemide to torsemide for long-acting - recommended to follow up with disability case manager. History of aortic aneurysm repair 01/23/2023 LBBB [...] 0 - He states he belongs to [place], and both his mental and physical health improved after he returned [place]. He is planning to move there to [...] Aortic valve repair -continue treatment plan per [facility] anticoagulation clinic Assessment & Plan (01/23/2023 6:21 AM EDT): -indication: Aortic valve repair -continue treatment plan per [facility] anticoagulation clinic Assessment & Plan (05/31/2022 6:21 AM EST): -indication: Aortic valve repair -continue treatment plan per [facility] anticoagulation clinic Anticoagulation goal of INR 2.5 to 3.5 3 Overview (05/26/2022): Patient has not been adherent to INR and coumadin check Tobacco use disorder 05/26/2022 Assessment & Plan (09/15/2024 6:35 AM EDT): Currently smokes 15-20 cigarettes a day - continue working on smoking cessation - previously following with Dr. Kirk at [facility] Pulmonology clinic - last CT in October 2023 Lung RADS 2 - check the status of lung cancer screening CT and appt Assessment & Plan (02/04/2023 12:55 PM EDT): Currently smokes 15 cigarettes a day - continue working on smoking cessation - following with Dr. Kirk at [facility] Pulmonology clinic - last CT in 2021 - check the status of lung cancer screening CT and appt Assessment & Plan (01/23/2023 6:41 AM EDT): - continue working on smoking cessation - following with Dr. Kirk at [facility] Pulmonology clinic - last CT in 2021 [...] with azithromycin and prednisone -Last seen by ecological risk assessor on 07/29/21, prescribed fluticasone / umeclidinium / vilanterol (Trelegy). He had not been using. -Restart Trelegy -Restart Albuterol as rescue -Work on smoking cessation. -Will request lung cancer screening program for his next appointment. Assessment & Plan (02/04/2023 12:56 PM EDT): -Last COPD exacerbation in Jun 2018, treated with azithromycin and prednisone -Last seen by ecological risk assessor on 07/29/21, prescribed Trelegy -Continue Trelegy -Continue Albuterol as rescue -Work on smoking cessation. -Advised to reschedule appt Assessment & Plan (01/23/2023 6:49 AM EDT): -Last COPD exacerbation in Jun 2018, treated with azithromycin and prednisone -Last seen by ecological risk assessor on 07/29/21, prescribed Trelegy -Continue Trelegy -Continue Albuterol as rescue -Work on smoking cessation. -Advised to reschedule appt Assessment & Plan (05/31/2022 6:17 AM EST): -Last seen by ecological risk assessor on 07/29/21 -Stained Glass Joiner prescribed Trelegy but patient did not receive [...] artificial heart valve 01/27/2012 Assessment & Plan (02/26/2025 3:56 PM EDT): I will prescribe for patient coumadin 5 mg daily, he needs to continue with levonox, I will recheck his INR today I will contact his VNA for them to go and check his INR at home I also advise patient not to miss his appointment with PCP and cardiology Assessment & Plan (09/15/2024 6:42 AM EDT): -Patient had been on warfarin -Previously followed by [facility] anti-coagulation clinic -Hx poor adherence to INR check and mediation -discussed about the importance of medication adherence and monitoring INR -Needs SBE prophylaxis for procedure -Restart warfarin 5 mg daily. Recheck in 1 week. Assessment & Plan (02/05/2023 6:18 AM EDT): -Patient is on warfarin -followed by [facility] anti-coagulation clinic -Hx poor adherence to INR check and mediation -discussed about the importance of medication adherence and monitoring INR Assessment & Plan (01/23/2023 6:18 AM EDT): -Patient is on warfarin -followed by [facility] anti-coagulation clinic -Hx poor adherence to INR check and mediation -discussed about the importance of medication adherence and monitoring INR Assessment & Plan (05/31/2022 6:20 AM EST): -Patient is on warfarin -followed by [facility] anti-coagulation clinic -Hx poor adherence to INR [...] -Continue checking BP at home -Refer to [facility] again Assessment & Plan (05/31/2022 6:19 AM EST): -Goal BP < 140/90 per JNC-8 and < 130/80 per ACC/AHA guideline -2nd measurement was normal -Continue metoprolol succinate 50 mg daily -Continue lisinopril 10 mg daily -Risk factors: tobacco, peripheral vascular disease -Continue working on lifestyle modification and medication adherence. -Continue checking BP at home -Refer to [facility] Obesity 01/27/2012 Resolved Problems Problem Noted Date Diagnosed Date Resolved Date Insomnia 05/26/2022 09/15/2024 Encounters Date Type Department Care Team Description 02/26/2025 1:00 PM EDT Office Visit [address] [address] Sammie Gibson MD History of artificial heart valve; Primary insomnia; Subtherapeutic international normalized ratio (INR) 02/26/2025 Orders Only GENERIC EXTERNAL DATA DEPARTMENT Provider, Generic External Data 02/26/[address] [address] Christy Montejo RN VNA communication 02/26/2025 Travel 02/23/2025 Patient Outreach [address] [address] Ana Paula Davidson MD Transition Of Care (Tcm) (HDF unscheduled) 02/22/[address] [address] Ana Paula Davidson MD fyi from Last 3 Months Immunizations Immunization Administration [...] Mass Index 29.8 02/26/2025 1:03 PM EDT Plan of Treatment Upcoming Encounters Date Type Department Care Team (Late st Contact Info) Description 03/06/2025 9:30 AM EST Office Visit [facility] [address] [place] [address] Ana Paula Davidson MD [address] [place] [address] Health Maintenance Due Date Last Done Comments [...] 03/26/2021, 09/17/2020, 08/20/2020 Influenza Vaccine (#1) 2025 , 02/12/2022, 03/05/2021, Additional history exists Alcohol/Substance Use Screening 09/14/2025 09/14/2024 Depression Screening 09/14/2025 09/14/2024, 09/15/19 SDOH Screening 09/14/2025 09/14/2024 Tobacco Screening 02/26/2026 02/26/2025 Lipid Panel 09/14/2029 09/14/2024, 01/02, 02/01/2020, Additional [...] Procedure Name Priority Date/Time Associated Diagnosis Comments PROTHROMBIN TIME-INR Routine 02/26/2025 10:47 PM EDT MAGNESIUM Routine 02/26/2025 10:47 PM EDT COMPREHENSIVE METABOLIC PANEL Routine 02/26/2025 10:47 PM EDT CBC WITH AUTO DIFFERENTIAL Routine 02/26/2025 10:47 PM EDT LIPID PANEL WITH REFLEX TO DIRECT LDL Routine 09/14/2024 10:00 AM EDT Dyslipidemia LDCT LUNG SCREENING Routine 10/15/2023 1 0:41 AM EDT ZZZ HISTORICAL HEPATITIS C ANTIBODY RFLX Routine 05/17/2019 10:00 AM EST PANORAMIC RADIOGRAPHIC IMAGE Routine 12/19/2008 12:00 AM EDT from Last 3 Months or Most Recently Relevant to Health Maintenance Results * (ABNORMAL) CBC auto differential (02/26/2025 10:47 PM EDT) White Blood Count 7.2 4.8 - 10.8 X10*3/uL [facility] Red Blood Count 4.64 4.60 - 5.80 X10*6/uL [facility] Hemoglobin 14.3 14.0 - 18.0 g/dl [facility] Hematocrit 43.5 42.0 - 52.0 % [facility] Mean Corpuscular Volume 93.8 80.0 - 98.0 fL [facility] Mean Corpuscular Hemoglobin 30.8 27.0 - 33.0 pg [facility] Mean Corpuscular HGB Conc 32.9 31.0 - 36.0 g/dl [facility] Red Cell Distribution Width 13.1 11.0 - 16.0 % [facility] Platelet Count 124(L) 160 - 400 X10*3/uL [facility] Mean Platelet Volume 11.4 9.4 - 12.4 fL [facility] Neutrophils Percent Auto 62.4 45 - 73 % [facility] Imm Gran Pct Auto 0.3 0.0 - 0.4 % [facility] Lymphocytes Percent Auto 20.6 20 - 40 % [facility] Monocytes Percent Auto 13.7(H) 2 - 11 % [facility] Eosinophils Percent Auto 2.7 0 - 4 % [facility] Basophils Percent Auto 0.3 0 - 2 % [facility] NRBC Pct Auto 0.0 0.0 - 0.2 /100WBC [facility] Neutrophils Absolute Auto 4.5 2.0 - 8.3 x10*3/uL [facility] Imm Gran Abs Auto 0.02 0.00 - 0.03 X10*3/uL [facility] Lymphocytes Absolute Auto 1.5 1.2 - 4.9 X10*3/uL [facility] Monocytes Absolute Auto 1.0 0.1 - 1.2 X10*3/uL [facility] Eosinophils Absolute Auto 0.2 0.0 - 0.4 X10*3/uL [facility] Basophils Absolute Auto 0.0 0.0 - 0.2 X10*3/uL [facility] NRBC Abs Auto 0.000 0.0 - 0.012 X10*3/uL [facility] 02/26/2025 10:4 7 PM EDT 02/26/2025 10:50 PM EDT us Generic External Data Provider LAB BLOOD ORDERAB LES Final Result [facility] [address] [place], [place] [phone] * Prothrombin Time-INR (02/26/2025 10:47 PM EDT) Prothrombin Time 12.0 10.9 - 12.4 SEC [facility] INTERNATIONAL NORM RATIO 1.0 0.9 - 1.1 [facility] Comment:INTERNATIONAL NORMAL IZED RATIO (INR) REFERENCE RANGES Reference RangeFor patients not on anticoagulant therapy: 0.9 - 1.1INR ranges for oral anticoagulanttherapy:For prevention and treatment of venous thrombosis and pulmonary embolism: 2.0 - 3.0For acute myocardial infarction with aspirin therapy: 2.0 - 3.0For acute myocardial infarction without aspirin therapy: 3.0 - 4.0For patients with mechanical prosthetic heart valves: 2.5 - 3.5 02/26/2025 10:4 7 PM EDT 02/26/2025 10:50 PM EDT Generic External Data Provider LAB BLOOD ORDERAB LES Final Result Performing Organization Address [facility]/ZIP Co de Phone Number [facility] [address] [place] [phone] * Magnesium (02/26/2025 10:47 PM EDT) [facility] Magnesium 1.9 1.6 - 2.6 mg/dL [facility] 02/26/2025 10:4 7 PM EDT 02/26/2025 10:50 PM EDT [employer] External Data Provider LAB BLOOD ORDERAB LES Final Result Performing Organization Address [facility] de Phone Number [facility] [address] [place] [phone] * (ABNORMAL) Comprehensive Metabolic Panel (02/26/2025 10:47 PM EDT) Pathologist [facility] Sodium 143 135 - 145 mmol/L [facility] Potassium 3.7 3.3 - 5.1 mmol/L [facility] Chloride 112(H) 96 - 108 mmol/L [facility] Carbon Dioxide 26 22 - 29 mmol/L [facility] Anion Gap 9(L) 12 - 20 [facility] Urea Nitrogen (BUN) 12 9 - 16 mg/dL [facility] Creatinine, Serum 0.90 0.5 - 1.4 mg/dL [facility] Creatinine Clr Calc Pharmacy 91.3 [facility] Comment:eGFR (calculated fro m the MDRD study equation) and eCrCl(calculated from the Cockcroft-Gault equation) are based ondifferent parameters and may not yield comparable results.If eCrCl result is absurd, please check patient'sheight/weight. Estimated Glomerular Filt Rate >60 [facility] Comment:Chronic Kidney Disea se: Estimated GFR < 60 mL/min/1.61n4Ancltb Kidney Disease: Estimated GFR < 15 mL/min/1.73m2 Glucose 144(H) 60 - 115 mg/dL [facility] Calcium 8.5 8.4 - 10.2 mg/dL [facility] Bilirubin, Total 0.3 0.0 - 1.0 mg/dL [facility] Aspartate Amino Transferase 25 5 - 37 U/L [facility] Alanine Aminotransferase 17 0 - 40 U/L [facility] Total Protein 6.2(L) 6.5 - 8.0 g/dL [facility] Albumin Level 3.7 3.5 - 5.0 g/dL [facility] Alkaline Phosphatase 65 39 - 117 U/L [facility] 02/26/2025 10:4 7 PM EDT 02/26/2025 10:50 PM EDT us Generic External Data Provider LAB BLOOD ORDERAB LES Final Result [facility] [address] [place] [phone] * (ABNORMAL) Lipid Panel with Reflex to Direct LDL (09/14/2024 10:00 AM EDT) Triglycerides 107 <150 mg/dL [facility] Comment:Desirable Triglyceri de: less than 150 mg/dLBorderline High Triglyceride 150-199 mg/dLHigh Triglyceride: 200-499 mg/dLVery High Triglyceride: greater than or equal to 5OO mg/dL Cholesterol 147 <200 mg/dL [facility] Comment:Desirable Cholestero l: less than 200 mg/dLBorderline High Cholesterol: 200-239 mg/dLHigh Cholesterol: greater than 239 mg/dL LDL Cholesterol Calculated 87 <100 mg/dL [facility] Comment:Desirable LDL: less than 100 mg/dLNear Optimal/Above Optimal LDL: 110- 129 mg/dLBorderline High LDL: 130-159 mg/dLHigh LDL: 160-189 mg/dLVery High LDL: greater than or equal to 190 mg/dL HDL Cholesterol 39(L) >40 mg/dL [facility] Comment:Desirable HDL: great er than 40 mg/dL Note: This HDL assay may give artificially low results in patients with liver disease. Blood 09/14/2024 10:0 0 AM EDT 09/14/2024 11:32 AM EDT us Ana Paula Davidson MD LAB BLOOD ORDERABLES Final Resul t Performing Organization Address City/State/[facility] Co de Phone Number [facility] [address] [place] [phone] * CT Lung Screening Low dose (10/15/2023 10:41 AM EDT) Anatomical Region Laterality Modality Lung Computed Tomogra phy 10/15/2023 10:4 1 AM EDT Narrative 11/05/2023 2:57 PM EDT [address] [address] [address] Scan Report Signed Patient: Michael Ramírez R#: [id number] : 1960 Acct:[id number] Age/Sex: 63 / M ADM Date: 10/15/23 Loc: HO.CT Attending Dr: Priyanka Garcia SAL[employer] REPRESENTATIVE [employer] Ordering Physician: Priyanka Garcia NP Date of Service: 10/15/23 Procedure(s): CT lung screening Accession Number(s): [id number] cc: Ana Paula Davidson MD; Priyanka Garcia [...] for CT CHEST LOW DOSE CANCER SCREENING ([id number]) can be placed. Dictated By: Epifanio Dumont MD Signed By: <Electronically signed by Epifanio Dumont MD in OV> 11/05/23 1453 DD/ 1041 TD/TT: Production Machine Tender: SS Procedure Note Donotuseinterpreter, Image - 11/05/[address] [address] [address] Scan Report Signed Patient: Sin Ramírez R#: [id number] : 9Acct:[id number] Age/Sex: 63 / MADM Date: 10/15/23 Loc: HO.CT Attending Dr: Priyanka Garcia NP Ordering Physician: Priyanka Garcia NP Date of Service: 10/15/23 Procedure(s): CT lung screening Accession Number(s): [id number] cc: Ana Paula Davidson MD; Priyanka Garcia [...] for CT CHEST LOW DOSE CANCER SCREENING ([id number]) can be placed. Dictated By: Epifanio Dumont MD Signed By: <Electronically signed by Epifanio Dumont MD in OV> 11/05/23 1453 DD/ 1041 TD/TT: Production Machine Tender: JONATHAN [facility] External Provider IMG CT PROCEDURES Final Result * HEPATITIS C ANTIBODY RFLX (05/17/2019 10:00 AM EST) HEPATITIS C ANTIBODY NONREACTIVE NONREACTIVE [facility] Comment: Antibodies to HCV not detected; does not exclude early acute HCV infection. 05/17/2019 10:0 0 AM EST Ana Paula Davidson MD HISTORICAL/NON ORDERABLE LABS Fi nal Result [facility] [address] from Last 3 Months or Most Recently Relevant to Health Maintenance Insurance [facility] STANDARD MEDICARE DENTAL-[facility] MEDICAID STAND ADULT Care Teams Vehicle Mechanic Relationship Specialty Start Date End Date Ana Paula Davidson MD [address] [place] [address] PCP - General Family Medicine 05/03/18
--- OUTSIDE RECORDS SUMMARY | 2025-02-26 23:53 | XMS_ITS | Encounter Summary ---
Author Organization [employer] Address [address] [facility] [address] [place] [address] Care Team Providers Care Date Night Sitter Name Role Phone Ana Paula Davidson MD Primary Care Provider [phone] Reason for Visit * Reason Onset Date Comments fyi 02/22/2025 Encounter Details Date Type Department Care Team ([facility] st Contact Info) Description 02/22/2025 Telephone [facility] MEDICINE [address] [place], [place] [phone] Ana Paula Davidson MD [address] [place], [place] [phone] fyi Social History Tobacco Use Types Packs/Day Years [...] encounter Miscellaneous Notes * Telephone Encounter - Cielo Frederick RN - 02/26/2025 4:17 PM EDT Return call placed to Blanca at [facility] who confirmed that they will be going out to see the pt for one final attempt tomorrow. The [facility] has never met the pt to establish care and this is the last and final attempt they will make to see the pt. The pt was seen in office today by Dr. Vang and prescribed Coumadin 5 MG daily and advised to continue with Lovenox. Pt had an order put in for an INR blood draw but still has yet to be collected. (No POCT done in office) Dr. Plunkett wants [facility] to check his INR at home and states that she informed mira. I also informed the [facility] ofthis and they are happy to collect it but will not if the pt does not receive them tomorrow. RN advised Blanca at the [facility] that this information will be sent to PCP for review. * Telephone Encounter - Daniela Langford NP - 02/25/2025 2:49 PM EDT 02/25/24- phone call from [facility] (erik visiting nurse) , pt declined VNA on sat 02/24, second decline.He had plans and was not at home. Has not yet had INR. FYI to pcp * Telephone Encounter - Valarie Torres RN - 02/23/2025 2:42 PM EDT Spoke with Blanca at [facility]. She said the pt was scheduled for an initial visit today for [facility] services for INR management (every other day) however he declined the visit. They will try again tomorrow. She is concerned because the discharge paperwork includes orders for INR for 2 weeks however the orders are dated 10/2023. She said the coumadin clinic will not see the pt until he is evaluated by PCP. Advised her will send urgent message to PCP to review situation and advise as needed. Advised her to utilize [facility] audiovisual production specialist service for assistance with INR as needed over the weekend. Called pt, received verbal consent to speak with pt's son Michael Loera. Son states that pt did not move out of the area. Advised them that [facility] is trying to start services, explained the importance of having VNA come to check INR to ensure blood is at safe level, informed them that VNA will try to visit again tomorrow and to expect call. Scheduled pt for HDF with Dr. Plunkett 02/26/25, pt also has 03/06/25 appointment scheduled with . Pt and son state they have not picked up Lovenox or new coumadin Rx yet, advised them to go [facility] toget these medications and to have them ready for [facility]NA visit. Son verbalized understanding. * Telephone Encounter - Sushma Austin - 02/22/2025 3:21 PM EDT Tc from Blanca at [facility] seen at [facility] stating pt complaining of not being able too sleep for over a month. Nurses checked pt INR and it was at 1.1 . Pt has not been taking warfarin (Coumadin) 5MG tablet . Contact Blanca at [phone] documented in this encounter Plan of Treatment Upcoming Encounters Date Type Department Care Team (Late st Contact Info) Description 03/06/2025 9:30 AM EST Office Visit [facility] MEDICINE [address] [place] [address] Ana Paula Davidson MD [address] [place] [phone] documented as of this encounter Visit Diagnoses Diagnosis History of aortic aneurysm repair- Primary Other postprocedural status documented in this encounter Additional Health Concerns Assessment Noted Time PHQ-9 Depression Total Score: 0 09/15/19 25 9:12 AM EDT documented as of this encounter Care Teams Date Night Sitter Relationship Specialty Start Date End [place] [phone] PCP - General Family Medicine 05/03/18 documented as of this encounter
--- OUTSIDE RECORDS SUMMARY | 2025-02-26 23:53 | XMS_ITS | Encounter Summary ---
Author Organization [employer] Address [address] [facility] [address] [place] [address] Care Team Providers Care Creative Producer Name Role Phone Ana Paula Davidson MD Primary Care Provider [phone] Encounter Details Date Type Department Care Team (Late st Contact Info) Description 02/26/2025 Orders Only GENERIC EXTERNAL DATA DEPARTMENT Provider, Generic External Data Social History Tobacco Use Types Packs/Day Years [...] Description 03/06/2025 9:30 AM EST Office Visit [facility] MEDICINE [address] [place] [address] Ana Paula Davidson MD [address] [place] [address] documented as of this encounter Procedures Procedure Name Priority Date/Time Associated Diagnosis Comments CBC WITH AUTO DIFFERENTIAL Routine 02/26/2025 10:47 PM EDT PROTHROMBIN TIME-INR Routine 02/26/2025 10:47 PM EDT MAGNESIUM Routine 02/26/2025 10:47 PM EDT COMPREHENSIVE METABOLIC PANEL Routine 02/26/2025 10:47 PM EDT documented in this encounter Results * Prothrombin Time-INR (02/26/2025 10:47 PM EDT) Prothrombin Time 12.0 10.9 - 12.4 SEC [facility] INTERNATIONAL NORM RATIO 1.0 0.9 - 1.1 [facility] Comment:INTERNATIONAL NORMAL IZED RATIO (INR) [...] ORDERAB LES Final Result Performing Organization Address City/[facility]/ZIP Co de Phone Number [facility] [address] [place] [address] [phone] * Magnesium (02/26/2025 10:47 PM EDT) Pathologist [facility] Magnesium 1.9 1.6 - 2.6 mg/dL [facility] 02/26/2025 10:4 7 PM EDT 02/26/2025 10:50 PM EDT Generic External Data Provider LAB BLOOD ORDERAB LES Final Result Performing Organization Address [facility] Co de Phone Number [facility] [address] [place] [phone] [phone] * (ABNORMAL) Comprehensive Metabolic Panel (02/26/2025 10:47 PM EDT) Pathologist [facility] Sodium 143 135 - 145 mmol/L [facility] Potassium 3.7 3.3 - 5.1 mmol/L [facility] Chloride 112(H) 96 - 108 mmol/L [facility] Carbon Dioxide 26 22 - 29 mmol/L [facility] Anion Gap 9(L) 12 - 20 [facility] Urea Nitrogen (BUN) 12 9 - 16 mg/dL [facility] Creatinine, Serum 0.90 0.5 - 1.4 mg/dL [facility] Creatinine Clr Calc Pharmacy 91.3 [facility] Comment:eGFR (calculated fro m the MDRD study equation) and eCrCl(calculated from the Cockcroft-Gault equation) are based ondifferent parameters and may not yield comparable results.If eCrCl result is absurd, please check patient'sheight/weight. Estimated Glomerular Filt Rate >60 [facility] Comment:Chronic Kidney Disea se: Estimated GFR < 60 mL/min/[id number] Kidney Disease: Estimated GFR < 15 mL/min/1.73m2 Glucose 144(H) 60 - 115 mg/dL [facility] Calcium 8.5 8.4 - 10.2 mg/dL [facility] Bilirubin, Total 0.3 0.0 - 1.0 mg/dL [facility] Aspartate Amino Transferase 25 5 - 37 U/L [facility] Alanine Aminotransferase 17 0 - 40 U/L [facility] Total Protein 6.2(L) 6.5 - 8.0 g/dL [facility] Albumin Level 3.7 3.5 - 5.0 g/dL [facility] Alkaline Phosphatase 65 39 - 117 U/L [facility] 02/26/2025 10:4 7 PM EDT 02/26/2025 10:50 PM EDT us Generic External Data Provider LAB BLOOD ORDERAB LES Final Result [facility] [address] [place] [phone] * (ABNORMAL) CBC auto differential (02/26/2025 10:47 PM EDT) White Blood Count 7.2 4.8 - 10.8 X10*3/uL [facility] Red Blood Count 4.64 4.60 - 5.80 X10*6/uL [facility] Hemoglobin 14.3 14.0 - 18.0 g/dl [facility] Hematocrit 43.5 42.0 - 52.0 % [facility] Mean Corpuscular Volume 93.8 80.0 - 98.0 fL [facility] Mean Corpuscular Hemoglobin 30.8 27.0 - 33.0 pg [facility] Mean Corpuscular HGB Conc 32.9 31.0 - 36.0 g/dl [facility] Red Cell Distribution Width 13.1 11.0 - 16.0 % [facility] Platelet Count 124(L) 160 - 400 X10*3/uL [facility] Mean Platelet Volume 11.4 9.4 - 12.4 fL [facility] Neutrophils Percent Auto 62.4 45 - 73 % [facility] Imm Gran Pct Auto 0.3 0.0 - 0.4 % [facility] Lymphocytes Percent Auto 20.6 20 - 40 % [facility] Monocytes Percent Auto 13.7(H) 2 - 11 % [facility] Eosinophils Percent Auto 2.7 0 - 4 % [facility] Basophils Percent Auto 0.3 0 - 2 % [facility] NRBC Pct Auto 0.0 0.0 - 0.2 /100WBC [facility] Neutrophils Absolute Auto 4.5 2.0 - 8.3 x10*3/uL [facility] Imm Gran Abs Auto 0.02 0.00 - 0.03 X10*3/uL [facility] Lymphocytes Absolute Auto 1.5 1.2 - 4.9 X10*3/uL [facility] Monocytes Absolute Auto 1.0 0.1 - 1.2 X10*3/uL [facility] Eosinophils Absolute Auto 0.2 0.0 - 0.4 X10*3/uL [facility] Basophils Absolute Auto 0.0 0.0 - 0.2 X10*3/uL [facility] NRBC Abs Auto 0.000 0.0 - 0.012 X10*3/uL [facility] 02/26/2025 10:4 7 PM EDT 02/26/2025 10:50 PM EDT us Generic External Data Provider LAB BLOOD ORDERAB LES Final Result [facility] [address] [place] [phone] documented in this encounter Visit Diagnoses Not on filedocumented in this encounter Additional Health Concerns Assessment Noted Time PHQ-9 Depression Total Score: 0 09/15/19 25 9:12 AM EDT documented as of this encounter Care Teams Creative Producer Relationship Specialty Start Date End Date Ana Paula Davidson MD [address] [place] [phone] PCP - General Family Medicine 05/03/18 documented as of this encounter
--- NOTE | 2025-02-27 02:16 | ED_ITS ---
HPI - Anxiety General Chief Complaint: Anxiety Stated Complaint: anxiety, was given meds dont work Time Seen by Provider: 02/27/25 01:09 Source: patient Mode of arrival: ambulatory Limitations: language barrier History of Present Illness ED Provider: Dr. Eleanor Quarles HPI narrative: 64-year-old male with a history of insomnia, cardiomyopathy, CHF, on warfarin, COPD, continued tobacco use presenting with difficulty sleeping, feelings of anxiety. Patient was recently transition from warfarin due to a subtherapeutic INR to Lovenox bridging. Admits that this is giving him anxiety. Had his INR checked yesterday which was reportedly low. He was confused on if he should take his Coumadin again today or if you should wait to see his doctor as scheduled tomorrow. He denies chest pain or shortness of breath. Has been feeling relatively well aside from being unable to sleep tonight. This has been an ongoing issue for him. No reported caffeine use. Denies other illicit substance use. Lives alone. Denies SI or HI. Related Data Home Medications ?Medication ?Instructions ?Recorded ?Confirmed folic acid 1 mg tablet 1 mg PO DAILY 07/24/2102/22 metoprolol succinate 50 mg 50 mg PO DAILY 07/24/21 tablet,extended release 24 hr tiotropium bromide 18 mcg capsule 1 cap inhalation DILSHAD LY 09/12/21 02/22/25 with inhalation device (Spiriva with HandiHaler) blood pressure test kit-large #1 ea 02/05/23 10/18/23 losartan 25 mg tablet 12.5 mg PO DAILY 02/05/23 rosuvastatin 5 mg tablet 5 mg PO DAILY 02/05/2302/22 cyanocobalamin (vitamin B-12) 1,000 mcg PO QAM 4 02/22/25 1,000 mcg tablet Previous Rx's ?Medication ?Instructions ?Recorded warfarin 5 mg tablet 5 mg PO DAILY #90 tabs 02/01 albuterol sulfate 90 mcg/actuation 2 puff inhalation Q 4-6H PRN 07/29/21 aerosol inhaler shortness of breath or wheez ing 30 days #1 ea aspirin 81 mg tablet,delayed 81 mg PO DAILY #90 tabs 0 09/12/21 release enoxaparin 150 mg/mL subcutaneous 135 mg (0.9 mL) subc ut DAILY #10 mL 02/22/25 syringe (Lovenox) trazodone 50 mg tablet 50 mg PO BEDTIME #30 tabs melatonin 3 mg tablet 3 mg PO BEDTIME PRN sleep #3 0 tabs 02/27/25 penicillin V potassium 500 mg 500 mg PO QID #27 tabs 1 05/05/24 tablet Allergies Allergy/AdvReac Type Severity Reaction Status Date / Time No Known Allergies Allergy Verified 03/07/25 06:43 Review of Systems 2 Review of Systems: as per HPI, full review of systems performed and negative but for the above mentioned pertinent positives and negatives. [facility] Past Medical History Medical History CAD (coronary artery disease) Nonischemic cardiomyopathy Cardiomyopathy LBBB (left bundle branch block) Hypertension Hyperlipidemia Pulmonary nodular amyloidosis Pulmonary nodule Nicotine dependence, cigarettes, uncomplicated Emphysema/COPD Chronic cough Diverticulitis Vitamin B12 deficiency Surgical History History of aortic valve replacement History of aortic aneurysm repair History of elbow surgery Family History Family History Mother No pertinent family history Father No pertinent family history Social History Social History Household Members: None Alcohol intake: never Patient Tobacco Use Status: Current everyday Tobacco user Cigarette Packs Per Day: 1 Years Smoked: (onset 16yo, 1ppd x 47yrs, 40+PYH) Advance Directives Date on File: 07/14/21 Do you have a plan to hurt others: No Plan service: No Physical Exam 2 Exam: Exam: GENERAL: Chronically ill-appearing, conversant, no acute distress. SKIN: Normal skin color for ethnicity, warm, dry, no rashes noted. HEENT: Normocephalic, atraumatic, no stridor, posterior oropharynx nonerythematous, EOMI. NECK: Soft, supple, full ROM, midline structures nontender, no step-offs, no deformities, no lymphadenopathy. CHEST: Heart regular rate and rhythm, no murmurs, symmetric chest rise and fall. PULMONARY: Clear to auscultation bilaterally, no labored breathing, no wheezes/rhales/ rhonchi. ABDOMINAL: Soft, nondistended, nontender, positive bowel sounds in all quadrants. : Deferred. MUSCULOSKELETAL: Normal tone, full range of motion, no deformities, no peripheral edema. NEURO: Alert and oriented to person, CN II through XII intact, no focal neurologic deficits. PSYCHIATRIC: Flat affect, fluid speech, appropriate demeanor. Vital Signs: Vital Signs: Last Vital Signs Temp 97.8 F 02/27/25 02:36 Pulse 64 02/27/25 02:36 Resp 16 02/27/25 02:36 BP 153/80 H 02/27/25 02:36 Pulse Ox 98 02/27/25 02:36 O2 Del Method Room Air 02/27/25 02:36 BMI result Body Mass Index 29.7 Medical Decision Making Medical Decision Making [facility] Narrative: Patient presenting with chief complaint of heart palpitations, insomnia and anxiousness. Differential diagnosis includes CHF exacerbation, pulmonary edema, heart palpitations, anxiety, insomnia, electrolyte abnormality, arrhythmia, ACS, thyroid dysfunction, substance use including stimulants such as caffeine, amphetamines, drug toxicity, among many others. Patient's workup today has been reassuring. He is low on his INR and I encouraged him to take his warfarin as prescribed. He has an appointment with the Coumadin Clinic later today. Patient was reassured and requested to be discharge. Using shared decision making, plan for discharge home to follow-up with primary care and/or specialist. Patient understands and agrees with plan for discharge. Discharged home in stable condition. Differential Diagnosis Differential Diagnoses: The differential diagnosis associated with the presentation includes (as above) Admission/Observation Consideration of admission/observation: Escalation of care including admission/observation considered Lab Data [facility] Lab Attestation statement: I reviewed the patient's lab results. 02/26/25 22:47 02/26/25 22:47 Labs: Lab Results 02/26/25 Range/Units 22:47 WBC 7.2 (4.8-10.8) X10*3/uL RBC 4.64 (4.60-5.80) X10*6/uL Hgb 14.3 (14.0-18.0) g/dl Hct 43.5 (42.0-52.0) % MCV 93.8 (80.0-98.0) fL MCH 30.8 (27.0-33.0) pg MCHC 32.9 (31.0-36.0) g/dl RDW 13.1 (11.0-16.0) % Plt Count 124 L (160-400) X10*3/uL MPV 11.4 (9.4-12.4) fL Immature Gran % (Auto) 0.3 (0.0-0.4) % Neut % (Auto) 62.4 (45-73) % Lymph % (Auto) 20.6 (20-40) % [place] % (Auto) 13.7 H (2-11) % Eos % (Auto) 2.7 (0-4) % Baso % (Auto) 0.3 (0-2) % Lymph # (Auto) 1.5 (1.2-4.9) X10*3/uL [place] # (Auto) 1.0 (0.1-1.2) X10*3/uL Eos # (Auto) 0.2 (0.0-0.4) X10*3/uL Baso # (Auto) 0.0 (0.0-0.2) X10*3/uL Abs Immat Gran (auto) 0.02 (0.00-0.03) X10*3/uL Absolute Neuts (auto) 4.5 (2.0-8.3) x10*3/uL Absolute Nucleated RBC 0.000 (0.0-0.012) X10*3/uL Nucleated RBC % (auto) 0.0 (0.0-0.2) /100WBC PT 12.0 (10.9-12.4) SEC INR 1.0 (0.9-1.1) Sodium 143 (135-145) mmol/L Potassium 3.7 (3.3-5.1) mmol/L Chloride 112 H (96-108) mmol/L Carbon Dioxide 26 (22-29) mmol/L Anion Gap 9 L (12-20) BUN 12 (9-16) mg/dL Creatinine 0.90 (0.5-1.4) mg/dL Estim Creat Clear Calc 91.3 Estimated GFR > 60 Random Glucose 144 H (60-115) mg/dL Calcium 8.5 (8.4-10.2) mg/dL Magnesium 1.9 (1.6-2.6) mg/dL Total Bilirubin 0.3 (0.0-1.0) mg/dL AST 25 (5-37) U/L ALT 17 (0-40) U/L Alkaline Phosphatase 65 (39-117) U/L Total Protein 6.2 L (6.5-8.0) g/dL Albumin 3.7 (3.5-5.0) g/dL External Record Review External record reviewed: Inpatient record and Outpatient record Chronic Conditions Patient?s care impacted by: Other (Cardiomyopathy, CHF) Social Determinants Patient?s care significantly limited by Social Determinants of Health including: Problems related to primary support group and Other Social Determinant of Health Discharge Plan Discharge Clinical Impression: Insomnia, Subtherapeutic anticoagulation Patient Disposition: Home, Self-Care Instructions: Insomnia (ED), Safe Use of Anticoagulants (ED) Additional Instructions: Keep taking your Lovenox injections as well as your Coumadin pills until you see your doctor next week. Return to the hospital with any new or worsening symptoms. This includes: Chest pain, fevers greater than 100?, worsening shortness of breath, any new symptom that concerns you. Call 911 with any medical emergency. Prescriptions: New melatonin 3 mg tablet 3 mg PO BEDTIME PRN (Reason: sleep) Qty: 30 0RF No Action metoprolol succinate 50 mg tablet extended release 24 hr 50 mg PO DAILY enoxaparin [Lovenox] 150 mg/mL syringe 135 mg subcut DAILY Qty: 10 0RF trazodone 50 mg tablet 50 mg PO BEDTIME Qty: 30 0RF penicillin V potassium 500 mg tablet 500 mg PO QID Qty: 27 0RF warfarin 5 mg tablet 5 mg PO DAILY Qty: 90 0RF Protocol: Dose Management Condition: Wednesday (Week One) Dose/Route: 7.5 mg Instruction: 1.5 x 5 mg tablets Condition: Wednesday Dose/Route: 7.5 mg Instruction: 1.5 x 5 mg tablets Condition: Wednesday Dose/Route: 7.5 mg Instruction: 1.5 x 5 mg tablets Condition: Wednesday Dose/Route: 5 mg Instruction: 1 x 5 mg tablet Condition: Dose/Route: 7.5 mg Instruction: 1.5 x 5 mg tablets Condition: Wednesday Dose/Route: 7.5 mg Instruction: 1.5 x 5 mg tablets Condition: Wednesday Dose/Route: 5 mg Instruction: 1 x 5 mg tablet Condition: Wednesday (Week Two) Dose/Route: 7.5 mg Instruction: 1.5 x 5 mg tablets Condition: Wednesday Dose/Route: 7.5 mg Instruction: 1.5 x 5 mg tablets Condition: Wednesday Dose/Route: 7.5 mg Instruction: 1.5 x 5 mg tablets Condition: Wednesday Dose/Route: 5 mg Instruction: 1 x 5 mg tablet Condition: Dose/Route: 7.5 mg Instruction: 1.5 x 5 mg tablets Condition: Wednesday Dose/Route: 7.5 mg Instruction: 1.5 x 5 mg tablets Condition: Wednesday Dose/Route: 5 mg Instruction: 1 x 5 mg tablet Protocol Text: Adjustment Start Date: Wednesday10/18/23 INR Value: 2.2 INR Date: 10/18/23 Recheck Date: 10/25/23 folic acid 1 mg tablet 1 mg PO DAILY Spiriva with HandiHaler 18 mcg capsule, w/inhalation device 1 cap inhalation DAILY albuterol sulfate 90 mcg/actuation HFA aerosol inhaler 2 puff inhalation Q4-6H PRN (Reason: shortness of breath or wheezing) 30 Days Qty: 1 3RF aspirin 81 mg tablet,delayed release (DR/EC) 81 mg PO DAILY Qty: 90 3RF cyanocobalamin (vitamin B-12) 1,000 mcg tablet 1,000 mcg PO QAM (DME) blood pressure test kit-large Kit See Rx Instructions .ROUTE DIRECTED Qty: 1 Rx Instructions: As directed rosuvastatin 5 mg tablet 5 mg PO DAILY losartan 25 mg tablet 12.5 mg PO DAILY Interventions: ED Discharge Assessment Last Done: 02/27/25 02:36 Discharge Date/Time: 02/27/25 02:37 Print Language: Hungarian
[2025-02-27 02:29] VITALS: BP 153/80; PULSE 64; RESP 16; TEMP 36.6; O2SAT 98
--- NOTE | 2025-02-27 02:35 | PC.NURSE ---
reviewed discharge instructions with pt. pt verbalized understanding, no sign of distress. pt had a steady gait.
--- NOTE | 2025-02-27 02:35 | PC.NURSE ---
notified primary nurse.
[2025-02-27 02:36] VITALS: BP 153/80; PULSE 64; RESP 16; TEMP 36.6; O2SAT 98
== END 2025-02-27 02:37 | disposition home or self-care (01) ==
PROVIDERS: Emergency Provider Emergency Medicine; PCP Family Medicine
DX: G47.00 Insomnia, unspecified (principal); R79.1 Abnormal coagulation profile; F41.9 Anxiety disorder, unspecified; J44.9 Chronic obstructive pulmonary disease, unspecified; I42.9 Cardiomyopathy, unspecified; F17.200 Nicotine dependence, unspecified, uncomplicated; Z71.6 Tobacco abuse counseling; Z79.01 Long term (current) use of anticoagulants; Z79.899 Other long term (current) drug therapy
CPT/HCPCS: 36415; 80053; 83735; 85025; 85610; 99283; 99284

== ENCOUNTER 2025-03-05 00:55 | Emergency (ER) | payer MEDICARE, MEDICAID, SELFPAY ==
--- OUTSIDE RECORDS SUMMARY | 2025-02-28 13:30 | XMS_ITS | Encounter Summary ---
Author Organization [employer] Address [address] [facility] [address] [place] [address] Care Team Providers Care Press Setup Operator Name Role Phone Ana Paula Davidson MD Primary Care Provider [phone] Encounter Details Date Type Department Care Team (Latest Contact Info) Description 02/28/2025 2:30 PM EDT Clinical Support [facility] MEDICINE [address] [place] [address] Valarie Torres, RN Subtherapeutic international normalized ratio (INR) Social History [...] Progress Notes * Valarie Torres RN - 02/28/2025 2:30 PM EDT Pt is a 64yo korean speaking male who presents to the office for POCT INR and Coumadin Dosing. Yi/[place] Islander interpretation provided by TERESO Rios. S: Pt is due for PT/INR today due to hx of artificial heart valve. Pt's target INR is 2.5-3.5. Pt previously was getting INR dosing through primary care until 11/14/24 after which he stated he was moving to [place]. Pt was admitted at [facility] 02/22/25 and discharged on 10 day lovenox bridge and coumadin dosing 7.5mg Wed////Wed, 5mg W/Wed. Visiting nursing services through [facility] were arranged but pt declined services. Pt then went back to [facility] ED 02/26/25, INR was 1.0. Per Dr. Davidson, pt to have INR drawnat [facility] until stabilized. O: INR today in office is: 2.0. A: Hx of artificial heart valve Risk for blood clot due to sub therapeutic INR P: Pt is to continue same dose (lovenox 135mg and coumadin 7.5mg). Pt to present to [facility] tomorrow 03/01/25 for recheck. Pt verbalized understanding. documented in this encounter Plan of Treatment Upcoming Encounters Date Type Department Care Team (Latest Contact Info) Description 03/05/2025 11:00 AM EST Anticoagulation - Warfarin Visit [facility] MEDICINE [address] [place], [place] [phone] 03/06/2025 9:30 AM EST Office Visit [facility] MEDICINE [address] [place] [phone] Ana Paula Davidson MD [address] [place] [phone] documented as of this encounter Procedures Procedure Name Priority Date/Time Associated Diagnosis Comments POCT INR Routine 02/28/2025 4:02 PM EDT documented in this encounter Results * (ABNORMAL) POCT INR manually resulted (02/28/2025 4:02 PM EDT) Protime INR 2.0(A) 2.5 - 3.5 Blood Capillary blood specimen / Unknown 02/28/2025 4:02 PM EDT Ana Paula Davidson MD POINT OF CARE TEST ENTER/EDIT OR DERABLES Final Result documented in this encounter Visit Diagnoses Diagnosis Subtherapeutic international normalized ratio (INR) documented in this encounter Additional Health Concerns Assessment Noted Time PHQ-9 Depression Total Score: 0 09/15/19 25 9:12 AM EDT documented as of this encounter Care Teams Press Setup Operator Relationship Specialty Start Date End Date Ana Paula Davidson MD [address] [place] [phone] PCP - General Family Medicine 05/03/18 documented as of this encounter
--- OUTSIDE RECORDS SUMMARY | 2025-03-01 09:00 | XMS_ITS | Encounter Summary ---
Author Organization [employer] Address [address] [facility] 7[address] [place] [address] Care Team Providers Care Aviation Program Manager Name Role Phone Ana Paula Davdison MD Primary Care Provider [phone] Encounter Details Date Type Department Care Team (Latest Contact Info) Description 03/01/2025 10:00 AM EDT Clinical Support [facility] [address] [place] [address] Valarie Torres, RN Subtherapeutic international normalized ratio [...] Progress Notes * Valarie Torres RN - 03/01/2025 10:00 AM EDT Pt is a 64yo brazilian speaking male who presents to the office for POCT INR and Coumadin Dosing. [place] interpretation provided by TERESO Salinas. S: Pt is due for PT/INR today due to hx of artificial heart valve. Pt's target INR is 2.5-3.5. Pt previously was getting INR dosing through primary care until 11/14/24 after which he stated he was moving to [place]. Pt was admitted at [facility] 02/22/25 and discharged on 10 day lovenox bridge and coumadin dosing 7.5mg Wed////Wed, 5mg W/Wed. Visiting nursing services through [facility] were arranged but pt declined services. Pt then went back to [facility] ED 02/26/25, INR was 1.0. Per Dr. Davidson, pt to have INR drawnat [facility] until stabilized. O: INR today in office is: 2.2 A: Hx of artificial heart valve Risk for blood clot due to sub therapeutic INR P: Pt is to continue same dose (lovenox 135mg and coumadin 7.5mg). Pt to present to [facility] tomorrow 03/02/25 for recheck. Pt verbalized understanding. documented in this encounter Plan of Treatment Upcoming Encounters Date Type Department Care Team (Latest Contact Info) Description 03/05/2025 11:00 AM EST Anticoagulation - Warfarin Visit [facility] [address] [place] [address] 03/06/2025 9:30 AM EST Office Visit [facility] [address] [facility] [place] [id number] Ana Paula Davidson MD [address] [place], [place] [phone] documented as of this encounter Procedures Procedure Name Priority Date/Time Associated Diagnosis Comments POCT INR Routine 03/01/2025 11:26 AM EDT documented in this encounter Results * (ABNORMAL) POCT INR manually resulted (03/01/2025 11:26 AM EDT) Protime INR 2.2(A) 2.5 - 3.5 Blood Capillary blood specimen / Unknown 03/01/2025 11:26 AM EDT Ana Puala Davidson MD POINT OF CARE TEST ENTER/EDIT OR DERABLES Final Result documented in this encounter Visit Diagnoses Diagnosis Subtherapeutic international normalized ratio (INR) documented in this encounter Additional Health Concerns Assessment Noted Time PHQ-9 Depression Total Score: 0 09/15/19 25 9:12 AM EDT documented as of this encounter Care Teams Aviation Program Manager Relationship Specialty Start Date End Date Ana Paula [place] [address] PCP - General Family Medicine 05/03/18 documented as of this encounter
--- OUTSIDE RECORDS SUMMARY | 2025-03-02 10:00 | XMS_ITS | Encounter Summary ---
Author Organization [employer] Address [address] [facility] 7t [place] [address] Care Team Providers Care Civil Engineering Designer Name Role Phone Ana Paula Davidson MD Primary Care Provider [phone] Encounter Details Date Type Department Care Team (Latest Contact Info) Description 03/02/2025 11:00 AM EDT Clinical Support [facility] [address] [place] [address] Valarie Torres, RN Subtherapeutic international normalized ratio [...] 11:00 AM EDT Pt is a 64yo cuban speaking male who presents to the office for POCT INR and Coumadin Dosing. [place]ican interpretation provided by TERESO Jimenes. S: Pt is due for PT/INR today due to hx of artificial heart valve. Pt's target INR is 2.5-3.5. Per Dr. Davidson, pt to have INR drawn at [facility] until stabilized. Pt was supposed to take [...] 11:00 AM EST Anticoagulation - Warfarin Visit [facility] [address] [place] [address] 03/06/2025 9:30 AM EST Office Visit [facility] [address] [place] [address] Ana Paula Davidson MD [address] [place] [address] documented as of this encounter Procedures Procedure [...] documented as of this encounter Care Teams Civil Engineering Designer Relationship Specialty Start Date End Date Ana Paula Davidson MD [address] [place] [address] PCP - General Family Medicine 05/03/18 documented as of this encounter
[2025-03-05 01:05] VITALS: BP 131/75; PULSE 70; RESP 18; TEMP 36.5; O2SAT 98; BMI 29.7
--- OUTSIDE RECORDS SUMMARY | 2025-03-05 01:21 | XMS_ITS | Encounter Summary ---
Author Organization [employer] Address [address] [facility] [address] [place] [address] Care Team Providers Care Lathe Set Up Person Name Role Phone Ana Paula Davidson MD Primary Care Provider [phone] Reason for Visit * Reason Onset Date Comments VNA communication 02/26/2025 Encounter Details Date Type Department Care Team ([facility] st Contact Info) Description 02/26/2025 Telephone [facility] [address] [place], [place] [phone] Christy Montejo RN [address] [place], [place] [phone] VNA communication Social History Tobacco Use Types [...] encounter Miscellaneous Notes * Telephone Encounter - Valarie Torres RN - 02/28/2025 10:48 AM EDT Called pt via [employer] [id number]. Pt confirms taking lovenox and coumadin daily, states he did take it today. He states that he never declined VNA services but stated I won't sit around in my apartment all day waiting for them, I can't waste my time. Explained that the visiting nurse is supposed to check his INR frequently since [facility] visit on 02/22/25 for non-therapeutic INR. Pt states he is open to M-Sat INR checks at [facility]. He will come to nurse visit today 02/28/25. Explained that this is a very important commitment and plan will be made for further check in's at today'isit. Pt verbalized understanding. * Telephone Encounter - Valarie Torres RN - 02/27/2025 3:22 PM EDT Spoke to [facility] line operator Leigha. Pt may come into [facility] as an exception on a Wednesday for urgent INR manager technology (for example after ER visit) but it cannot be a regular occurrence as nurses do not perform visit in the [facility] and due to staffing. Called pt to ask if taking lovenox and coumadin and to request INR visits as proposed below by PCP for anticoagulation management. No answer, left voicemail to call back [facility]. Will task to call again. * Telephone Encounter - Jovani Becerra - 02/27/2025 12:06 PM EDT Tc from [facility] reporting that pt will no longer be apart of their care. Pt refused to meet with nurse, did not answer any of their calls. Pt is no longer a mutual pt with [facility]. Any questions contact [facility] at [phone] * Telephone Encounter - Christy Montejo RN - 02/26/2025 1:47 PM EDT TC placed to [facility] as pt. Was referred from hospitalization. They [...] 11:00 AM EST Anticoagulation - Warfarin Visit [facility] [address] [place] [phone] 03/06/2025 9:30 AM EST Office Visit [facility] [address] [place] [address] Ana Paula Davidson MD [address] [place] [phone] documented as of this encounter Visit Diagnoses Not on filedocumented in this encounter Additional Health Concerns Assessment Noted Time PHQ-9 Depression Total Score: 0 09/15/19 25 9:12 AM EDT documented as of this encounter Care Teams Lathe Set Up Person Relationship Specialty Start Date End Date Ana Paula Davidson MD [address] [place] [address] PCP - General Family Medicine 05/03/18 documented as of this encounter
--- OUTSIDE RECORDS SUMMARY | 2025-03-05 01:21 | XMS_ITS | Encounter Summary ---
Author Organization [employer] Address [address] [facility] [address] [place] [address] Care Team Providers Care Critical Care Unit Nurse Name Role Phone Ana Paula Davidson MD Primary Care Provider Encounter Details Date Type Department Care Team (Latest Contact Info) Description 03/02/2025 Travel Social History Tobacco Use Types Packs/Day [...] 11:00 AM EST Anticoagulation - Warfarin Visit [facility] [address] [place] [address] 03/06/2025 9:30 AM EST Office Visit [facility] [address] [place] [phone] Ana Paula Davidson MD [address] [place] [phone] documented as of this encounter Visit Diagnoses Not on filedocumented in this encounter Additional Health Concerns Assessment Noted Time PHQ-9 Depression Total Score: 0 09/15/19 25 9:12 AM EDT documented as of this encounter Care Teams Critical Care Unit Nurse Relationship Specialty Start Date End Date Ana Paula Davidson MD [address] [place] [phone] PCP - General Family Medicine 05/03/18 documented as of this encounter
--- OUTSIDE RECORDS SUMMARY | 2025-03-05 01:21 | XMS_ITS | Clinical Summary ---
Author Organization [employer] Address [address] [facility] 7[address] [place] [address] Care Team Providers Care Property Utilization Officer Name Role Phone Ana Paula Davidson MD Primary Care Provider [phone] Allergies No known active allergies Medications nicotine (Nicoderm, Step 1) 21 MG/24HR patch PLACE 1 PATCH ON THE SKIN EVERY DAY 07/16/19 22 Active torsemide (Demadex) 10 MG tablet Take 1 tablet (10 mg) by mouth Once per day. 90 tablet 3 09/30/19 24 Active Aspirin Low Dose 81 MG EC tabletIndication s:HFrEF (heart failure with reduced ejection fraction) ([facility]) Take 1 tablet (81 mg) [...] & Plan (01/23/2023 6:48 AM EDT): - Gis Programmer: [facility], last seen by Cristy in August 2021 - advised to reschedule appt; pt has a difficulty scheduling appt due to language barrier. Will refer to case management team HFrEF (heart failure with reduced ejection fract ion) 01/23/2023 Assessment & Plan (09/15/2024 6:20 AM EDT): - Gis Programmer: [facility], last seen in Jan 2023 - Last TTE [facility] 2021 LVEF 25-30% - Refer back so that he can update echo and stress test - Resume metoprolol, losartan, rosuvastatin, and ASA - Continue working on modifiable risk factor management Assessment & Plan (02/05/2023 6:18 AM EDT): - Gis Programmer: [facility] - Last TTE [facility] 2021 LVEF 25-30% - continue metoprolol - changing lisinopril to losartan (pt has cough although likely COPD) - changing furosemide to torsemide for long-acting - recommended to follow up with microarray operations vice president tomorrow Assessment & Plan (01/23/2023 6:51 AM EDT): - Gis Programmer: [facility] - Last TTE [facility] 2021 LVEF 25-30% - continue metoprolol - changing lisinopril to losartan (pt has cough although likely COPD) - changing furosemide to torsemide for long-acting - recommended to follow up with microarray operations vice president. History of aortic aneurysm repair 01/23/2023 LBBB [...] 0 - He [place] he belongs to [place], and both his mental and physical health improved after [place]. He [place] planning to move there to [...] Aortic valve repair -continue treatment plan per [facility] anticoagulation clinic Assessment & Plan (01/23/2023 6:21 AM EDT): -indication: Aortic valve repair -continue treatment plan per [facility] anticoagulation clinic Assessment & Plan (05/31/2022 6:21 AM EST): -indication: Aortic valve repair -continue treatment plan per [facility] anticoagulation clinic Anticoagulation goal of INR 2.5 to 3.5 3 Overview (05/26/2022): Patient has not been adherent to INR and coumadin check Tobacco use disorder 05/26/2022 Assessment & Plan (09/15/2024 6:35 AM EDT): Currently smokes 15-20 cigarettes a day - continue working on smoking cessation - previously following with Dr. Kirk at [facility] Pulmonology clinic - last CT in October 2023 Lung RADS 2 - check the status of lung cancer screening CT and appt Assessment & Plan (02/04/2023 12:55 PM EDT): Currently smokes 15 cigarettes a day - continue working on smoking cessation - following with Dr. Kirk at [facility] Pulmonology clinic - last CT in 2021 - check the status of lung cancer screening CT and appt Assessment & Plan (01/23/2023 6:41 AM EDT): - continue working on smoking cessation - following with Dr. Kirk at [facility] Pulmonology clinic - [...] with azithromycin and prednisone -Last seen by tapering machine operator on 07/29/21, prescribed fluticasone / umeclidinium / vilanterol (Trelegy). He had not been using. -Restart Trelegy -Restart Albuterol as rescue -Work on smoking cessation. -Will request lung cancer screening program for his next appointment. Assessment & Plan (02/04/2023 12:56 PM EDT): -Last COPD exacerbation in Jun 2018, treated with azithromycin and prednisone -Last seen by tapering machine operator on 07/29/21, prescribed Trelegy -Continue Trelegy -Continue Albuterol as rescue -Work on smoking cessation. -Advised to reschedule appt Assessment & Plan (01/23/2023 6:49 AM EDT): -Last COPD exacerbation in Jun 2018, treated with azithromycin and prednisone -Last seen by tapering machine operator on 07/29/21, prescribed Trelegy -Continue Trelegy -Continue Albuterol as rescue -Work on smoking cessation. -Advised to reschedule appt Assessment & Plan (05/31/2022 6:17 AM EST): -Last seen by tapering machine operator on 07/29/21 -Photographer News prescribed Trelegy but patient did not receive [...] had been on warfarin -Previously followed by [facility] anti-coagulation clinic -Hx poor adherence to INR check and mediation -discussed about the importance of medication adherence and monitoring INR -Needs SBE prophylaxis for procedure -Restart warfarin 5 mg daily. Recheck in 1 week. Assessment & Plan (02/05/2023 6:18 AM EDT): -Patient is on warfarin -followed by [facility] anti-coagulation clinic -Hx poor adherence to INR check and mediation -discussed about the importance of medication adherence and monitoring INR Assessment & Plan (01/23/2023 6:18 AM EDT): -Patient is on warfarin -followed by [facility] anti-coagulation clinic -Hx poor adherence to INR check and mediation -discussed about the importance of medication adherence and monitoring INR Assessment & Plan (05/31/2022 6:20 AM EST): -Patient is on warfarin -followed by [facility] anti-coagulation clinic -Hx [...] -Continue checking BP at home -Refer to [facility] again Assessment & Plan (05/31/2022 6:19 AM EST): -Goal BP < 140/90 per JNC-8 and < 130/80 per ACC/AHA guideline -2nd measurement was normal -Continue metoprolol succinate 50 mg daily -Continue lisinopril 10 mg daily -Risk factors: tobacco, peripheral vascular disease -Continue working on lifestyle modification and medication adherence. -Continue checking BP at home -Refer to [facility] Obesity 01/27/2012 Resolved Problems Problem Noted Date Diagnosed Date Resolved Date Insomnia 05/26/2022 09/15/2024 Encounters Date Type Department Care Team Description 03/02/2025 11:00 AM EDT Clinical Support [address] [address] Valarie Torres, RN Subtherapeutic international normalized ratio (INR) 03/02/2025 Travel 03/01/2025 10:00 AM EDT Clinical Support [address] [address] Valarie Torres, RN Subtherapeutic international normalized ratio (INR) 03/01/2025 Telephone [facility] [place] [address] Ana Paula Davidson MD lNR orders 03/01/2025 Travel 02/28/2025 2:30 PM EDT Clinical Support [facility] [place] [address] Valarie Torres, RN Subtherapeutic international normalized ratio (INR) 02/28/2025 Travel 02/27/2025 Patient Outreach [address] [address] Ana Paula Davidson MD Pre-visit Planning ([facility] screening was completed on 09/14/2024) 02/27/2025 Results Follow-Up [address] [address] Ana Paula Davidson MD CBC auto differential, Comprehensive Metabolic Panel, Magnesium, Prothrombin Time-INR 02/26/2025 1:00 PM EDT Office Visit [address] [address] Sammie Gibson MD History of artificial heart valve; Primary insomnia; Subtherapeutic international normalized ratio (INR) 02/26/2025 Orders Only GENERIC EXTERNAL DATA DEPARTMENT Provider, Generic External Data 02/26/[address] [address] Christy Montejo RN VNA communication 02/26/2025 Travel 02/23/2025 Patient Outreach [address] [phone] Ana Paula Davidson MD Transition Of Care (Tcm) (HDF unscheduled) 02/22/[address] [address] Ana Paula Davidson MD fyi from Last [...] 11:00 AM EST Anticoagulation - Warfarin Visit [facility] MEDICINE [address] [place] [address] 03/06/2025 9:30 AM EST Office Visit [facility] MEDICINE [address] [place] [phone] Ana Paula Davidson MD [address] [place] [address] Health Maintenance Due Date Last Done Comments [...] POCT INR Routine 03/02/2025 11:30 AM EDT POCT INR Routine 03/01/2025 11:26 AM EDT POCT INR Routine 02/28/2025 4:02 PM EDT ECG 12-LEAD Routine 02/27/2025 9:27 AM EDT History of artificial heart valve PROTHROMBIN TIME-INR Routine 02/26/2025 10:47 PM EDT [...] Recently Relevant to Health Maintenance Results * POCT INR manually resulted (03/02/2025 11:30 AM EDT) Only the most recent of3 resultswithin the time period is included. Protime INR 2.7 2.5 - 3.5 Blood Capillary blood specimen / Unknown 03/02/2025 11:30 AM EDT us Sammie Love MD POINT OF CARE CESILIA T ENTER/EDIT ORDERABLES Final Result * ECG 12 lead (02/27/2025 9:27 AM EDT) Narrative Sammie Gibson MD - 02/27/2025 9:27 AM EDT NSR HR 76 PVCs, intra-atrial conduction delay , LBBB us Sammie Pedro MD ECG ORDERABLES Final Result * (ABNORMAL) CBC auto differential (02/26/2025 10:47 PM EDT) White Blood Count 7.2 4.8 - 10.8 X10*3/uL [facility] Red Blood Count 4.64 4.60 - 5.80 X10*6/uL [facility] Hemoglobin 14.3 14.0 - 18.0 g/dl [facility] Hematocrit 43.5 42.0 - 52.0 % [facility] Mean Corpuscular Volume 93.8 80.0 - 98.0 fL [facility] Mean Corpuscular Hemoglobin 30.8 27.0 - 33.0 pg [facility] Mean Corpuscular HGB Conc 32.9 31.0 - 36.0 g/dl [facility] Red Cell Distribution Width 13.1 11.0 - 16.0 % [facility] Platelet Count 124(L) 160 - 400 X10*3/uL [facility] Mean Platelet Volume 11.4 9.4 - 12.4 fL [facility] Neutrophils Percent Auto 62.4 45 - 73 % [facility] Imm Gran Pct Auto 0.3 0.0 - 0.4 % [facility] Lymphocytes Percent Auto 20.6 20 - 40 % [facility] Monocytes Percent Auto 13.7(H) 2 - 11 % [facility] Eosinophils Percent Auto 2.7 0 - 4 % [facility] Basophils Percent Auto 0.3 0 - 2 % [facility] NRBC Pct Auto 0.0 0.0 - 0.2 /100WBC [facility] Neutrophils Absolute Auto 4.5 2.0 - 8.3 x10*3/uL [facility] Imm Gran Abs Auto 0.02 0.00 - 0.03 X10*3/uL [facility] Lymphocytes Absolute Auto 1.5 1.2 - 4.9 X10*3/uL [facility] Monocytes Absolute Auto 1.0 0.1 - 1.2 X10*3/uL [facility] Eosinophils Absolute Auto 0.2 0.0 - 0.4 X10*3/uL [facility] Basophils Absolute Auto 0.0 0.0 - 0.2 X10*3/uL [facility] NRBC Abs Auto 0.000 0.0 - 0.012 X10*3/uL [facility] 02/26/2025 10:4 7 PM EDT 02/26/2025 10:50 PM EDT us Generic External Data Provider LAB BLOOD ORDERAB LES Final Result Performing Organization Address City/[facility]/ZIP Co de Phone Number [facility] [address] [place] [address] [phone] * Prothrombin Time-INR (02/26/2025 10:47 PM EDT) Prothrombin Time 12.0 10.9 - 12.4 SEC [facility] INTERNATIONAL NORM RATIO 1.0 0.9 - 1.1 [facility] Comment:INTERNATIONAL NORMAL IZED RATIO (INR) [...] ORDERAB LES Final Result Performing Organization Address [facility]/ZIP Co de Phone Number [facility] [address] [place] [phone] * Magnesium (02/26/2025 10:47 PM EDT) Magnesium 1.9 1.6 - 2.6 mg/dL [facility] 02/26/2025 10:4 7 PM EDT 02/26/2025 10:50 PM EDT us Generic External Data Provider LAB BLOOD ORDERAB LES Final Result Performing Organization Address City/[facility]/ZIP Co de Phone Number [facility] [address] [place] [address] [phone] * (ABNORMAL) Comprehensive Metabolic Panel (02/26/2025 10:47 PM EDT) Sodium 143 135 - 145 mmol/L [facility] Potassium 3.7 3.3 - 5.1 mmol/L [facility] Chloride 112(H) 96 - 108 mmol/L [facility] Carbon Dioxide 26 22 - 29 mmol/L [facility] Anion Gap 9(L) 12 - 20 [facility] Urea Nitrogen (BUN) 12 9 - 16 mg/dL [facility] Creatinine, Serum 0.90 0.5 - 1.4 mg/dL [facility] Creatinine Clr Calc Pharmacy 91.3 [facility] Comment:eGFR (calculated fro m the MDRD study equation) and eCrCl(calculated from the Cockcroft-Gault equation) are based ondifferent parameters and may not yield comparable results.If eCrCl result is absurd, please check patient'sheight/weight. Estimated Glomerular Filt Rate >60 [facility] Comment:Chronic Kidney Disea se: Estimated GFR < 60 mL/min/[id number] Kidney Disease: Estimated GFR < 15 mL/min/1.73m2 Glucose 144(H) 60 - 115 mg/dL [facility] Calcium 8.5 8.4 - 10.2 mg/dL [facility] Bilirubin, Total 0.3 0.0 - 1.0 mg/dL [facility] Aspartate Amino Transferase 25 5 - 37 U/L [facility] Alanine Aminotransferase 17 0 - 40 U/L [facility] Total Protein 6.2(L) 6.5 - 8.0 g/dL [facility] Albumin Level 3.7 3.5 - 5.0 g/dL [facility] Alkaline Phosphatase 65 39 - 117 U/L [facility] 02/26/2025 10:4 7 PM EDT 02/26/2025 10:50 PM EDT us Generic External Data Provider LAB BLOOD ORDERAB LES Final Result Performing Organization Address [facility] de Phone Number [facility] [address] [place] [phone] * (ABNORMAL) Lipid Panel with Reflex to Direct LDL (09/14/2024 10:00 AM EDT) Triglycerides 107 <150 mg/dL [facility] Comment:Desirable Triglyceri de: less than 150 mg/dLBorderline High Triglyceride 150-199 mg/dLHigh Triglyceride: 200-499 mg/dLVery High Triglyceride: greater than or equal to 5OO mg/dL Cholesterol 147 <200 mg/dL [facility] Comment:Desirable Cholestero l: less than 200 mg/dLBorderline High Cholesterol: 200-239 mg/dLHigh Cholesterol: greater than 239 mg/dL LDL Cholesterol Calculated 87 <100 mg/dL [facility] Comment:Desirable LDL: less than 100 mg/dLNear Optimal/Above Optimal LDL: 110- 129 mg/dLBorderline High LDL: 130-159 mg/dLHigh LDL: 160-189 mg/dLVery High LDL: greater than or equal to 190 mg/dL HDL Cholesterol 39(L) >40 mg/dL [facility] Comment:Desirable HDL: great er than 40 mg/dL Note: This HDL assay may give artificially low results in patients with liver disease. Blood 09/14/2024 10:0 0 AM EDT 09/14/2024 11:32 AM EDT us Ana Paula Davidson MD LAB BLOOD ORDERABLES Final Resul t Performing Organization Address [facility]/ZIP Co de Phone Number [facility] [address] [place] [phone] * CT Lung Screening Low dose (10/15/2023 10:41 AM EDT) Anatomical Region Laterality Modality Lung Computed Tomogra phy 10/15/2023 10:4 1 AM EDT Narrative 11/05/2023 2:57 PM EDT [address] [place] [address] CT Scan Report Signed Patient: Michael Ramírez R#: [id number] : 1960 Acct:[id number] Age/Sex: 63 / M ADM Date: 10/15/23 Loc: .CT Attending Dr: Priyanka Garcia NP Ordering Physician: Priyanka Garcia NP Date of Service: 10/15/23 Procedure(s): CT lung screening Accession Number(s): [id number] cc: Ana Paula Davidson MD; Priyanka Garcia [...] for CT CHEST LOW DOSE CANCER SCREENING ([id number]) can be placed. Dictated By: Epifanio Dumont MD Signed By: <Electronically signed by Epifanio Dumont MD in OV> 11/05/23 1453 DD/ 1041 TD/TT: Shovel Loader Operator: SS Procedure Note Donotuseinterpreter, Image - 11/05/[address] [place] [address] [address] Scan Report Signed Patient: Sin Ramírez R#: [id number] : 9Acct:[id number] Age/Sex: 63 / MADM Date: 10/15/23 Loc: .CT Attending Dr: Priyanka Garcia NP Ordering Physician: Priyanka Garcia NP Date of Service: 10/15/23 Procedure(s): CT lung screening Accession Number(s): [id number] cc: Ana Paula Davidson MD; Priyanka Garcia [...] for CT CHEST LOW DOSE CANCER SCREENING ([id number]) can be placed. Dictated By: Epifanio Dumont MD Signed By: <Electronically signed by Epifanio Dumont MD in OV> 11/05/23 1453 DD/ 1041 TD/TT: Shovel Loader Operator: JONATHAN [facility] External Provider IMG CT PROCEDURES Final Result * HEPATITIS C ANTIBODY RFLX (05/17/2019 10:00 AM EST) HEPATITIS C ANTIBODY NONREACTIVE NONREACTIVE [facility] Comment: Antibodies to HCV not detected; does not exclude early acute HCV infection. 05/17/2019 10:0 0 AM EST us Ana Paula Davidson MD HISTORICAL/NON ORDERABLE LABS Fi nal Result [facility] [address] from Last 3 Months or Most Recently Relevant to Health Maintenance [place] [address] [place] [address] [place] [address] [place] [id number] [facility] MEDICAID STAND ADULT Care Teams Property Utilization Officer Relationship Specialty Start Date End Date Ana Paula Davidson MD [address] [place] [phone] PCP - General Family Medicine 05/03/18
--- OUTSIDE RECORDS SUMMARY | 2025-03-05 01:21 | XMS_ITS | Encounter Summary ---
Author Organization [employer] Address [address] [facility] [address] [place] [address] Care Team Providers Care Math And Physics Instructor Name Role Phone Ana Paula Davidson MD Primary Care Provider [phone] Encounter Details Date Type Department Care Team (Latest Contact Info) Description 03/01/2025 Travel Social History Tobacco Use Types Packs/Day [...] 11:00 AM EST Anticoagulation - Warfarin Visit [facility] MEDICINE [address] [place] [phone] 03/06/2025 9:30 AM EST Office Visit [facility] MEDICINE [address] [place] [phone] Ana Paula Davidson MD [address] [place] [phone] documented as of this encounter Visit Diagnoses Not on filedocumented in this encounter Additional Health Concerns Assessment Noted Time PHQ-9 Depression Total Score: 0 09/15/19 25 9:12 AM EDT documented as of this encounter Care Teams Math And Physics Instructor Relationship Specialty Start Date End Date Ana Paula Davidson MD [address] [place] [phone] PCP - General Family Medicine 05/03/18 documented as of this encounter
--- OUTSIDE RECORDS SUMMARY | 2025-03-05 01:21 | XMS_ITS | Encounter Summary ---
Author Organization [employer] Address [address] [facility] 7t [place] [address] Care Team Providers Care [employer] Wireman Name Role Phone Ana Paula Davidson MD Primary Care Provider [phone] Encounter Details Date Type Department Care Team (Late st Contact Info) Description 05/17/2022 Orders Only [facility] MEDICINE [address] [place] [phone] Ana Paula Davidson MD [address] [place] [phone] Primary hypertension (Primary Dx) Social History Tobacco [...] 11:00 AM EST Anticoagulation - Warfarin Visit [address] [address] 03/06/2025 9:30 AM EST Office Visit [address] [address] Ana Paula Davidson MD [address] [place] [address] documented as of this encounter Visit Diagnoses Diagnosis Primary hypertension- Primary Unspecified essential hypertension documented in this encounter Care Teams [employer] Wireman Relationship Specialty Start Date End Date Ana Paula Davidson MD [address] [place] [address] PCP - General Family Medicine 05/03/18 documented as of this encounter
--- OUTSIDE RECORDS SUMMARY | 2025-03-05 01:21 | XMS_ITS | Encounter Summary ---
Author Organization [employer] Address [address] [facility] [place] [address] Care Team Providers Care Bar Pilot Name Role Phone Ana Paula Davidson MD Primary Care Provider Encounter Details Date Type Department Care Team (Latest Contact Info) Description 02/28/2025 Travel Social History Tobacco Use Types Packs/Day [...] 11:00 AM EST Anticoagulation - Warfarin Visit [facility] MEDICINE [address] [place] [phone] 03/06/2025 9:30 AM EST Office Visit [facility] [address] [place] [phone] Ana Paula Davidson MD [address] [place] [address] documented as of this encounter Visit Diagnoses Not on filedocumented in this encounter Additional Health Concerns Assessment Noted Time PHQ-9 Depression Total Score: 0 09/15/19 25 9:12 AM EDT documented as of this encounter Care Teams Bar Pilot Relationship Specialty Start Date End Date Ana Paula Davidson MD [address] [place] [address] PCP - General Family Medicine 05/03/18 documented as of this encounter
--- OUTSIDE RECORDS SUMMARY | 2025-03-05 01:21 | XMS_ITS | Encounter Summary ---
Author Organization [employer] Address [address] [facility] 7t [place] [address] Care Team Providers Care Marketing Effectiveness Manager Name Role Phone Ana Paula Davidson MD Primary Care Provider [phone] Reason for Visit * Reason Onset Date Comments lNR orders 03/01/2025 Encounter Details Date Type Department Care Team ([facility] st Contact Info) Description 03/01/2025 Telephone [facility] MEDICINE [address] [place], [place] [phone] Ana Paula Davidson MD [address] [place], [place] [phone] lNR orders Social History Tobacco Use Types Packs/Day Years [...] Telephone Encounter - Valarie Torres RN - 03/01/2025 1:16 PM EDT Orders for pt's INR per Dr. Davidson for 03/02/25 nurse visit and plan going forward. If his INR is < 2.5, continue Lovenox and warfarin 7.5 mg, and recheck on Wednesday. Wednesday clinic can call me as well or consult with the provider on site. If INR 2.5-3.1, we can stop Lovenox, and lower warfarin 5 mg. 7.5 mg on Wednesday, 7.5 mg on Wednesday,5 mg on Wednesday and recheck INR on Wednesday. If is INR is > 3.1, please hold warfarin and stop Lovenox on Wednesday, and recheck INR on Wednesday. This is a tentative schedule. Thank you. documented in this encounter Plan of Treatment Upcoming Encounters Date Type Department Care Team (Latest Contact Info) Description 03/05/2025 11:00 AM EST Anticoagulation - Warfarin Visit [facility] MEDICINE [address] [place] [phone] 03/06/2025 9:30 AM EST Office Visit [facility] MEDICINE [address] [place] [phone] Ana Paula Davidson MD [address] [place] [address] documented as of this encounter Visit Diagnoses Not on filedocumented in this encounter Additional Health Concerns Assessment Noted Time PHQ-9 Depression Total Score: 0 09/15/19 25 9:12 AM EDT documented as of this encounter Care Teams Marketing Effectiveness Manager Relationship Specialty Start Date End Date Ana Paula Davidson MD [address] [place] [address] PCP - General Family Medicine 05/03/18 documented as of this encounter
--- OUTSIDE RECORDS SUMMARY | 2025-03-05 01:21 | XMS_ITS | Encounter Summary ---
Author Organization [employer] Address [address] [facility] [address] [place] [address] Care Team Providers Care Casino Gaming Worker Name Role Phone Ana Paula Davidson MD Primary Care Provider [phone] Reason for Visit * Reason Comments Med Refill Encounter Details Date Type Department Care Team (Late st Contact Info) Description 03/21/2024 Refill [facility] [address], [place] [id number] Ana Paula Davidson MD [address] [place], [place] [phone] Social History Tobacco Use Types Packs/Day Years [...] 11:00 AM EST Anticoagulation - Warfarin Visit [facility] [address] [place] [id number] 03/06/2025 9:30 AM EST Office Visit [address] [address] Ana Paula Davidson MD [address] [place] [id number] documented as of this encounter Visit Diagnoses Not on filedocumented in this encounter Additional Health Concerns Assessment Noted Time PHQ-9 Depression Total Score: 0 01/20/20 23 10:16 AM EDT documented as of this encounter Care Teams Casino Gaming Worker Relationship Specialty Start Date End Date Ana Paula Davidson MD [address] [place] [id number] PCP - General Family Medicine 05/03/18 documented as of this encounter
[2025-03-05 01:31] LABS: IDNOW Serial# 08D9AD1C; Strep A Nucleic Acid Negative (Negative)
[2025-03-05 01:37] LABS: COVID-19 Test Negative (Negative); IDNOW Serial# 55D5AD1C; IDNOW Serial# 58CA691E; Influenza B2 Negative (Negative)
[2025-03-05 03:51] VITALS: BP 130/74; PULSE 76; RESP 18; TEMP 36.5; O2SAT 97
--- NOTE | 2025-03-05 03:51 | ED.GENADULT ---
HPI - General Adult General Chief complaint: General Medical Stated complaint: tooth ache, sore throat, struggle breathing Time Seen by Provider: 03/05/25 03:02 Source: patient Limitations: language barrier History of Present Illness ED Provider: Danyelle Peralta PA-C HPI narrative: 64-year-old male with a history of COPD, ongoing tobacco abuse, known pulmonary nodule, hypertension, hyperlipidemia, cardiomyopathy who is status post mechanical aortic valve replacement on anticoagulation, known coronary artery disease, who presents with dental pain and sore throat x1 week. Patient states he is having discomfort of 1 of the teeth on the left lower side. He is unable to tell me which tooth is bothering him. Associated pharyngitis. Denies fever. Patient states he has a pending appointment with both primary care and his dentist this week. Related Data Home Medications ?Medication ?Instructions ?Recorded ?Confirmed folic acid 1 mg tablet 1 mg PO DAILY 07/24/21 02/22/25 metoprolol succinate 50 mg 50 mg PO DAILY 07/24/21 02/22/25 tablet,extended release 24 hr tiotropium bromide 18 mcg capsule 1 cap inhalation DAILY 09/12/21 02/22/25 with inhalation device (Spiriva with HandiHaler) blood pressure test kit-large #1 ea 02/05/23 10/18/23 losartan 25 mg tablet 12.5 mg PO DAILY 02/05/23 02/22/25 rosuvastatin 5 mg tablet 5 mg PO DAILY 02/05/23 02/22/25 cyanocobalamin (vitamin B-12) 1,000 mcg PO QAM 09/20/23 02/22/25 1,000 mcg tablet Previous Rx's ?Medication ?Instructions ?Recorded warfarin 5 mg tablet 5 mg PO DAILY #90 tabs 02/02/20 albuterol sulfate 90 mcg/actuation 2 puff inhalation Q4-6H PRN 07/29/21 aerosol inhaler shortness of breath or wheezing 30 days #1 ea aspirin 81 mg tablet,delayed 81 mg PO DAILY #90 tabs 09/12/21 release enoxaparin 150 mg/mL subcutaneous 135 mg (0.9 mL) subcut DAILY #10 mL 02/22/25 syringe (Lovenox) trazodone 50 mg tablet 50 mg PO BEDTIME #30 tabs 02/22/25 melatonin 3 mg tablet 3 mg PO BEDTIME PRN sleep #30 tabs 02/27/25 penicillin V potassium 500 mg 500 mg PO QID #27 tabs 03/05/25 tablet Allergies Allergy/AdvReac Type Severity Reaction Status Date / Time No Known Allergies Allergy Verified 03/05/25 01:09 Review of Systems Review of Systems: Yes all other systems are reviewed and are negative Constitutional: Constitutional: Denies fatigue and Denies fever(s) ENT: Reports dental pain and Reports sore throat Cardiovascular: Cardiovascular: Denies chest pain and Denies dyspnea Respiratory: Respiratory: Denies dyspnea Gastrointestinal: Gastrointestinal: Denies abdominal pain, Denies nausea and Denies vomiting Endocrine: Endocrine: Denies fatigue [facility] Past Medical History Attestation statement: The following information was validated with the patient. Medical History CAD (coronary artery disease) Nonischemic cardiomyopathy Cardiomyopathy LBBB (left bundle branch block) Hypertension Hyperlipidemia Pulmonary nodular amyloidosis Pulmonary nodule Nicotine dependence, cigarettes, uncomplicated Emphysema/COPD Chronic cough Diverticulitis Vitamin B12 deficiency Surgical History History of aortic valve replacement History of aortic aneurysm repair History of elbow surgery Family History Family History Mother No pertinent family history Father No pertinent family history Social History Social History Household Members: None Alcohol intake: never Patient Tobacco Use Status: Current everyday Tobacco user Cigarette Packs Per Day: 1 Years Smoked: (onset 16yo, 1ppd x 47yrs, 40+PYH) Advance Directives Date on File: 07/14/21 service: No Physical Exam ED Vital Signs: Vital Signs - 24 hr 03/05/25 01:05 Temperature 97.7 F Pulse Rate 70 Respiratory Rate 18 Blood Pressure 131/75 Pulse Oximetry 98 Oxygen Delivery Method Room Air BMI result Body Mass Index 29.7 Const Other: Alert Orientation/consciousness: patient oriented x3 HENMT Other: 0P mildly erythematous no exudate, uvula midline no trismus no drooling no sublingual fluctuance, no swelling inferior to the jawline, overall poor dentition, numerous teeth are absent, no purulence from any of the teeth that has obvious, no swelling of the gingiva Resp Effort & Inspection: normal respiratory effort Cardio Other: Normal peripheral perfusion Skin Other: Warm dry no rash Neuro General: patient oriented x3, gait normal, no focal motor deficits and CN's II-XI intact bilaterally Psych Other: Cooperative Medications Administered Discontinued Medications Generic Name Dose Route Start Last Admin Trade Name Maria Victoria PRN Reason Stop Dose Admin Acetaminophen 975 mg 03/05/25 03:50 03/05/25 03:59 Acetaminophen 325 Mg Tablet PO 03/05/25 03:51 975 mg ONCE ONE Administration Penicillin V Potassium 500 mg 03/05/25 03:50 03/05/25 03:59 Penicillin V Potassium 250 Mg Tablet PO 03/05/25 03:51 500 mg ONCE ONE Administration Medical Decision Making Medical Decision Making [facility] Narrative: 64-year-old male with a history of COPD, ongoing tobacco abuse, known pulmonary nodule, hypertension, hyperlipidemia, cardiomyopathy who is status post mechanical aortic valve replacement on anticoagulation, known coronary artery disease, who presents with dental pain and sore throat x1 week. Patient states he is having discomfort of 1 of the teeth on the left lower side. He is unable to tell me which tooth is bothering him. Associated pharyngitis. Denies fever. Patient states he has a pending appointment with both primary care and his dentist this week. Problem: Age, vascular disease, tobacco abuse History: Per patient I have considered the following differential diagnoses: Strep pharyngitis, viral syndrome, reactive pharyngitis from dental infection, dental abscess, dental cici, fractured tooth, Pillo angina , RPA, TARIFF EXPERT Plan: Patient here with overall unremarkable exam, there was no evidence of RPA or TARIFF EXPERT on exam, no evidence of Pillo angina. viral panel and strep screen ordered from triage everything is negative. The patient has overall poor dentition, he is likely developing an infection, he has pending appointment with his dentist which is ideal. We will start him on antibiotics. I have independently reviewed the following tests: Labs: Viral panel negative, strep screen negative Differential Diagnosis Differential Diagnoses: The differential diagnosis associated with the presentation includes See medical decision-making Admission/Observation Consideration of admission/observation: Escalation of care including admission/observation considered Not applicable Lab Data [facility] Lab Attestation statement: I reviewed the patient's lab results. Labs: Lab Results 03/05/25 Range/Units 01:10 COVID-19 (KRISTIE) Negative (Negative) COVID-19 Clin Com See Note Influenza Type A (CHENTE) Negative (Negative) Influenza Type B (CHENTE) Negative (Negative) Influenza A & B Note See Note S. pyogenes GrpA [facility]ENTE Negative (Negative) Discharge Plan Discharge Clinical Impression: Acute viral pharyngitis, Pain, dental Patient Disposition: Home, Self-Care Instructions: Pharyngitis (ED), Toothache (ED) Additional Instructions: You were tested for strep throat, the screening test was negative. See home care instructions, using warm saltwater gargles can help your pain. You can use it multiple times a day. You can also use [id number] Tylenol 1000 mg taken every 6 hours for pain. Take the penicillin as directed this is an antibiotic, you likely have a dental infection causing your pain. Keep your pending appointment with your dentist and primary care. Prescriptions: New penicillin V potassium 500 mg tablet 500 mg PO QID Qty: 27 0RF No Action metoprolol succinate 50 mg tablet extended release 24 hr 50 mg PO DAILY melatonin 3 mg tablet 3 mg PO BEDTIME PRN (Reason: sleep) Qty: 30 0RF enoxaparin [Lovenox] 150 mg/mL syringe 135 mg subcut DAILY Qty: 10 0RF trazodone 50 mg tablet 50 mg PO BEDTIME Qty: 30 0RF warfarin 5 mg tablet 5 mg PO DAILY Qty: 90 0RF Protocol: Dose Management Condition: Wednesday (Week One) Dose/Route: 7.5 mg Instruction: 1.5 x 5 mg tablets Condition: Wednesday Dose/Route: 7.5 mg Instruction: 1.5 x 5 mg tablets Condition: Wednesday Dose/Route: 7.5 mg Instruction: 1.5 x 5 mg tablets Condition: Wednesday Dose/Route: 5 mg Instruction: 1 x 5 mg tablet Condition: Dose/Route: 7.5 mg Instruction: 1.5 x 5 mg tablets Condition: Wednesday Dose/Route: 7.5 mg Instruction: 1.5 x 5 mg tablets Condition: Wednesday Dose/Route: 5 mg Instruction: 1 x 5 mg tablet Condition: Wednesday (Week Two) Dose/Route: 7.5 mg Instruction: 1.5 x 5 mg tablets Condition: Wednesday Dose/Route: 7.5 mg Instruction: 1.5 x 5 mg tablets Condition: Wednesday Dose/Route: 7.5 mg Instruction: 1.5 x 5 mg tablets Condition: Wednesday Dose/Route: 5 mg Instruction: 1 x 5 mg tablet Condition: Dose/Route: 7.5 mg Instruction: 1.5 x 5 mg tablets Condition: Wednesday Dose/Route: 7.5 mg Instruction: 1.5 x 5 mg tablets Condition: Wednesday Dose/Route: 5 mg Instruction: 1 x 5 mg tablet Protocol Text: Adjustment Start Date: Wednesday10/18/23 INR Value: 2.2 INR Date: 10/18/23 Recheck Date: 10/25/23 folic acid 1 mg tablet 1 mg PO DAILY Spiriva with HandiHaler 18 mcg capsule, w/inhalation device 1 cap inhalation DAILY albuterol sulfate 90 mcg/actuation HFA aerosol inhaler 2 puff inhalation Q4-6H PRN (Reason: shortness of breath or wheezing) 30 Days Qty: 1 3RF aspirin 81 mg tablet,delayed release (DR/EC) 81 mg PO DAILY Qty: 90 3RF cyanocobalamin (vitamin B-12) 1,000 mcg tablet 1,000 mcg PO QAM (DME) blood pressure test kit-large Kit See Rx Instructions .ROUTE DIRECTED Qty: 1 Rx Instructions: As directed rosuvastatin 5 mg tablet 5 mg PO DAILY losartan 25 mg tablet 12.5 mg PO DAILY Interventions: ED Discharge Assessment Last Done: 03/05/25 04:02 Discharge Date/Time: 03/05/25 04:04 Print Language: Macedonian
[2025-03-05 04:02] VITALS: BP 130/74; PULSE 76; RESP 18; TEMP 36.5; O2SAT 97
== END 2025-03-05 04:04 | disposition home or self-care (01) ==
PROVIDERS: Emergency Provider Emergency Medicine; PCP Family Medicine
DX: J02.9 Acute pharyngitis, unspecified (principal); K08.89 Other specified disorders of teeth and supporting structures; J44.9 Chronic obstructive pulmonary disease, unspecified; Z79.01 Long term (current) use of anticoagulants; I10 Essential (primary) hypertension; F17.210 Nicotine dependence, cigarettes, uncomplicated; Z03.818 Encounter for observation for suspected exposure to other biological agents ruled out
CPT/HCPCS: 87502; 87635; 87651; 99283

== ENCOUNTER 2025-03-07 06:39 | Emergency (ER) | payer MEDICARE, MEDICAID, SELFPAY ==
--- OUTSIDE RECORDS SUMMARY | 2025-03-02 10:00 | XMS_ITS | Encounter Summary ---
Author Organization [employer] Address [address] [facility] 7[address] [place] [address] Care Team Providers Care Distance Learning Administrator Name Role Phone Ana Paula Davidson MD Primary Care Provider [phone] Encounter Details Date Type Department Care Team (Latest Contact Info) Description 03/02/2025 11:00 AM EDT Clinical Support [facility] [address] [place] [address] Valarie Torres, RN Subtherapeutic international normalized ratio [...] Progress Notes * Valarie Torres RN - 03/02/2025 11:00 AM EDT Pt is a 64yo estonian speaking male who presents to the office for POCT INR and Coumadin Dosing. Armenian interpretation provided by TERESO Jimenes. S: Pt is due for PT/INR today due to hx of artificial heart valve. Pt's target INR is 2.5-3.5. Per Dr. Davidson, pt to have INR drawn at [facility] until stabilized. Pt was supposed to take 7.5mg coumadin today with lovenox injection, however pt reports he took 10mg (2 pills) at 4am today. O: INR today in office is: 2.7 A: Hx of artificial heart valve Risk for blood clot due to sub therapeutic INR P: Consulted with Dr. Asencio, covering provider who reviewed Dr. Davidson's tentative plan. Orders are: Wednesday/Wednesday 5mg, stop lovenox Return for INR check on Wednesday03/05/25. Educated pt to wait until after appointment on 03/05/25 to take coumadin for that day. Educated to avoid alcohol, changes in diet for dark leafy greens, grapefruit juice. Pt verbalized understanding. documented in this encounter Plan of Treatment Upcoming Encounters Date Type Department Care Team (Latest Contact Info) Description 03/13/2025 11:00 AM EST Anticoagulation - Warfarin Visit [address] [address] documented as of this encounter Procedures Procedure Name Priority Date/Time Associated Diagnosis Comments POCT INR Routine 03/02/2025 11:30 AM EDT documented in this encounter Results * POCT INR manually resulted (03/02/2025 11:30 AM EDT) Protime INR 2.7 2.5 - 3.5 Blood Capillary blood specimen / Unknown 03/02/2025 11:30 AM EDT Sammie Love MD POINT OF CARE CESILIA T ENTER/EDIT ORDERABLES Final Result documented in this encounter Visit Diagnoses Diagnosis Subtherapeutic international normalized ratio (INR) documented in this encounter Additional Health Concerns Assessment Noted Time PHQ-9 Depression Total Score: 0 09/15/19 25 9:12 AM EDT documented as of this encounter Care Teams Distance Learning Administrator Relationship Specialty Start Date End Date Ana Paula Davidson MD [address] [place] [phone] PCP - General Family Medicine 05/03/18 documented as of this encounter
--- OUTSIDE RECORDS SUMMARY | 2025-03-05 11:00 | XMS_ITS | Encounter Summary ---
Author Organization [employer] Address [address] [facility] [address] [place] [address] Care Team Providers Care Ingredient Mixer Name Role Phone Ana Paula Davidson MD Primary Care Provider [phone] Encounter Details Date Type Department Care Team (Latest Contact Info) Description 03/05/2025 11:00 AM EST Anticoagulation - Warfarin Visit [facility] [address] [place] [address] Cielo Frederick RN Subtherapeutic international normalized ratio (INR) Social [...] as of this encounter Progress Notes * Cielo Frederick RN - 03/05/2025 11:00 AM EST Pt is a 64yo north korean speaking male who presents to the office for POCT INR and Coumadin Dosing. Malagasy interpretation provided by Noman RIDER. S: Pt is due for PT/INR today due to hx of artificial heart valve. Pt's target INR is 2.5-3.5. Per Dr. Davidson, pt to have INR drawn at [facility] until stabilized. Pt was supposed to take 5 mg of coumadin both Wednesday and Wednesday and return for a repeat INR checkon 03/05/2025. O: INR today in office is: 2.8 A: Hx of artificial heart valve Risk for blood clot due to sub therapeutic INR P: Consulted with Wendy Holland, covering provider who reviewed Dr. Davidson's tentative plan. Orders are: To continue on Coumadin 5 MG for today 03/05/2025 and follow up with PCP at already scheduled appointment on Wednesday03/06/2025 for a 30 minute office visit. Once plan of care for pt coumadin dosing isestablished with PCP pt will be scheduled for next INR recheck. Educated to avoid alcohol, changes in diet for dark leafy greens, grapefruit juice. Pt verbalized understanding. documented in this encounter Plan of Treatment Upcoming Encounters Date Type Department Care Team (Latest Contact Info) Description 03/13/2025 11:00 AM EST Anticoagulation - Warfarin Visit [address] [address] documented as of this encounter Procedures Procedure Name Priority Date/Time Associated Diagnosis Comments POCT INR Routine 03/05/2025 11:13 AM EST Subtherapeutic international normalized ratio (INR) documented in this encounter Results * POCT INR manually resulted (03/05/2025 11:13 AM EST) Protime INR 2.8 2.5 - 3.5 Blood Capillary blood specimen / Unknown 03/05/2025 11:13 AM EST Historical Provider MD POINT OF CARE TEST ENTER/ EDIT ORDERABLES Final Result documented in this encounter Visit Diagnoses Diagnosis Subtherapeutic international normalized ratio (INR) documented in this encounter Additional Health Concerns Assessment Noted Time PHQ-9 Depression Total Score: 0 09/15/19 25 9:12 AM EDT documented as of this encounter Care Teams Ingredient Mixer Relationship Specialty Start Date End Date Ana Paula Davidson MD [address] [place] [id number] PCP - General Family Medicine 05/03/18 documented as of this encounter
--- OUTSIDE RECORDS SUMMARY | 2025-03-06 09:30 | XMS_ITS | Encounter Summary ---
Author Organization [employer] Address [address] [facility] [address] [place] [address] Care Team Providers Care Swing Driver Name Role Phone Ana Paula Davidson MD Primary Care Provider [phone] Reason for Referral * Consultation (Routine) - Authorized Specialty Diagnoses / Procedures Referred By Savana galaviz Referred To Contact Pharmacy Diagnoses Primary hypertension Chronic obstructive pulmonary disease with emphysema, unspecified emphysema type (HCC) Ana Paula Davidson MD [address] [place] [address] Phone: tel: fax: Referral ID Status Reason Start Date Expiration Date Visits Requested Visits Authorized [id number] Authorized Consult and Treat 03/07/2025 03/07/2026 6 6 Scheduling Instructions He has many appointments currently. You do not need to schedule soon. Maybe in 1-2 months. Thank you. * Consultation (Routine) - Authorized Specialty Diagnoses / Procedures Referred By Savana t Referred To Contact Diagnoses Primary hypertension Sleep disturbance Tobacco use disorder HFrEF (heart failure with reduced ejection fraction) (HCC) Ana Paula Davidson MD [address] [place] [address] Phone: tel: fax: Referral ID Status Reason Start Date Expiration Date Visits Requested Visits Authorized [id number] Authorized Specialty Services Required 03/07/2025 03/07/2026 1 1 * Consultation (Routine) - Pending Review Specialty Diagnoses / Procedures Referred By Savana t Referred To Contact Pulmonary Disease Diagnoses Dyspnea, unspecified type Sleep disturbance Tobacco use disorder Smoking greater than 40 pack years Chronic obstructive pulmonary disease with emphysema, unspecified emphysema type (HCC) Ana Paula Davidson MD [address] [place] [address] Phone: tel: fax: Referral ID Status Reason Start Date Expiration Date Visits Requested Visits Authorized [id number] Pending Review Specialty Services Required 03/07/2025 03/07/2026 1 1 * Consultation (Urgent) - Closed Specialty Diagnoses / Procedures Referred By Savana galaviz Referred To Contact Cardiology Diagnoses LBBB (left bundle branch block) History of artificial heart valve History of aortic aneurysm repair HFrEF (heart failure with reduced ejection fraction) (HCC) Cardiomyopathy, unspecified type (CMS/HCC) (HCC) Ana Paula Davidson MD [address] [place] [address] Phone: tel: fax: Referral ID Status Reason Start Date Expiration Date V isits Requested Visits Authorized [id number] Closed Specialty Services Required 03/06/2025 03/06/2026 1 1 * Hospital - Outpatient (Routine) - Pending Review Specialty Diagnoses / Procedures Referred By Savana galaviz Referred To Contact Diagnoses Dyspnea, unspecified type Sleep disturbance Procedures Polysomnography Ana Paula Davidson MD [address] [place] [address] Phone: tel: fax: [address] Phone: tel: fax: Referral ID Status Reason Start Date Expiration Date V isits Requested Visits Authorized [id number] Pending Review 03/06/2025 03/06/2026 1 1 Encounter Details Date Type Department Care Team (Late st Contact Info) Description 03/06/2025 9:30 AM EST Office Visit [facility] [address] [place] [address] Ana Paula Davidson MD [address] [place] [address] Primary hypertension (Primary Dx); Encounter for vaccination; Encounter for immunization; Dyspnea, unspecified type; Sleep disturbance; Tobacco use disorder; Smoking greater than 40 pack years; LBBB (left bundle branch block); History of artificial heart valve; History of aortic aneurysm repair; HFrEF (heart failure with reduced ejection fraction) (HCC); Cardiomyopathy, unspecified type (CMS/HCC) (HCC); Anticoagulation goal of INR 2.5 to 3.5; Anticoagulated on warfarin; Dyslipidemia; Generalized anxiety disorder; Current moderate episode of major depressive disorder, unspecified whether recurrent (CMS/HCC) (HCC); Chronic obstructive pulmonary disease with emphysema, unspecified emphysema type (HCC) Social History Tobacco Use Types Packs/Day Years [...] Sign Reading Time Taken Comments Blood Pressure 140/50 03/06/2025 9:25 AM EST Pulse 78 03/06/2025 9:25 AM EST Temperature 36.1 C (96.9 F) 03/06/2025 9:25 AM EST Respiratory Rate 14 03/06/2025 9:25 AM EST Oxygen Saturation 98% 03/06/2025 9:25 AM EST Inhaled Oxygen Concentration - - Weight 89.5 kg (197 lb 6.4 oz) 03/06/2025 9:25 A M EST Height 175.3 cm (5' 9 ) 03/06/2025 9:25 AM EST Body Mass Index 29.15 03/06/2025 9:25 AM EST documented in this encounter Progress Notes * Ana Paula Davidson MD - 03/06/2025 9:30 AM EST Subjective Michael Castañeda is a 64 y.o. male who has prosthetic aortic valve on warfarin, HFrEF, hypertension, and COPD, and patient presents for follow up of chronic conditions. Background: Problem List[1] Our last encounter was 09/14/2024. Patient was planning to move back to [place] in December 2024. Before he leaves for [place], he wanted to be seen by general surgeon on for a mass on his rightshoulder and neurophysiological technician. Interval history: Seen in [facility] [place] 02/22/20[place] for insomnia and panic attack. Patient had not been taking warfarin, and INR was 1.1. Initially admitted for subtherapeutic INR. However he was discharged with visiting nurse service with a detailed instruction on enoxaparin and warfarin bridge. He was prescribed trazodone for sleep. However, patient declined visiting nurse service, hence he has been coming to our clinic daily to manage anticoagulation. He is a previous INR goal was 2.5-3.5 due to him being high risk and mechanical aortic valve. His most recent discharge has a new goal INR between 2 and 3. He reached his goal and the Lovenox was discontinued on 03/02/2025. For last 1 week patient has not taken 45 mg total. Most recent INR 2.8 on 03/05/2025. Today: Patient is here with patient's son. Patient went back to [place] in December however came back recently due to nocturnal dyspnea. Both patient and his son are concerned about difficulty sleeping and nocturnal dyspnea. Patient is unable to lay flat due to fear of dyspnea and panic attack. No chest pain, palpitation, or dizziness. No left arm or jaw pain. Patient reports he has been experiencing anxiety and he hasn???t been able to sleep. His son stateshe believes it???s because he has sleep apnea. Pt confirms he is still smoking a pack of cigarettesa day, depending on how anxious he feels. He states he will wake up because he can???t breathe. Pt notes he can???t breathe when he lays down and his son confirms he snores often. Pt declines to complete a colonoscopy. He can try Cologuard, but on warfarin. He denies experiencing constipation or diarrhea. He denies having a family history of cancer. Pt confirms he still wants to remove a mass on his right shoulder. His long-term goal is to move back to [place], once his specialists give him blessing. He also would like to be able to manage his anticoagulation with a self-monitoring device because it is difficult to get medical care in [place]. He is still taking all his medications. In addition, he is taking trazodone which was given at the hospital during his recent admission. Pt agrees to the flu vaccine. Review of Systems Constitutional: Negative for activity change, appetite change and fever. Respiratory: Negative for shortness of breath. Cardiovascular: Negative for chest pain. Objective Vitals: 03/06/25 0925 BP: (!) 140/50 Pulse: 78 Resp: 14 Temp: 96.9 ??F (36.1 ??C) TempSrc: Temporal SpO2: 98% Weight: 197 lb 6.4 oz (89.5 kg) Height: 5' 9 (1.753 m) Physical Exam Constitutional: General: He is not in acute distress. Appearance: Normal appearance. He is not ill-appearing. HENT: Head: Normocephalic and atraumatic. Mouth/Throat: Mouth: Mucous membranes are moist. Eyes: Extraocular Movements: Extraocular movements intact. Pupils: Pupils are equal, round, and reactive to light. Cardiovascular: Rate and Rhythm: Normal rate and regular rhythm. Heart sounds: No murmur heard. Pulmonary: Effort: Pulmonary effort is normal. No respiratory distress. Breath sounds: Normal breath sounds. No wheezing or rhonchi. Skin: General: Skin is warm. Neurological: Mental Status: He is alert. Mental status is at baseline. Psychiatric: Mood and Affect: Mood normal. Results: Lab Results Component Value Date NA 143 02/26/2025 K 3.7 02/26/2025 CL 112 (H) 02/26/2025 CO2 26 02/26/2025 BUN 12 02/26/2025 CREATININE 0.90 02/26/2025 CRCLCALCPH 91.3 02/26/2025 EGFR >60 02/26/2025 GLUCOSE 144 (H) 02/26/2025 TOTALBILIRUB 0.3 02/26/2025 AST 25 02/26/2025 ALT 17 02/26/2025 TOTPROTEIN 6.2 (L) 02/26/2025 ALB 3.7 02/26/2025 ALP 65 02/26/2025 Lab Results Component Value Date TRIG 107 09/14/2024 CHOL 147 09/14/2024 LDLCHOLCAL 87 09/14/2024 HDL 39 (L) 09/14/2024 Lab Results Component Value Date HGBA1C 5.2 09/14/2024 Lab Results Component Value Date WBC 7.2 02/26/2025 HGB 14.3 02/26/2025 HCT 43.5 02/26/2025 PLT 124 (L) 02/26/2025 MCV 93.8 02/26/2025 FIB-4 Calculation: 3.18 at 02/26/2025 10:47 PM Calculated from: SGOT/AST: 25 U/L at 02/26/2025 10:47 PM SGPT/ALT: 17 U/L at 02/26/2025 10:47 PM Platelets: 124 X10*3/uL at 02/26/2025 10:47 PM Age: 64 years Assessment/Plan Problem List Items Addressed This Visit Chronic obstructive lung disease (HCC) -Last COPD exacerbation in Jun 2018, treated with azithromycin and prednisone -Last seen by parking line painter on 07/29/21, prescribed fluticasone / umeclidinium / vilanterol (Trelegy). He had not been using. -Restart Trelegy -Restart Albuterol as rescue -Work on smoking cessation. -Will request lung cancer screening program for his next appointment. -Refer back to parking line painter Relevant Orders Referral to Pulmonology Referral to Pharmacy CDTM Dyslipidemia - 09/14/24 TC 147; TG 107; HDL 39; LDL 87 - current medication: Rosuvastatin 5 mg at bedtime, consider increasing its dose - previously on simvastatin - work on lifestyle modifications History of artificial heart valve -continue warfarin -Previously followed [place] [facility] [place] -Hx poor adherence to INR check and mediation -discussed about the importance of medication adherence and monitoring INR -Needs SBE prophylaxis for procedure -Will try to get a self-monitoring INF device Relevant Orders Referral to Cardiology Hypertension - Primary -Goal BP < 130/80 per ACC/AHA guideline -BP within acceptable range today -EKG reviewed in Jan 2023. Sinus verónica with frequent PVCs. LBBB. -Treatment Hx: torsemide 10 mg daily - Continue metoprolol succinate 50 mg daily - Continue losartan 25 mg daily - Patient has not been taking torsemide 10 mg daily, will hold for now - Risk factors: tobacco, peripheral vascular disease - Continue working on lifestyle modification and medication adherence. - Continue checking BP at home Relevant Orders POCT INR manually resulted (Completed) Referral to Care Management Referral to Pharmacy CDTM Depression - PHQ9 score 0 in August 2024 - He states he belongs to [place], and both his mental and physical health [place] planning [place] move there to maintain his health and well-being. We agreed to optimize his health before he moves back. - Continue trazodone Anticoagulated on warfarin - indication: mechanical aortic valve - previous dose 49.5 mg / wk - previous goal was 2.5-3.5 due to high-risk, current goal 2-3 (according to last hospital admission) - he has taken 45 mg for last 1 week - INR is 3.8 today - He has already taken 5 mg today. Take 2.5 mg on Wed, 5 mg on Th, and 7.5 mg on F, and 5 mg on Sat, Braden, and 7.5 mg on , and recheck on Wednesday on 03/13/2025 - Our short-term goal is to stabilize his INR and figure out the optimal dosage. Our long-term goalis to have patient use a self-monitoring device. We will need to have a good education on dosing and good communication between us. RESOLVED: Anticoagulation goal of INR 2.5 to 3.5 - mechanical aortic valve - previous goal was 2.5-3.5, now 2-3 - previously 47-50 mg per week - he has taken 45 mg for last 1 week - INR is 3.8 today - He has already taken 5 mg today. Take 2.5 mg on Wed, 5 mg on Th, and 7.5 mg on F, and 5 mg on Sat, Braden, and 7.5 mg on , and recheck on Wednesday on 03/13/2025 Tobacco use disorder Currently smokes 15-20 cigarettes a day - continue working on smoking cessation - previously following with Dr. Kirk [place] [facility] [place] - last CT in October 2023 Lung RADS 2 - check the status of lung cancer screening CT and appt Relevant Orders Referral to Pulmonology Referral to Care Management Cardiomyopathy ([facility]) - Steel Layer: [facility] last seen in Jan 2023 - advised to reschedule appt; pt has a difficulty scheduling appt due to language barrier. Will refer to case management team Relevant Orders Referral to Cardiology HFrEF (heart failure with reduced ejection fraction) ([facility]) - Steel Layer: [facility], last seen in Jan 2023 - Last TTE Mach 2021 LVEF 25-30% - Refer back so that he can update echo and stress test - Resume metoprolol, losartan, rosuvastatin, and ASA - Continue working on modifiable risk factor management Relevant Orders Referral to Cardiology Referral to Care Management History of aortic aneurysm repair Relevant Orders Referral to Cardiology LBBB (left bundle branch block) Relevant Orders Referral to Cardiology Smoking greater than 40 pack years Relevant Orders Referral to Pulmonology Generalized anxiety disorder - partly due to his medical conditions - optimize chronic disease management - consider hydroxyzine, or even BZD, if it is adversely affecting his chronic disease management Other Visit Diagnoses Encounter for vaccination Relevant Orders COVID-19 VACCINE [id number] (Comirnaty) 19 yrs + (Completed) POCT INR manually resulted (Completed) Encounter for immunization Relevant Orders FLU VACCINE TRIVALENT HIGH DOSE (Fluzone) 65 yrs + (Completed) TDAP VACCINE 7 yrs + (Completed) PCV-20 VACCINE 6 wks + (Completed) POCT INR manually resulted (Completed) Dyspnea, unspecified type Relevant Orders Polysomnography Referral to Pulmonology Sleep disturbance Relevant Orders Polysomnography Referral to Pulmonology Referral to Care Management Allergies[2] Current Outpatient Medications Medication Instructions albuterol 108 (90 Base) MCG/ACT inhaler 2 puffs, Inhalation, Every 4 hours PRN, Maximum 8 puffs perday Aspirin Low Dose 81 mg, Oral, Daily cyanocobalamin (VITAMIN B-12) 1,000 mcg, Oral, Daily Enoxaparin Sodium 135 mg, Daily Vjyfnqldbsg-Bdinrgodi-Hhxjur (Trelegy Ellipta) 200-62.5-25 MCG/ACT aerosol powder 1 puff, Inhalation, Nightly folic acid (FOLVITE) 1,000 mcg, Oral, Daily losartan (Cozaar) 25 MG tablet Take 1/2 tablet by mouth once daily metoprolol succinate XL (TOPROL XL) 50 mg, Oral, Daily, Do not crush or chew. nicotine (Nicoderm, Step 1) 21 MG/24HR patch PLACE 1 PATCH ON THE SKIN EVERY DAY rosuvastatin (CRESTOR) 5 mg, Oral, Daily torsemide (DEMADEX) 10 mg, Oral, Daily traZODone (DESYREL) 50 mg, Oral, Nightly warfarin (Coumadin) 5 MG tablet TAKE 1 TABLET BY MOUTH EVERY DAY. Dosage may be changed according to your INR. Please follow the direction from your provider Follow-up: 5 weeks or sooner if any problem arises. Scribe Attestation: Tram Gutierrez, am serving as a scribe to document services personally performed by Ana Paula Davidson MD, based on the patient's response to questions by provider and provides statements to me. [1] Patient Active Problem List Diagnosis Allergic rhinitis Atopic conjunctivitis Chronic obstructive lung disease (HCC) Vitamin B12 deficiency Dyslipidemia History of artificial heart valve Hypertension Depression Obesity Anticoagulated on warfarin Tobacco use disorder History of rib fracture Adrenal nodule (CMS/HCC) Esophageal thickening Cardiomyopathy (HCC) HFrEF (heart failure with reduced ejection fraction) (HCC) History of aortic aneurysm repair LBBB (left bundle branch block) Primary insomnia Smoking greater than 40 pack years Generalized anxiety disorder [2] No Known Allergies documented in this encounter Miscellaneous Notes * Assessment & Plan Note - Ana Paula Davidson MD - 03/07/2025 6:34 AM ESTAssociated Problem(s): Chronic obstructive lung disease (HCC) -Last COPD exacerbation in Jun 2018, treated with azithromycin and prednisone -Last seen by parking line painter on 07/29/21, prescribed fluticasone / umeclidinium / vilanterol (Trelegy). He had not been using. -Restart Trelegy -Restart Albuterol as rescue -Work on smoking cessation. -Will request lung cancer screening program for his next appointment. -Refer back to parking line painter * Assessment & Plan Note - Ana Paula Davidson MD - 03/07/2025 6:34 AM ESTAssociated Problem(s): Depression - PHQ9 score 0 in August 2024 - He states he belongs to [place], and both his mental and physical health improved [place] He is planning to move there to maintain his health and well-being. We agreed to optimize his health before he moves back. - Continue trazodone * Assessment & Plan Note - Ana Paula Davidson MD - 03/07/2025 6:33 AM ESTAssociated Problem(s): Generalized anxiety disorder - partly due to his medical conditions - optimize chronic disease management - consider hydroxyzine, or even BZD, if it is adversely affecting his chronic disease management * Assessment & Plan Note - Ana Paula Davidson MD - 03/07/2025 6:29 AM ESTAssociated Problem(s): Dyslipidemia - 09/14/24 TC 147; TG 107; HDL 39; LDL 87 - current medication: Rosuvastatin 5 mg at bedtime, consider increasing its dose - previously on simvastatin - work on lifestyle modifications * Assessment & Plan Note - Tram Schilling MA - 03/06/2025 4:34 PM ESTAssociated Problem(s): Tobacco use disorder Currently smokes 15-20 cigarettes a day - continue working on smoking cessation - previously following with Dr. Kirk at [facility] [place] - last CT in October 2023 Lung RADS 2 - check the status of lung cancer screening CT and appt * Assessment & Plan Note - Tram Schilling MA - 03/06/2025 4:32 PM ESTAssociated Problem(s): History of artificial heart valve -continue warfarin -Previously followed by [facility] [place] [facility] -Hx poor adherence to INR check and mediation -discussed about the importance of medication adherence and monitoring INR -Needs SBE prophylaxis for procedure -Will try to get a self-monitoring INF device * Assessment & Plan Note - Tram Schilling MA - 03/06/2025 4:30 PM ESTAssociated Problem(s): HFrEF (heart failure with reduced ejection fraction) (HCC) - [place]: [facility] last seen in Jan 2023 - Last TTE Mach 2021 LVEF 25-30% - Refer back so that he can update echo and stress test - Resume metoprolol, losartan, rosuvastatin, and ASA - Continue working on modifiable risk factor management * Assessment & Plan Note - Tram Schilling MA - 03/06/2025 4:27 PM ESTAssociated Problem(s): Cardiomyopathy (HCC) - Steel Layer: [facility] last seen in Jan 2023 - advised to reschedule appt; pt has a difficulty scheduling appt due to language barrier. Will refer to case management team * Patient Education Note - Heavenly Bay RN - 03/06/2025 3:15 PM EST Images from the original note were not included. Patient Education Table of Contents Los alimentos con vitamina K y la warfarina (Vitamin K Foods and Warfarin) To view videos and all your education online visit, [email or web address] or scan this QR code with your smartphone. Access to this content will in one year. Los alimentos con vitamina K y la warfarina Vitamin K Foods and Warfarin La warfarina es un diluyente sangu?saundra (anticoagulante). Los medicamentos anticoagulantes ayudan a evitar la formaci?n de co?gulos de samanta o que se agranden. La warfarina act?a bloqueando la actividad de la vitamina K. Esta vitamina promueve la coagulaci?n normal de la samanta. Cuando jovani warfarina, pueden aparecer problemas debido a raza disminuci?n o un aumento repentinos de la cantidad de vitamina K que consume de un d?a para el otro. Estos problemas pueden ocurrir debido a diferentes niveles de warfarina en la samanta. Antecedentes de hemorragias o co?gulos sangu?neos. Consejos para consumir la cantidad adecuada de vitamina K Leer las etiquetas de los alimentos Sepa qu?? alimentos contienen vitamina K. Ciara las etiquetas de los alimentos. Utilice las listas que se enumeran a continuaci?n para entender el maykel?o de las porciones y la cantidad de vitamina K que hay en raza porci?n. Si jovani un complejo multivitam?lisset que contenga vitamina K, aseg?rese de tomarlo todos los d?as. Planificaci?n de las comidas Para evitar problemas cuando jovani warfarina: Consuma raza dieta equilibrada, que incluya lo siguiente: ? Frutas y verduras frescas. ? Cereales integrales. ? Productos l?cteos con bajo contenido de grasa. ? Prote?naga magras, nieves pescado, huevos y no de carne magros. Evite hacer cambios importantes en braden dieta. Si va a cambiar braden dieta, hable con el m?dico antes dehacer modificaciones. Mantenga raza ingesta cotidiana de vitamina K eric. Evite consumir grandes cantidades de vitamina K un d?a y poca cantidad de vitamina K al d?a siguiente. Trabaje con un nutricionista para elaborar un plan de comidas que sea adecuado para usted. ?Qu?? alimentos tienen un alto contenido de vitamina?K? Los alimentos con un alto contenido de vitamina K tienen m?s de 100?mcg (microgramos) por porci?n. Antares incluye lo siguiente: Br?coli (cocido): ? taza (78 g) contiene 110 mcg. Repollitos de Bruselas (cocidos): ? taza (78?g) contiene 109 mcg. Hojas de remolacha (cocidas): ??taza (72?g) contiene 350?mcg. Hojas de col (cocidas): ??taza (66 g) contiene 263?mcg. Hojas de nabo (cocidas): ??taza (72?g) contiene 265?mcg. Cebolla de verdeo o cebollines: ? taza (50?g) contiene 105 mcg. Col rizada (cocida): ? taza (68 g) contiene 536 mcg. Perejil (crudo): 10?ramitas (10?g) contienen 164?mcg. Espinaca (cocida): ? taza (90 g) contiene 444 mcg. Acelga (cocida): ? taza (88 g) contiene 287 mcg. Es posible que los alimentos enumerados m?s arriba no constituyan raza lista completa de los alimentos que tienen un contenido alto de vitamina K. Las cantidades reales de vitamina K pueden diferir enfunci?n del procesamiento. Consulte a un nutricionista para obtener m?s informaci?n. ?Qu?? alimentos contienen raza cantidad moderada de vitamina K? Los alimentos que tienen raza cantidad moderada de vitamina K tienen de 25 a 100?mcg por porci?n. Antares incluye lo siguiente: Tracy?rragos (cocidos): 4?unidades (60?g) contienen 30?mcg. Frijoles de carete (secos): ??taza (85?g) contiene 32?mcg. Repollo (cocido): ? taza (78 g) contiene 84 mcg. Repollo (crudo): ??taza (35 g) contiene 26?mcg. Kiwi: 1?fruta mediana ( 69 g) contiene 27?mcg. Praveen (cruda): 1?taza (36 g) contiene 45?mcg. Quimbomb?? (cocido): ? taza (80 g) contiene 32 mcg. Ciruelas (desecadas): 5?ciruelas (47 g) contienen 25?mcg. At?n, ligero, enlatado en aceite: 3 oz (85 g) contienen 37 mcg. Josias (crudo): 1?taza (34 g) contiene 85?mcg. Es posible que los alimentos enumerados m?s arriba no constituyan raza lista completa de los alimentos que tienen un contenido moderado de vitamina K. Las cantidades reales de vitamina K pueden diferir en funci?n del procesamiento. Consulte a un nutricionista para obtener m?s informaci?n. ?Qu?? alimentos tienen un bajo contenido de vitamina K? Los alimentos con bajo contenido de vitamina K tienen menos de 25?mcg por porci?n. Antares incluye lo siguiente: Alcachofa: 1?mediana (128 g) contiene 18?mcg. Aguacate: 1?onza (21 g) contiene 6?mcg. Ar?ndanos: ??taza (73) contiene 14?mcg. Zanahorias (cocidas): ? taza (78 g) contiene 11 mcg. Coliflor (crudo): ??taza (54) contiene 8 mcg. Pepino con piel (crudo): ??taza (52 g) contiene 9?mcg. Uvas: ??taza (76 g) contiene 12?mcg. Jt: 1?mediano (207 g) contiene 9?mcg. Nicolette secos surtidos: 1 taza (142 g) contiene 17 mcg. Sherron: 1?mediana (178 g) contiene 8?mcg. Guisantes (cocidos): ? taza (80 g) contiene 20 mcg. Pepino encurtido: 1 unidad (65 g) contiene 11 mcg. Chucrut (en clementine): ??taza (118 g) contiene 16?mcg. Porotos de soja (cocidos): ? taza (86 g) contiene 16 mcg. Tomate (crudo): 1?mediano (123 g) contiene 10?mcg. Salsa de tomate (cruda): ??taza (123 g) contiene 17?mcg. Es posible que los alimentos enumerados m?s arriba no constituyan raza lista completa de los alimentos que tienen un contenido bajo de vitamina K. Las cantidades reales de vitamina K pueden diferir enfunci?n del procesamiento. Consulte a un nutricionista para obtener m?s informaci?n. ?Qu?? alimentos no contienen vitamina K? Si un alimento contiene menos de 5?mcg por porci?n, se considera que no contiene vitamina K. Estos alimentos incluyen: Regalado y productos con cereales. Queso. Huevos. Pescados y mariscos. Carne y aves. Leche y otros productos l?cteos. Semillas, por ejemplo, semillas de girasol y semillas de calabaza. Es posible que los alimentos enumerados m?s arriba no constituyan raza lista completa de los alimentos que no contienen vitamina K. Las cantidades reales de vitamina K pueden diferir en funci?n del procesamiento. Consulte a un nutricionista para obtener m?s informaci?n. Resumen La warfarina es un anticoagulante que previene que se formen co?gulos de samanta o que se agranden al bloquear la actividad de la vitamina K. Es importante conocer la cantidad de vitamina K que contienen los alimentos que ingiere y mantener raza ingesta cotidiana de vitamina K eric. Evite hacer cambios importantes en braden dieta. Si va a cambiar braden dieta, hable con el m?dico antes dehacer modificaciones. Esta informaci?n no tiene nieves fin reemplazar el consejo del m?dico. Aseg?rese de hacerle al m?dicocualquier pregunta que tenga. Document Released: 2010-04-07 Document Updated: 2021-07-22 Document Reviewed: 2021-07-22 Elsevier Patient Education ? 2024 [employer] * Assessment & Plan Note - Ana Paula Davidson MD - 03/06/2025 12:34 PM ESTAssociated Problem(s): Anticoagulated on warfarin - indication: mechanical aortic valve - previous dose 49.5 mg / wk - previous goal was 2.5-3.5 due to high-risk, current goal 2-3 (according to last hospital admission) - he has taken 45 mg for last 1 week - INR is 3.8 today - He has already taken 5 mg today. Take 2.5 mg on Wed, 5 mg on , and 7.5 mg on , and 5 mg on Wed, , and 7.5 mg on , and recheck on Wednesday on 03/13/2025 - Our short-term goal is to stabilize his INR and figure out the optimal dosage. Our long-term goalis to have patient use a self-monitoring device. We will need to have a good education on dosing and good communication between us. * Assessment & Plan Note - Ana Paula Davidson MD - 03/06/2025 12:30 PM ESTAssociated Problem(s): Anticoagulation goal of INR 2.5 to 3.5 (Resolved 03/06/2025) - mechanical aortic valve - previous goal was 2.5-3.5, now 2-3 - previously 47-50 mg per week - he has taken 45 mg for last 1 week - INR is 3.8 today - He has already taken 5 mg today. Take 2.5 mg on Wed, 5 mg on , and 7.5 mg on , and 5 mg on Wed, , and 7.5 mg on , and recheck on Wednesday on 03/13/2025 * Assessment & Plan Note - Tram Schilling MA - 03/06/2025 9:30 AM ESTAssociated Problem(s): Hypertension -Goal BP < 130/80 per ACC/AHA guideline -BP within acceptable range today -EKG reviewed in Jan 2023. Sinus verónica with frequent PVCs. LBBB. -Treatment Hx: torsemide 10 mg daily - Continue metoprolol succinate 50 mg daily - Continue losartan 25 mg daily - Patient has not been taking torsemide 10 mg daily, will hold for now - Risk factors: tobacco, peripheral vascular disease - Continue working on lifestyle modification and medication adherence. - Continue checking BP at home documented in this encounter Plan of Treatment Upcoming Encounters Date Type Department Care Team (Latest Contact Info) Description 03/13/2025 11:00 AM EST Anticoagulation - Warfarin Visit [facility] [address] [place] [address] Scheduled Orders Name Type Priority Associated Diagnoses Orde r Schedule [facility] Routine Dyspnea, unspecified type Sleep disturbance Expected: 03/06/2025 (Approximate), Expires: 03/06/2026 Scheduled Referrals Name Type Priority Associated Diagnoses Orde r Schedule Referral to Cardiology Outpatient Referral Urgent LBBB (left bundle branch block) History of artificial heart valve History of aortic aneurysm repair HFrEF (heart failure with reduced ejection fraction) ([facility]) Cardiomyopathy, unspecified type (CMS/HCC) ([facility]) Expected: 03/06/2025 (Approximate), Expires: 03/06/2026 Referral to Pulmonology Outpatient Referral Routine Dyspnea, unspecified type Sleep disturbance Tobacco use disorder Smoking greater than 40 pack years Chronic obstructive pulmonary disease with emphysema, unspecified emphysema type (HCC) Expected: 03/07/2025 (Approximate), Expires: 03/07/2026 Referral to Care Management Outpatient Referral Routine Primary hypertension Sleep disturbance Tobacco use disorder HFrEF (heart failure with reduced ejection fraction) (HCC) Expected: 03/07/2025 (Approximate), Expires: 03/07/2026 Referral to Pharmacy [facility] Outpatient Referral Routine Primary hypertension Chronic obstructive pulmonary disease with emphysema, unspecified emphysema type (HCC) Ordered: 03/07/2025 documented as of this encounter Procedures Procedure Name Priority Date/Time Associated Diagnosis Comments POCT INR Routine 03/06/2025 10:24 AM EST Primary hypertension Encounter for vaccination Encounter for immunization documented in this encounter Results * (ABNORMAL) POCT INR manually resulted (03/06/2025 10:24 AM EST) Protime INR 3.8(H) 2.5 - 3.5 Blood Capillary blood specimen / Unknown 03/06/2025 10:24 AM EST Ana Paula Davidson MD POINT OF CARE TEST ENTER/EDIT OR DERABLES Final Result documented in this encounter Visit Diagnoses Diagnosis Primary hypertension- Primary Unspecified essential hypertension Encounter for vaccination Encounter for immunization Dyspnea, unspecified type Sleep disturbance Unspecified sleep disturbance Tobacco use disorder Smoking greater than 40 pack years LBBB (left bundle branch block) Other left bundle branch block History of artificial heart valve History of aortic aneurysm repair Other postprocedural status HFrEF (heart failure with reduced ejection fraction) (HCC) Cardiomyopathy, unspecified type (CMS/HCC) (HCC) Anticoagulation goal of INR 2.5 to 3.5 Anticoagulated on warfarin Dyslipidemia Other and unspecified hyperlipidemia Generalized anxiety disorder Current moderate episode of major depressive disorder, unspecified whether recurrent (CMS/HCC) (HCC) Chronic obstructive pulmonary disease with emphysema, unspecified emphysema type (HCC) documented in this encounter Additional Health Concerns Assessment Noted Time PHQ-9 Depression Total Score: 0 09/15/19 25 9:12 AM EDT documented as of this encounter Care Teams Swing Driver Relationship Specialty Start Date End Date Ana Paula Davidson MD [address] [place] [id number] PCP - General Family Medicine 05/03/18 documented as of this encounter
--- NOTE | 2025-03-07 | ECG_ITS ---
Test Reason : CHEST PAIN Blood Pressure : */* mmHG Vent. Rate : 70 BPM Atrial Rate : 70 BPM P-R Int : 160 ms QRS Dur : 128 ms QT Int : 436 ms P-R-T Axes : 31 30 -1 degrees QTcB Int : 470 ms Sinus rhythm with occasional Premature ventricular complexes Left bundle branch block Abnormal ECG When compared with ECG of 15-May-2022 06:23, Premature ventricular complexes are now Present Aberrant conduction is no longer Present T wave inversion no longer evident in Inferior leads Referred By: Generic ED Physician Electronically Signed By: Avi Brennan
[2025-03-07 06:42] VITALS: BP 99/56; RESP 20; TEMP 35.9; O2SAT 95; BMI 29.1
--- NOTE | 2025-03-07 06:56 | ED.GENADULT ---
HPI - General Adult General Chief complaint: General Medical Stated complaint: Nauseous Time Seen by Provider: 03/07/25 06:56 Source: patient and freelance interpreter/translator Mode of arrival: ambulatory Limitations: language barrier History of Present Illness ED Provider: HPI narrative: 64-year-old male history of emphysema COPD, aortic valve replacement, HFrEF/cardiomyopathy , this is patient's 4th ER visits for various symptoms in the past 2 weeks, he has an appointment coming up with his PCP on March 13, he presented stating that he had nausea, felt dizzy, he received for vaccinations yesterday, has mild headache, overall generalized malaise no chest pain no fevers or chills no diarrhea reported. Related Data Home Medications ?Medication ?Instructions ?Recorded ?Confirmed folic acid 1 mg tablet 1 mg PO DAILY 07/24/21 02/22/25 metoprolol succinate 50 mg 50 mg PO DAILY 07/24/21 02/22/25 tablet,extended release 24 hr tiotropium bromide 18 mcg capsule 1 cap inhalation DAILY 09/12/21 02/22/25 with inhalation device (Spiriva with HandiHaler) blood pressure test kit-large #1 ea 02/05/23 10/18/23 losartan 25 mg tablet 12.5 mg PO DAILY 02/05/23 02/22/25 rosuvastatin 5 mg tablet 5 mg PO DAILY 02/05/23 02/22/25 cyanocobalamin (vitamin B-12) 1,000 mcg PO QAM 09/20/23 02/22/25 1,000 mcg tablet Previous Rx's ?Medication ?Instructions ?Recorded warfarin 5 mg tablet 5 mg PO DAILY #90 tabs 02/02/20 albuterol sulfate 90 mcg/actuation 2 puff inhalation Q4-6H PRN 07/29/21 aerosol inhaler shortness of breath or wheezing 30 days #1 ea aspirin 81 mg tablet,delayed 81 mg PO DAILY #90 tabs 09/12/21 release enoxaparin 150 mg/mL subcutaneous 135 mg (0.9 mL) subcut DAILY #10 mL 02/22/25 syringe (Lovenox) trazodone 50 mg tablet 50 mg PO BEDTIME #30 tabs 02/22/25 melatonin 3 mg tablet 3 mg PO BEDTIME PRN sleep #30 tabs 02/27/25 penicillin V potassium 500 mg 500 mg PO QID #27 tabs 11/03/25 tablet Allergies Allergy/AdvReac Type Severity Reaction Status Date / Time No Known Allergies Allergy Verified 03/07/25 06:43 Review of Systems Constitutional: Constitutional: Reports as per HPI [facility] Past Medical History Medical History CAD (coronary artery disease) Nonischemic cardiomyopathy Cardiomyopathy LBBB (left bundle branch block) Hypertension Hyperlipidemia Pulmonary nodular amyloidosis Pulmonary nodule Nicotine dependence, cigarettes, uncomplicated Emphysema/COPD Chronic cough Diverticulitis Vitamin B12 deficiency Surgical History History of aortic valve replacement History of aortic aneurysm repair History of elbow surgery Family History Family History Mother No pertinent family history Father No pertinent family history Social History Social History Household Members: None Alcohol intake: never Patient Tobacco Use Status: Current everyday Tobacco user Cigarette Packs Per Day: 1 Years Smoked: (onset 16yo, 1ppd x 47yrs, 40+PYH) Advance Directives: Yes Advance Directives on File: Yes Advance Directives Date on File: 07/14/21 Do you have a plan to hurt others: No Plan service: No Physical Exam ED Exam Exam: General: ?Appears of stated age ? ?PERRLA, EOMI, MMM, ? Neck: Supple, no LAD ? ?CV: RRR, murmur present of the mitral valve ? ?Resp: ?No wheezing rales rhonchi no stridor moving air well ? Abd: ?Bowel sounds are present, no tenderness no rebound no rigidity ? ?MSK: FROM, strength 5/5 all extremities ? Skin: Warm, dry, intact, ? ?Neuro: ?Alert and oriented x3, moving upper and lower extremities symmetrically, no obvious facial asymmetry noted, cranial nerves 2-12 intact, no dysmetria in upper or lower extremities, no horizontal vertical nystagmus Vital Signs: Vital Signs - 24 hr 03/07/25 06:42 03/07/25 08:40 03/07/25 08:43 Temperature 96.6 F L Pulse Rate 65 68 Respiratory Rate 20 Blood Pressure 99/56 L 97/55 L 101/62 Pulse Oximetry 95 Oxygen Delivery Method Room Air 03/07/25 08:43 03/07/25 08:43 Temperature 97.5 F Pulse Rate 68 Respiratory Rate Blood Pressure 104/56 L Pulse Oximetry Oxygen Delivery Method BMI result Body Mass Index 29.1 Medications Administered Discontinued Medications Generic Name Dose Route Start Last Admin Trade Name Maria Victoria PRN Reason Stop Dose Admin Sodium Chloride 1,000 mls @ 999 mls/hr 03/07/25 07:45 03/07/25 10:19 Ns IV 03/07/25 08:45 Infused .Q1H1M COREEN Infusion Ondansetron HCl 4 mg 03/07/25 07:38 03/07/25 08:46 Ondansetron Hcl 4 Mg/2 Ml Vial IVPUSH 03/07/25 07:39 4 mg ONCE ONE Administration Scopolamine 1.5 mg 03/07/25 07:41 03/07/25 08:46 Scopolamine 1.5 Mg Patch.Td.3 EAR-BEHIND 03/07/25 07:42 1.5 mg ONCE ONE Administration Medical Decision Making Medical Decision Making MDM Narrative: 7:42 AM 03/07/2025 (Dr. Tank Romero): Multiple medical and cardiac issues, he has also received penicillin VK which can give some side effects of nausea for sure, he is not have any chest pain he reports dizziness without any evidence for vertigo on exam we will trial scopolamine however is blood pressure on initial eval was slightly low, we will check orthostatics give fluids, make sure he is not dehydrated, he is otherwise well-appearing with a fairly benign abdominal exam did not feel further imaging such as CT abdomen and pelvis is indicated at this time, ECG without dysrhythmia or any changes to suspect underlying ACS or electrolyte derangements The other medications he takes his melatonin I told him this 1 has low risk for side effects And surely receiving as he reported vaccines he had an is a likelyr side effect he is experiencing as well He has been on Lovenox and warfarin for subtherapeutic INR has a PCP appointment coming up in next 6 days Multiple ED visits and so blood work from 02/23/2020 7th along with blood work today is reviewed and has been reassuring Differential Diagnosis Differential Diagnoses: The differential diagnosis associated with the presentation includes Admission/Observation Consideration of admission/observation: Escalation of care including admission/observation considered Lab Data 03/07/25 06:50 03/07/25 06:50 Labs: Lab Results 03/07/25 03/07/25 Range/Units 06:50 07:58 WBC 8.8 (4.8-10.8) X10*3/uL RBC 4.98 (4.60-5.80) X10*6/uL Hgb 15.6 (14.0-18.0) g/dl Hct 46.0 (42.0-52.0) % MCV 92.4 (80.0-98.0) fL MCH 31.3 (27.0-33.0) pg MCHC 33.9 (31.0-36.0) g/dl RDW 13.2 (11.0-16.0) % Plt Count 175 D (160-400) X10*3/uL MPV 11.4 (9.4-12.4) fL Immature Gran % (Auto) 0.2 (0.0-0.4) % Neut % (Auto) 65.9 (45-73) % Lymph % (Auto) 20.1 (20-40) % [place] % (Auto) 11.7 H (2-11) % Eos % (Auto) 1.9 (0-4) % Baso % (Auto) 0.2 (0-2) % Lymph # (Auto) 1.8 (1.2-4.9) X10*3/uL [place] # (Auto) 1.0 (0.1-1.2) X10*3/uL Eos # (Auto) 0.2 (0.0-0.4) X10*3/uL Baso # (Auto) 0.0 (0.0-0.2) X10*3/uL Abs Immat Gran (auto) 0.02 (0.00-0.03) X10*3/uL Absolute Neuts (auto) 5.8 (2.0-8.3) x10*3/uL Absolute Nucleated RBC 0.000 (0.0-0.012) X10*3/uL Nucleated RBC % (auto) 0.0 (0.0-0.2) /100WBC PT 46.9 H (11.2-13.5) SEC INR 4.0 H D (0.9-1.1) Sodium 140 (135-145) mmol/L Potassium 4.1 (3.3-5.1) mmol/L Chloride 110 H (96-108) mmol/L Carbon Dioxide 23 (22-29) mmol/L Anion Gap 11 L (12-20) BUN 14 (9-16) mg/dL Creatinine 1.01 (0.5-1.4) mg/dL Estim Creat Clear Calc 80.6 Estimated GFR > 60 Random Glucose 120 H (60-115) mg/dL Calcium 8.5 (8.4-10.2) mg/dL Total Bilirubin 0.4 (0.0-1.0) mg/dL AST 22 (5-37) U/L ALT 19 (0-40) U/L Alkaline Phosphatase 67 (39-117) U/L Troponin I High Sens 10.7 (<3.5-35.0) ng/L Total Protein 6.7 (6.5-8.0) g/dL Albumin 4.0 (3.5-5.0) g/dL Lipase 28 (8-78) U/L Discharge Plan Discharge Clinical Impression: Nausea Patient Disposition: Home, Self-Care Additional Instructions: Your INR is 4.0 your currently in therapeutic range, continue current regimen until you see your primary care physician on March 13 Stay well hydrated Your blood work is reassuring ECG unremarkable If you are having dental pain you can continue using penicillin VK just take it with food as it can upset your stomach Follow up with your PCP please Braden INR es de 4.0 y actualmente se encuentra dentro del rango terap?utico. Contin?e con el r?gimen actual hasta braden lyssa con el m?dico de cabecera el . Mant?ngase marvin hidratado. Soco an?lisis de samanta son normales. El electrocardiograma no mostr? alteraciones. Si tiene dolor dental, puede continuar tomando penicilina VK, carlos t?jose con alimentos, ya que puede causarle malestar estomacal. Por favor, avis un seguimiento con braden m?dico de cabecera. Prescriptions: No Action metoprolol succinate 50 mg tablet extended release 24 hr 50 mg PO DAILY melatonin 3 mg tablet 3 mg PO BEDTIME PRN (Reason: sleep) Qty: 30 0RF enoxaparin [Lovenox] 150 mg/mL syringe 135 mg subcut DAILY Qty: 10 0RF trazodone 50 mg tablet 50 mg PO BEDTIME Qty: 30 0RF penicillin V potassium 500 mg tablet 500 mg PO QID Qty: 27 0RF warfarin 5 mg tablet 5 mg PO DAILY Qty: 90 0RF Protocol: Dose Management Condition: Wednesday (Week One) Dose/Route: 7.5 mg Instruction: 1.5 x 5 mg tablets Condition: Wednesday Dose/Route: 7.5 mg Instruction: 1.5 x 5 mg tablets Condition: Wednesday Dose/Route: 7.5 mg Instruction: 1.5 x 5 mg tablets Condition: Wednesday Dose/Route: 5 mg Instruction: 1 x 5 mg tablet Condition: Dose/Route: 7.5 mg Instruction: 1.5 x 5 mg tablets Condition: Wednesday Dose/Route: 7.5 mg Instruction: 1.5 x 5 mg tablets Condition: Wednesday Dose/Route: 5 mg Instruction: 1 x 5 mg tablet Condition: Wednesday (Week Two) Dose/Route: 7.5 mg Instruction: 1.5 x 5 mg tablets Condition: Wednesday Dose/Route: 7.5 mg Instruction: 1.5 x 5 mg tablets Condition: Wednesday Dose/Route: 7.5 mg Instruction: 1.5 x 5 mg tablets Condition: Wednesday Dose/Route: 5 mg Instruction: 1 x 5 mg tablet Condition: Dose/Route: 7.5 mg Instruction: 1.5 x 5 mg tablets Condition: Wednesday Dose/Route: 7.5 mg Instruction: 1.5 x 5 mg tablets Condition: Wednesday Dose/Route: 5 mg Instruction: 1 x 5 mg tablet Protocol Text: Adjustment Start Date: Wednesday10/18/23 INR Value: 2.2 INR Date: 10/18/23 Recheck Date: 10/25/23 folic acid 1 mg tablet 1 mg PO DAILY Spiriva with HandiHaler 18 mcg capsule, w/inhalation device 1 cap inhalation DAILY albuterol sulfate 90 mcg/actuation HFA aerosol inhaler 2 puff inhalation Q4-6H PRN (Reason: shortness of breath or wheezing) 30 Days Qty: 1 3RF aspirin 81 mg tablet,delayed release (DR/EC) 81 mg PO DAILY Qty: 90 3RF cyanocobalamin (vitamin B-12) 1,000 mcg tablet 1,000 mcg PO QAM (DME) blood pressure test kit-large Kit See Rx Instructions .ROUTE DIRECTED Qty: 1 Rx Instructions: As directed rosuvastatin 5 mg tablet 5 mg PO DAILY losartan 25 mg tablet 12.5 mg PO DAILY Interventions: ED Discharge Assessment Last Done: 03/07/25 10:18 Discharge Date/Time: 03/07/25 10:20 Print Language: Greenlandic
[2025-03-07 07:03] LABS: MANUAL DIFF FLAG NO
[2025-03-07 07:07] LABS: Hematocrit 46.0 % (42.0-52.0); Hemoglobin 15.6 g/dl (14.0-18.0); Imm Gran Abs Auto 0.02 X10*3/uL (0.00-0.03); Imm Gran Pct Auto 0.2 % (0.0-0.4); Lymphocytes Absolute Auto 1.8 X10*3/uL (1.2-4.9); Mean Corpuscular HGB Conc 33.9 g/dl (31.0-36.0); Mean Corpuscular Hemoglobin 31.3 pg (27.0-33.0); Mean Corpuscular Volume 92.4 fL (80.0-98.0); NRBC Abs Auto 0.000 X10*3/uL (0.0-0.012); NRBC Pct Auto 0.0 /100WBC (0.0-0.2); Platelet Count 175 X10*3/uL (160-400); Red Blood Count 4.98 X10*6/uL (4.60-5.80); White Blood Count 8.8 X10*3/uL (4.8-10.8)
[2025-03-07 07:29] LABS: Alanine Aminotransferase 19 U/L (0-40); Albumin Level 4.0 g/dL (3.5-5.0); Alkaline Phosphatase 67 U/L (39-117); Anion Gap 11 (12-20); Aspartate Amino Transferase 22 U/L (5-37); Blood Urea Nitrogen 14 mg/dL (9-16); Calcium 8.5 mg/dL (8.4-10.2); Carbon Dioxide 23 mmol/L (22-29); Chloride 110 mmol/L (96-108); Creatinine Clr Calc Pharmacy 80.6; Estimated Glomerular Filt Rate > 60; Potassium 4.1 mmol/L (3.3-5.1); Sodium 140 mmol/L (135-145); Total Protein 6.7 g/dL (6.5-8.0)
[2025-03-07 07:37] LABS: Troponin-I High Sensitivity 10.7 ng/L (<3.5-35.0)
--- OUTSIDE RECORDS SUMMARY | 2025-03-07 07:55 | XMS_ITS | Encounter Summary ---
Author Organization [employer] Address [address] [place] [address] Care Team Providers Care Helper Chicken Farm Name Role Phone Ana Paula Davidson MD Primary Care Provider [phone] Encounter Details Date Type Department Care Team (Late st Contact Info) Description 03/05/[address] [facility] [address] [place] [address] Verna Moralez MA Social History Tobacco Use Types Packs/Day Years [...] encounter Miscellaneous Notes * Telephone Encounter - Verna Moralez MA - 03/05/2025 11:34 AM EST Chart Prep Labs: done Images: not applicable Referrals: autrhorized Vaccines due: Covid, Flu, PCV20, Tdap, and RSV Screenings: colonoscopy Overdue care gaps: Not applicable documented in this encounter Plan of Treatment Upcoming Encounters Date Type Department Care Team (Latest Contact Info) Description 03/13/2025 11:00 AM EST Anticoagulation - Warfarin Visit [facility] [address] [place] [address] documented as of this encounter Visit Diagnoses Not on filedocumented in this encounter Additional Health Concerns Assessment Noted Time PHQ-9 Depression Total Score: 0 09/15/19 25 9:12 AM EDT documented as of this encounter Care Teams Helper [employer] Farm Relationship Specialty Start Date End Date Ana Paula Davidson MD [address] [place] [address] PCP - General Family Medicine 05/03/18 documented as of this encounter
--- OUTSIDE RECORDS SUMMARY | 2025-03-07 07:55 | XMS_ITS | Encounter Summary ---
Author Organization [employer] Address [address] [place] [address] Care Team Providers Care Web Content Specialist Name Role Phone Ana Paula Davidson MD Primary Care Provider [phone] Encounter Details Date Type Department Care Team (Latest Contact Info) Description 03/05/2025 Travel Social History Tobacco Use Types Packs/Day [...] 11:00 AM EST Anticoagulation - Warfarin Visit [facility] [address] [place] [address] documented as of this encounter Visit Diagnoses Not on filedocumented in this encounter Additional Health Concerns Assessment Noted Time PHQ-9 Depression Total Score: 0 09/15/19 25 9:12 AM EDT documented as of this encounter Care Teams Web Content Specialist Relationship Specialty Start Date End Date Ana Paula Davidson MD [address] [place] [address] PCP - General Family Medicine 05/03/18 documented as of this encounter
--- OUTSIDE RECORDS SUMMARY | 2025-03-07 07:55 | XMS_ITS | Encounter Summary ---
Author Organization [employer] Address [address] [place] [address] Care Team Providers Care Venetian Blind Installer Name Role Phone Ana Paula Davidson MD Primary Care Provider [phone] Reason for Visit * Reason Onset Date Comments Durable Medical Equipment 03/06/2025 Encounter Details Date Type Department Care Team (Late st Contact Info) Description 03/06/2025 Telephone [facility] [address] [place], [place] [phone] Heavenly [place], RN [address] [place], [place] [phone] Durable Medical Equipment Social History Tobacco Use Types Packs/Day Years [...] encounter Miscellaneous Notes * Telephone Encounter - Heavenly Bay RN - 03/06/2025 10:26 AM EST Pt needs home INR machine. Okay per PCP. documented in this encounter Plan of Treatment Upcoming Encounters Date Type Department Care Team (Latest Contact Info) Description 03/13/2025 11:00 AM EST Anticoagulation - Warfarin Visit [facility] [address] [place] [address] documented as of this encounter Visit Diagnoses Not on filedocumented in this encounter Additional Health Concerns Assessment Noted Time PHQ-9 Depression Total Score: 0 09/15/19 25 9:12 AM EDT documented as of this encounter Care Teams Venetian Blind Installer Relationship Specialty Start Date End Date Ana Paula Davidson MD [address] [place] [address] PCP - General Family Medicine 05/03/18 documented as of this encounter
--- OUTSIDE RECORDS SUMMARY | 2025-03-07 07:55 | XMS_ITS | Clinical Summary ---
Author Organization [employer] Address [address] [facility] [address] [place] [address] Care Team Providers Care Regional Liaison Name Role Phone Ana Paula Davidson MD Primary Care Provider [phone] Allergies No known active allergies Medications nicotine (Nicoderm, Step 1) 21 MG/24HR patch PLACE 1 PATCH ON THE SKIN EVERY DAY 07/16/19 22 Active torsemide (Demadex) 10 MG tablet Take 1 tablet (10 mg) by mouth Once per day. 90 tablet 3 09/30/19 24 Active Aspirin Low Dose 81 MG EC tabletIndication s:HFrEF (heart failure with reduced ejection fraction) ([facility]) Take 1 tablet (81 mg) by mouth [...] mouth at bedtime. 30 tablet 1 02/27/20 25 Active metoprolol succinate XL (Toprol XL) 50 MG 24 hr tabletIndication s:Subtherapeutic international normalized ratio (INR) Take 1 tablet (50 mg) by mouth Once per day. Do not crush or chew. 30 tablet 11 02/27/20 026 Active warfarin (Coumadin) 5 MG tabletIndication [...] Ivory RN Problem Noted Date Diagnosed Date Generalized anxiety disorder 03/07/2025 Assessment & Plan (03/07/2025 6:33 AM EST): - partly due to his medical conditions - optimize chronic disease management - consider hydroxyzine, or even BZD, if it is adversely affecting his chronic disease management Smoking greater than 40 pack years 03/06/2025 Primary insomnia 02/26/2025 Assessment & Plan (02/26/2025 3:57 PM EDT): Sleep hygiene counseling done C/w trazodone 50mg at bed time Cardiomyopathy 01/23/2023 Assessment & Plan (03/07/2025 6:30 AM EST): - Metal Stamper: [facility], last seen in Jan 2023 - advised to reschedule appt; pt has a difficulty scheduling appt due to language barrier. Will refer to case management team Assessment & Plan (01/23/2023 6:48 AM EDT): - Metal Stamper: [facility], last seen by Cristy in August 2021 - advised to reschedule appt; pt has a difficulty scheduling appt due to language barrier. Will refer to case management team HFrEF (heart failure with reduced ejection fract ion) 01/23/2023 Assessment & Plan (03/06/2025 4:30 PM EST): - Metal Stamper: [facility], last seen in Jan 2023 - Last TTE [facility] 2021 LVEF 25-30% - Refer back so that he can update echo and stress test - Resume metoprolol, losartan, rosuvastatin, and ASA - Continue working on modifiable risk factor management Assessment & Plan (09/15/2024 6:20 AM EDT): - Metal Stamper: [facility], last seen in Jan 2023 - Last TTE [facility] 2021 LVEF 25-30% - Refer back so that he can update echo and stress test - Resume metoprolol, losartan, rosuvastatin, and ASA - Continue working on modifiable risk factor management Assessment & Plan (02/05/2023 6:18 AM EDT): - Metal Stamper: [facility] - Last TTE [facility] 2021 LVEF 25-30% - continue metoprolol - changing lisinopril to losartan (pt has cough although likely COPD) - changing furosemide to torsemide for long-acting - 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 History of aortic aneurysm repair 01/23/2023 LBBB [...] missed all the appointments - refer again Depression 05/26/2022 Assessment & Plan (03/07/2025 6:34 AM EST): - PHQ9 score 0 in August 2024 - He [place] he belongs to [place], and both his mental and physical health improved after [place] returned [place]. [place] is planning to move there to maintain his health and well-being. We agreed to optimize his health before he moves back. - Continue trazodone Assessment & Plan (09/15/2024 6:33 AM EDT): - PHQ9 score 0 - He states he belongs [place], and both his mental and physical health improved after he returned [place]. He is planning to move there to maintain his health and well-being. We agreed to optimize his health before he moves back. Anticoagulated on warfarin 05/26/2022 Assessment & Plan (03/07/2025 6:30 AM EST): - indication: mechanical aortic valve - previous [...] figure out the optimal dosage. Our long-term goal is to have patient use a self-monitoring device. We will need to have a good education on dosing and good communication between us. Assessment & Plan (09/15/2024 6:23 AM EDT): -indication: Aortic valve repair -previous dose 49.5 mg / wk -restart at 5 mg daily and recheck in 1 week; will follow at our clinic for patient's convenience Assessment & Plan (02/04/2023 12:56 PM EDT): -indication: Aortic valve repair -continue treatment plan per [facility] anticoagulation clinic Assessment & Plan (01/23/2023 6:21 AM EDT): -indication: Aortic valve repair -continue treatment plan per [facility] anticoagulation clinic Assessment & Plan (05/31/2022 6:21 AM EST): -indication: Aortic valve repair -continue treatment plan per [facility] anticoagulation clinic Tobacco use disorder 05/26/2022 Assessment & Plan (03/06/2025 4:34 PM EST): Currently smokes 15-20 cigarettes a day - continue working on smoking cessation - previously following with Dr. Kirk at [facility] - last CT in October 2023 Lung RADS 2 - check the status of lung cancer screening CT and appt Assessment & Plan (09/15/2024 6:35 AM EDT): Currently smokes 15-20 cigarettes a day - continue working on smoking cessation - previously following with Dr. Kirk at [facility] in October 2023 Lung RADS 2 - check the status of lung cancer screening CT and appt Assessment & Plan (02/04/2023 12:55 PM EDT): Currently smokes 15 cigarettes a day - continue working on smoking cessation - following with Dr. Kirk at [facility] in 2021 - check the status of lung cancer screening CT and appt Assessment & Plan (01/23/2023 6:41 AM EDT): - continue working on smoking cessation - following with Dr. Kirk at [facility] 2021 - check the status of lung cancer screening CT and appt Assessment & Plan (05/31/2022 6:25 AM EST): - continue working on smoking cessation - check the status of lung cancer screening CT and appt History of rib fracture 05/26/2022 Chronic obstructive lung disease 11/09/2016 Assessment & Plan (03/07/2025 6:34 AM EST): -Last COPD exacerbation in Jun 2018, treated with azithromycin and prednisone -Last seen by advertising intern on 07/29/21, prescribed fluticasone / umeclidinium / vilanterol (Trelegy). He had not been using. -Restart Trelegy -Restart Albuterol as rescue -Work on smoking cessation. -Will request lung cancer screening program for his next appointment. -Refer back to advertising intern Assessment & Plan (09/15/2024 6:34 AM EDT): -Last COPD exacerbation in Jun 2018, treated with azithromycin and prednisone -Last seen by advertising intern on 07/29/21, prescribed fluticasone / umeclidinium / vilanterol (Trelegy). He had not been using. -Restart Trelegy -Restart Albuterol as rescue -Work on smoking cessation. -Will request lung cancer screening program for his next appointment. Assessment & Plan (02/04/2023 12:56 PM EDT): -Last COPD exacerbation in Jun 2018, treated with azithromycin and prednisone -Last seen by advertising intern on 07/29/21, prescribed Trelegy -Continue Trelegy -Continue Albuterol as rescue -Work on smoking cessation. -Advised to reschedule appt Assessment & Plan (01/23/2023 6:49 AM EDT): -Last COPD exacerbation in Jun 2018, treated with azithromycin and prednisone -Last seen by advertising intern on 07/29/21, prescribed Trelegy -Continue Trelegy -Continue Albuterol as rescue -Work on smoking cessation. -Advised to reschedule appt Assessment & Plan (05/31/2022 6:17 AM EST): -Last seen by advertising intern on 07/29/21 -Corporate Communications Associate prescribed Trelegy but patient did not receive yet. Will prescribe today -Continue Albuterol as rescue -Work on smoking cessation. -Last COPD exacerbation in Jun 2018, treated with azithromycin and prednisone Allergic rhinitis 08/27/2014 Atopic conjunctivitis 08/27/2014 Vitamin B12 deficiency 01/27/2012 Dyslipidemia 01/27/2012 Assessment & Plan (03/07/2025 6:29 AM EST): - 09/14/24 TC 147; TG 107; HDL 39; LDL 87 - current medication: Rosuvastatin 5 mg at bedtime, consider increasing its dose - previously on simvastatin - work on lifestyle modifications Assessment & Plan (09/15/2024 2:12 AM EDT): [...] artificial heart valve 01/27/2012 Assessment & Plan (03/07/2025 6:28 AM EST): -continue warfarin -Previously followed by [facility] anti-coagulation clinic -Hx poor adherence to INR check and mediation -discussed about the importance of medication adherence and monitoring INR -Needs SBE prophylaxis for procedure -Will try to get a self-monitoring INF device Assessment & Plan (02/26/2025 3:56 PM EDT): [...] had been on warfarin -Previously followed by [facility] anti-coagulation clinic -Hx poor adherence to INR check and mediation -discussed about the importance of medication adherence and monitoring INR -Needs SBE prophylaxis for procedure -Restart warfarin 5 mg daily. Recheck in 1 week. Assessment & Plan (02/05/2023 6:18 AM EDT): -Patient is on warfarin -followed by [facility] anti-coagulation clinic -Hx poor adherence to INR check and mediation -discussed about the importance of medication adherence and monitoring INR Assessment & Plan (01/23/2023 6:18 AM EDT): -Patient is on warfarin -followed by [facility] anti-coagulation clinic -Hx poor adherence to INR check and mediation -discussed about the importance of medication adherence and monitoring INR Assessment & Plan (05/31/2022 6:20 AM EST): -Patient is on warfarin -followed by [facility] anti-coagulation clinic -Hx poor adherence to INR check and mediation -improving adherence Hypertension 01/27/2012 Assessment & Plan (03/07/2025 6:27 AM EST): -Goal BP < 130/80 per ACC/AHA guideline [...] adherence. - Continue checking BP at home Assessment & Plan (09/15/2024 6:17 AM EDT): [...] -Continue checking BP at home -Referred to [facility] again -Follow up in 3-4 mo or [...] -Continue checking BP at home -Refer to [facility] again Assessment & Plan (05/31/2022 6:19 AM EST): -Goal BP < 140/90 per JNC-8 and < 130/80 per ACC/AHA guideline -2nd measurement was normal -Continue metoprolol succinate 50 mg daily -Continue lisinopril 10 mg daily -Risk factors: tobacco, peripheral vascular disease -Continue working on lifestyle modification and medication adherence. -Continue checking BP at home -Refer to [facility] Obesity 01/27/2012 Resolved Problems Problem Noted Date Diagnosed Date Resolved Date Subtherapeutic international normalized ratio (INR) 02/26/2025 03/06/2025 Assessment & Plan (02/26/2025 3:57 PM EDT): I will prescribe for patient coumadin 5 mg daily, he needs to continue with levonox, I will recheck his INR today I will contact his [facility] for them to go and check his INR at home, his goal is 2.5-3.5 I also advise patient not to miss his appointment with PCP and cardiology Insomnia 05/26/2022 09/15/2024 Anticoagulation goal of INR 2.5 to 3.5 05/26/2022 03/06/2025 Overview (05/26/2022): Patient has not been adherent to INR and coumadin check Assessment & Plan (03/06/2025 12:30 PM EST): - mechanical aortic valve - previous goal [...] , and recheck on Wednesday on 03/13/2025 Encounters Date Type Department Care Team Description 03/06/2025 9:30 AM EST Office Visit [facility] [address] [place] [address] [phone] Ana Paula Davidson MD Primary hypertension (Primary Dx); Encounter for vaccination; Encounter for immunization; Dyspnea, unspecified type; Sleep disturbance; Tobacco use disorder; Smoking greater than 40 pack years; LBBB (left bundle branch block); History of artificial heart valve; History of aortic aneurysm repair; HFrEF (heart failure with reduced ejection fraction) (HCC); Cardiomyopathy, unspecified type (CMS/HCC) ([facility]); Anticoagulation goal of INR 2.5 to 3.5; Anticoagulated on warfarin; Dyslipidemia; Generalized anxiety disorder; Current moderate episode of major depressive disorder, unspecified whether recurrent (CMS/HCC) ([facility]); Chronic obstructive pulmonary disease with emphysema, unspecified emphysema type ([facility]) 03/06/[address] [phone] Heavenly Bay RN Durable Medical Equipment 03/06/2025 Travel 03/05/2025 11:00 AM EST Anticoagulation - Warfarin Visit [address] [address] Cielo Frederick RN Subtherapeutic international normalized ratio (INR) 03/05/[address] [facility] [address] [place] [phone] Verna Moralez [place] 03/05/2025 Travel 03/02/2025 11:00 AM EDT Clinical Support [address] [address] Valarie Torres RN Subtherapeutic international normalized ratio (INR) 03/02/2025 Travel 03/01/2025 10:00 AM EDT Clinical Support [address] [phone] Valarie Torres, ERLIN Subtherapeutic international normalized ratio (INR) 03/01/[address] [address] Ana Paula Davidson MD lNR orders 03/01/2025 Travel 02/28/2025 2:30 PM EDT Clinical Support [address] [address] Valarie Torres, ERLIN Subtherapeutic international normalized ratio (INR) 02/28/2025 Travel 02/27/2025 Patient Outreach [address] [address] Ana Paula Davidson MD Pre-visit Planning ([facility] screening was completed on 09/14/2024) 02/27/2025 Results Follow-Up [address] [address] Ana Paula Davidson MD CBC auto differential, Comprehensive Metabolic Panel, Magnesium, Prothrombin Time-INR 02/26/2025 1:00 PM EDT Office Visit [address] [address] Sammie Gibson MD History of artificial heart valve; Primary insomnia; Subtherapeutic international normalized ratio (INR) 02/26/2025 Orders Only GENERIC EXTERNAL DATA DEPARTMENT Provider, Generic External Data 02/26/[address] [address] Christy Montejo RN VNA communication 02/26/2025 Travel 02/23/2025 Patient Outreach [address] [address] Ana Paula Davidson MD Transition Of Care (Tcm) (HDF unscheduled) 02/22/[address] [address] Ana Paula Davidson MD fyi from Last 3 Months Immunizations Immunization Administration Dates Next Due Influenza injectable quadriv alent IIV4 with preservative 01/25/2018,03/10/2016 Influenza injectable quadriv alent preservative free 01/19/2023,02/12/2022,03/05/2021,01/29,01/10/2020,05/01/2019,01/08/2017 Influenza, High Dose Seasona l, Preservative Free 03/06/2025 Influenza, IIV3, injectable 02/26/2014,0 01/28/2010,02/06/2009,02/06,02/01/2007,04/14/2006,02/12/2003 ,03/19/2000 Influenza, Split (incl. rodrigo fied surface antigen) 01/03/2013,01/27/2012 Moderna Covid-19 Vaccine 12+ 03/26/2021,09/18/19 21,08/20/2020 Pfizer Covid-19 Vaccine 12+ 03/06/2025 Pneumococcal Conjugate PCV 20 03/06/2025 Pneumococcal Polysaccharide PPSV23 12/20/2012, TD (adult), 2 Lf tetanus tox oid, preservative free, adsorbed 09/12/2008 Tdap 03/06/2025,07/31/2011 Social History Tobacco Use Types Packs/Day Years [...] Mass Index 29.15 03/06/2025 9:25 AM EST Plan of Treatment Upcoming Encounters Date Type Department Care Team (Latest Contact Info) Description 03/13/2025 11:00 AM EST Anticoagulation - Warfarin Visit [facility] [address] [place] [phone] Health Maintenance Due Date Last Done Comments CT Colonography 1959 Colonoscopy 1959 Colorectal Cancer Screening 1959 Dental Oral Exam 1959 Dental Prophylaxis 1959 Dental X-Ray: Bitewings 1959 FIT DNA/Cologuard 1959 FIT 1959 FOBT 1959 Sigmoidoscopy 1959 Zoster Vaccines (1 of 2) 2009 Dental X-Ray: Full Mouth 12/21/2011 12/19/2008 RSV Patients and Patients Aged 60 years or older (1 - Risk 60-74 years 1-dose series) 2019 Lung Cancer Screening 10/14/2024 10/15/2023 COVID-19 Vaccine ( season) 2025 03/06/2025, 03/26/2021, 09/17/2020, Additional history exists Alcohol/Substance Use Screening 09/14/2025 09/14/2024 Depression Screening 09/14/2025 09/14/2024, 09/15/19 25 SDOH Screening 09/14/2025 09/14/2024 Tobacco Screening 03/07/2026 03/07/2025 Lipid Panel 09/14/2029 09/14/2024, 01/02, 02/01/2020, Additional history exists DTaP/Tdap/Td Vaccines (3 - Td or Tdap) 03/06/2035 03/06/2025, 07/31/2011, 09/12/2008 Hepatitis C Screening Completed 05/17/2019 Influenza Vaccine Completed 03/06/2025, , 02/12/2022, Additional history exists Pneumococcal Vaccine: 50+ Years Completed 03/06/2025, 12/20/2012, 12/20/2007 HIB Vaccines Aged Out No longer eligi [...] Procedure Name Priority Date/Time Associated Diagnosis Comments HIGH SENSITIVITY TROPONIN I Routine 03/07/2025 6:50 AM EST COMPREHENSIVE METABOLIC PANEL Routine 03/07/2025 6:50 AM EST CBC WITH AUTO DIFFERENTIAL Routine 03/07/2025 6:50 AM EST POCT INR Routine 03/06/2025 10:24 AM EST Primary hypertension Encounter for vaccination Encounter for immunization POCT INR Routine 03/05/2025 11:13 AM EST Subtherapeutic international normalized ratio (INR) COVID-19 ID NOW (SAENZ) Routine 03/05/2025 1:10 AM EST INFLUENZA A B2 ID NOW (SAENZ) Routine 03/05/2025 1:10 AM EST STREP A NUCLEIC ACID Routine 03/05/2025 1:10 AM EST POCT INR Routine 03/02/2025 11:30 AM EDT [...] Recently Relevant to Health Maintenance Results * High Sensitivity Troponin I (03/07/2025 6:50 AM EST) TROPONIN I HIGH SENSITIVITY 10.7 <3.5 - 35.0 ng/L [facility] Comment:The Saenz high sens itivity Troponin-I results should beused in conjunction with other diagnostic information suchas ECG, clinical observations and information, and patientsymptoms to aid in the diagnosis of [place]. 03/07/2025 6:50 AM EST 03/07/2025 7:02 AM EST us Generic External Data Provider LAB BLOOD ORDERAB LES Final Result [facility] [address] [place] [phone] * (ABNORMAL) CBC auto differential (03/07/2025 6:50 AM EST) Only the most recent of2 resultswithin the time period is included. White Blood Count 8.8 4.8 - 10.8 X10*3/uL [facility] Red Blood Count 4.98 4.60 - 5.80 X10*6/uL [facility] Hemoglobin 15.6 14.0 - 18.0 g/dl [facility] Hematocrit 46.0 42.0 - 52.0 % [facility] Mean Corpuscular Volume 92.4 80.0 - 98.0 fL [facility] Mean Corpuscular Hemoglobin 31.3 27.0 - 33.0 pg [facility] Mean Corpuscular HGB Conc 33.9 31.0 - 36.0 g/dl [facility] Red Cell Distribution Width 13.2 11.0 - 16.0 % [facility] Platelet Count 175 160 - 400 X10*3/uL [facility] Mean Platelet Volume 11.4 9.4 - 12.4 fL [facility] Neutrophils Percent Auto 65.9 45 - 73 % [facility] Imm Gran Pct Auto 0.2 0.0 - 0.4 % [facility] Lymphocytes Percent Auto 20.1 20 - 40 % [facility] Monocytes Percent Auto 11.7(H) 2 - 11 % [facility] Eosinophils Percent Auto 1.9 0 - 4 % [facility] Basophils Percent Auto 0.2 0 - 2 % [facility] NRBC Pct Auto 0.0 0.0 - 0.2 /100WBC [facility] Neutrophils Absolute Auto 5.8 2.0 - 8.3 x10*3/uL [facility] Imm Gran Abs Auto 0.02 0.00 - 0.03 X10*3/uL [facility] Lymphocytes Absolute Auto 1.8 1.2 - 4.9 X10*3/uL [facility] Monocytes Absolute Auto 1.0 0.1 - 1.2 X10*3/uL [facility] Eosinophils Absolute Auto 0.2 0.0 - 0.4 X10*3/uL [facility] Basophils Absolute Auto 0.0 0.0 - 0.2 X10*3/uL [facility] NRBC Abs Auto 0.000 0.0 - 0.012 X10*3/uL [facility] 03/07/2025 6:50 AM EST 03/07/2025 7:02 AM EST us Generic External Data Provider LAB BLOOD ORDERAB LES Final Result [facility] [address] [place] [phone] * (ABNORMAL) Comprehensive Metabolic Panel (03/07/2025 6:50 AM EST) Only the most recent of2 resultswithin the time period is included. Sodium 140 135 - 145 mmol/L [facility] Potassium 4.1 3.3 - 5.1 mmol/L [facility] Chloride 110(H) 96 - 108 mmol/L [facility] Carbon Dioxide 23 22 - 29 mmol/L [facility] Anion Gap 11(L) 12 - 20 [facility] Urea Nitrogen (BUN) 14 9 - 16 mg/dL [facility] Creatinine, Serum 1.01 0.5 - 1.4 mg/dL [facility] Creatinine Clr Calc Pharmacy 80.6 [facility] Comment:eGFR (calculated fro m the MDRD study equation) and eCrCl(calculated from the Cockcroft-Gault equation) are based ondifferent parameters and may not yield comparable results.If eCrCl result is absurd, please check patient'sheight/weight. Estimated Glomerular Filt Rate >60 [facility] Comment:Chronic Kidney Disea se: Estimated GFR < 60 mL/min/1.73f1Acukbc Kidney Disease: Estimated GFR < 15 mL/min/1.73m2 Glucose 120(H) 60 - 115 mg/dL [facility] Calcium 8.5 8.4 - 10.2 mg/dL [facility] Bilirubin, Total 0.4 0.0 - 1.0 mg/dL [facility] Aspartate Amino Transferase 22 5 - 37 U/L [facility] Alanine Aminotransferase 19 0 - 40 U/L [facility] Total Protein 6.7 6.5 - 8.0 g/dL [facility] Albumin Level 4.0 3.5 - 5.0 g/dL [facility] Alkaline Phosphatase 67 39 - 117 U/L [facility] 03/07/2025 6:50 AM EST 03/07/2025 7:02 AM EST us Generic External Data Provider LAB BLOOD ORDERAB LES Final Result [facility] [address] [place] [phone] * (ABNORMAL) POCT INR manually resulted (03/06/2025 10:24 AM EST) Only the most recent of5 resultswithin the time period is included. Protime INR 3.8(H) 2.5 - 3.5 Blood Capillary blood specimen / Unknown 03/06/2025 10:24 AM EST us Ana Paula Davidson MD POINT OF CARE TEST ENTER/EDIT OR DERABLES Final Result * Influenza A B2 ID NOW (Saenz) (03/05/2025 1:10 AM EST) IDNOW SERIAL# [id number] [facility] Influenza A Negative Negative [facility] Influenza B2 Negative Negative [facility] Influenza A B2 Note See Note [facility] Comment:The Saenz ID NOW In fluenza A B2 test is used for thequalitative detection of influenza A and B from patientswith signs and symptoms of respiratory infection.Negative results do not preclude influenza virus infectionand should not be used as the sole basis for diagnosis,treatment or other patient management decisions.There is a risk of false negative results due to thepresence of variants in the viral targets of the assay, lowlevels of virus in the specimen and co- infection withRespiratory Syncytial Virus. 03/05/2025 1:10 AM EST 03/05/2025 1:24 AM EST Generic External Data Provider LAB MICROBIOLOGY - GENERAL ORDERABLES Final Result Performing Organization Address [facility] de Phone Number [facility] [address] [place] [phone] * Strep A Nucleic Acid (03/05/2025 1:10 AM EST) IDNOW SERIAL# [id number] [facility] Strep A Nucleic Acid Negative Negative [facility] Comment:All test results mus t be correlated with clinical findings.This test has not been evaluated for monitoring treatment ofinfection.Additional follow-up testing using the culture method isrequired if the result is negative and clinical symptomspersist, or in the event of an acute rheumatic feveroutbreak. 03/05/2025 1:10 AM EST 03/05/2025 1:24 AM EST Generic External Data Provider LAB MICROBIOLOGY - GENERAL ORDERABLES Final Result Performing Organization Address [facility] Co de Phone Number [facility] [address] [place] [phone] * COVID-19 ID NOW (SAENZ) (03/05/2025 1:10 AM EST) IDNOW SERIAL# [id number] [facility] COVID-19 TEST Negative Negative [facility] COVID-19 NOTE See Note [facility] Comment: Results are for the identification of SARS-CoV2 RNA. TheSARS-CoV2 RNA is generally detectable in respiratory samplesduring the acute phase of infection. Positive results areindicative of the presence of SARS-CoV-2 RNA; clinicalcorrelation with patient history and other diagnosticinformation is necessary to determine patient infectionstatus. Positive results do not rule out bacterial infectionor co- infection with other viruses.Testing facilities within the [facility] and [facility] are required to report all positive results tothe appropriate public health authorities.Negative results should be treated as presumptive and, ifinconsistent with clinical signs and symptoms or necessaryfor patient management, should be tested with differentauthorized or cleared molecular tests. Negative results donot preclude SARS-CoV2 RNA infection and should not be usedas the sole basis for patient management decisions. Negativeresults should be considered in the context of a patient'srecent exposures, history and the presence of clinical signsand symptoms consistent with COVID-19.This test has been authorized by the FDA under an EmergencyUse Authorization (EUA) for use by authorized laboratories.Testing performed on the [facility] NOW utilizing NAAT. 03/05/2025 1:10 AM EST 03/05/2025 1:24 AM EST us Generic External Data Provider LAB MOLECULAR NORM GNOSTICS ORDERABLES Final Result [facility] [address] [place] [phone] * ECG 12 lead (02/27/2025 9:27 AM EDT) Narrative Sammie Gibson MD - 02/27/2025 9:27 AM EDT NSR HR 76 PVCs, intra-atrial conduction delay , LBBB us Sammie Pedro MD ECG ORDERABLES Final Result * Prothrombin Time-INR (02/26/2025 10:47 PM EDT) Pathologist [facility] [place] Prothrombin Time 12.0 10.9 - 12.4 SEC [facility] INTERNATIONAL NORM RATIO 1.0 0.9 - 1.1 [facility] Comment:INTERNATIONAL NORMAL IZED RATIO (INR) REFERENCE [...] ORDERAB LES Final Result Performing Organization Address [facility] Co fl Phone Number [facility] [address] [place] [phone] * Magnesium (02/26/2025 10:47 PM EDT) [facility] Magnesium 1.9 1.6 - 2.6 mg/dL [facility] 02/26/2025 10:4 7 PM EDT 02/26/2025 10:50 PM EDT Generic External Data Provider LAB BLOOD ORDERAB LES Final Result Performing Organization Address [facility] de Phone Number [facility] [address] [place] [phone] * (ABNORMAL) Lipid Panel with Reflex to Direct LDL (09/14/2024 10:00 AM EDT) [facility] Triglycerides 107 <150 mg/dL [facility] Comment:Desirable Triglyceri de: less than 150 mg/dLBorderline High Triglyceride 150-199 mg/dLHigh Triglyceride: 200-499 mg/dLVery High Triglyceride: greater than or equal to 5OO mg/dL Cholesterol 147 <200 mg/dL [facility] Comment:Desirable Cholestero l: less than 200 mg/dLBorderline High Cholesterol: 200-239 mg/dLHigh Cholesterol: greater than 239 mg/dL LDL Cholesterol Calculated 87 <100 mg/dL [facility] Comment:Desirable LDL: less than 100 mg/dLNear Optimal/Above Optimal LDL: 110- 129 mg/dLBorderline High LDL: 130-159 mg/dLHigh LDL: 160-189 mg/dLVery High LDL: greater than or equal to 190 mg/dL HDL Cholesterol 39(L) >40 mg/dL [facility] Comment:Desirable HDL: great er than 40 mg/dL Note: This HDL assay may give artificially low results in patients with liver disease. Blood 09/14/2024 10:0 0 AM EDT 09/14/2024 11:32 AM EDT us Ana Paula Davidson MD LAB BLOOD ORDERABLES Final Resul t Performing Organization Address City/State/[facility] Co de Phone Number [facility] [address] [place] [phone] [phone] * CT Lung Screening Low dose (10/15/2023 10:41 AM EDT) Anatomical Region Laterality Modality Lung Computed Tomogra phy 10/15/2023 10:4 1 AM EDT Narrative 11/05/2023 2:57 PM EDT [place] [address] CT Scan Report Signed Patient: Michael Ramírez R#: [id number] : 1960 Acct:[id number] Age/Sex: 63 / M ADM Date: 10/15/23 Loc: HO.CT Attending Dr: Priyanka Garcia NP Ordering Physician: Priyanka Garcia NP Date of Service: 10/15/23 Procedure(s): CT lung screening Accession Number(s): [id number] cc: Ana Paula Davidson MD; Priyanka Garcia [...] for CT CHEST LOW DOSE CANCER SCREENING ([id number]) can be placed. Dictated By: Epifanio Dumont MD Signed By: <Electronically signed by Epifanio Dumont MD in OV> 11/05/23 1453 DD/ 1041 TD/TT: Customer Service Analyst: SS Procedure Note Donotuseinterpreter, Image - 11/05/[address] [address] [address] Scan Report Signed Patient: Sin Ramírez R#: [id number] : 9Acct:[id number] Age/Sex: 63 / MADM Date: 10/15/23 Loc: HO.CT Attending Dr: Priyanka Garcia NP Ordering Physician: Priyanka Garcia NP Date of Service: 10/15/23 Procedure(s): CT lung screening Accession Number(s): [id number] cc: Ana Paula Davidson MD; Priyanka Garcia [...] for CT CHEST LOW DOSE CANCER SCREENING ([id number]) can be placed. Dictated By: Epifanio Dumont MD Signed By: <Electronically signed by Epifanio Dumont MD in OV> 11/05/23 1453 DD/ 1041 TD/TT: Customer Service Analyst: SS [facility] External Provider IMG CT PROCEDURES Final Result * HEPATITIS C ANTIBODY RFLX (05/17/2019 10:00 AM EST) HEPATITIS C ANTIBODY NONREACTIVE NONREACTIVE [facility] Comment: Antibodies to HCV not detected; does not exclude early acute HCV infection. 05/17/2019 10:0 0 AM EST Ana Paula Davidson MD HISTORICAL/NON ORDERABLE LABS Fi nal Result [facility] [address] from Last 3 Months or Most Recently Relevant to Health Maintenance [place] [address] [place] [address] STANDARD MEDICARE DENTAL-[facility] MEDICAID STAND ADULT Care Teams Regional Liaison Relationship Specialty Start Date End Date Ana Paula Davidson MD [address] [place] [address] PCP - General Family Medicine 05/03/18
--- OUTSIDE RECORDS SUMMARY | 2025-03-07 07:56 | XMS_ITS | Encounter Summary ---
Author Organization [employer] Address [address] [facility] [address] [place] [address] Care Team Providers Care Neon Electrician Name Role Phone Ana Paula Davidson MD Primary Care Provider [phone] Encounter Details Date Type Department Care Team (Late st Contact Info) Description 05/17/2022 Orders Only [facility] [address] [place] [phone] Ana Paula Davidson MD [address] [place] [phone] Primary hypertension (Primary Dx) Social History Tobacco [...] 11:00 AM EST Anticoagulation - Warfarin Visit [facility] [address] [place] [address] [phone] documented as of this encounter Visit Diagnoses Diagnosis Primary hypertension- Primary Unspecified essential hypertension documented in this encounter Care Teams Neon Electrician Relationship Specialty Start Date End Date Ana Paula Davidson MD [address] [place] [phone] PCP - General Family Medicine 05/03/18 documented as of this encounter
--- OUTSIDE RECORDS SUMMARY | 2025-03-07 07:56 | XMS_ITS | Encounter Summary ---
Author Organization [employer] Address [address] [facility] [address] [place] [address] Care Team Providers Care Inspector Floor Sub Assembly Name Role Phone Ana Paula Davidson MD Primary Care Provider [phone] Encounter Details Date Type Department Care Team [...] 11:00 AM EST Anticoagulation - Warfarin Visit [facility] [address] [place] [address] documented as of this encounter Visit Diagnoses Not on filedocumented in this encounter Additional Health Concerns Assessment Noted Time PHQ-9 Depression Total Score: 0 09/15/19 25 9:12 AM EDT documented as of this encounter Care Teams Inspector Floor Sub Assembly Relationship Specialty Start Date End Date Ana Paula Davidson MD [address] [place] [address] PCP - General Family Medicine 05/03/18 documented as of this encounter
--- OUTSIDE RECORDS SUMMARY | 2025-03-07 07:56 | XMS_ITS | Encounter Summary ---
Author Organization [employer] Address [address] [facility] 7[address] [place] [address] Care Team Providers Care Shoeblack Name Role Phone Ana Paula Davidson MD Primary Care Provider Reason for Visit * Reason Comments Med Refill Encounter Details Date Type Department Care Team (Late st Contact Info) Description 03/21/2024 Refill [facility] [address] [place], [place] [phone] Ana Paula Davidson MD [address] [place], [place] [phone] Social History Tobacco Use Types Packs/Day Years [...] 11:00 AM EST Anticoagulation - Warfarin Visit [facility] [address] [place] [address] documented as of this encounter Visit Diagnoses Not on filedocumented in this encounter Additional Health Concerns Assessment Noted Time PHQ-9 Depression Total Score: 0 01/20/20 23 10:16 AM EDT documented as of this encounter Care Teams Shoeblack Relationship Specialty Start Date End Date Ana Paula Davidson MD [address] [place] [address] PCP - General Family Medicine 05/03/18 documented as of this encounter
--- OUTSIDE RECORDS SUMMARY | 2025-03-07 07:56 | XMS_ITS | Encounter Summary ---
Author Organization [employer] Address [address] [facility] [address] [place] [address] Care Team Providers Care Bilingual Legal Assistant Name Role Phone Ana Paula Davidson MD Primary Care Provider [phone] Encounter Details Date Type Department Care Team (Latest Contact Info) Description 03/06/2025 Travel Social History Tobacco Use Types Packs/Day [...] 11:00 AM EST Anticoagulation - Warfarin Visit [facility] [address] [place] [address] documented as of this encounter Visit Diagnoses Not on filedocumented in this encounter Additional Health Concerns Assessment Noted Time PHQ-9 Depression Total Score: 0 09/15/19 25 9:12 AM EDT documented as of this encounter Care Teams Bilingual Legal Assistant Relationship Specialty Start Date End Date Ana Paula Davidson MD [address] [place] [address] PCP - General Family Medicine 05/03/18 documented as of this encounter
[2025-03-07 08:11] LABS: INTERNATIONAL NORM RATIO 4.0 (0.9-1.1); Prothrombin Time 46.9 SEC (11.2-13.5)
[2025-03-07 08:40] VITALS: BP 97/55; PULSE 65
[2025-03-07 08:43] VITALS: BP 101/62; BP 104/56; PULSE 68; TEMP 36.4
[2025-03-07 08:56] LABS: Lipase 28 U/L (8-78)
[2025-03-07 10:18] VITALS: BP 104/56; PULSE 68; RESP 16; TEMP 36.4
== END 2025-03-07 10:20 | disposition home or self-care (01) ==
PROVIDERS: Emergency Provider Emergency Medicine; PCP Family Medicine
DX: R11.0 Nausea (principal); R42 Dizziness and giddiness; R07.9 Chest pain, unspecified; I44.7 Left bundle-branch block, unspecified; I49.3 Ventricular premature depolarization; J44.9 Chronic obstructive pulmonary disease, unspecified; J43.9 Emphysema, unspecified; I50.20 Unspecified systolic (congestive) heart failure; Z95.2 Presence of prosthetic heart valve
CPT/HCPCS: 36415; 80053; 83690; 84484; 85025; 85610; 93005; 96360; 96361; 99284; J2405

== ENCOUNTER → 2025-03-07 06:51 | Outpatient (BNV) | payer MEDICARE, MEDICAID, SELFPAY | PROVIDERS: Emergency Provider Emergency Medicine; PCP Family Medicine; Visit Provider Internal Medicine Cardiovascular Disease | DX: I49.3 Ventricular premature depolarization (principal); I44.7 Left bundle-branch block, unspecified | CPT/HCPCS: 93010 ==